=== PATIENT | female | born 1930 | race Caucasian/White ===

== ENCOUNTER 2017-01-22 15:02 | Inpatient (IN) ==
[2017-01-22] MEDS ORDERED: ONDANSETRON 4 MG/2 ML INJECTION IVP ONE (15:25)
--- NOTE | 2017-01-22 15:26 | Emergency Department Report ---
General Adult HPI - General Chief complaint: Nausea/Vomiting/Diarrhea Stated complaint: flu like symptoms Time Seen by Provider: 01/22/17 15:15 Source: patient, family Mode of arrival: wheelchair Limitations: no limitations - History of Present Illness HPI narrative: 86-year-old female presents to the emergency department with a chief complaint of diarrhea and generalized weakness. Patient noted onset of symptoms approximately 3 days ago. She states she has had multiple episodes of watery diarrhea without blood each day. She denies any trauma, travel, poorly prepared food, or recent antibiotic use. Patient states she has chronic abdominal discomfort which is present at baseline. It is not changed in nature or characteristic. She has no other complaints or associated symptoms. She was at home when her symptoms began. Symptoms have been persistent in nature since onset. - Related Data Home Medications Medication Instructions Recorded Confirmed Calcium Carbonate/Vitamin D3 1 each PO NOON 09/12/16 01/22/17 [Calcium 600-Vit D3 800 Tablet] Carbidopa/Levodopa [Sinemet Cr 1 each PO NOON 09/12/16 01/22/17 25-100 Tablet] ClonazePAM [Klonopin] 0.5 mg PO HS 09/12/16 01/22/17 Donepezil HCl [Aricept] 10 mg PO HS 09/12/16 01/22/17 Furosemide [Lasix] 20 mg PO DAILY 09/12/16 01/22/17 Levothyroxine Sodium 75 mcg PO DAILY 09/12/16 01/22/17 Lutein 20 mg PO DAILY 09/12/16 01/22/17 Melatonin 5 mg PO HS 09/12/16 01/22/17 Metoprolol Succinate (XL) [Toprol 25 mg PO DAILY 09/12/16 01/22/17 Xl] Multivitamin [Multivitamins] 1 each PO DAILY 09/12/16 01/22/17 Omeprazole 20 mg PO DAILY 09/12/16 01/22/17 Potassium Chloride [K-Dur] 5 meq PO DAILY 09/12/16 01/22/17 Simvastatin [Zocor] 10 mg PO HS 09/12/16 01/22/17 Topiramate 25 mg PO NOON 09/12/16 01/22/17 Warfarin Sodium [Coumadin] 4 mg PO SUTUTHSA 09/12/16 01/22/17 Warfarin [Coumadin] 2.5 mg PO MOWEFR 09/12/16 01/22/17 Gabapentin 300 mg PO TID 01/08/17 01/22/17 Citalopram [Celexa] 20 mg PO NOON 01/22/17 01/22/17 Duloxetine [Cymbalta] 60 mg PO BID 01/22/17 01/22/17 Ondansetron [Zofran Odt] 4 mg PO Q6HR PRN 01/22/17 01/22/17 Sucralfate [Carafate] 1 gm PO BID 01/22/17 01/22/17 Previous Rx's Medication Instructions Recorded Hydrocodone/APAP 5/325 [[place] 1 tab PO Q6H PRN #12 tab 01/08/17 5/325] Allergies Allergy/AdvReac Type Severity Reaction Status Date / Time cephalexin Allergy Unknown Verified 01/22/17 15:46 propoxyphene Allergy Verified 01/22/17 15:46 [From Darvocet-N] Sulfa (Sulfonamide Allergy Hives Verified 01/22/17 15:46 Antibiotics) Tetanus Vaccines and Toxoid Allergy Verified 01/22/17 15:46 Review of Systems Constitutional: Reports: weakness (Generalized). Denies: fever, chills Eyes: Denies: eye pain, vision change ENT: Denies: ear pain, throat pain Cardiovascular: Denies: chest pain, palpitations Respiratory: Denies: cough, dyspnea Gastrointestinal: Reports: abdominal pain (chronic), diarrhea. Denies: nausea, vomiting Genitourinary: Denies: urgency, dysuria Musculoskeletal: Denies: back pain, arthralgia Integumentary: Denies: erythema, rash Neurological: Denies: headache, numbness Psychiatric: Denies: anxiety, depression Endocrine: Denies: fatigue, heat or cold intolerance Hematological/Lymphatic: Denies: easy bleeding, easy bruising Allergic/Immunologic: Denies: facial swelling, urticaria PFSH Patient Stated Medical History Dementia Yes Migraine Yes Parkinson's Disease Yes Cataracts Yes Macular Degeneration Yes Congestive Heart Failure Yes Hypertension Yes Gastroesophageal Reflux Yes Disease Hiatal Hernia Yes Hx Incontinence Yes Anemia Yes: receives iron infusions Depression Yes Clinic Medical History Diarrhea (Acute Medical) Weakness (Acute Medical) Dehydration (Acute Medical) Abdominal pain (Inactive Medical) Nausea (Inactive Medical) Surgical History: appendectomy. right mastectomy. pacemaker placement. right TKA. right ISSA. right shoulder surgery Family History: Reviewed and Non-contributory. - Social History Smoking status: Former smoker Substance use type: does not use Alcohol intake frequency: does not drink Physical Exam - Limitations Limitations: no limitations - General General appearance: alert, in no apparent distress - Normal Exams: Head:: Normocephalic without trauma Eyes:: Pupils are PERRLA w/ EOMI, No scleral icterus, irritation, or foreign bodies noted ENMT:: No facial trauma, nasal exudates, pharyngeal erythema, or exudates are noted Dental: No fractured, loose, or missing teeth noted Neck:: Full range of motion, without adenopathy, JVD, bruits or thyromegaly Chest/Respirations:: Clear all travis, with good airflow, and symmetry bilaterally Cardiovascular:: Regular rate and rhythm, without murmur or gallop, Pulses 2+ all extremities, capillary refill, <2 seconds all extremities Abdomen:: Bowel sounds positive, soft, non-tender, non-distended, no hepatosplenomegaly, masses or bruits noted (Rectal Exam - + hemorrhoid on exam. Hemorrhoid is noted to have scant amount of bright red blood on the actual hemorrhoid which is tender to palpation and nonthrombosed.) Lymphatic:: No lymphadenopathy, or lymphedema noted Musculoskeletal:: No tenderness, or deformity noted, good range of motion, all extremities Integumentary:: No rashes, hives, or bruising noted, hair and nails, without abnormality Neurological:: Patient is alert, and oriented, cranial nerves, motor/sensory/ cerebellar, exams w/o gross deficits, to observation Psychiatric:: Patient exhibits, appropriate attention, emotion and affect Course Vital Signs Temperature 97.9 F 01/22/17 15:05 Pulse Rate 73 01/22/17 15:05 Respiratory Rate 18 01/22/17 15:05 Blood Pressure 131/68 01/22/17 15:05 Pulse Oximetry 99 01/22/17 15:05 Temperature 97.8 F 01/23/17 12:00 Pulse Rate 73 01/23/17 12:00 Respiratory Rate 20 01/23/17 12:00 Blood Pressure 116/69 01/23/17 12:00 Pulse Oximetry 95 01/23/17 12:00 Medical Decision Making - [facility] Narrative Medical decision making narrative: Labs / imaging were discussed in detail with the patient and family and questions are answered. Patient is a do not resuscitate. Patient was given gentle IV hydration in the emergency department with antiemetic medication with improvement of symptoms. Patient has had multiple colonoscopies in the past without any acute findings. Patient was noted to have hemorrhoids on rectal exam with a trace of faint red blood from the non-thrombosed hemorrhoid. Patient is generally weak and dehydrated. Patient is discussed with Dr. Cardoza from the hospitalist service will be admitted to her service for hydration and monitoring of hemoglobin and hematocrit. There is no life-threatening bleed currently present. Dr. Cardoza will hold the Coumadin at this time and reverse if patient should become or appear to be becoming unstable. Dr. Cardoza is in agreement with the current plan of management. Patient is admitted to the hospital in improved condition. No further orders from accepting physician who is in agreement with the current plan of management. Patient is admitted to the hospital in stable condition. Patient and family are in agreement with the current plan of management. - Differential Diagnosis Viral syndrome, Gastroenteritis, hemorrhoids, dehydration, met. process - Lab Data Result diagrams: 01/23/17 04:30 01/23/17 04:30 Lab Results 01/22/17 01/22/17 01/22/17 Range/Units 15:36 15:36 15:36 WBC 5.3 (4.5-11.0) T/MM3 RBC 3.28 L (4.00-5.20) M/MM3 Hgb 10.0 L (12-16) GM/DL Hct 30.8 L (36-46) % MCV 93.9 (80-100) UM3 MCH 30.5 (26-34) UUG MCHC 32.5 (31-37) GM/DL RDW Std Deviation 49.2 (36.9-50.2) FL Plt Count 217 (130-400) T/MM3 MPV 10.8 (9.4-12.4) UM3 Immature Gran % (Auto) 0.2 (0.0-0.5) % Neut % (Auto) 61.9 (33-66) % Lymph % (Auto) 28.0 (23-45) % [place] % (Auto) 8.6 (0-9.0) % Eos % (Auto) 1.1 (0-4) % Baso % (Auto) 0.2 (0-2) % Neut # (Auto) 3.3 (1.8-7.7) T/MM3 Lymph # (Auto) 1.5 (1-4.8) T/MM3 [place] # (Auto) 0.5 (0-0.8) T/MM3 Eos # (Auto) 0.1 (0-0.5) T/MM3 Baso # (Auto) 0.0 (0-0.2) T/MM3 Abs Immat Gran (auto) 0.01 (0.00-0.03) T/MM3 INR 3.72 H (0.99-1.21) Turbidity < 20 (0-20) Sodium 143 (134-144) MEQ/L Potassium 4.1 (3.6-5) MEQ/L Chloride 104 (98-107) MEQ/L Carbon Dioxide 28 (22-30) MEQ/L Anion Gap 11 (5-15) MEQ/L BUN 25.0 H (7-17) MG/DL Creatinine 0.9 (0.7-1.2) MG/DL GFR Calculation 59 BUN/Creatinine Ratio 28 H (6-26) RATIO Glucose 107 (65-110) MG/DL Calculated Osmolality 279 (261-280) MOSM/KG Calcium 8.9 (8.4-10.2) MG/DL Phosphorus (2.5-4.5) MG/DL Magnesium (1.6-2.3) MG/DL Total Bilirubin 0.30 (0.20-1.30) MG/DL Icterus Index < 2 (0-7) AST 24 (14-36) U/L ALT 32 (9-52) U/L Alkaline Phosphatase 94 (38-126) U/L Troponin I < 0.012 (0-0.12) ng/ml Total Protein 6.8 (6.3-8.2) G/DL Albumin 3.8 (3.5-5.0) G/DL Globulin 3.0 (2.4-3.6) G/DL Albumin/Globulin Ratio 1.3 (1.1-2.2) RATIO Lipase 86 (23-300) U/L Specimen Hemolysis < 15 (0-25) Ur Collection Type Urine Color (YELLOW) Urine Clarity Urine pH (5.0-8.0) Ur Specific [place] (1.015-1.025) Urine Protein (NEGATIVE) Urine Glucose (UA) (NEGATIVE) Urine Ketones (NEGATIVE) Urine Occult Blood (NEGATIVE) Urine Nitrate (NEGATIVE) Urine Bilirubin (NEGATIVE) Urine Urobilinogen (NORMAL) EU/DL Ur Leukocyte Esterase (NEGATIVE) Urinalysis Comment Stool Occult Blood Influenza Type A (PCR) (Negative) Influenza Type B (PCR) (Negative) Blood Type Antibody Screen Crossmatch (AHG) 01/22/17 01/22/17 01/22/17 Range/Units 15:36 16:02 16:45 WBC (4.5-11.0) T/MM3 RBC (4.00-5.20) M/MM3 Hgb (12-16) GM/DL Hct (36-46) % MCV (80-100) UM3 MCH (26-34) UUG MCHC (31-37) GM/DL RDW Std Deviation (36.9-50.2) FL Plt Count (130-400) T/MM3 MPV (9.4-12.4) UM3 Immature Gran % (Auto) (0.0-0.5) % Neut % (Auto) (33-66) % Lymph % (Auto) (23-45) % [place] % (Auto) (0-9.0) % Eos % (Auto) (0-4) % Baso % (Auto) (0-2) % Neut # (Auto) (1.8-7.7) T/MM3 Lymph # (Auto) (1-4.8) T/MM3 [place] # (Auto) (0-0.8) T/MM3 Eos # (Auto) (0-0.5) T/MM3 Baso # (Auto) (0-0.2) T/MM3 Abs Immat Gran (auto) (0.00-0.03) T/MM3 INR (0.99-1.21) Turbidity (0-20) Sodium (134-144) MEQ/L Potassium (3.6-5) MEQ/L Chloride (98-107) MEQ/L Carbon Dioxide (22-30) MEQ/L Anion Gap (5-15) MEQ/L BUN (7-17) MG/DL Creatinine (0.7-1.2) MG/DL GFR Calculation BUN/Creatinine Ratio (6-26) RATIO Glucose (65-110) MG/DL Calculated Osmolality (261-280) MOSM/KG Calcium (8.4-10.2) MG/DL Phosphorus 3.6 (2.5-4.5) MG/DL Magnesium 2.0 (1.6-2.3) MG/DL Total Bilirubin (0.20-1.30) MG/DL Icterus Index (0-7) AST (14-36) U/L ALT (9-52) U/L Alkaline Phosphatase (38-126) U/L Troponin I (0-0.12) ng/ml Total Protein (6.3-8.2) G/DL Albumin (3.5-5.0) G/DL Globulin (2.4-3.6) G/DL Albumin/Globulin Ratio (1.1-2.2) RATIO Lipase (23-300) U/L Specimen Hemolysis (0-25) Ur Collection Type Urine, catheter Urine Color Yellow (YELLOW) Urine Clarity Clear Urine pH 5.0 (5.0-8.0) Ur Specific [place] 1.020 (1.015-1.025) Urine Protein Negative (NEGATIVE) Urine Glucose (UA) Negative (NEGATIVE) Urine Ketones Negative (NEGATIVE) Urine Occult Blood Negative (NEGATIVE) Urine Nitrate Negative (NEGATIVE) Urine Bilirubin Negative (NEGATIVE) Urine Urobilinogen 0.2 (NORMAL) EU/DL Ur Leukocyte Esterase Negative (NEGATIVE) Urinalysis Comment Microscopic not ind. Stool Occult Blood Influenza Type A (PCR) Negative (Negative) Influenza Type B (PCR) Negative (Negative) Blood Type Antibody Screen Crossmatch (AHG) 01/23/17 01/23/17 01/23/17 Range/Units 04:30 04:30 04:30 WBC 3.5 L (4.5-11.0) T/MM3 RBC 2.69 L (4.00-5.20) M/MM3 Hgb 8.1 L D (12-16) GM/DL Hct 25.3 L D (36-46) % MCV 94.1 (80-100) UM3 MCH 30.1 (26-34) UUG MCHC 32.0 (31-37) GM/DL RDW Std Deviation 48.4 (36.9-50.2) FL Plt Count 181 (130-400) T/MM3 MPV 10.7 (9.4-12.4) UM3 Immature Gran % (Auto) 0.0 (0.0-0.5) % Neut % (Auto) 47.9 (33-66) % Lymph % (Auto) 35.7 (23-45) % [place] % (Auto) 11.9 H (0-9.0) % Eos % (Auto) 4.2 H (0-4) % Baso % (Auto) 0.3 (0-2) % Neut # (Auto) 1.7 L (1.8-7.7) T/MM3 Lymph # (Auto) 1.3 (1-4.8) T/MM3 [place] # (Auto) 0.4 (0-0.8) T/MM3 Eos # (Auto) 0.2 (0-0.5) T/MM3 Baso # (Auto) 0.0 (0-0.2) T/MM3 Abs Immat Gran (auto) 0.00 (0.00-0.03) T/MM3 INR 4.04 H (0.99-1.21) Turbidity < 20 (0-20) Sodium 141 (134-144) MEQ/L Potassium 3.8 (3.6-5) MEQ/L Chloride 108 H (98-107) MEQ/L Carbon Dioxide 29 (22-30) MEQ/L Anion Gap 4 L (5-15) MEQ/L BUN 21.0 H (7-17) MG/DL Creatinine 0.9 (0.7-1.2) MG/DL GFR Calculation 59 BUN/Creatinine Ratio 23 (6-26) RATIO Glucose 96 (65-110) MG/DL Calculated Osmolality 274 (261-280) MOSM/KG Calcium 8.1 L D (8.4-10.2) MG/DL Phosphorus (2.5-4.5) MG/DL Magnesium (1.6-2.3) MG/DL Total Bilirubin (0.20-1.30) MG/DL Icterus Index < 2 (0-7) AST (14-36) U/L ALT (9-52) U/L Alkaline Phosphatase (38-126) U/L Troponin I (0-0.12) ng/ml Total Protein (6.3-8.2) G/DL Albumin (3.5-5.0) G/DL Globulin (2.4-3.6) G/DL Albumin/Globulin Ratio (1.1-2.2) RATIO Lipase (23-300) U/L Specimen Hemolysis < 15 (0-25) Ur Collection Type Urine Color (YELLOW) Urine Clarity Urine pH (5.0-8.0) Ur Specific [place] (1.015-1.025) Urine Protein (NEGATIVE) Urine Glucose (UA) (NEGATIVE) Urine Ketones (NEGATIVE) Urine Occult Blood (NEGATIVE) Urine Nitrate (NEGATIVE) Urine Bilirubin (NEGATIVE) Urine Urobilinogen (NORMAL) EU/DL Ur Leukocyte Esterase (NEGATIVE) Urinalysis Comment Stool Occult Blood Influenza Type A (PCR) (Negative) Influenza Type B (PCR) (Negative) Blood Type Antibody Screen Crossmatch (AHG) 01/23/17 01/23/17 Range/Units 08:34 10:55 WBC (4.5-11.0) T/MM3 RBC (4.00-5.20) M/MM3 Hgb (12-16) GM/DL Hct (36-46) % MCV (80-100) UM3 MCH (26-34) UUG MCHC (31-37) GM/DL RDW Std Deviation (36.9-50.2) FL Plt Count (130-400) T/MM3 MPV (9.4-12.4) UM3 Immature Gran % (Auto) (0.0-0.5) % Neut % (Auto) (33-66) % Lymph % (Auto) (23-45) % [place] % (Auto) (0-9.0) % Eos % (Auto) (0-4) % Baso % (Auto) (0-2) % Neut # (Auto) (1.8-7.7) T/MM3 Lymph # (Auto) (1-4.8) T/MM3 [place] # (Auto) (0-0.8) T/MM3 Eos # (Auto) (0-0.5) T/MM3 Baso # (Auto) (0-0.2) T/MM3 Abs Immat Gran (auto) (0.00-0.03) T/MM3 INR (0.99-1.21) Turbidity (0-20) Sodium (134-144) MEQ/L Potassium (3.6-5) MEQ/L Chloride (98-107) MEQ/L Carbon Dioxide (22-30) MEQ/L Anion Gap (5-15) MEQ/L BUN (7-17) MG/DL Creatinine (0.7-1.2) MG/DL GFR Calculation BUN/Creatinine Ratio (6-26) RATIO Glucose (65-110) MG/DL Calculated Osmolality (261-280) MOSM/KG Calcium (8.4-10.2) MG/DL Phosphorus (2.5-4.5) MG/DL Magnesium (1.6-2.3) MG/DL Total Bilirubin (0.20-1.30) MG/DL Icterus Index (0-7) AST (14-36) U/L ALT (9-52) U/L Alkaline Phosphatase (38-126) U/L Troponin I (0-0.12) ng/ml Total Protein (6.3-8.2) G/DL Albumin (3.5-5.0) G/DL Globulin (2.4-3.6) G/DL Albumin/Globulin Ratio (1.1-2.2) RATIO Lipase (23-300) U/L Specimen Hemolysis (0-25) Ur Collection Type Urine Color (YELLOW) Urine Clarity Urine pH (5.0-8.0) Ur Specific [place] (1.015-1.025) Urine Protein (NEGATIVE) Urine Glucose (UA) (NEGATIVE) Urine Ketones (NEGATIVE) Urine Occult Blood (NEGATIVE) Urine Nitrate (NEGATIVE) Urine Bilirubin (NEGATIVE) Urine Urobilinogen (NORMAL) EU/DL Ur Leukocyte Esterase (NEGATIVE) Urinalysis Comment Stool Occult Blood Positive A Influenza Type A (PCR) (Negative) Influenza Type B (PCR) (Negative) Blood Type O Positive Antibody Screen Negative Crossmatch (AHG) See Detail - Radiology Data CXR - No acute processes. - EKG Data EKG #1 EKG results narrative: Electronic ventricular pacemaker. 69 bpm. No STEMI. Disposition Clinical Impression: Dehydration, External hemorrhoid Diarrhea Qualifiers: Diarrhea type: unspecified type Qualified Code(s): R19.7 - Diarrhea, unspecified Anemia Qualifiers: Anemia type: unspecified type Qualified Code(s): D64.9 - Anemia, unspecified Disposition: [address] [facility] Condition: Stable Time of Disposition: 17:30 (Admit. Dr. Cardoza. ) - Seen By: physician
[2017-01-22] MEDS: SALINE FLUSH 10ml SYRINGE IVF PRN (15:51)
--- NOTE | 2017-01-22 16:31 | XRay Report ---
Indication: gen. weakness PROCEDURE: XR chest 1V: Encounter: Initial Comparison: None Findings: Left cardiac pacemaker defibrillator. Right axillary surgical clips. Lungs are mildly hyperinflated but clear. No consolidative pneumonia, pleural effusion or pneumothorax. Overlying cardiac monitoring leads. Cardiac silhouette is mildly enlarged. Mediastinal contours and pulmonary vascularity are within normal limits. Chronic right rotator cuff tear. Degenerative change and scoliosis in the thoracolumbar spine. Impression: No focal pneumonia or congestive failure. .
--- NOTE | 2017-01-22 18:45 | History & Physical Report ---
History of Present Illness Date: 01/22/17 Chief complaint: diarrhea and weakness HPI: Patient is an 86-year-old female who was brought to the emergency room by her [id number] due to diarrhea 3 days and progressive weakness. Patient lives with her son and [id number] and is usually mostly independent, however, she moved in with them because she was having frequent falls. She complains of some stomach pain. No vomiting. Some nausea. She's had has a piece of toast and applesauce today. She's had multiple bouts of diarrhea today and later on in the day daughter noticed bright red blood with the stools. Thinks this is likely related to her hemorrhoids. Lomnamdn-ly-rod also mentions that patient has severe depression and has been struggling with this the last several weeks. She had a panic attack today. She also gets periodic IV iron infusions through Dr. Dunn's office. Last infusion was in September. She has an appointment in his office tomorrow. In the ED she had a CBC with hemoglobin of 10, INR 3.72, essentially normal CMP with the exception of an elevated BUN at 25. Troponin was negative, lipase was normal. UA was negative as well as influenza A and B. Chest x-ray was essentially negative and EKG showed nothing acute. Review of Systems All systems PM: 10-point ROS was reviewed, no additional remarkable complaints except - Constitutional Constitutional: Present: weakness - Gastrointestinal Gastrointestinal: Present: abdominal pain, change in bowel habits, diarrhea, hematochezia, nausea - Psychiatric Psychiatric: Present: depression PFSH Medical History Hypothyroidism Macular degeneration Alzheimer's dementia Chronic Anemia-iron deficiency Chronic anticoagulation Atrial fibrillation Benign essential hypertension History of breast cancer Coronary artery disease Chronic back pain Depression Essential tremor Generalized anxiety disorder Parkinson's disease CHF History of DVT Peripheral neuropathy Cardiac pacemaker Surgical History: appendectomy. right mastectomy. pacemaker placement. right TKA. right ISSA. right shoulder surgery. Tonsillectomy. Rotator cuff surgery right shoulder. Lipoma removed from left side of neck. 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 Medications Home Medications Medication Instructions Recorded Confirmed Type Calcium Carbonate/Vitamin D3 1 each PO NOON 09/12/16 01/22/17 History [Calcium 600-Vit D3 800 Tablet] Carbidopa/Levodopa [Sinemet Cr 1 each PO NOON 09/12/16 01/22/17 History 25-100 Tablet] ClonazePAM [Klonopin] 0.5 mg PO HS 09/12/16 01/22/17 History Donepezil HCl [Aricept] 10 mg PO HS 09/12/16 01/22/17 History Furosemide [Lasix] 20 mg PO DAILY 09/12/16 01/22/17 History Levothyroxine Sodium 75 mcg PO DAILY 09/12/16 01/22/17 History Lutein 20 mg PO DAILY 09/12/16 01/22/17 History Melatonin 5 mg PO HS 09/12/16 01/22/17 History Metoprolol Succinate (XL) [Toprol 25 mg PO DAILY 09/12/16 01/22/17 History Xl] Multivitamin [Multivitamins] 1 each PO DAILY 09/12/16 01/22/17 History Omeprazole 20 mg PO DAILY 09/12/16 01/22/17 History Potassium Chloride [K-Dur] 5 meq PO DAILY 09/12/16 01/22/17 History Simvastatin [Zocor] 10 mg PO HS 09/12/16 01/22/17 History Topiramate 25 mg PO NOON 09/12/16 01/22/17 History Warfarin Sodium [Coumadin] 4 mg PO SUTUTHSA 09/12/16 01/22/17 History Warfarin [Coumadin] 2.5 mg PO MOWEFR 09/12/16 01/22/17 History Gabapentin 300 mg PO TID 01/08/17 01/22/17 History Citalopram [Celexa] 20 mg PO NOON 01/22/17 01/22/17 History Duloxetine [Cymbalta] 60 mg PO BID 01/22/17 01/22/17 History Ondansetron [Zofran Odt] 4 mg PO Q6HR PRN 01/22/17 01/22/17 History Sucralfate [Carafate] 1 gm PO BID 01/22/17 01/22/17 History Allergies Allergy/AdvReac Type Severity Reaction Status Date / Time cephalexin Allergy Unknown Verified 01/22/17 15:46 propoxyphene Allergy Verified 01/22/17 15:46 [From Darvocet-N] Sulfa (Sulfonamide Allergy Hives Verified 01/22/17 15:46 Antibiotics) Tetanus Vaccines and Toxoid Allergy Verified 01/22/17 15:46 Exam Vital Signs: Temperature 97.9 F 01/22/17 15:05 Pulse Rate 90 01/22/17 17:30 Respiratory Rate 22 01/22/17 17:00 Blood Pressure 117/66 01/22/17 17:30 Pulse Oximetry 100 01/22/17 17:30 - Constitutional Present: no acute distress, well nourished, well developed - Routine HEENT Exam Head: Present: normocephalic, atraumatic Eye: Present: EOMI, PERRL ENT: Present: mucous membranes dry, oropharynx clear, dentition normal (missing some teeth) - Routine Neck Exam Present: supple. Absent: lymphadenopathy, thyromegaly - Routine Respiratory Exam Present: CTA bilaterally. Absent: wheezes - Routine Cardiovascular Exam Present: RRR, S1, S2. Absent: murmur - Routine Abdominal Exam Present: soft, normoactive bowel sounds, tenderness (mild tenderness epigastric region), non distended - Routine Extremities Exam Present: no edema, normal capillary refill - Routine Skin Exam Present: dry, pallor, warm - Routine Neurological Exam Present: alert, oriented X3, CN II-XII intact - Routine Psychiatric Exam Present: normal affect, cooperative Results - Labs CBC & Chem 7: 01/22/17 15:36 01/22/17 15:36 Labs: Laboratory Tests 01/22/17 15:36 INR 3.72 H Laboratory Tests 01/22/17 16:02 Influenza Type A (PCR) Negative Influenza Type B (PCR) Negative Laboratory Tests 01/22/17 15:36 AST 24 ALT 32 Alkaline Phosphatase 94 Troponin I < 0.012 Lipase 86 UA negative - Imaging and Cardiology Chest x-ray Additional comments: Findings: Left cardiac pacemaker defibrillator. Right axillary surgical clips. Lungs are mildly hyperinflated but clear. No consolidative pneumonia, pleural effusion or pneumothorax. Overlying cardiac monitoring leads. Cardiac silhouette is mildly enlarged. Mediastinal contours and pulmonary vascularity are within normal limits. Chronic right rotator cuff tear. Degenerative change and scoliosis in the thoracolumbar spine. Impression: No focal pneumonia or congestive failure. Assessment and Plan (1) Diarrhea Current visit: Yes Status: Acute (2) Weakness Current visit: Yes Status: Acute (3) Dehydration Current visit: Yes Status: Acute Assessment and Plan: Assessment Diarrhea Weakness Dehydration Hypothyroidism Macular degeneration Alzheimer's dementia Chronic Anemia-iron deficiency Chronic anticoagulation Atrial fibrillation Benign essential hypertension History of breast cancer Coronary artery disease Chronic back pain Depression Essential tremor Generalized anxiety disorder Parkinson's disease CHF History of DVT Peripheral neuropathy Cardiac pacemaker Plan Admit as observation under hospitalist service (Dr. Cardoza, attending) for rehydration and further monitoring. Continue IV fluids cautiously given her CHF. Patient may take her home medications while in observation. Coumadin will serve as her DVT prophylaxis. Pharmacy to manage her INR. Consider psych consult for anxiety/depression and medication evaluation given that she is on 120 mg of Cymbalta and citalopram 20 mg daily. Concern for serotonin syndrome. Check GI panel to rule out pathogens. Patient wishes her CODE STATUS to be DO NOT RESUSCITATE. Will discuss case and further plan of care with Dr. Cardoza. Care to return to Dr. Chatman following discharge. 01/22/2017-I reviewed this chart, the patient history, and the COAL DUMPING EQUIPMENT OPERATOR's/PA's documented findings as above. We discussed and formulated the assessment and plan as above with the additions below.-Dr. Cardoza The patient was seen this evening in her room. She complains of watery diarrhea for a few days. She's also had abdominal pain but states she thinks that's from depression. She also has a hiatal hernia. She has not had any vomiting. She states she is eating and drinking okay. She states she has been feeling very weak the past few days while she's had diarrhea. She has had no recent falls. She denies any fevers, chills or sweats. She states she feels very depressed and states that she has multiple family members with depression. She has never seen a psychiatrist. She states she has not been hospitalized for depression in the past. On exam the patient is alert and in no acute distress. HEENT reveals sclerae to be anicteric. Or faxes moist. Neck is supple. Chest is clear to auscultation. Abdomen is soft and nontender with positive bowel sounds. Extremities are free of edema. Skin is warm and dry. Impression and plan Most likely the patient has generalized weakness related to dehydration from her diarrhea. We'll give cautious IV fluids and check a GI panel. We'll consult psychiatry regarding depression and to see if any med changes may be beneficial. Will advance diet as tolerated. Hold Coumadin for now regarding bright red blood in her stools. She has been noted to have hemorrhoids. She states she has a family history of colon cancer and she has had many colonoscopies in the past and they were all normal. We'll consult PT and OT regarding weakness. Hopefully, can dismiss to home tomorrow. DVT Prophylaxis: Coumadin GI Prophylaxis: other (patient takes omeprazole) Resuscitation Status: Do Not Resuscitate Hospital Course Summary Disclaimer: The visit summary below is not to be considered part of the above Progress Note. Hospital Course: Assessment Diarrhea Weakness Dehydration Hypothyroidism Macular degeneration Alzheimer's dementia Chronic Anemia-iron deficiency Chronic anticoagulation Atrial fibrillation Benign essential hypertension History of breast cancer Coronary artery disease Chronic back pain Depression Essential tremor Generalized anxiety disorder Parkinson's disease CHF History of DVT Peripheral neuropathy Cardiac pacemaker 01/22/17 hospital admission for observation Admit as observation under hospitalist service (Dr. Cardoza, attending) for rehydration and further monitoring. Continue IV fluids cautiously given her CHF. Patient may take her home medications while in observation. Coumadin will serve as her DVT prophylaxis. Pharmacy to manage her INR. Consider psych consult for anxiety/depression and medication evaluation given that she is on 120 mg of Cymbalta and citalopram 20 mg daily. Concern for serotonin syndrome. Check GI panel to rule out pathogens. Patient wishes her CODE STATUS to be DO NOT RESUSCITATE. Will discuss case and further plan of care with Dr. Cardoza.
[2017-01-22 18:56] VITALS: BMI 24.5
[2017-01-22] MEDS ORDERED: WARFARIN - PHARMACY CONSULT MC ONE ×2 (19:12→19:54)
[2017-01-22] MEDS ORDERED: ONDANSETRON ODT 4 MG TABLET PO PRN (19:37)
[2017-01-22] MEDS ORDERED: WARFARIN 2.5 MG TABLET PO SCH (19:45)
[2017-01-22] MEDS ORDERED: HYDROCODONE/APAP 5mg/325mg TABLET PO PRN (19:59)
[2017-01-22] MEDS: NS 1,000 ML IV SCH (20:00)
[2017-01-22] MEDS ORDERED: FALL RISK - PHARMACY CONSULT XX ONE (20:04)
[2017-01-22] MEDS ORDERED: SUCRALFATE 1 GM TABLET PO SCH (21:00)
[2017-01-22] MEDS: DONEPEZIL 10 MG TABLET PO SCH (22:58)
[2017-01-22] MEDS: DULOXETINE 60 MG CAPSULE PO SCH (22:58)
[2017-01-22] MEDS: GABAPENTIN 300 MG CAPSULE PO SCH (22:58)
[2017-01-22] MEDS: SIMVASTATIN 10 MG TABLET PO SCH (22:59)
[2017-01-22] MEDS: MELATONIN 5 MG TABLET PO SCH (22:59)
[2017-01-23] MEDS: NS 1,000 ML IV SCH ×2 (06:13→21:18)
[2017-01-23] MEDS: DULOXETINE 60 MG CAPSULE PO SCH (08:49)
[2017-01-23] MEDS: LUTEIN 20 MG CAPSULE PO SCH (08:50)
[2017-01-23] MEDS: FUROSEMIDE 20 MG TABLET PO SCH (08:50)
[2017-01-23] MEDS: GABAPENTIN 300 MG CAPSULE PO SCH ×2 (08:50→20:22)
[2017-01-23] MEDS: MULTI-VITAMIN PLAIN TABLET PO SCH (08:51)
[2017-01-23] MEDS: SUCRALFATE 1 GM TABLET PO SCH ×2 (08:55→22:05)
[2017-01-23] MEDS ORDERED: OMEPRAZOLE 20 MG CAPSULE PO SCH (09:00)
[2017-01-23] MEDS: LEVOTHYROXINE 75 MCG TABLET PO SCH (09:03)
--- NOTE | 2017-01-23 09:23 | Pharmacy Consult ---
Pharmacy Consult-Warfarin - Laboratory Information 01/23/17 04:30 INR 4.04 H - Consult Information COUMADIN CONSULT (Initial): Dx: A. Fib Baseline INR = 4.04. Will give no Warfarin today. NOTE MADE IN "DOCUMENT" IN EMR. Thank you.
[2017-01-23] MEDS ORDERED: PHYTONADIONE (Adult) INJ 5 MG in NS 50 ML IV ONE ×2 (09:57→10:23)
[2017-01-23] MEDS ORDERED: DiphenhydrAMINE 25 MG CAPSULE PO ONE (09:59)
[2017-01-23] MEDS ORDERED: NS FLUSH BAG 500ml IV PRN ×4 (09:59→18:24)
[2017-01-23] MEDS: TOPIRAMATE 25 MG TABLET PO SCH (12:37)
[2017-01-23] MEDS: CALCIUM 600 + VIT D 400 TABLET PO SCH (12:37)
--- NOTE | 2017-01-23 12:40 | General Surgery Consult Note ---
Consult date: 01/23/17 Attending Physician: MD Dr. Shaun Espinoza MD, Dr. Tamara KENDALL Reason for consult: other (Anemia, GI Bleed) [facility] Medical History Right Breast Cancer HTN Dementia Parkinson's CHF GERD Depression Hiatal Hernia Macular Degeneration Surgical History: appendectomy. right mastectomy. pacemaker placement. right TKA. right ISSA. right shoulder surgery Family History: Father-alcoholism, depression, colon cancer Mother - lymphoma Sister-Alzheimer's Sister-colon cancer - Social History Smoking status: Former smoker Alcohol intake frequency: does not drink Household members: family (son and [id number]) Medications Home Medications Medication Instructions Recorded Confirmed Type Calcium Carbonate/Vitamin D3 1 each PO NOON 09/12/16 01/22/17 History [Calcium 600-Vit D3 800 Tablet] Carbidopa/Levodopa [Sinemet Cr 1 each PO NOON 09/12/16 01/22/17 History 25-100 Tablet] ClonazePAM [Klonopin] 0.5 mg PO HS 09/12/16 01/22/17 History Donepezil HCl [Aricept] 10 mg PO HS 09/12/16 01/22/17 History Furosemide [Lasix] 20 mg PO DAILY 09/12/16 01/22/17 History Levothyroxine Sodium 75 mcg PO DAILY 09/12/16 01/22/17 History Lutein 20 mg PO DAILY 09/12/16 01/22/17 History Melatonin 5 mg PO HS 09/12/16 01/22/17 History Metoprolol Succinate (XL) [Toprol 25 mg PO DAILY 09/12/16 01/22/17 History Xl] Multivitamin [Multivitamins] 1 each PO DAILY 09/12/16 01/22/17 History Omeprazole 20 mg PO DAILY 09/12/16 01/22/17 History Potassium Chloride [K-Dur] 5 meq PO DAILY 09/12/16 01/22/17 History Simvastatin [Zocor] 10 mg PO HS 09/12/16 01/22/17 History Topiramate 25 mg PO NOON 09/12/16 01/22/17 History Warfarin Sodium [Coumadin] 4 mg PO SUTUTHSA 09/12/16 01/22/17 History Warfarin [Coumadin] 2.5 mg PO MOWEFR 09/12/16 01/22/17 History Gabapentin 300 mg PO TID 01/08/17 01/22/17 History Citalopram [Celexa] 20 mg PO NOON 01/22/17 01/22/17 History Duloxetine [Cymbalta] 60 mg PO BID 01/22/17 01/22/17 History Ondansetron [Zofran Odt] 4 mg PO Q6HR PRN 01/22/17 01/22/17 History Sucralfate [Carafate] 1 gm PO BID 01/22/17 01/22/17 History Allergies Allergy/AdvReac Type Severity Reaction Status Date / Time cephalexin Allergy Unknown Verified 01/22/17 15:46 propoxyphene Allergy Verified 01/22/17 15:46 [From Darvocet-N] Sulfa (Sulfonamide Allergy Hives Verified 01/22/17 15:46 Antibiotics) Tetanus Vaccines and Toxoid Allergy Verified 01/22/17 15:46 Review of Systems 10-point ROS: negative except for HPI and the following: - General General: Present: other (weakness) - Gastrointestinal Gastrointestinal: Present: diarrhea, blood in stools - Musculoskeletal Musculoskeletal: Present: joint pain - Psychiatric Psychiatric: Present: depression, panic attacks - Hematologic/Lymphatic Hematologic/Lymphatic: Present: easy bruising, use of blood thinners - Vital Signs Last Vital Signs Temp 97.8 F 01/23/17 12:00 Pulse 73 01/23/17 12:00 Resp 20 01/23/17 12:00 BP 116/69 01/23/17 12:00 Pulse Ox 95 01/23/17 12:00 - Laboratory Result Diagrams: 01/23/17 12:22 01/23/17 04:30 General Surgery Results - Results Labs: 01/23/17 12:22 Hospital Course Summary Disclaimer: The visit summary below is not to be considered part of the above Progress Note. Hospital Course: Assessment Diarrhea Weakness Dehydration Hypothyroidism Macular degeneration Alzheimer's dementia Chronic Anemia-iron deficiency Chronic anticoagulation Atrial fibrillation Benign essential hypertension History of breast cancer Coronary artery disease Chronic back pain Depression Essential tremor Generalized anxiety disorder Parkinson's disease CHF History of DVT Peripheral neuropathy Cardiac pacemaker 01/22/17 hospital admission for observation Admit as observation under hospitalist service (Dr. Cardoza, attending) for rehydration and further monitoring. Continue IV fluids cautiously given her CHF. Patient may take her home medications while in observation. Coumadin will serve as her DVT prophylaxis. Pharmacy to manage her INR. Consider psych consult for anxiety/depression and medication evaluation given that she is on 120 mg of Cymbalta and citalopram 20 mg daily. Concern for serotonin syndrome. Check GI panel to rule out pathogens. Patient wishes her CODE STATUS to be DO NOT RESUSCITATE. Will discuss case and further plan of care with Dr. Cardoza.
--- NOTE | 2017-01-23 13:09 | Consultation ---
DATE OF CONSULTATION 01/23/2017 FINDINGS Mrs. Juan is an 86-year-old female whom I was asked to see today as a result of her finding of progressive anemia and history for rectal bleeding. Upon entering her hospital room, one could "smell" a melanotic stool. Daughter who was present in the room stated that the patient just had a "large bloody stool" . Daughter states that the patient had walked out of the bathroom with "blood on her hands". The patient does have macular degeneration and her visual acuity is limited. Daughter informs me that a couple of weeks ago the patient was seen at our ER facility and was placed on medicine for "ulcers at that time ". A fair amount of the information was obtained from the daughter as well as the patient's electronic medical record and a portion was also obtained from the patient. The patient stated that her "stomach felt unsettled" this morning. She has some component of nausea. She has had, as stated above, a component of some generalized abdominal discomfort. She denies specifically a location for her pain. The patient does have a strong family history for colon cancer within her father and sister. She informs me that it has been perhaps more than 10 years since her last endoscopic evaluation of her colon. She has seen Hematology the past as a result of her history for iron deficiency anemia. Apparently she has been receiving some iron infusions. The patient did not appear to be in acute distress this morning. PAST MEDICAL HISTORY Performed by my nurse practitioner, Filippo Tapia. PAST SURGICAL HISTORY Performed by my nurse practitionerFilippo. MEDICATIONS Performed by my nurse practitionerFilippo. ALLERGIES Performed by my nurse practitionerFilippo. SOCIAL HISTORY Performed by my nurse practitionerFilippo. FAMILY HISTORY Performed by my nurse practitionerFilippo. REVIEW OF SYSTEMS Performed by my nurse practitionerFilippo. PHYSICAL EXAMINATION GENERAL: Mrs. Juan is an 86-year-old female who as above, did not appear to be in acute distress this morning. VITALS: Temperature 97.1. Pulse 69. Respirations 16. Blood pressure 100/66. SaO2 97% on room air. HEENT: Normocephalic. Pupils are equally round and react to light and accommodation. NECK: Supple without lymphadenopathy. CHEST: Clear to auscultation bilaterally. HEART: Regular rate and rhythm. Normal S1, S2, without gallops, murmurs or clicks. ABDOMEN: Palpation of the abdomen reveals it to be soft and nontender. I do not appreciate any evidence for hepatosplenomegaly nor abnormal masses. EXTREMITIES: Without clubbing, cyanosis, or edema. NEURO: Cranial nerves II-XII grossly intact. Patient without focal, motor, or sensory deficits. LABORATORY/RADIOGRAPHIC EVALUATION The patient's hemoglobin yesterday was 10.0. Her hemoglobin today has decreased to 8.1. White count is normal at 3.5. Platelet count is normal at 181. Her mean cell volume is not low as one would expect for microcytic iron deficiency anemia. Mean cell volume was normal at 94.1. INR was obtained this morning and found to be elevated at 4.04. BMP was obtained and found to be essentially within normal limits. ASSESSMENT 86-year-old female with presentation of generalized abdominal discomfort and rectal bleeding. PLAN I would recommend treating the patient empirically for peptic ulcer disease. I do see the patient is on Prilosec. One may wish to place the patient on IV Protonix. Recommend keeping the patient on clear liquids. I do see the patient is on Carafate as well. In regards to her INR, I would try to reverse her coumadinization with vitamin K. I had thought about proceeding with bowel prep today but given the fact she is actively bleeding would recommend that we hold off on initiating any bowel prep at this time. I did inform the patient that once her bleeding has subsided and she is stabilized, I would recommend proceeding with bidirectional endoscopy for further evaluation of her anemia and abdominal pain. I did discuss with the patient and her daughter who was present what an EGD and colonoscopy entailed and its associated risks which include, but are not exclusive of, bleeding and/or perforation requiring surgery. I agree with current management of this patient. She has been typed and crossed for packed RBCs and a give order has been ordered. Additionally, I see that a series of CBCs has also been obtained appropriately. Will continue to follow along with the patient's care. DEENA
--- NOTE | 2017-01-23 14:46 | Progress Note ---
- Date 01/23/17 Subjective: The patient was seen this morning in her room accompanied by her daughter-in- law. The patient stated that she was still feeling weak. She didn't sleep well last night. She has more tremors in her hands today. Her [id number] states that she does not have Parkinson's disease but simply has essential tremors. The patient denied any pain. When I saw her this morning, she had no stools since admission. The patient was not aware of any previous episodes of rectal bleeding, but she has macular degeneration and does not require help from family to go to the bathroom. Yesterday her [id number] noted blood on the seat of her chair, which alerted them to her rectal bleeding. Her daughter-in- law stated that she has had frequent falls at home and has fallen twice since January 13. She has not injured herself in her falls. Her generalized weakness has gradually gotten worse over the past several days while she's had diarrhea. After I left her room, I was notified that she had a large bloody stool. Objective Vital signs: Temperature 97.8 F 01/23/17 12:00 Pulse Rate 69 01/23/17 12:30 Respiratory Rate 21 01/23/17 12:30 Blood Pressure 107/67 01/23/17 12:30 Pulse Oximetry 94 01/23/17 12:30 Height/Weight/BMI: Weight 64.3 kg Comments: GEN-alert, oriented, no acute distress HEENT-sclera anicteric, oropharynx is moist NECK-supple CV-regular rate and rhythm CHEST-clear to auscultation bilaterally ABD-soft, nontender with positive bowel sounds -no Kingsley EXT-no edema NEURO-significant for tremulousness of the upper extremities SKIN-warm and dry and without rashes Results - Labs CBC & Chem 7: 01/23/17 12:22 01/23/17 04:30 Microbiology Results: Hemoglobin on 01/10/2017 was 11.7, last night it was 10, this morning was 8.1. INR this morning is 4.04 up from 3.7 to yesterday. Assessment and Plan (1) Diarrhea Current visit: Yes Status: Acute (2) Weakness Current visit: Yes Status: Acute (3) Dehydration Current visit: Yes Status: Acute Assessment and Plan: Assessment Acute problems Acute blood loss anemia on chronic iron deficiency anemia Rectal bleeding Strong family history of colon cancer Personal history of colon polyps, last colonoscopy about 10 years ago Supratherapeutic INR Watery Diarrhea-resolved Weakness Dehydration Panic attacks, worsening depression Chronic medical problems Hypothyroidism Macular degeneration Alzheimer's dementia Chronic Anemia-iron deficiency Chronic anticoagulation-currently on hold Atrial fibrillation Benign essential hypertension History of breast cancer Coronary artery disease Chronic back pain Depression Essential tremor Generalized anxiety disorder CHF History of DVT/PE Peripheral neuropathy Cardiac pacemaker Plan We'll transfuse 1 unit of blood now and stay 2 units ahead. Transferred to CCU for close monitoring. Vitamin K 10 mg IV to reverse supratherapeutic INR Consult Dr. Chavez for lower GI bleed, he plans for colonoscopy when bleeding has improved. Clear liquids DC pharmacy consult for Coumadin monitoring Discussed with Dr. Dunn, iron panel will be back tomorrow. Likely give IV iron tomorrow. SCDs for DVT prophylaxis Recheck hemoglobin and INR after transfusion Psychiatry consulted regarding depression and panic attacks, and recommendations regarding antidepressants. Repeat CBC, INR, basic metabolic profile tomorrow. Hospital Course Summary Disclaimer: The visit summary below is not to be considered part of the above Progress Note. Hospital Course: Assessment Diarrhea Weakness Dehydration Hypothyroidism Macular degeneration Alzheimer's dementia Chronic Anemia-iron deficiency Chronic anticoagulation Atrial fibrillation Benign essential hypertension History of breast cancer Coronary artery disease Chronic back pain Depression Essential tremor Generalized anxiety disorder Parkinson's disease CHF History of DVT Peripheral neuropathy Cardiac pacemaker 01/22/17 hospital admission for observation Admit as observation under hospitalist service (Dr. Cardoza, attending) for rehydration and further monitoring. Continue IV fluids cautiously given her CHF. Patient may take her home medications while in observation. Coumadin will serve as her DVT prophylaxis. Pharmacy to manage her INR. Consider psych consult for anxiety/depression and medication evaluation given that she is on 120 mg of Cymbalta and citalopram 20 mg daily. Concern for serotonin syndrome. Check GI panel to rule out pathogens. Patient wishes her CODE STATUS to be DO NOT RESUSCITATE. Will discuss case and further plan of care with Dr. Cardoza. 01/22/2017-I reviewed this chart, the patient history, and the EKG MANAGER's/PA's documented findings as above. We discussed and formulated the assessment and plan as above with the additions below.-Dr. Cardoza The patient was seen this evening in her room. She complains of watery diarrhea for a few days. She's also had abdominal pain but states she thinks that's from depression. She also has a hiatal hernia. She has not had any vomiting. She states she is eating and drinking okay. She states she has been feeling very weak the past few days while she's had diarrhea. She has had no recent falls. She denies any fevers, chills or sweats. She states she feels very depressed and states that she has multiple family members with depression. She has never seen a psychiatrist. She states she has not been hospitalized for depression in the past. On exam the patient is alert and in no acute distress. HEENT reveals sclerae to be anicteric. Or faxes moist. Neck is supple. Chest is clear to auscultation. Abdomen is soft and nontender with positive bowel sounds. Extremities are free of edema. Skin is warm and dry. Impression and plan Most likely the patient has generalized weakness related to dehydration from her diarrhea. We'll give cautious IV fluids and check a GI panel. We'll consult psychiatry regarding depression and to see if any med changes may be beneficial. Will advance diet as tolerated. Hold Coumadin for now regarding bright red blood in her stools. She has been noted to have hemorrhoids. She states she has a family history of colon cancer and she has had many colonoscopies in the past and they were all normal. We'll consult PT and OT regarding weakness. Hopefully, can dismiss to home tomorrow.
--- NOTE | 2017-01-23 17:07 | Neuropsychiatric Consult ---
[facility] Date: 01/23/17 Requesting Physician: Julianne Cardoza Reason for Consultation: Depression, anxiety Start Time: 14:40 Stop Time: 15:20 History of Present Illness: Patient is an 86-year-old female who was brought originally to the ED by caregiver ([id number]) d/t diarrhea and progressive weakness x 3 days. She has reportedly had frequent falls. Patient was found to have GI bleed and getting a blood transfusion, and was transferred to CCU today. Psychiatry was consulted for depression and anxiety. When I went to see the patient, she was sleeping soundly. DIL was at bedside and I discussed psychiatric care with her. She reported patient has had continued depression and anxiety, including a panic attack the day of admission. She thought some of her abdominal pain may be her anxiety. DIL denies any concern for suicidality. In regards to past psych hx, JAN states that patient suffered from depression and "had to be kept away from knives" at that time but never any suicide attempts. had Her PCP has been managing psych meds and recently increased Cymbalta from 90mg to 120mg daily then added on Celexa 20mg daily. She also reports patient frequently requests more clonazepam and has been weaned down to current dose of 0.5mg PO q HS as she had previously been taking it TID. Discussed concerns regarding platelet aggregation with SSRIs/SNRIs with DIL in light of GI bleed, and that though patient suffers from depression/anxiety, the medical issues take primary precedence right now. She expressed understanding and agreement. Recommended that patient f/u with psychiatric provider ([facility]- psych if possible) after discharge d/t uncontrolled symptoms and nature of history with psych meds. [facility] Medical History Diarrhea (Acute Medical) Weakness (Acute Medical) Dehydration (Acute Medical) Dehydration (Acute Medical) Diarrhea (Acute Medical) External hemorrhoid (Acute Medical) Anemia (Acute Medical) Abdominal pain (Inactive Medical) Nausea (Inactive Medical) Medical History Updates: Right Breast Cancer. Dementia Yes. Migraine Yes. Parkinson's Disease Yes. Cataracts Yes. Macular Degeneration Yes. Congestive Heart Failure Yes. Hypertension Yes. Gastroesophageal Reflux Yes. Disease. Hiatal Hernia Yes. Hx Incontinence Yes. Anemia Yes: receives iron infusions. Depression Yes Surgical History: appendectomy. right mastectomy. pacemaker placement. right TKA. right ISSA. right shoulder surgery Family History: Unobtainable from patient at this time - Social History Smoking status: Former smoker Household members: caregiver (DIL and son) Review of Systems ROS unobtainable: other (patient currently sleeping - per HPI) Mental Status Exam Vitals: Last Vital Signs Temp 97.8 F 01/23/17 12:00 Pulse 69 01/23/17 12:30 Resp 21 01/23/17 12:30 BP 107/67 01/23/17 12:30 Pulse Ox 94 01/23/17 12:30 Height: 1.6 m Weight: 64.3 kg - Mental Status Exam Muscle Strength/Tone: Other (unable to assess currently) Dressing: Other (hospital gown) Grooming: Fair Attitude: Other (currently asleep) Motor Activity: Other (unable to assess currently) Eye Contact: Other (asleep) Speech: Other (unable to assess currently) Volume: Other Sensory: Other (asleep) Orientation: Other (unable to assess currently) Mood: Other (unable to assess currently) Thought Organization: Other (unable to assess currently) Associations: Other (unable to assess currently) Thought Content: Other (unable to assess currently) Perception/Psychotic: Other (unable to assess currently but DIL denies any signs of psychosis in patient) Fund of Knowledge: Other (DIL reports some decreased cognitive function - unable to test ) Memory: Other (unable to assess currently) Suicidal Ideation: Other (unable to assess currently) Homicidal Ideation: Other (unable to assess currently) Insight: Other (unable to assess currently) Judgement: Other (unable to assess currently) Impulse Control: Other (unable to assess currently) - Laboratory Result Diagrams: 01/23/17 16:37 01/23/17 04:30 Laboratory Results - last 24 hr 01/23/17 01/23/17 01/23/17 12:22 16:37 16:37 Hgb 8.2 L 6.1 L D INR 3.07 H Assessment and Plan (1) Major depressive disorder Qualifiers: Major depression recurrence: recurrent Active/Remission status: currently active Major depression episode severity: unspecified Qualified Code(s): F33.9 - Major depressive disorder, recurrent, unspecified Current visit: Yes Status: Acute (2) Anxiety Current visit: Yes Status: Acute R/O Major neurocognitive disorder Plan: See HPI - in light of recent medical developments, recommend the following : - Discontinue Celexa - Decrease Cymbalta to 60mg PO q AM and 30mg PO q HS - Follow up with psychiatrist (preferably geriatric psychiatrist if possible) after discharge - Avoid further benzodiazepine use Will continue to follow while patient is in the hospital. Thank you for this consult and please call if you have any questions.
[2017-01-23] MEDS ORDERED: PHYTONADIONE (Adult) INJ 10 MG in NS 50 ML IV ONE (18:10)
[2017-01-23] MEDS ORDERED: PANTOPRAZOLE 40 MG INJECTION IVP ONE (18:13)
[2017-01-23] MEDS ORDERED: WARFARIN 4 MG TABLET PO SCH (19:37)
[2017-01-23] MEDS: PANTOPRAZOLE IV 80 MG in NS 250ml 250 ML IV SCH (19:43)
[2017-01-23] MEDS ORDERED: FUROSEMIDE 20 MG/2 ML INJECTION IVP ONE (20:07)
[2017-01-23] MEDS ORDERED: ClonazePAM 0.5 MG TABLET PO SCH (21:00)
[2017-01-23] MEDS: DONEPEZIL 10 MG TABLET PO SCH (22:04)
[2017-01-23] MEDS: DULOXETINE 30 MG CAPSULE PO SCH (22:04)
[2017-01-23] MEDS: SIMVASTATIN 10 MG TABLET PO SCH (22:05)
[2017-01-24] MEDS: PANTOPRAZOLE IV 80 MG in NS 250ml 250 ML IV SCH ×4 (03:22→23:42)
[2017-01-24] MEDS: NS 1,000 ML IV SCH ×3 (03:24→23:42)
[2017-01-24] MEDS: LEVOTHYROXINE 75 MCG TABLET PO SCH (05:43)
[2017-01-24] MEDS: DULOXETINE 30 MG CAPSULE PO SCH ×2 (09:09→20:09)
[2017-01-24] MEDS: SUCRALFATE 1 GM TABLET PO SCH ×2 (09:12→20:09)
[2017-01-24] MEDS: MULTI-VITAMIN PLAIN TABLET PO SCH (09:13)
[2017-01-24] MEDS: TOPIRAMATE 25 MG TABLET PO SCH (12:45)
[2017-01-24] MEDS: CALCIUM 600 + VIT D 400 TABLET PO SCH (12:45)
--- NOTE | 2017-01-24 13:04 | Progress Note ---
- Date 01/24/17 Subjective: The patient was seen today in CCU accompanied by her son and [id number]. She had significant bloody stools yesterday including bright red blood, maroon blood and lack tarry stools. Hemoglobin was as low as 6.1. She received a total of 3 units of blood yesterday and hemoglobin improved to 9.9 today. INR was elevated at 4 yesterday morning and is down to 1.2 this morning after vitamin K 10 mg IV 2 and FFP 1. She states she's feeling better today. She feels hungry. She states she had been having epigastric pain for several weeks but thought it was her anxiety causing this. She denies any abdominal pain now. She denies any shortness of breath or chest pain. She has not had a bowel movement since early yesterday evening. She is incontinent of urine. Objective Vital signs: Temperature 98.3 F 01/24/17 08:45 Pulse Rate 75 01/24/17 10:40 Respiratory Rate 27 H 01/24/17 10:40 Blood Pressure 104/58 01/24/17 10:00 Pulse Oximetry 88 L 01/24/17 10:40 Height/Weight/BMI: Weight 65.3 kg Comments: GEN-alert, oriented, no acute distress CV-regular rate and rhythm CHEST-clear to auscultation bilaterally ABD-soft, nontender with positive bowel sounds -no Kingsley EXT-no edema NEURO-no focal deficits SKIN-warm and dry Results - Labs CBC & Chem 7: 01/24/17 09:49 01/24/17 04:28 Labs: White count 4.4, platelets 124, calcium 7.6, INR 1.2, GI panel is negative Assessment and Plan (1) Diarrhea Current visit: Yes Status: Acute (2) Weakness Current visit: Yes Status: Acute (3) Dehydration Current visit: Yes Status: Acute Assessment and Plan: 01/24/2017 Assessment Acute problems Acute blood loss anemia-hemoglobin improved to 9.9 post 3 units of blood 2016 Rectal bleeding-uncertain if bleed is upper GI or lower GI. Stools were at times bright red, maroon and black Epigastric pain for a few weeks prior to admission Personal history of colon polyps, last colonoscopy about 10 years ago Supratherapeutic INR -resolved post vitamin K 10 mg IV 2 and 1 unit of FFP on 01/23/2017 Watery Diarrhea-resolved Weakness Dehydration Panic attacks, worsening depression-Dr. Haddad consulted and medications adjusted Chronic medical problems Strong family history of colon cancer Hypothyroidism Macular degeneration Alzheimer's dementia Chronic Anemia-iron deficiency-sees Dr. Dunn Chronic anticoagulation-currently on hold Atrial fibrillation Benign essential hypertension History of breast cancer Coronary artery disease Chronic back pain Depression Essential tremor Generalized anxiety disorder CHF History of DVT/PE-on 2 occasions, the last one approximately 10 years ago Peripheral neuropathy Cardiac pacemaker Plan Overall, acute blood loss anemia has improved after transfusion of 3 units. INR has normalized after vitamin K and FFP. Bleeding appears to have stopped. Dr. Chavez recommended initiating a clear liquid diet. We'll continue IV Protonix for possible upper GI bleed. Continue every 6 hours hemoglobin for now. Continue off of anticoagulation. SCDs for DVT prophylaxis. DC IV fluids when taking by mouth well. Resume her oral medications today. Appreciate Dr. Haddad's consult. She did adjust the patient's psychiatric medications. Appreciate Dr. Chavez's consult, possible scopes on Friday. Continue to hold gabapentin, Toprol, Lasix and potassium for now due to borderline low blood pressure. PT and OT for generalized weakness. Up in chair 3 times a day as tolerated. CBC and basic metabolic profile tomorrow. Greater than 40 minutes of critical care time spent seeing and evaluating the patient in determining care plan Hospital Course Summary Disclaimer: The visit summary below is not to be considered part of the above Progress Note. Hospital Course: Assessment Diarrhea Weakness Dehydration Hypothyroidism Macular degeneration Alzheimer's dementia Chronic Anemia-iron deficiency Chronic anticoagulation Atrial fibrillation Benign essential hypertension History of breast cancer Coronary artery disease Chronic back pain Depression Essential tremor Generalized anxiety disorder Parkinson's disease CHF History of DVT Peripheral neuropathy Cardiac pacemaker 01/22/17 hospital admission for observation Admit as observation under hospitalist service (Dr. Cardoza, attending) for rehydration and further monitoring. Continue IV fluids cautiously given her CHF. Patient may take her home medications while in observation. Coumadin will serve as her DVT prophylaxis. Pharmacy to manage her INR. Consider psych consult for anxiety/depression and medication evaluation given that she is on 120 mg of Cymbalta and citalopram 20 mg daily. Concern for serotonin syndrome. Check GI panel to rule out pathogens. Patient wishes her CODE STATUS to be DO NOT RESUSCITATE. Will discuss case and further plan of care with Dr. Cardoza. 01/22/2017-I reviewed this chart, the patient history, and the ALUMINUM WELDER's/PA's documented findings as above. We discussed and formulated the assessment and plan as above with the additions below.-Dr. Cardoza The patient was seen this evening in her room. She complains of watery diarrhea for a few days. She's also had abdominal pain but states she thinks that's from depression. She also has a hiatal hernia. She has not had any vomiting. She states she is eating and drinking okay. She states she has been feeling very weak the past few days while she's had diarrhea. She has had no recent falls. She denies any fevers, chills or sweats. She states she feels very depressed and states that she has multiple family members with depression. She has never seen a psychiatrist. She states she has not been hospitalized for depression in the past. On exam the patient is alert and in no acute distress. HEENT reveals sclerae to be anicteric. Or faxes moist. Neck is supple. Chest is clear to auscultation. Abdomen is soft and nontender with positive bowel sounds. Extremities are free of edema. Skin is warm and dry. Impression and plan Most likely the patient has generalized weakness related to dehydration from her diarrhea. We'll give cautious IV fluids and check a GI panel. We'll consult psychiatry regarding depression and to see if any med changes may be beneficial. Will advance diet as tolerated. Hold Coumadin for now regarding bright red blood in her stools. She has been noted to have hemorrhoids. She states she has a family history of colon cancer and she has had many colonoscopies in the past and they were all normal. We'll consult PT and OT regarding weakness. Hopefully, can dismiss to home tomorrow. 01/23/2017 Plan We'll transfuse 1 unit of blood now and stay 2 units ahead. Transferred to CCU for close monitoring. Vitamin K 10 mg IV to reverse supratherapeutic INR Consult Dr. Chavez for lower GI bleed, he plans for colonoscopy when bleeding has improved. Clear liquids DC pharmacy consult for Coumadin monitoring Discussed with Dr. Dunn, iron panel will be back tomorrow. Likely give IV iron tomorrow. SCDs for DVT prophylaxis Recheck hemoglobin and INR after transfusion Psychiatry consulted regarding depression and panic attacks, and recommendations regarding antidepressants. Repeat CBC, INR, basic metabolic profile tomorrow. 01/23/2017 The patient was seen this evening in her room. Vital signs are stable. She is continuing to have rectal bleeding and stools are now maroon. Hemoglobin was 8.2 this afternoon and after transfusion of 2 units hemoglobin unfortunately dropped to 6.1. INR was 3.07 down from 4.04. Due to continued rectal bleeding and further drop in hemoglobin despite transfusion, will give 2 more units of blood now. FFP now. Vitamin K 10 mg IV repeat 1 now. Protonix 80 mg IV now. Start protonix drip. Repeat hemoglobin and INR after transfusion. Patient was made nothing by mouth. I did notify Dr. Chavez of further rectal bleeding and drop in hemoglobin. I did call and notify the patient's son of worsening bleeding and hemoglobin, and notified him of care plans this evening. The patient was seen this evening in her room. Vital signs are stable. She is continuing to have rectal bleeding and stools are now maroon. Hemoglobin was 8.2 this afternoon and after transfusion of 2 units hemoglobin unfortunately dropped to 6.1. INR was 3.07 down from 4.04. Due to continued rectal bleeding and further drop in hemoglobin despite transfusion, will give 2 more units of blood now. FFP now. Vitamin K 10 mg IV repeat 1 now. Protonix 80 mg IV now. Start protonix drip. Repeat hemoglobin and INR after transfusion. Patient was made nothing by mouth. I did notify Dr. Chavez of further rectal bleeding and drop in hemoglobin. I did call and notify the patient's son of worsening bleeding and hemoglobin, and notified him of care plans this evening.
--- NOTE | 2017-01-24 17:35 | Progress Note ---
DATE OF SERVICE 02/03/2017 FINDINGS Mrs. Juan was seen this evening. She was in good spirits. She denied abdominal pain. She did not remember, however, that she was bleeding yesterday upon questioning. PHYSICAL EXAM VITAL SIGNS: Afebrile, normotensive. Please refer to EMR. Last recorded vitals include temperature 98.3, pulse 69, blood pressure 99/59, SAO2 100% on 2 L/nasal cannula. HEENT: Normocephalic. Pupils are equally round and react to light and accommodation. CHEST: Clear to auscultation bilaterally. HEART: Regular rate and rhythm. Normal S1 and S2 without gallops, murmurs or clicks. ABDOMEN: Palpation of the abdomen this evening revealed it to be soft and completely nontender. Patient did not have any element of guarding. LABORATORY/RADIOGRAPHIC EVALUATION The patient's hemoglobin this morning was 7.8. Nursing staff states that she has had no further bleeding. ASSESSMENT 86-year-old female with recent onset of melanotic stools and anemia of uncertain etiology. PLAN I do believe we can go ahead and slowly advance the patient's diet. Will perform bowel prep on Friday if patient is still present in the hospital. Will plan on Friday proceeding with esophagogastroduodenoscopy and colonoscopy. The above plan was discussed with the patient this evening. The patient understood and agreed with the proposed plan. DEENA
[2017-01-24] MEDS: DONEPEZIL 10 MG TABLET PO SCH (20:09)
[2017-01-24] MEDS: SIMVASTATIN 10 MG TABLET PO SCH (20:09)
[2017-01-24] MEDS ORDERED: ClonazePAM 0.5 MG TABLET PO ONE (23:00)
[2017-01-24] MEDS: MELATONIN 5 MG TABLET PO SCH (23:46)
[2017-01-25] MEDS: LEVOTHYROXINE 75 MCG TABLET PO SCH (06:24)
[2017-01-25] MEDS: MULTI-VITAMIN PLAIN TABLET PO SCH (08:18)
[2017-01-25] MEDS: SUCRALFATE 1 GM TABLET PO SCH ×2 (08:18→20:52)
[2017-01-25] MEDS: DULOXETINE 30 MG CAPSULE PO SCH ×2 (08:19→20:52)
[2017-01-25] MEDS: NS 1,000 ML IV SCH ×2 (09:45→13:01)
[2017-01-25] MEDS: LUTEIN 20 MG CAPSULE PO SCH (09:54)
[2017-01-25] MEDS: PANTOPRAZOLE IV 80 MG in NS 250ml 250 ML IV SCH ×2 (10:57→23:10)
--- NOTE | 2017-01-25 11:09 | Progress Note ---
- Date 01/25/17 Subjective: F/U: Acute GI bleed, anemia secondary to acute GI blood loss Doing okay this morning. Notes diffuse ab pain-similar to pain she has had for months. Not feeling nauseated. Does feel hungry-wants more than just the clear liquids. No pain with swallowing. Nursing reports patient pass another bloody stool this am. Breathing feels normal-not congested or SOA. No chest pressure or pain. Objective Vital signs: Temperature 98.2 F 01/25/17 04:00 Pulse Rate 70 01/25/17 08:00 Respiratory Rate 19 01/25/17 05:30 Blood Pressure 116/65 01/25/17 05:30 Pulse Oximetry 99 01/25/17 05:30 Height/Weight/BMI: Weight 65.3 kg - Constitutional Present: well nourished, well developed, average body habitus, cooperative - Routine HEENT Exam Head: Present: normocephalic, atraumatic Eye: Present: EOMI, PERRL ENT: Present: mucous membranes moist - Routine Respiratory Exam Present: CTA bilaterally. Absent: rales, respiratory distress, rhonchi, crackles - Routine Cardiovascular Exam Present: RRR, murmur - Routine Abdominal Exam Present: soft, normoactive bowel sounds, non distended, non tender - Routine Extremities Exam Present: no edema, pulses intact. Absent: cyanosis, clubbing Comments: SCD in place - Routine Musculoskeletal Exam Musculoskeletal: Present: no clubbing or cyanosis, normal strength - Routine Skin Exam Present: dry, warm - Routine Neurological Exam Present: alert, oriented X3, CN II-XII intact, moving all extremities, vision grossly intact, hearing grossly intact, normal speech. Absent: motor deficit, altered mental status - Routine Psychiatric Exam Present: normal affect, normal thought process, cooperative Results - Labs CBC & Chem 7: 01/25/17 10:08 01/25/17 04:20 Assessment and Plan (1) Diarrhea Current visit: Yes Status: Acute (2) Weakness Current visit: Yes Status: Acute (3) Dehydration Current visit: Yes Status: Acute Assessment and Plan: Assessment Acute problems Acute blood loss anemia-hemoglobin improved to 9.9 post 3 units of blood 2016, 2 units given on 01/24/17 Rectal bleeding-uncertain if bleed is upper GI or lower GI. Stools were at times bright red, maroon and black Epigastric pain for a few weeks prior to admission Personal history of colon polyps, last colonoscopy about 10 years ago Supratherapeutic INR -resolved post vitamin K 10 mg IV 2 and 1 unit of FFP on 01/23/2017 Watery Diarrhea-resolved Weakness Dehydration Panic attacks, worsening depression-Dr. Haddad consulted and medications adjusted Hypokalemia (Not POA) Chronic medical problems Strong family history of colon cancer Hypothyroidism Macular degeneration Alzheimer's dementia Chronic Anemia-iron deficiency-sees Dr. 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 Repeat H/H pending. Did pass bloody stool this am. Continue with IV Protonix drip and Carafate. Anticipate endoscopy on Friday. Decrease IVF to 75 cc/hr. Continue clear liquids. Replace potassium. Recheck BMP and magnesium in am. Possible need repeat transfusion. Continue to monitor blood counts. With continued bloody stools, will keep patient in CCU for close monitoring. Case discussed with CCU nursing and family. Time spent with patient care 25 minutes. DVT Prophylaxis: SCD's Resuscitation Status: Do Not Resuscitate - Time spent with patient Time with patient PN: 25 minutes Hospital Course Summary Disclaimer: The visit summary below is not to be considered part of the above Progress Note. Hospital Course: Assessment Diarrhea Weakness Dehydration Hypothyroidism Macular degeneration Alzheimer's dementia Chronic Anemia-iron deficiency Chronic anticoagulation Atrial fibrillation Benign essential hypertension History of breast cancer Coronary artery disease Chronic back pain Depression Essential tremor Generalized anxiety disorder Parkinson's disease CHF History of DVT Peripheral neuropathy Cardiac pacemaker 01/22/17 hospital admission for observation Admit as observation under hospitalist service (Dr. Cardoza, attending) for rehydration and further monitoring. Continue IV fluids cautiously given her CHF. Patient may take her home medications while in observation. Coumadin will serve as her DVT prophylaxis. Pharmacy to manage her INR. Consider psych consult for anxiety/depression and medication evaluation given that she is on 120 mg of Cymbalta and citalopram 20 mg daily. Concern for serotonin syndrome. Check GI panel to rule out pathogens. Patient wishes her CODE STATUS to be DO NOT RESUSCITATE. Will discuss case and further plan of care with Dr. Cardoza. Dr Cardoza Most likely the patient has generalized weakness related to dehydration from her diarrhea. We'll give cautious IV fluids and check a GI panel. We'll consult psychiatry regarding depression and to see if any med changes may be beneficial. Will advance diet as tolerated. Hold Coumadin for now regarding bright red blood in her stools. She has been noted to have hemorrhoids. She states she has a family history of colon cancer and she has had many colonoscopies in the past and they were all normal. We'll consult PT and OT regarding weakness. Hopefully, can dismiss to home tomorrow. 01/23/2017 Hemoglobin decreased to 8.1 from 10.1 at presentation. We'll transfuse 1 unit of blood now and stay 2 units ahead. Transferred to CCU for close monitoring. Vitamin K 10 mg IV to reverse supratherapeutic INR. Consult Dr. Chavez for lower GI bleed, he plans for colonoscopy when bleeding has improved. Clear liquids. [place] pharmacy consult for Coumadin monitoring. Discussed with Dr. Dunn, iron panel will be back tomorrow. Likely give IV iron tomorrow. SCDs for DVT prophylaxis. Recheck hemoglobin and INR after transfusion. Psychiatry consulted regarding depression and panic attacks, and recommendations regarding antidepressants. Repeat CBC, INR, basic metabolic profile tomorrow. Admission status change to inpatient due to acute blood loss anemia secondary to acute GI bleed. 01/23/2017 Evening note The patient was seen this evening in her room. Vital signs are stable. She is continuing to have rectal bleeding and stools are now maroon. Hemoglobin was 8.2 this afternoon and after transfusion of 1 units pRBC unfortunately dropped to 6.1. INR was 3.07 down from 4.04. Due to continued rectal bleeding and further drop in hemoglobin despite transfusion, will give 2 more units of blood now. FFP now. Vitamin K 10 mg IV repeat 1 now. Protonix 80 mg IV now. Start Protonix drip. Repeat hemoglobin and INR after transfusion. Patient was made nothing by mouth. I did notify Dr. Chavez of further rectal bleeding and drop in hemoglobin. I did call and notify the patient's son of worsening bleeding and hemoglobin, and notified him of care plans this evening. 01/24/17 Overall, acute blood loss anemia has improved after transfusion of 3 units. INR has normalized after vitamin K and FFP. Bleeding appears to have stopped. Dr. Chavez recommended initiating a clear liquid diet. We'll continue IV Protonix for possible upper GI bleed. Continue every 6 hours hemoglobin for now. Continue off of anticoagulation. SCDs for DVT prophylaxis. DC IV fluids when taking by mouth well. Resume her oral medications today. Appreciate Dr. Haddad's consult. She did adjust the patient's psychiatric medications. Appreciate Dr. Chavez's consult, possible scopes on Friday. Continue to hold gabapentin, Toprol, Lasix and potassium for now due to borderline low blood pressure. PT and OT for generalized weakness. Up in chair 3 times a day as tolerated. CBC and basic metabolic profile tomorrow. Recheck hemoglobin in afternoon showed decrease to 7.8. One unit of pRBC transfused. 01/25/17 Hemoglobin increased to 8.8 with this morning's lab. Repeat H/H pending. Did pass bloody stool this am. Continue with IV Protonix drip and Carafate. Anticipate endoscopy on Friday. Decrease IVF to 75 cc/hr. Continue clear liquids. Replace potassium. Recheck BMP and magnesium in am. Possible need repeat transfusion. Continue to monitor blood counts. With continued bloody stools, will keep patient in CCU for close monitoring.
[2017-01-25] MEDS: TOPIRAMATE 25 MG TABLET PO SCH (12:56)
[2017-01-25] MEDS: CALCIUM 600 + VIT D 400 TABLET PO SCH (12:58)
[2017-01-25] MEDS: MELATONIN 5 MG TABLET PO SCH (20:52)
[2017-01-25] MEDS: DONEPEZIL 10 MG TABLET PO SCH (20:52)
[2017-01-25] MEDS: SIMVASTATIN 10 MG TABLET PO SCH (20:52)
[2017-01-26] MEDS ORDERED: ClonazePAM 0.5 MG TABLET PO ONE (02:45)
[2017-01-26] MEDS: LEVOTHYROXINE 75 MCG TABLET PO SCH (06:14)
[2017-01-26] MEDS: NS 1,000 ML IV SCH (06:39)
[2017-01-26] MEDS: SUCRALFATE 1 GM TABLET PO SCH ×2 (08:01→20:26)
[2017-01-26] MEDS: MULTI-VITAMIN PLAIN TABLET PO SCH (08:21)
[2017-01-26] MEDS: DULOXETINE 30 MG CAPSULE PO SCH ×2 (08:21→20:26)
[2017-01-26] MEDS: LUTEIN 20 MG CAPSULE PO SCH (08:21)
[2017-01-26] MEDS: PANTOPRAZOLE IV 80 MG in NS 250ml 250 ML IV SCH ×2 (08:22→19:29)
[2017-01-26] MEDS ORDERED: NS with KCL 20 mEq 1,000 ML IV SCH (12:15)
[2017-01-26] MEDS: TOPIRAMATE 25 MG TABLET PO SCH (12:35)
[2017-01-26] MEDS: CALCIUM 600 + VIT D 400 TABLET PO SCH (12:35)
--- NOTE | 2017-01-26 13:11 | Progress Note ---
- Date 01/26/17 Subjective: F/U: Acute GI bleed, anemia secondary to acute GI blood loss Doing well this morning. Not having ab pain. Notes nausea very infrequently. Tolerating clear liquids (would like real food, but understands why is no clears ). Bowel prep starting. Breathing doing well-not feeling SOA or congested. No pain with breathing. No chest pressure or discomfort. Objective Vital signs: Temperature 97.7 F 01/26/17 08:00 Pulse Rate 69 01/26/17 10:00 Respiratory Rate 16 01/26/17 10:00 Blood Pressure 94/54 01/26/17 10:00 Pulse Oximetry 93 01/26/17 10:00 Height/Weight/BMI: Weight 67.6 kg - Constitutional Present: well nourished, well developed, cooperative. Absent: agitated - Routine HEENT Exam Head: Present: normocephalic, atraumatic Eye: Present: EOMI, PERRL ENT: Present: mucous membranes moist - Routine Respiratory Exam Present: decreased breath sounds. Absent: respiratory distress, wheezes, crackles - Routine Cardiovascular Exam Present: RRR, no murmur - Routine Abdominal Exam Present: soft, normoactive bowel sounds, non distended, non tender - Routine Extremities Exam Present: no edema. Absent: cyanosis, clubbing Comments: SCD in place - Routine Musculoskeletal Exam Musculoskeletal: Present: no clubbing or cyanosis - Routine Skin Exam Present: dry, warm - Routine Neurological Exam Present: alert, CN II-XII intact, moving all extremities, vision grossly intact , hearing grossly intact, normal speech. Absent: altered mental status - Routine Psychiatric Exam Present: normal affect, normal thought process, cooperative. Absent: anxious, agitated Results - Labs CBC & Chem 7: 01/26/17 04:27 01/26/17 04:27 Assessment and Plan (1) Diarrhea Current visit: Yes Status: Acute (2) Weakness Current visit: Yes Status: Acute (3) Dehydration Current visit: Yes Status: Acute Assessment and Plan: Assessment Acute problems Acute blood loss anemia-hemoglobin improved to 9.9 post 3 units of blood 2016, 2 units given on 01/24/17 Acute GI Bleed: Rectal bleeding-uncertain if bleed is upper GI or lower GI. Stools were at times bright red, maroon and black Epigastric pain for a few weeks prior to admission Personal history of colon polyps, last colonoscopy about 10 years ago Supratherapeutic INR -resolved post vitamin K 10 mg IV 2 and 1 unit of FFP on 01/23/2017 Watery Diarrhea-resolved Weakness Dehydration Panic attacks, worsening depression-Dr. Haddad consulted and medications adjusted Hypokalemia (Not POA) Chronic medical problems Strong family history of colon cancer Hypothyroidism Macular degeneration Alzheimer's dementia Chronic Anemia-iron deficiency-sees Dr. 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 Potassium decreased to 3.4. Will recheck H/H this afternoon to monitor counts. Bowel prep started for colonoscopy tomorrow. Will start IVF of NS with 20KCl at 75cc/hr. Oral potassium 20mEg x2 today. Continue with IV Protonix drip and Carafate. Anticipate endoscopy tomorrow. With clinical status stabilized, will transfer to surgical floor for continuation of care. Case discussed with CCU nursing and family. Time spent with patient care 25 minutes. DVT Prophylaxis: SCD's Resuscitation Status: Do Not Resuscitate Hospital Course Summary Disclaimer: The visit summary below is not to be considered part of the above Progress Note. Hospital Course: Assessment Diarrhea Weakness Dehydration Hypothyroidism Macular degeneration Alzheimer's dementia Chronic Anemia-iron deficiency Chronic anticoagulation Atrial fibrillation Benign essential hypertension History of breast cancer Coronary artery disease Chronic back pain Depression Essential tremor Generalized anxiety disorder Parkinson's disease CHF History of DVT Peripheral neuropathy Cardiac pacemaker 01/22/17 hospital admission for observation Admit as observation under hospitalist service (Dr. Cardoza, attending) for rehydration and further monitoring. Continue IV fluids cautiously given her CHF. Patient may take her home medications while in observation. Coumadin will serve as her DVT prophylaxis. Pharmacy to manage her INR. Consider psych consult for anxiety/depression and medication evaluation given that she is on 120 mg of Cymbalta and citalopram 20 mg daily. Concern for serotonin syndrome. Check GI panel to rule out pathogens. Patient wishes her CODE STATUS to be DO NOT RESUSCITATE. Will discuss case and further plan of care with Dr. Cardoza. Dr Cardoza Most likely the patient has generalized weakness related to dehydration from her diarrhea. We'll give cautious IV fluids and check a GI panel. We'll consult psychiatry regarding depression and to see if any med changes may be beneficial. Will advance diet as tolerated. Hold Coumadin for now regarding bright red blood in her stools. She has been noted to have hemorrhoids. She states she has a family history of colon cancer and she has had many colonoscopies in the past and they were all normal. We'll consult PT and OT regarding weakness. Hopefully, can dismiss to home tomorrow. 01/23/2017 Hemoglobin decreased to 8.1 from 10.1 at presentation. We'll transfuse 1 unit of blood now and stay 2 units ahead. Transferred to CCU for close monitoring. Vitamin K 10 mg IV to reverse supratherapeutic INR. Consult Dr. Chavez for lower GI bleed, he plans for colonoscopy when bleeding has improved. Clear liquids. [place] pharmacy consult for Coumadin monitoring. Discussed with Dr. Dunn, iron panel will be back tomorrow. Likely give IV iron tomorrow. SCDs for DVT prophylaxis. Recheck hemoglobin and INR after transfusion. Psychiatry consulted regarding depression and panic attacks, and recommendations regarding antidepressants. Repeat CBC, INR, basic metabolic profile tomorrow. Admission status change to inpatient due to acute blood loss anemia secondary to acute GI bleed. 01/23/2017 Evening note The patient was seen this evening in her room. Vital signs are stable. She is continuing to have rectal bleeding and stools are now maroon. Hemoglobin was 8.2 this afternoon and after transfusion of 1 units pRBC unfortunately dropped to 6.1. INR was 3.07 down from 4.04. Due to continued rectal bleeding and further drop in hemoglobin despite transfusion, will give 2 more units of blood now. FFP now. Vitamin K 10 mg IV repeat 1 now. Protonix 80 mg IV now. Start Protonix drip. Repeat hemoglobin and INR after transfusion. Patient was made nothing by mouth. I did notify Dr. Chavez of further rectal bleeding and drop in hemoglobin. I did call and notify the patient's son of worsening bleeding and hemoglobin, and notified him of care plans this evening. 01/24/17 Overall, acute blood loss anemia has improved after transfusion of 3 units. INR has normalized after vitamin K and FFP. Bleeding appears to have stopped. Dr. Chavez recommended initiating a clear liquid diet. We'll continue IV Protonix for possible upper GI bleed. Continue every 6 hours hemoglobin for now. Continue off of anticoagulation. SCDs for DVT prophylaxis. DC IV fluids when taking by mouth well. Resume her oral medications today. Appreciate Dr. Haddad's consult. She did adjust the patient's psychiatric medications. Appreciate Dr. Chavez's consult, possible scopes on Friday. Continue to hold gabapentin, Toprol, Lasix and potassium for now due to borderline low blood pressure. PT and OT for generalized weakness. Up in chair 3 times a day as tolerated. CBC and basic metabolic profile tomorrow. Recheck hemoglobin in afternoon showed decrease to 7.8. One unit of pRBC transfused. 01/25/17 Hemoglobin increased to 8.8 with this morning's lab. Repeat H/H pending. Did pass bloody stool this am. Continue with IV Protonix drip and Carafate. Anticipate endoscopy on Friday. Decrease IVF to 75 cc/hr. Continue clear liquids. Replace potassium. Recheck BMP and magnesium in am. Possible need repeat transfusion. Continue to monitor blood counts. With continued bloody stools, will keep patient in CCU for close monitoring. 01/26/17 Hemoglobin stable at 8.9 with this morning's lab. Potassium decreased to 3.4. Will recheck H/H this afternoon to monitor counts. Bowel prep started for colonoscopy tomorrow. Will start IVF of NS with 20KCl at 75cc/hr. Oral potassium 20mEg x2 today. Continue with IV Protonix drip and Carafate. Anticipate endoscopy tomorrow. With clinical status stabilized, will transfer to surgical floor for continuation of care.
[2017-01-26] MEDS ORDERED: Bisacodyl EC TAB 5 MG TABLET PO ONE (13:30)
[2017-01-26] MEDS ORDERED: POLYETHYL. GLYCOL 3350 BOTTLE 238 GM PO ONE (15:30)
[2017-01-26] MEDS: PANTOPRAZOLE 40 MG INJECTION IVP SCH (20:25)
[2017-01-26] MEDS: MELATONIN 5 MG TABLET PO SCH (20:26)
[2017-01-26] MEDS: SIMVASTATIN 10 MG TABLET PO SCH (20:26)
[2017-01-26] MEDS: DONEPEZIL 10 MG TABLET PO SCH (20:27)
[2017-01-26] MEDS: GABAPENTIN 300 MG CAPSULE PO SCH (20:44)
[2017-01-26] MEDS: ClonazePAM 0.5 MG TABLET PO PRN (22:39)
[2017-01-26] MEDS: NS with KCL 20 mEq 1,000 ML IV SCH (22:40)
[2017-01-27] MEDS: LEVOTHYROXINE 75 MCG TABLET PO SCH (06:30)
[2017-01-27] MEDS ORDERED: FLEET PHOSPHO - SODA ENEMA 133ml PR ONE (07:51)
[2017-01-27] MEDS ORDERED: PROPOFOL 0 MG/0 ML VIAL IV ONE (10:14)
--- NOTE | 2017-01-27 10:18 | Anesthesia Preoperative Report ---
Anesthesia Preoperative Record - Date and Time Date: 01/27/17 Preoperative Diagnosis: gi bleed, abla Proposed Procedure: colonoscopy NPO Since Date: 01/25/17 NPO Since Time: 23:00 Allergies/Adverse Reactions: Allergies Allergy/AdvReac Type Severity Reaction Status Date / Time cephalexin Allergy Unknown Verified 01/22/17 15:46 propoxyphene Allergy Verified 01/22/17 15:46 [From Darvocet-N] Sulfa (Sulfonamide Allergy Hives Verified 01/22/17 15:46 Antibiotics) Tetanus Vaccines and Toxoid Allergy Verified 01/22/17 15:46 - Vital Signs Vital Signs: Temperature 97.9 F 01/27/17 08:21 Pulse Rate 70 01/27/17 08:21 Respiratory Rate 18 01/27/17 08:21 Blood Pressure 160/86 H 01/27/17 08:21 Pulse Oximetry 93 01/27/17 08:21 Height and Weight: Weight 68.1 kg - Medications Inpatient Medications: Current Medications Hydrocodone Bitart/Acetaminophen ([place] 5/325) 1 tab PO Q6H PRN PRN Reason: Pain Calcium/Vitamin D (Caltrate + D) 1 tab PO NOON [facility] Last Admin: 01/26/17 12:35 Dose: 1 tab Carbidopa/Levodopa (Sinemet Cr) 0.5 tab PO NOON [facility] Last Admin: 01/26/17 12:35 Dose: 0.5 tab Clonazepam (Klonopin) 0.5 mg PO HS PRN Last Admin: 01/26/17 22:39 Dose: 0.5 mg Donepezil HCl (Aricept) 10 mg PO HS [facility] Last Admin: 01/26/17 20:27 Dose: 10 mg Duloxetine HCl (Cymbalta) 30 mg PO BID [facility] Last Admin: 01/26/17 20:26 Dose: 30 mg Furosemide (Lasix) 20 mg PO DAILY [facility] Last Admin: 01/23/17 08:50 Dose: 20 mg Gabapentin (Neurontin) 300 mg PO TID [facility] Last Admin: 01/26/17 20:44 Dose: 300 mg Potassium Chloride/Sodium Chloride (Ns With Kcl 20 Meq) 1,000 mls @ 50 mls/hr IV .Q20H [facility] Last Admin: 01/26/17 22:40 Dose: 50 mls/hr Levothyroxine Sodium (Synthroid) 75 mcg PO ACB [facility] Last Admin: 01/27/17 06:30 Dose: 75 mcg Lutein () 20 mg PO DAILY [facility] Last Admin: 01/26/17 08:21 Dose: 20 mg Melatonin (Melatonin) 5 mg PO HS [facility] Last Admin: 01/26/17 20:26 Dose: 5 mg Multivitamins (Theragran) 1 tab PO DAILY [facility] Last Admin: 01/26/17 08:21 Dose: 1 tab Ondansetron HCl (Zofran Po) 4 mg PO Q6HR PRN PRN Reason: Nausea Last Admin: 01/25/17 08:41 Dose: 4 mg Pantoprazole Sodium (Protonix Iv) 40 mg IVP BID [facility] Last Admin: 01/26/17 20:25 Dose: 40 mg Simvastatin (Zocor) 10 mg PO HS [facility] Last Admin: 01/26/17 20:26 Dose: 10 mg Sodium Chloride (Normal Saline) 500 ml IV PRN PRN Sodium Chloride (Iv Flush) 10 - 80 ml IVF PRN PRN PRN Reason: Flushing Last Admin: 01/22/17 15:51 Dose: 10 ml Sucralfate (Carafate) 1 gm PO BID [facility] Last Admin: 01/26/17 20:26 Dose: 1 gm Topiramate (Topamax) 25 mg PO NOON [facility] Last Admin: 01/26/17 12:35 Dose: 25 mg Home Medications: Home Medications Medication Instructions Recorded Confirmed Type Calcium Carbonate/Vitamin D3 1 each PO NOON 09/12/16 01/22/17 History [Calcium 600-Vit D3 800 Tablet] Carbidopa/Levodopa [Sinemet Cr 1 each PO NOON 09/12/16 01/22/17 History 25-100 Tablet] ClonazePAM [Klonopin] 0.5 mg PO HS 09/12/16 01/22/17 History Donepezil HCl [Aricept] 10 mg PO HS 09/12/16 01/22/17 History Furosemide [Lasix] 20 mg PO DAILY 09/12/16 01/22/17 History Levothyroxine Sodium 75 mcg PO DAILY 09/12/16 01/22/17 History Lutein 20 mg PO DAILY 09/12/16 01/22/17 History Melatonin 5 mg PO HS 09/12/16 01/22/17 History Metoprolol Succinate (XL) [Toprol 25 mg PO DAILY 09/12/16 01/22/17 History Xl] Multivitamin [Multivitamins] 1 each PO DAILY 09/12/16 01/22/17 History Omeprazole 20 mg PO DAILY 09/12/16 01/22/17 History Potassium Chloride [K-Dur] 5 meq PO DAILY 09/12/16 01/22/17 History Simvastatin [Zocor] 10 mg PO HS 09/12/16 01/22/17 History Topiramate 25 mg PO NOON 09/12/16 01/22/17 History Warfarin Sodium [Coumadin] 4 mg PO SUTUTHSA 09/12/16 01/22/17 History Warfarin [Coumadin] 2.5 mg PO MOWEFR 09/12/16 01/22/17 History Gabapentin 300 mg PO TID 01/08/17 01/22/17 History Citalopram [Celexa] 20 mg PO NOON 01/22/17 01/22/17 History Duloxetine [Cymbalta] 60 mg PO BID 01/22/17 01/22/17 History Ondansetron [Zofran Odt] 4 mg PO Q6HR PRN 01/22/17 01/22/17 History Sucralfate [Carafate] 1 gm PO BID 01/22/17 01/22/17 History Is Patient on Beta Maeve?: Yes - Medical History Cardiovascular: Reports: Congestive Heart Failure (hx), Hypertension Gastrointestional: Reports: Gastroesophageal Reflux Disease (well controlled), Hiatal Hernia Neuro/Musculoskeletal: Reports: Back Problems, Depression Renal/Endocrine: Reports: Thyroid Disease Other History: Reports: Cancer (BREAST CA) - Surgical History HEENT Surgeries: Reports: Nose Surgery (SINUS), Tonsillectomy, Other (CATARACT SURGERY) Cardiac Surgeries/Treatments: Reports: Internal Defibrillator, Pacemaker GI Surgery/Treatments: Reports: Appendectomy, Cholecystectomy, Colonoscopy, EGD Musculoskeletal Surgery/Tx: Reports: Total Hip Replacement (RIGHT), Total Knee Replacement (RIGHT), Other (R ROTATOR CUFF, R FOOT) Reproductive Surgery/Treatment: Reports: Mastectomy (RIGHT) Anesthesia Reactions: None Hx Family Anesthesia Reaction: No History of Motion Sickness: No - Social History Smoking Status: Former smoker Hx Chewing Tobacco Use: No Second Hand Exposure: No Substance Use Type: does not use Alcohol Intake Frequency: does not drink - Pertinent Findings Laboratory: CBC and BMP 11/13/17 03:48 01/27/17 03:48 BMP 01/27/17 03:48 Sodium 143 Potassium 3.5 L Chloride 111 H Carbon Dioxide 26 BUN 7.0 Creatinine 0.8 Glucose 91 Calcium 8.5 Liver Function 01/27/17 Range/Units 03:48 Total Bilirubin 0.30 (0.20-1.30) MG/DL AST 21 (14-36) U/L ALT 33 (9-52) U/L Alkaline Phosphatase 64 (38-126) U/L Albumin 2.5 L (3.5-5.0) G/DL Paced: 100% - Physical Exam Respiratory Exam: Present: lungs clear, bilateral breath sounds equal Cardiovascular Exam: Present: regular rate and rhythm - Airway Assessment Mallampati Score: II TMD: 3 Fingerbreadths Neck Extension: fair Overall Assessment: no airway concerns - ASA ASA Score: 3 - Plan Anesthesia: General TIVA - Discussion Discussion: Discussed risks/options/alternatives of anesthesia and questions answered. Patient consents. Nursing pain assessment noted. Attestation Statement: Prior to the delivery of any anesthetic medication, I examined the patient, developed the plan, obtained the patient's consent and discussed the risk and benefits of the procedure with the patient/guardian. - Additional Information Seen by Anesthesia: Yes
[2017-01-27] MEDS ORDERED: SALINE FLUSH 10ml SYRINGE ONE (10:19)
[2017-01-27] MEDS ORDERED: PHENYLEPHRINE INJ 10 MG/ML VIAL IV ONE (10:19)
[2017-01-27] MEDS ORDERED: PROPOFOL 500 MG/50 ML VIAL IV ONE (10:26)
[2017-01-27] MEDS ORDERED: LR 1,000 ML IV SCH (10:30)
[2017-01-27] MEDS ORDERED: LIDOCAINE VISCOUS 2% ORAL LIQUID 15ml ONE (10:31)
--- NOTE | 2017-01-27 11:09 | General Surgery Procedure Note ---
Date of Procedure: 01/27/17 Surgeon: Kathy Postoperative Diagnosis: Cecal lesion, Proximal ascending colon mass, gastric polyp Procedure: Colonoscopy with biopsies Estimated Blood Loss: See Anesthesia Record.
--- NOTE | 2017-01-27 11:47 | Anesthesia Postoperative Note ---
- Date and Time Date: 01/27/17 Time: 11:47 - Status Patient Participated in Evaluation: Patient Participated in Person Vital Signs: Temperature 97.6 F 01/27/17 11:11 Pulse Rate 69 01/27/17 11:35 Respiratory Rate 26 H 01/27/17 11:35 Blood Pressure 100/60 01/27/17 11:35 Pulse Oximetry 92 01/27/17 11:35 Respiratory Function: Airway Patent, Regular Respirations Cardiovascular Function: Regular Pulse Mental Status: Alert and Oriented Pain Intensity: 0 Hydration: IV Infusing Complications During Recover: None Apparent - Follow-Up Instructions Instructions: Per Surgeon
[2017-01-27] MEDS: GABAPENTIN 300 MG CAPSULE PO SCH ×3 (12:22→21:16)
[2017-01-27] MEDS: CALCIUM 600 + VIT D 400 TABLET PO SCH (12:22)
[2017-01-27] MEDS: LUTEIN 20 MG CAPSULE PO SCH (12:22)
[2017-01-27] MEDS: DULOXETINE 30 MG CAPSULE PO SCH ×2 (12:22→21:16)
[2017-01-27] MEDS: SALINE FLUSH 10ml SYRINGE IVF PRN ×2 (12:22→21:34)
[2017-01-27] MEDS: TOPIRAMATE 25 MG TABLET PO SCH (12:22)
[2017-01-27] MEDS: MULTI-VITAMIN PLAIN TABLET PO SCH (12:22)
--- NOTE | 2017-01-27 13:53 | Operative Note ---
DATE OF SERVICE 01/27/2017 SURGEON Umair Chavez MD PREOPERATIVE DIAGNOSIS GI bleed, history for chronic iron deficiency anemia. 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 PROCEDURE Esophagogastroduodenoscopy with biopsies of gastric polyp, colonoscopy with biopsies of ileocecal valve mass/adenocarcinoma, biopsies of sessile lesion within cecum. ANESTHESIA TIVA/local BRIEF HISTORY/INDICATIONS Mrs. Juan is an 86-year-old female who has had a history for chronic iron deficiency anemia. The patient recently presented to our facility as a result of GI bleed. She was fully anticoagulated. Her Coumadin was reversed. The patient unfortunately continues to have a component of rectal bleeding. To further evaluate the etiology of her rectal bleeding, it was recommended that she undergo an EGD and colonoscopy. For completeness please refer to notes included in the patient's chart. FINDINGS Upon upper endoscopy, the esophagus, stomach and duodenum were found to be essentially within normal limits. The patient was found to have a polyp within the stomach that was on the order of about a centimeter in dimension. This polyp appeared benign in nature but nonetheless a few biopsies were obtained from the polyp via cold biopsy technique. There was no evidence for old blood upon the surface of the esophagus, stomach or duodenum. No ulcerations were noted. Upon colonoscopy, the patient was found to have a moderate amount of old blood mostly within the rectum and sigmoid colon region. There were numerous diverticula present within the sigmoid colon region. Most likely underlying etiology for her bleeding was that of a diverticular bleed. Additionally upon colonoscopy the patient was found to have an obvious mass consistent with that of an adenocarcinoma involving the ileocecal valve region. Photos were obtained for documentation purposes. Biopsies were obtained from this mass. The mass was not a near obstructing lesion but did occupy 50-60% of the colonic lumen. The mass as above was located near the ileocecal valve region. Within the cecum, the patient was also found to have about a 3 cm sessile polyp that appeared suspicious in nature as well. This however, did not appear to be frankly malignant. I elected not to try to remove this lesion in its entirety endoscopically given the fact the patient had a larger obvious adenocarcinoma in the same vicinity. This sessile polyp was about 3 cm in dimension and was biopsied via cold biopsy technique. DESCRIPTION OF PROCEDURE After informed consent was obtained, patient was brought to the endoscopy suite and placed on the table in left lateral decubitus position. The patient subsequently underwent total intravenous anesthesia by the nurse photonics engineering technologist per my request. Formal time-out was then completed. Next an Olympus gastroscope was inserted in the oral hypopharynx and subsequently the esophagus under direct visualization. Gastroscope was advanced through the esophagus, stomach, pylorus, duodenal bulb, to the second portion of the duodenum. Scope was then slowly withdrawn. First and second portions of the duodenum were within normal limits. No evidence for duodenitis or ulcerations were noted. Scope was withdrawn back to the prepyloric region and antrum. Again no marked mucosal abnormalities were noted. A J-maneuver was then performed. Cardia and fundus were within normal limits. Scope was allowed to straighten and slowly withdrawn. Within the corpus of the stomach, the patient was found to have a polyp on the order of about 1 cm to perhaps 1.5 cm in dimension. This polyp appeared to be benign nature but nonetheless several biopsies were obtained from this polyp via cold biopsy technique. I elected not to transect the polyp in its entirety given its benign appearance. Scope was then withdrawn back to the level of the diaphragm. Squamocolumnar junction was located at the level of the diaphragm and was well demarcated with on endoscopic evidence of Ross' s metaplasia. Scope was slowly withdrawn and the remaining esophageal mucosa was found to be within normal limits. Attention was then directed towards performing a colonoscopy. The patient had a moderate amount of old blood coming forth through the anal verge. First a digital rectal examination was performed. Normal sphincter tone. No rectal masses were appreciated. An Olympus colonoscope was inserted in the anus and into the rectal vault. As stated above, there was a fair amount of blood that did limit visualization. Overall adequate visualization was able to be accomplished. Scope was then advanced under direct visualization of the lumen at all times till the cecum was ascertained. Triangulation of the teniae coli, ileocecal valve and appendiceal lumen were all visualized. Within the cecum, the patient was found to have a sessile cobblestone appearing polyp. Several biopsies were obtained from this polyp that was about 3 cm in dimension. I elected not to proceed with resection of this polyp as discussed above secondary to the fact that there was a large obvious adenocarcinoma adjacent to this lesion. Scope was withdrawn back into the proximal ascending colon adjacent to the ileocecal valve region. As stated above, the patient was found have an obvious adenocarcinoma at this location. Several biopsies were obtained from this lesion via cold biopsy technique. Scope was then slowly withdrawn. I did not see much in the way of old blood within the ascending colon and cecal region. As the scope was continued to be withdrawn, at about 50 -60 cm from the anal verge there was a fair amount of old blood present. The blood was suctioned and overall adequate visualization was able to be accomplished within the descending colon. The patient was found to have numerous diverticula within the sigmoid colon region but an obvious source for her ongoing rectal bleeding was not identified. There did appear to be some "clots" within the sigmoid colon region, again consistent with that of a diverticular bleed. Scope was continued to be withdrawn until it was brought forth back to the rectal vault. No worrisome pathology was noted. A J- maneuver was then performed. No worrisome perianal pathology was noted. Scope was allowed to straighten and withdrawn through the anal verge. Patient tolerated the procedure difficulty and was sent back to the preop area in stable condition. Await the biopsy results from today's biopsies and will proceed accordingly with further recommendations thereafter. Given her advanced age and component of dementia, a discussion will need to be undertaken with family in regards to possible surgical intervention given her obvious adenocarcinoma. DEENA
--- NOTE | 2017-01-27 17:46 | Progress Note ---
- Date 01/27/17 Subjective: F/U: Acute GI bleed, anemia secondary to acute GI blood loss Doing okay this evening post endoscopy. Not feeling groggy. Breathing well. No nausea. Ab pain on left side off and on. Objective Vital signs: Temperature 96.6 F L 01/27/17 16:32 Pulse Rate 69 01/27/17 16:32 Respiratory Rate 18 01/27/17 16:32 Blood Pressure 126/76 01/27/17 16:32 Pulse Oximetry 97 01/27/17 16:32 Height/Weight/BMI: Weight 68.1 kg - Constitutional Present: well nourished, well developed, cooperative - Routine HEENT Exam Head: Present: normocephalic, atraumatic Eye: Present: EOMI, PERRL ENT: Present: mucous membranes moist - Routine Respiratory Exam Present: CTA bilaterally. Absent: respiratory distress, wheezes, crackles - Routine Cardiovascular Exam Present: RRR, no murmur - Routine Abdominal Exam Present: soft, normoactive bowel sounds, non distended, non tender - Routine Extremities Exam Present: pulses intact. Absent: cyanosis, clubbing - Routine Musculoskeletal Exam Musculoskeletal: Present: no clubbing or cyanosis - Routine Skin Exam Present: dry, warm - Routine Neurological Exam Present: alert, CN II-XII intact, moving all extremities, vision grossly intact , hearing grossly intact. Absent: motor deficit - Routine Psychiatric Exam Present: normal affect, normal thought process, cooperative. Absent: anxious, agitated Results - Labs CBC & Chem 7: 01/27/17 03:48 01/27/17 03:48 Assessment and Plan (1) Diarrhea Current visit: Yes Status: Acute (2) Weakness Current visit: Yes Status: Acute (3) Dehydration Current visit: Yes Status: Acute Assessment and Plan: Assessment Acute problems Acute blood loss anemia-hemoglobin improved to 9.9 post 3 units of blood 2016, 2 units given on 01/24/17 Acute GI Bleed: Rectal bleeding-uncertain if bleed is upper GI or lower GI. 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 Epigastric pain for a few weeks prior to admission Personal history of colon polyps, last colonoscopy about 10 years ago Supratherapeutic INR -resolved post vitamin K 10 mg IV 2 and 1 unit of FFP on 01/23/2017 Watery Diarrhea-resolved Weakness Dehydration Panic attacks, worsening depression-Dr. Haddad consulted and medications adjusted Hypokalemia (Not POA) Chronic medical problems Strong family history of colon cancer Hypothyroidism Macular degeneration Alzheimer's dementia Chronic Anemia-iron deficiency-sees Dr. 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 Bleeding most likely secondary to diverticular disease - no active bleeding found on colonoscopy. Gastric polyp removed - Bx taken - most likely benign CECAL MASS found - Bx taken - very worrisome for colon cancer. CEA checked and elevated at 9.7 (normal range 0-3). Patient did have CT ab/pelvis in ED on 01/08/17 - Fatty liver noted but no enhancing areas. Patient and family will think about treatment options - Currently does see Shaun for IV Iron. Possible resection at some time to decrease likelihood of obstruction can be entertained. With significant blood loss during this hospitalization do need to continue to hold anticoagulation to allow counts to recover. Diet advanced to clears. Oral potassium this evening. Will d/c IVF. Hemoglobin stable - need to continue to monitor. PT/OT and nursing to help improve strength. Can stop Protonix and Carafate as no gastritis/ulcer found in stomach. Case discussed with Dr Chavez and family. Time spent with patient care 35 minutes. DVT Prophylaxis: SCD's Resuscitation Status: Do Not Resuscitate - Time spent with patient Time with patient PN: 35 minutes Hospital Course Summary Disclaimer: The visit summary below is not to be considered part of the above Progress Note. Hospital Course: Assessment Diarrhea Weakness Dehydration Hypothyroidism Macular degeneration Alzheimer's dementia Chronic Anemia-iron deficiency Chronic anticoagulation Atrial fibrillation Benign essential hypertension History of breast cancer Coronary artery disease Chronic back pain Depression Essential tremor Generalized anxiety disorder Parkinson's disease CHF History of DVT Peripheral neuropathy Cardiac pacemaker 01/22/17 hospital admission for observation Admit as observation under hospitalist service (Dr. Cardoza, attending) for rehydration and further monitoring. Continue IV fluids cautiously given her CHF. Patient may take her home medications while in observation. Coumadin will serve as her DVT prophylaxis. Pharmacy to manage her INR. Consider psych consult for anxiety/depression and medication evaluation given that she is on 120 mg of Cymbalta and citalopram 20 mg daily. Concern for serotonin syndrome. Check GI panel to rule out pathogens. Patient wishes her CODE STATUS to be DO NOT RESUSCITATE. Will discuss case and further plan of care with Dr. Cardoza. Dr Cardoza Most likely the patient has generalized weakness related to dehydration from her diarrhea. We'll give cautious IV fluids and check a GI panel. We'll consult psychiatry regarding depression and to see if any med changes may be beneficial. Will advance diet as tolerated. Hold Coumadin for now regarding bright red blood in her stools. She has been noted to have hemorrhoids. She states she has a family history of colon cancer and she has had many colonoscopies in the past and they were all normal. We'll consult PT and OT regarding weakness. Hopefully, can dismiss to home tomorrow. 01/23/2017 Hemoglobin decreased to 8.1 from 10.1 at presentation. We'll transfuse 1 unit of blood now and stay 2 units ahead. Transferred to CCU for close monitoring. Vitamin K 10 mg IV to reverse supratherapeutic INR. Consult Dr. Chavez for lower GI bleed, he plans for colonoscopy when bleeding has improved. Clear liquids. [place] pharmacy consult for Coumadin monitoring. Discussed with Dr. Dunn, iron panel will be back tomorrow. Likely give IV iron tomorrow. SCDs for DVT prophylaxis. Recheck hemoglobin and INR after transfusion. Psychiatry consulted regarding depression and panic attacks, and recommendations regarding antidepressants. Repeat CBC, INR, basic metabolic profile tomorrow. Admission status change to inpatient due to acute blood loss anemia secondary to acute GI bleed. 01/23/2017 Evening note The patient was seen this evening in her room. Vital signs are stable. She is continuing to have rectal bleeding and stools are now maroon. Hemoglobin was 8.2 this afternoon and after transfusion of 1 units pRBC unfortunately dropped to 6.1. INR was 3.07 down from 4.04. Due to continued rectal bleeding and further drop in hemoglobin despite transfusion, will give 2 more units of blood now. FFP now. Vitamin K 10 mg IV repeat 1 now. Protonix 80 mg IV now. Start Protonix drip. Repeat hemoglobin and INR after transfusion. Patient was made nothing by mouth. I did notify Dr. Chavez of further rectal bleeding and drop in hemoglobin. I did call and notify the patient's son of worsening bleeding and hemoglobin, and notified him of care plans this evening. 01/24/17 Overall, acute blood loss anemia has improved after transfusion of 3 units. INR has normalized after vitamin K and FFP. Bleeding appears to have stopped. Dr. Chavez recommended initiating a clear liquid diet. We'll continue IV Protonix for possible upper GI bleed. Continue every 6 hours hemoglobin for now. Continue off of anticoagulation. SCDs for DVT prophylaxis. DC IV fluids when taking by mouth well. Resume her oral medications today. Appreciate Dr. Hadadd's consult. She did adjust the patient's psychiatric medications. - Discontinue Celexa - Decrease Cymbalta to 60mg PO q AM and 30mg PO q HS - Follow up with psychiatrist (preferably geriatric psychiatrist if possible ) after discharge - Avoid further benzodiazepine use Appreciate Dr. Chavez's consult, possible scopes on Friday. Continue to hold gabapentin, Toprol, Lasix and potassium for now due to borderline low blood pressure. PT and OT for generalized weakness. Up in chair 3 times a day as tolerated. CBC and basic metabolic profile tomorrow. Recheck hemoglobin in afternoon showed decrease to 7.8. One unit of pRBC transfused. 01/25/17 Hemoglobin increased to 8.8 with this morning's lab. Repeat H/H pending. Did pass bloody stool this am. Continue with IV Protonix drip and Carafate. Anticipate endoscopy on Friday. Decrease IVF to 75 cc/hr. Continue clear liquids. Replace potassium. Recheck BMP and magnesium in am. Possible need repeat transfusion. Continue to monitor blood counts. With continued bloody stools, will keep patient in CCU for close monitoring. 01/26/17 Hemoglobin stable at 8.9 with this morning's lab. Potassium decreased to 3.4. Will recheck H/H this afternoon to monitor counts. Bowel prep started for colonoscopy tomorrow. Will start IVF of NS with 20KCl at 75cc/hr. Oral potassium 20mEg x2 today. Continue with IV Protonix drip and Carafate. Anticipate endoscopy tomorrow. With clinical status stabilized, will transfer to surgical floor for continuation of care. 01/27/17 OP DAY - EGD and Colonoscopy Dr Chavez and I discussed endoscopic finding with patient and family. Bleeding most likely secondary to diverticular disease - no active bleeding found on colonoscopy. Gastric polyp removed - Bx taken - most likely benign CECAL MASS found - Bx taken - very worrisome for colon cancer. CEA checked and elevated at 9.7 (normal range 0-3). Patient did have CT ab/pelvis in ED on 01/08/17 - Fatty liver noted but no enhancing areas. Patient and family will think about treatment options - Currently does see Mattar for IV Iron. Possible resection at some time to decrease likelihood of obstruction can be entertained. With significant blood loss during this hospitalization do need to continue to hold anticoagulation to allow counts to recover. Diet advanced to clears. Oral potassium this evening. Will d/c IVF. Hemoglobin stable - need to continue to monitor. PT/OT and nursing to help improve strength. Can stop Protonix and Carafate as no gastritis/ulcer found in stomach.
[2017-01-27] MEDS: NS with KCL 20 mEq 1,000 ML IV SCH (21:15)
[2017-01-27] MEDS: SIMVASTATIN 10 MG TABLET PO SCH (21:16)
[2017-01-27] MEDS: MELATONIN 5 MG TABLET PO SCH (21:16)
[2017-01-27] MEDS: DONEPEZIL 10 MG TABLET PO SCH (21:16)
[2017-01-27] MEDS: PANTOPRAZOLE 40 MG INJECTION IVP SCH (21:28)
[2017-01-27] MEDS: SUCRALFATE 1 GM TABLET PO SCH (21:28)
[2017-01-27] MEDS: ClonazePAM 0.5 MG TABLET PO PRN (21:34)
[2017-01-28] MEDS: LEVOTHYROXINE 75 MCG TABLET PO SCH (05:43)
[2017-01-28] MEDS: LUTEIN 20 MG CAPSULE PO SCH (09:33)
[2017-01-28] MEDS: FUROSEMIDE 20 MG TABLET PO SCH (09:34)
[2017-01-28] MEDS: GABAPENTIN 300 MG CAPSULE PO SCH ×2 (09:34→14:53)
[2017-01-28] MEDS: DULOXETINE 30 MG CAPSULE PO SCH (09:34)
[2017-01-28] MEDS: MULTI-VITAMIN PLAIN TABLET PO SCH (09:34)
[2017-01-28 11:37] VITALS: BP 111/73; PULSE 72; RESP 16; TEMP 97.3; O2SAT 97
[2017-01-28] MEDS: TOPIRAMATE 25 MG TABLET PO SCH (12:26)
[2017-01-28] MEDS: CALCIUM 600 + VIT D 400 TABLET PO SCH (12:26)
--- NOTE | 2017-01-28 16:05 | Progress Note ---
- Date 01/28/17 Subjective: F/U: Acute GI bleed, anemia secondary to acute GI blood loss Feels weak and tired today. Sleeping often. Breathing well-not SOA or congested. No nausea. Ab symptoms stable. Discussed about needing further strengthening before she goes home and she agrees. Objective Vital signs: Temperature 97.3 F 01/28/17 11:37 Pulse Rate 72 01/28/17 11:37 Respiratory Rate 16 01/28/17 11:37 Blood Pressure 111/73 01/28/17 11:37 Pulse Oximetry 97 01/28/17 11:37 Height/Weight/BMI: Weight 68.2 kg - Constitutional Present: no acute distress, well nourished, well developed, cooperative - Routine HEENT Exam Head: Present: normocephalic, atraumatic Eye: Present: EOMI, PERRL ENT: Present: mucous membranes moist - Routine Respiratory Exam Present: CTA bilaterally. Absent: respiratory distress, wheezes, crackles - Routine Cardiovascular Exam Present: RRR, no murmur - Routine Abdominal Exam Present: soft, normoactive bowel sounds. Absent: non distended, non tender - Routine Extremities Exam Present: pulses intact. Absent: cyanosis, clubbing - Routine Musculoskeletal Exam Musculoskeletal: Present: no clubbing or cyanosis - Routine Skin Exam Present: dry, warm - Routine Neurological Exam Present: alert, CN II-XII intact, moving all extremities, vision grossly intact , hearing grossly intact, normal speech. Absent: altered mental status - Routine Psychiatric Exam Present: normal affect, normal thought process, cooperative. Absent: anxious, agitated Results - Labs CBC & Chem 7: 01/28/17 04:08 01/28/17 04:08 Assessment and Plan (1) Diarrhea Current visit: Yes Status: Acute (2) Weakness Current visit: Yes Status: Acute (3) Dehydration Current visit: Yes Status: Acute Assessment and Plan: Assessment Acute problems Acute blood loss anemia-hemoglobin improved to 9.9 post 3 units of blood 2016, 2 units given on 01/24/17 Acute GI Bleed: Rectal bleeding-uncertain if bleed is upper GI or lower GI. 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 Epigastric pain for a few weeks prior to admission Personal history of colon polyps, last colonoscopy about 10 years ago Supratherapeutic INR -resolved post vitamin K 10 mg IV 2 and 1 unit of FFP on 01/23/2017 Watery Diarrhea-resolved Weakness Dehydration Panic attacks, worsening depression-Dr. Haddad consulted and medications adjusted Hypokalemia (Not POA) Chronic medical problems Strong family history of colon cancer Hypothyroidism Macular degeneration Alzheimer's dementia Chronic Anemia-iron deficiency-sees Dr. 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 Vitals and respiratory status stable. Patient debilitated due to blood loss, anemia, and hospitalization. Did look into IRU evaluation - IRU accepted patient. Do feel this would be very beneficial to help her strength recover prior to return home. As medically stable, will discharge to IRU to continue care. See orders for details. Case discussed with CM. Time spent with patient's care and discharge greater than 30 minutes. DVT Prophylaxis: SCD's Resuscitation Status: Do Not Resuscitate Hospital Course Summary Disclaimer: The visit summary below is not to be considered part of the above Progress Note. Hospital Course: Assessment Diarrhea Weakness Dehydration Hypothyroidism Macular degeneration Alzheimer's dementia Chronic Anemia-iron deficiency Chronic anticoagulation Atrial fibrillation Benign essential hypertension History of breast cancer Coronary artery disease Chronic back pain Depression Essential tremor Generalized anxiety disorder Parkinson's disease CHF History of DVT Peripheral neuropathy Cardiac pacemaker 01/22/17 hospital admission for observation Admit as observation under hospitalist service (Dr. Cardoza, attending) for rehydration and further monitoring. Continue IV fluids cautiously given her CHF. Patient may take her home medications while in observation. Coumadin will serve as her DVT prophylaxis. Pharmacy to manage her INR. Consider psych consult for anxiety/depression and medication evaluation given that she is on 120 mg of Cymbalta and citalopram 20 mg daily. Concern for serotonin syndrome. Check GI panel to rule out pathogens. Patient wishes her CODE STATUS to be DO NOT RESUSCITATE. Will discuss case and further plan of care with Dr. Cardoza. Dr Cardoza Most likely the patient has generalized weakness related to dehydration from her diarrhea. We'll give cautious IV fluids and check a GI panel. We'll consult psychiatry regarding depression and to see if any med changes may be beneficial. Will advance diet as tolerated. Hold Coumadin for now regarding bright red blood in her stools. She has been noted to have hemorrhoids. She states she has a family history of colon cancer and she has had many colonoscopies in the past and they were all normal. We'll consult PT and OT regarding weakness. Hopefully, can dismiss to home tomorrow. 01/23/2017 Hemoglobin decreased to 8.1 from 10.1 at presentation. We'll transfuse 1 unit of blood now and stay 2 units ahead. Transferred to CCU for close monitoring. Vitamin K 10 mg IV to reverse supratherapeutic INR. Consult Dr. Chavez for lower GI bleed, he plans for colonoscopy when bleeding has improved. Clear liquids. [place] pharmacy consult for Coumadin monitoring. Discussed with Dr. Dunn, iron panel will be back tomorrow. Likely give IV iron tomorrow. SCDs for DVT prophylaxis. Recheck hemoglobin and INR after transfusion. Psychiatry consulted regarding depression and panic attacks, and recommendations regarding antidepressants. Repeat CBC, INR, basic metabolic profile tomorrow. Admission status change to inpatient due to acute blood loss anemia secondary to acute GI bleed. 01/23/2017 Evening note The patient was seen this evening in her room. Vital signs are stable. She is continuing to have rectal bleeding and stools are now maroon. Hemoglobin was 8.2 this afternoon and after transfusion of 1 units pRBC unfortunately dropped to 6.1. INR was 3.07 down from 4.04. Due to continued rectal bleeding and further drop in hemoglobin despite transfusion, will give 2 more units of blood now. FFP now. Vitamin K 10 mg IV repeat 1 now. Protonix 80 mg IV now. Start Protonix drip. Repeat hemoglobin and INR after transfusion. Patient was made nothing by mouth. I did notify Dr. Chavez of further rectal bleeding and drop in hemoglobin. I did call and notify the patient's son of worsening bleeding and hemoglobin, and notified him of care plans this evening. 01/24/17 Overall, acute blood loss anemia has improved after transfusion of 3 units. INR has normalized after vitamin K and FFP. Bleeding appears to have stopped. Dr. Chavez recommended initiating a clear liquid diet. We'll continue IV Protonix for possible upper GI bleed. Continue every 6 hours hemoglobin for now. Continue off of anticoagulation. SCDs for DVT prophylaxis. DC IV fluids when taking by mouth well. Resume her oral medications today. Appreciate Dr. Haddad's consult. She did adjust the patient's psychiatric medications. - Discontinue Celexa - Decrease Cymbalta to 60mg PO q AM and 30mg PO q HS - Follow up with psychiatrist (preferably geriatric psychiatrist if possible ) after discharge - Avoid further benzodiazepine use Appreciate Dr. Chavez's consult, possible scopes on Friday. Continue to hold gabapentin, Toprol, Lasix and potassium for now due to borderline low blood pressure. PT and OT for generalized weakness. Up in chair 3 times a day as tolerated. CBC and basic metabolic profile tomorrow. Recheck hemoglobin in afternoon showed decrease to 7.8. One unit of pRBC transfused. 01/25/17 Hemoglobin increased to 8.8 with this morning's lab. Repeat H/H pending. Did pass bloody stool this am. Continue with IV Protonix drip and Carafate. Anticipate endoscopy on Friday. Decrease IVF to 75 cc/hr. Continue clear liquids. Replace potassium. Recheck BMP and magnesium in am. Possible need repeat transfusion. Continue to monitor blood counts. With continued bloody stools, will keep patient in CCU for close monitoring. 01/26/17 Hemoglobin stable at 8.9 with this morning's lab. Potassium decreased to 3.4. Will recheck H/H this afternoon to monitor counts. Bowel prep started for colonoscopy tomorrow. Will start IVF of NS with 20KCl at 75cc/hr. Oral potassium 20mEg x2 today. Continue with IV Protonix drip and Carafate. Anticipate endoscopy tomorrow. With clinical status stabilized, will transfer to surgical floor for continuation of care. 01/27/17 OP DAY - EGD and Colonoscopy Dr Chavez and I discussed endoscopic finding with patient and family. Bleeding most likely secondary to diverticular disease - no active bleeding found on colonoscopy. Gastric polyp removed - Bx taken - most likely benign CECAL MASS found - Bx taken - very worrisome for colon cancer. CEA checked and elevated at 9.7 (normal range 0-3). Patient did have CT ab/pelvis in ED on 01/08/17 - Fatty liver noted but no enhancing areas. Patient and family will think about treatment options - Currently does see [facility] for IV Iron. Possible resection at some time to decrease likelihood of obstruction can be entertained. With significant blood loss during this hospitalization do need to continue to hold anticoagulation to allow counts to recover. Diet advanced to clears. Oral potassium this evening. Will d/c IVF. Hemoglobin stable - need to continue to monitor. PT/OT and nursing to help improve strength. Can stop Protonix and Carafate as no gastritis/ulcer found in stomach. 01/28/17 Hemoglobin stable at 8.6. Vitals and respiratory status stable. Patient debilitated due to blood loss, anemia, and hospitalization. Did look into IRU evaluation - IRU accepted patient. Do feel this would be very beneficial to help her strength recover prior to return home. As medically stable, will discharge to IRU to continue care. See orders for details.
--- NOTE | 2017-01-28 20:18 | Discharge Summary ---
Discharge Information Date of admission: 01/23/17 11:09 Anticipated date of discharge: 01/28/17 Attending Physician: Ti Chawla MD Primary care physician: Viktor Chatman MD Consults: Dr Chavez - surgery Dr Haddad - psych PT/OT - Discharge Diagnosis (1) Diarrhea Status: Acute (2) Weakness Status: Acute (3) Dehydration Status: Acute Admit diagnosis Acute blood loss anemia-hemoglobin improved to 9.9 post 3 units of blood 2016, 2 units given on 01/24/17 Acute GI Bleed: Rectal bleeding-uncertain if bleed is upper GI or lower GI. 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 Epigastric pain for a few weeks prior to admission Personal history of colon polyps, last colonoscopy about 10 years ago Supratherapeutic INR -resolved post vitamin K 10 mg IV 2 and 1 unit of FFP on 01/23/2017 Watery Diarrhea-resolved Weakness Dehydration Panic attacks, worsening depression-Dr. Haddad consulted and medications adjusted Hypokalemia (Not POA) Strong family history of colon cancer Hypothyroidism Macular degeneration Alzheimer's dementia Chronic Anemia-iron deficiency-sees Dr. Dunn Chronic anticoagulation-currently on hold Atrial fibrillation Benign essential hypertension History of breast cancer Coronary artery disease Chronic back pain Depression Essential tremor Generalized anxiety disorder CHF History of DVT/PE-on 2 occasions, the last one approximately 10 years ago Peripheral neuropathy Cardiac pacemaker Stage II CKD - Procedures Procedures: DATE OF SERVICE: 01/27/2017 SURGEON: Umair Chavez MD PREOPERATIVE DIAGNOSIS GI bleed, history for chronic iron deficiency anemia. 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 PROCEDURE Esophagogastroduodenoscopy with biopsies of gastric polyp, colonoscopy with biopsies of ileocecal valve mass/adenocarcinoma, biopsies of sessile lesion within cecum. - Laboratory Labs: OBS Admit Lab 01/22/17 15:36 WBC 5.3 Hgb 10.0 L Hct 30.8 L MCV 93.9 MCH 30.5 Plt Count 217 Neut % (Auto) 61.9 Lymph % (Auto) 28.0 [place] % (Auto) 8.6 Eos % (Auto) 1.1 Baso % (Auto) 0.2 Admit Lab 01/23/17 04:30 WBC 3.5 L Hgb 8.1 L D Hct 25.3 L D MCV 94.1 Plt Count 181 OBS Admit INR 01/22/17 15:36 INR 3.72 H OBS AdmitLab 01/22/17 01/22/17 15:36 15:36 Sodium 143 Potassium 4.1 Chloride 104 Carbon Dioxide 28 Anion Gap 11 BUN 25.0 H Creatinine 0.9 GFR Calculation 59 BUN/Creatinine Ratio 28 H Glucose 107 Calculated Osmolality 279 Calcium 8.9 Phosphorus 3.6 Magnesium 2.0 Total Bilirubin 0.30 AST 24 ALT 32 Alkaline Phosphatase 94 Troponin I < 0.012 Total Protein 6.8 Albumin 3.8 Globulin 3.0 Albumin/Globulin Ratio 1.3 Lipase 86 IRON Test 01/23/17 08:34 Iron 62 TIBC 313 % Saturation 20 CEA and CA 125 01/27/17 01/27/17 03:48 03:48 Carcinoembryonic Ag 9.70 H CA 125 Antigen 9.6 01/28/17 04:08 01/28/17 04:08 - Radiology Radiology: Date of Exam: 01/22/17 PROCEDURE: XR chest 1V Findings: Left cardiac pacemaker defibrillator. Right axillary surgical clips. Lungs are mildly hyperinflated but clear. No consolidative pneumonia, pleural effusion or pneumothorax. Overlying cardiac monitoring leads. Cardiac silhouette is mildly enlarged. Mediastinal contours and pulmonary vascularity are within normal limits. Chronic right rotator cuff tear. Degenerative change and scoliosis in the thoracolumbar spine. Impression: No focal pneumonia or congestive failure. - Pathology Colon Bx pending at time of discharge Gastric Bx pending at time of discharge History of Present Illness HPI: Patient is an 86-year-old female who was brought to the emergency room by her [id number] due to diarrhea 3 days and progressive weakness. Patient lives with her son and [id number] and is usually mostly independent, however, she moved in with them because she was having frequent falls. She complains of some stomach pain. No vomiting. Some nausea. She's had has a piece of toast and applesauce today. She's had multiple bouts of diarrhea today and later on in the day daughter noticed bright red blood with the stools. Thinks this is likely related to her hemorrhoids. [id number] also mentions that patient has severe depression and has been struggling with this the last several weeks. She had a panic attack today. She also gets periodic IV iron infusions through Dr. Dunn's office. Last infusion was in September. She has an appointment in his office tomorrow. In the ED she had a CBC with hemoglobin of 10, INR 3.72, essentially normal CMP with the exception of an elevated BUN at 25. Troponin was negative, lipase was normal. UA was negative as well as influenza A and B. Chest x-ray was essentially negative and EKG showed nothing acute. For complete details of the H&P refer to that document. Objective Vital signs: Temperature 97.3 F 01/28/17 11:37 Pulse Rate 72 01/28/17 11:37 Respiratory Rate 16 01/28/17 11:37 Blood Pressure 111/73 01/28/17 11:37 Pulse Oximetry 97 01/28/17 11:37 Height/Weight/BMI: Weight 68.2 kg Hospital Course This is a general summary of the patient's hospital course. For more details refer to the complete medical record. Hospital course: Assessment Diarrhea Weakness Dehydration Hypothyroidism Macular degeneration Alzheimer's dementia Chronic Anemia-iron deficiency Chronic anticoagulation Atrial fibrillation Benign essential hypertension History of breast cancer Coronary artery disease Chronic back pain Depression Essential tremor Generalized anxiety disorder Parkinson's disease CHF History of DVT Peripheral neuropathy Cardiac pacemaker 01/22/17 hospital admission for observation Admit as observation under hospitalist service (Dr. Cardoza, attending) for rehydration and further monitoring. Continue IV fluids cautiously given her CHF. Patient may take her home medications while in observation. Coumadin will serve as her DVT prophylaxis. Pharmacy to manage her INR. Consider psych consult for anxiety/depression and medication evaluation given that she is on 120 mg of Cymbalta and citalopram 20 mg daily. Concern for serotonin syndrome. Check GI panel to rule out pathogens. Patient wishes her CODE STATUS to be DO NOT RESUSCITATE. Will discuss case and further plan of care with Dr. Cardoza. Dr aCrdoza Most likely the patient has generalized weakness related to dehydration from her diarrhea. We'll give cautious IV fluids and check a GI panel. We'll consult psychiatry regarding depression and to see if any med changes may be beneficial. Will advance diet as tolerated. Hold Coumadin for now regarding bright red blood in her stools. She has been noted to have hemorrhoids. She states she has a family history of colon cancer and she has had many colonoscopies in the past and they were all normal. We'll consult PT and OT regarding weakness. Hopefully, can dismiss to home tomorrow. 01/23/2017 Hemoglobin decreased to 8.1 from 10.1 at presentation. We'll transfuse 1 unit of blood now and stay 2 units ahead. Transferred to CCU for close monitoring. Vitamin K 10 mg IV to reverse supratherapeutic INR. Consult Dr. Chavez for lower GI bleed, he plans for colonoscopy when bleeding has improved. Clear liquids. [place] pharmacy consult for Coumadin monitoring. Discussed with Dr. Dunn, iron panel will be back tomorrow. Likely give IV iron tomorrow. SCDs for DVT prophylaxis. Recheck hemoglobin and INR after transfusion. Psychiatry consulted regarding depression and panic attacks, and recommendations regarding antidepressants. Repeat CBC, INR, basic metabolic profile tomorrow. Admission status change to inpatient due to acute blood loss anemia secondary to acute GI bleed. 01/23/2017 Evening note The patient was seen this evening in her room. Vital signs are stable. She is continuing to have rectal bleeding and stools are now maroon. Hemoglobin was 8.2 this afternoon and after transfusion of 1 units pRBC unfortunately dropped to 6.1. INR was 3.07 down from 4.04. Due to continued rectal bleeding and further drop in hemoglobin despite transfusion, will give 2 more units of blood now. FFP now. Vitamin K 10 mg IV repeat 1 now. Protonix 80 mg IV now. Start Protonix drip. Repeat hemoglobin and INR after transfusion. Patient was made nothing by mouth. I did notify Dr. Chavez of further rectal bleeding and drop in hemoglobin. I did call and notify the patient's son of worsening bleeding and hemoglobin, and notified him of care plans this evening. 01/24/17 Overall, acute blood loss anemia has improved after transfusion of 3 units. INR has normalized after vitamin K and FFP. Bleeding appears to have stopped. Dr. Chavez recommended initiating a clear liquid diet. We'll continue IV Protonix for possible upper GI bleed. Continue every 6 hours hemoglobin for now. Continue off of anticoagulation. SCDs for DVT prophylaxis. DC IV fluids when taking by mouth well. Resume her oral medications today. Appreciate Dr. Haddad's consult. She did adjust the patient's psychiatric medications. - Discontinue Celexa - Decrease Cymbalta to 30mg PO q AM and 30mg PO q HS - Follow up with psychiatrist (preferably geriatric psychiatrist if possible ) after discharge - Avoid further benzodiazepine use Appreciate Dr. Chavez's consult, possible scopes on Friday. Continue to hold gabapentin, Toprol, Lasix and potassium for now due to borderline low blood pressure. PT and OT for generalized weakness. Up in chair 3 times a day as tolerated. CBC and basic metabolic profile tomorrow. Recheck hemoglobin in afternoon showed decrease to 7.8. One unit of pRBC transfused. 01/25/17 Hemoglobin increased to 8.8 with this morning's lab. Repeat H/H pending. Did pass bloody stool this am. Continue with IV Protonix drip and Carafate. Anticipate endoscopy on Friday. Decrease IVF to 75 cc/hr. Continue clear liquids. Replace potassium. Recheck BMP and magnesium in am. Possible need repeat transfusion. Continue to monitor blood counts. With continued bloody stools, will keep patient in CCU for close monitoring. 01/26/17 Hemoglobin stable at 8.9 with this morning's lab. Potassium decreased to 3.4. Will recheck H/H this afternoon to monitor counts. Bowel prep started for colonoscopy tomorrow. Will start IVF of NS with 20KCl at 75cc/hr. Oral potassium 20mEg x2 today. Continue with IV Protonix drip and Carafate. Anticipate endoscopy tomorrow. With clinical status stabilized, will transfer to surgical floor for continuation of care. 01/27/17 OP DAY - EGD and Colonoscopy Dr Chavez and I discussed endoscopic finding with patient and family. Bleeding most likely secondary to diverticular disease - no active bleeding found on colonoscopy. Gastric polyp removed - Bx taken - most likely benign CECAL MASS found - Bx taken - very worrisome for colon cancer. CEA checked and elevated at 9.7 (normal range 0-3). Patient did have CT ab/pelvis in ED on 01/08/17 - Fatty liver noted but no enhancing areas. Patient and family will think about treatment options - Currently does see Mattar for IV Iron. Possible resection at some time to decrease likelihood of obstruction can be entertained. With significant blood loss during this hospitalization do need to continue to hold anticoagulation to allow counts to recover. Diet advanced to clears. Oral potassium this evening. Will d/c IVF. Hemoglobin stable - need to continue to monitor. PT/OT and nursing to help improve strength. Can stop Protonix and Carafate as no gastritis/ulcer found in stomach. 01/28/17 Hemoglobin stable at 8.6. Vitals and respiratory status stable. Patient debilitated due to blood loss, anemia, and hospitalization. Did look into IRU evaluation - IRU accepted patient. Do feel this would be very beneficial to help her strength recover prior to return home. As medically stable, will discharge to IRU to continue care. Post discharge from IRU she will need follow up with Dr Chatman for primary care and Dr Chavez for resection of colonic mass suspicious for Ca. Oncological care could be provided by Dr Dunn. See orders for details. Time spent with patient: discharge greater than 30 minutes DVT Prophylaxis: SCD's Discharge Plan - Discharge Disposition Discharge Date: 01/28/17 Disposition: 60 To [facility] IN[facility] Re[facility] *Condition: Stable Reason For Visit (Visit label in EMR): gi bleed, abla - Discharge Medications *Discharge Medications: New Duloxetine [Cymbalta] 30 mg PO BID capsule Continue Levothyroxine Sodium 75 mcg PO DAILY Furosemide [Lasix] 20 mg PO DAILY Donepezil HCl [Aricept] 10 mg PO HS Topiramate 25 mg PO NOON Potassium Chloride [K-Dur] 5 meq PO DAILY Melatonin 5 mg PO HS Lutein 20 mg PO DAILY Multivitamin [Multivitamins] 1 each PO DAILY Gabapentin 300 mg PO TID Sucralfate [Carafate] 1 gm PO BID Ondansetron [Zofran Odt] 4 mg PO Q6HR PRN PRN Reason: Nausea ClonazePAM [Klonopin] 0.5 mg PO HS Calcium Carbonate/Vitamin D3 [Calcium 600-Vit D3 800 Tablet] 1 each PO NOON Omeprazole 20 mg PO DAILY Simvastatin [Zocor] 10 mg PO HS Carbidopa/Levodopa [Sinemet Cr 25-100 Tablet] 1 each PO NOON Hydrocodone/APAP 5/325 [[place] 5/325] 1 tab PO Q6H PRN #12 tab PRN Reason: Pain Discontinued Warfarin Sodium [Coumadin] 4 mg PO SUTUTHSA Warfarin [Coumadin] 2.5 mg PO MOWEFR Metoprolol Succinate (XL) [Toprol Xl] 25 mg PO DAILY Citalopram [Celexa] 20 mg PO NOON Duloxetine [Cymbalta] 60 mg PO BID - Discharge Packet/Instructions *Diet: full liquid diet *Activity: Up with assistance, up in chair TID *Pain Management/Treatment: Tylenol and norco as need for pain *Wound Care: n/a *Expected Signs/Symptoms: Improvement of your strength and functional status *Notify Physician if: Temp >100.4. *During Business Hours Contact: Nursing staff at IRU *After Business Hours Contact: Nursing staff at IRU *Pending Lab/Results: Follow up w/your PCP - Referrals/Follow Up *Referrals/Follow Up: Umair Chavez MD [Physician] - 02/04/17 10:00 am (discuss treatment options) - Patient Handouts Patient Handouts: Gastrointestinal Bleeding (GEN) - Dismissal Complete Discharge Instructions are:: Complete Attestation Narriative - Attestation Attestation Narrative: 01/28/17 20:27 I have independently interviewed and examined patient prior to discharge. See my progress note from today for details. Medically stable for discharge to IRU.
== END 2017-01-28 16:40 | DRG 378 ==
LOC: MED 15:02 → ED 15:02 → MED 18:50 → SUATTDRO 01-23 11:09 → CCU 01-23 11:55 → MED 01-26 15:37
PROVIDERS: ADMIT Internal Medicine; ATTEND Hospitalist
PROC: END.EGD (2017-01-27 10:30)

== ENCOUNTER 2017-01-28 16:55 | Inpatient (IN) ==
--- NOTE | 2017-01-28 17:15 | IRU History & Physical Report ---
HPI IRU Date: Chief complaint: I'm weak and had bleeding from my colon HPI: Ms. Juan is a very pleasant 86-year-old female who lives with her family in [place], [place]. Referring physician is Dr. Ti Chawla. Her primary care doctor's Dr. Viktor Chatman. She was admitted to the [facility] on 10/2016 because of about a 3 day history of diarrhea and feeling weak. Due to macular degeneration she could not really see the stool but her family noted that there was blood in the bowel movement. Quantity of stool was fairly large and she does not know how many bowel movements she had per day. At that time she had had some nausea but had not vomited. She also had complained of some abdominal discomfort. It was difficult for her to describe where the pain is located but at the present time she thinks it was more in the epigastrium. There was presence of some bright red blood in the bowel movement. Patient lives with her [id number] and son. Initial hemoglobin was 10.0 with an INR 3.72 (the patient is on warfarin due to atrial fibrillation). Subsequently her hemoglobin did drop to a low of 6.1 g percent on the day after admission. Most recent hemoglobin is 8.6. She has received 4 units of packed red blood cells and 1 unit of fresh frozen plasma. At the time of admission her INR was 3.87. She was given vitamin K at that time. As of 01/28/2017 her INR is 1.20. Further evaluation of the GI bleeding was undertaken with both an EGD and a colonoscopy by Dr. Chavez. EGD revealed a gastric polyp which was biopsied. No ulceration was seen and no evidence of upper GI bleeding was present on EGD. 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 From the acute record I believe the pathology report is still pending. The patient does want to be aggressive and wants to pursue surgery despite her advanced age. However at the present time she is significantly weak and will require rehabilitation to allow her to undergo the contemplated procedure. Most of the blood was noted in the rectum and sigmoid colon area and it is felt that her actual GI bleed was more likely from a diverticular bleed rather than from the cecal cancer. She reports that her last colonoscopy was about 10 years ago. At that time they were able to remove 3 polyps but were not able to get the fourth one. She does have a strong family history of colon cancer in her father, brother and sister. She has also struggled with depression which is been worse recently. She had been on Cymbalta which had recently been increased from 90 up to 120 mg daily. Citalopram had been added at 20 mg daily as an outpatient. Patient had a panic attack on the day of admission and had been complaining of depression and chronic anxiety. Apparently she has not had any suicide thoughts or attempts recently but in the past did suffer from depression. She was seen by Mimi Haddad MD on the acute care side. At the present time in view of her medical issues, it was recommended that her duloxetine dose be reduced to 30 mg twice daily. She is also on donepezil 10 mg at bedtime daily. She does have multiple other medical problems including coronary artery disease , congestive heart failure by report (I do not see an echocardiogram available at this time, history of DVT/pulmonary embolus on 2 occasions with the most recent one being about 10 years ago, history of stage II chronic kidney disease (although current eGFR is 79), benign essential hypertension and atrial fibrillation. She is followed by Dr. Lynn for anemia and has received iron infusions in the past. Prior to admission the patient was living with her family although could take care of herself fairly independently. Specifically she was independent with eating, upper and lower body dressing and modified independent with toileting, bed/chair/wheelchair transfers, toilet transfers and ambulation with a rolling walker. She was minimal assistance for bathing. At home she does have some grab bars and other assistive devices. They do have 4 or 5 steps to get into the home but apparently have built a ramp for her to use. Current level of function is as follows: She is minimal assistance for grooming , however bathing and upper body dressing and eating have not been tested. She is supervision level for lower body dressing, minimal assistance for toileting toileting, supervision level for bed/chair/wheelchair transfers, minimal assistance for toilet transfers and total assistance for walking. She walks with a rolling walker only about 40 feet. The patient would like to be aggressive and return to her home on a fairly independent level. In addition she wants to get stronger in anticipation of colectomy and treatment for her cecal cancer. The following medical conditions are noted and require active monitoring and/or management: 1. Acute blood loss anemia: This is felt to have been due to a diverticular bleed. She is at risk for further blood loss and will need to be monitored carefully as an inpatient in this regard. She is at risk for lightheadedness, and falls in view of her potential for anemia. 2. Debilitation: She demonstrates a risk for complications related to immobility including constipation, further muscle weakness, respiratory and other infections, skin breakdown and recurrent falls. 3. Atrial fibrillation with need for anticoagulation. She is at risk for neurologic complications in terms of TIA or CVA in view of subtherapeutic INR which is necessary at this time due to her GI bleeding. 3. Benign essential hypertension: She is at risk for hypertension related to anxiety or hypotension related to further GI bleeding. This would place her at increased risk for falls in the event of hypotension. 4. Depression and anxiety with recent panic attacks. She is at risk for further decompensation from a mental status standpoint in view of her acute illness. The following therapies will be needed: 1. Physical therapy: for transfers and ambulation and stairs. 2. Occupational therapy: for ADL's and transfers. 3. Medical management: for the above conditions. 4. 24 hour Rehabilitation Nursing to monitor and address the following: Close monitoring of any recurrence of GI bleeding, monitoring of vital signs in view of risk of bleeding and hypotension, monitoring of neurologic status in view of atrial fibrillation and risk of TIA/CVA, monitoring of mental status in view of recent panic attacks with anxiety and chronic depression. [facility] Patient Stated Medical History Dementia Yes Migraine Yes Parkinson's Disease Yes Cataracts Yes Macular Degeneration Yes Congestive Heart Failure Yes: hx Hypertension Yes Sleep Apnea No Gastroesophageal Reflux Yes: well controlled Disease Hiatal Hernia Yes Hx Incontinence Yes Anemia Yes: receives iron infusions Depression Yes Clinic Medical History Diarrhea (Acute Medical) Weakness (Acute Medical) Dehydration (Acute Medical) Dehydration (Acute Medical) Diarrhea (Acute Medical) External hemorrhoid (Acute Medical) Anemia (Acute Medical) Major depressive disorder (Acute Medical) Anxiety (Acute Medical) Abdominal pain (Inactive Medical) Nausea (Inactive Medical) Medical History Updates: Right Breast Cancer. Dementia Yes. Migraine Yes. Parkinson's Disease Yes. Cataracts Yes. Atrial fibrillation with chronic anticoagulation. Benign essential hypertension. Reported Alzheimer's dementia. Depression with anxiety and panic attacks. Parkinson's disease. 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 Peripheral neuropathy. Macular degeneration. Hypothyroidism. Macular Degeneration Yes. Congestive Heart Failure Yes. Hypertension Yes. Gastroesophageal Reflux Yes. Disease. Hiatal Hernia Yes. Hx Incontinence Yes. Anemia Yes: receives iron infusions. Depression Yes Surgical History: appendectomy. right mastectomy. pacemaker placement. right TKA. right ISSA. Cataract procedure. Tonsillectomy and adenoidectomy. Lipoma removed from left chest or upper back. right shoulder surgery Family History: Her father as well as a brother and sister all had colon cancer. Another brother has bladder cancer. Her son has bladder cancer. Her father suffered from alcoholism and depression as well. Mother apparently had lymphoma. Another sister has Alzheimer's dementia. - Social History Smoking status: Former smoker (smoked for just a short period at age 14 but none since.) Substance use type: does not use Alcohol intake: never Alcohol intake frequency: does not drink Housing: house Household members: family (lives with her son and [id number] in a home.) Does patient use chewing tobacco?: No Current residence: Apartment/Private Home Social history: First around 1979. He worked for the [employer]. She remarried and her second has since then. 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 Review of Systems - Constitutional Constitutional: Present: anorexia (she blames the liquid diet for her anorexia) , weakness. Absent: chills, fatigue, fever(s), headache(s), lethargy, malaise, night sweats, weight gain, weight loss - EEPRT Eyes: Present: loss of vision (has reported severe macular degeneration. Enjoys reading but has to use audiobooks now.). Absent: blurry vision, change in vision, diplopia Mouth/Throat: Absent: changes in swallowing, painful swallowing, change in taste , bleeding gums, change in voice - Cardiovascular Cardiovascular: Absent: chest pain, palpitations, syncope, dyspnea on exertion, orthopnea, edema, cyanosis, heart murmur Rhythm: Present: regular rhythm Vascular: Absent: intermittent claudication, pedal edema, unilateral swelling - Respiratory Respiratory: Absent: cough, dyspnea, hemoptysis, dyspnea on exertion, wheezing, pain on inspiration, chest congestion, excessive phlegm production - Gastrointestinal Gastrointestinal: Present: abdominal pain (this is mainly present at the time of admission. Location mainly in the epigastrium), change in stool character ( bright red blood in stool noted previously upon this admission to acute care), diarrhea, hematochezia. Absent: change in bowel habits, constipation, dyspepsia , dysphagia, early satiety, melena, nausea, vomiting - Musculoskeletal Musculoskeletal: Absent: abnormal gait, arthralgias, back pain, joint swelling, limited range of motion, muscle weakness - Integumentary/Breasts Integumentary: Absent: alopecia, erythema, lesions, pruritus, rash, jaundice - Neurological Neurological: Present: memory loss, weakness. Absent: abnormal gait, abnormal movements, abnormal speech, confusion, convulsions, dizziness, focal weakness, frequent falls, headache(s), loss of vision, numbness, paresthesias, tremor(s) - Psychiatric Psychiatric: Present: anxiety, depression, panic attacks (had panic attack at the time of admission as well as chronic anxiety disorder and depression). Absent: abnormal sleep pattern - Endocrine Endocrine: Absent: cold intolerance, flushing, heat intolerance, palpitations - Hematologic/Lymphatic Hematologic/Lymphatic: Absent: easy bleeding, easy bruising, lymphadenopathy - Allergic/Immunologic Allergic/Immunologic: Absent: urticaria Medications Home Medications Medication Instructions Recorded Confirmed Type Calcium Carbonate/Vitamin D3 1 each PO NOON 09/12/16 01/22/17 History [Calcium 600-Vit D3 800 Tablet] Carbidopa/Levodopa [Sinemet Cr 1 each PO NOON 09/12/16 01/22/17 History 25-100 Tablet] ClonazePAM [Klonopin] 0.5 mg PO HS 09/12/16 01/22/17 History Donepezil HCl [Aricept] 10 mg PO HS 09/12/16 01/22/17 History Furosemide [Lasix] 20 mg PO DAILY 09/12/16 01/22/17 History Levothyroxine Sodium 75 mcg PO DAILY 09/12/16 01/22/17 History Lutein 20 mg PO DAILY 09/12/16 01/22/17 History Melatonin 5 mg PO HS 09/12/16 01/22/17 History Multivitamin [Multivitamins] 1 each PO DAILY 09/12/16 01/22/17 History Omeprazole 20 mg PO DAILY 09/12/16 01/22/17 History Potassium Chloride [K-Dur] 5 meq PO DAILY 09/12/16 01/22/17 History Simvastatin [Zocor] 10 mg PO HS 09/12/16 01/22/17 History Topiramate 25 mg PO NOON 09/12/16 01/22/17 History Gabapentin 300 mg PO TID 01/08/17 01/22/17 History Ondansetron [Zofran Odt] 4 mg PO Q6HR PRN 01/22/17 01/22/17 History Sucralfate [Carafate] 1 gm PO BID 01/22/17 01/22/17 History Allergies Allergy/AdvReac Type Severity Reaction Status Date / Time cephalexin Allergy Unknown Verified 01/22/17 15:46 propoxyphene Allergy Verified 01/22/17 15:46 [From Darvocet-N] Sulfa (Sulfonamide Allergy Hives Verified 01/22/17 15:46 Antibiotics) Tetanus Vaccines and Toxoid Allergy Verified 01/22/17 15:46 Results IRU - Labs Labs: Reviewed acute care admission data Exam - Constitutional Present: no acute distress, well nourished, well developed, thin, cooperative - Routine HEENT Exam Head: Present: normocephalic, atraumatic. Absent: cushingoid faces, abrasion, laceration, hematoma Eye: Present: EOMI, PERRL (pupils are small bilaterally and equal and somewhat reactive to light). Absent: conjunctival icterus, scleral injection, periorbital swelling, nystagmus ENT: Present: mucous membranes moist, oropharynx clear Comments: Has several missing teeth particularly in the maxilla - Routine Neck Exam Present: supple, full ROM, trachea midline. Absent: lymphadenopathy, thyromegaly, tenderness, swelling - Routine Chest/Breast/Axilla Exam Chest wall: Absent: tenderness, mass Axillae: Absent: lymphadenopathy, mass - Routine Respiratory Exam Present: CTA bilaterally. Absent: accessory muscle use, decreased breath sounds , prolonged expiratory phase, rales, respiratory distress, rhonchi, stridor, wheezes, crackles, distant breath sounds - Routine Cardiovascular Exam Present: RRR, S1, S2, no murmur. Absent: gallop, S3, S4, click, irregular rhythm - Routine Abdominal Exam Present: soft, normoactive bowel sounds, non distended, non tender. Absent: rebound, guarding, firm, rigid, organomegaly, mass, hernia, wound - Routine Extremities Exam Present: no edema, non tender, pulses intact, normal capillary refill. Absent: cyanosis, clubbing - Routine Back/Spine/Pelvis Exam Back/Spine: Present: full ROM. Absent: scoliosis, kyphosis - Routine Skin Exam Present: intact, dry, warm. Absent: cyanosis, erythema, pallor, mottling, petechiae, urticaria, lesions, jaundice - Routine Neurological Exam Present: alert, oriented X3, CN II-XII intact, moving all extremities, normal speech - Routine Psychiatric Exam Present: normal affect, normal thought process, cooperative, good insight, good judgment. Absent: depressed, anxious Sepsis Assessment - Evaluation Confirmed Suspected Infection: No SIRS Criteria: none IRU A/P (1) Acute blood loss anemia Current visit: Yes Status: Acute Patient has recent history of acute blood loss anemia from the GI tract. This is felt to most likely be from diverticular origin. She has received several units of packed red blood cells. Hemoglobin is currently stable but will require close monitoring. (2) Diverticular hemorrhage Current visit: Yes Status: Acute She will be monitored carefully for further evidence of GI bleeding. (3) Atrial fibrillation Qualifiers: Atrial fibrillation type: unspecified Qualified Code(s): I48.91 - Unspecified atrial fibrillation Current visit: Yes Status: Chronic Warfarin will be held for the time being in view of the recent GI bleeding. (4) Weakness Current visit: No Status: Acute (5) Anxiety Current visit: No Status: Chronic DVT Prophylaxis: SCD's Resuscitation Status: Do Not Resuscitate - Course Hospital Course: Neville Wade MD: - Interventions to Obtain Goals PT Treatment Plan: Balance/Proprioception, Functional Activities, Gait Training , Patient/Family Education OT Treatment Plan: ADL (Basic Care), Pt./Family Education Goals Progress/Modifications: Patient was able to function at home at a modified independent to independent level for many activities. At the present time she is very debilitated from her recent acute GI bleeding and will require a multidisciplinary approach to allow her to return home safely in preparation for possible colon surgery. She will require physical therapy, occupational therapy and 24 rehabilitation nursing monitoring of the above-described conditions. She will require medical supervision of these as well. The patient is able to tolerate 3 hours of therapy 5 days weekly and will require this.
--- NOTE | 2017-01-28 17:28 | IRU 24Hr Post Admit Eval ---
24 Hr Post Admission Physical - Relevant Changes Relevant Changes: No Reviewed: I have reviewed the patient's information and concur with the finding and results of the pre-admission screen. Certification: I certify the patient for rehabilitation. - Patient Condition (1) Acute blood loss anemia Status: Acute Code(s): D62 - Acute posthemorrhagic anemia Classification: Present on IRF Admission, IRF Tx That Should Address Diagnosis, Diagnosis Requiring Medical Follow Up (2) Diverticular hemorrhage Status: Acute Code(s): K57.31 - Diverticulosis of large intestine without perforation or abscess with bleeding Classification: IRF Tx That Should Address Diagnosis, Diagnosis Requiring Medical Follow Up (3) Atrial fibrillation Status: Chronic Qualifiers: Atrial fibrillation type: unspecified Qualified Code(s): I48.91 - Unspecified atrial fibrillation Code(s): I48.91 - Unspecified atrial fibrillation Classification: Present on IRF Admission, IRF Tx That Should Address Diagnosis, Diagnosis Requiring Medical Follow Up (4) Weakness Status: Acute Code(s): R53.1 - Weakness Classification: Present on IRF Admission, IRF Tx That Should Address Diagnosis, Diagnosis Requiring Medical Follow Up (5) Anxiety Status: Chronic Code(s): F41.9 - Anxiety disorder, unspecified Classification: Present on IRF Admission, Diagnosis Requiring Medical Follow Up - Prior Functional Status Lives With: With Family Residence Type: Apartment/Private Home Assitive Devices: Wheelchair Prior Functional Status: Depend. at home or school, Used assistive device - Current Functional Status Current Level of Function: Current level of function is as follows: She is minimal assistance for grooming , however bathing and upper body dressing and eating have not been tested. She is supervision level for lower body dressing, minimal assistance for toileting toileting, supervision level for bed/chair/wheelchair transfers, minimal assistance for toilet transfers and total assistance for walking. She walks with a rolling walker only about 40 feet. Failed Alternative Therapy: Arrived from Acute Care Patient Requirements: The patient requires oversight by rehabilitation physician to manage their rehabilitation treatment plan and multidisciplinary approach to care that can only be provided in an IRF and requires a multidisciplinary approach to care, provided by professional PTs, OTs, STs, dieticians, RTs, rehabilitation nurses and is not available in lesser levels of care. Limitations Req: Mobility Impairment, ADL Impairment Physical Therapy Minutes: 90 Occupational Therapy Minutes: 90 Therapy: The patient is to receive therapy at least 5 days a week. - Complications/Comorbidities Impact on Functional Outcomes: Her acute blood loss anemia as well as atrial fibrillation and history of congestive heart failure may impact her functional recovery. Barriers to Discharge: Weakness, Endurance, Medical Limitation - Plan to Avoid Complications Plan to Avoid Complications: The patient cannot receive this care in a lesser intensive setting such as Senior Living or Outpatient Therapy due to the patient requiring the following : Close 24 hour monitoring of blood pressure, pulse, evidence of recurrent GI bleeding, lightheadedness as well as monitoring of depression and anxiety and neurologic changes in view of her atrial fibrillation.
[2017-01-28] MEDS ORDERED: ONDANSETRON ODT 4 MG TABLET PO PRN (17:36)
[2017-01-28] MEDS ORDERED: HYDROCODONE/APAP 5mg/325mg TABLET PO PRN (17:36)
[2017-01-28] MEDS ORDERED: NS with KCL 20 mEq 1,000 ML IV SCH (17:36)
[2017-01-28] MEDS ORDERED: SALINE FLUSH 10ml SYRINGE IVF PRN (17:36)
[2017-01-28] MEDS ORDERED: NS FLUSH BAG 500ml IV PRN (17:36)
--- NOTE | 2017-01-28 18:42 | Progress Note ---
DATE OF SERVICE 01/28/2017 FINDINGS Mrs. Juan was seen earlier this morning on rounds. The patient was without complaints today. She did have a family member present. PHYSICAL EXAM VITAL SIGNS: Afebrile, normotensive. Vitals earlier this morning include temperature 97.3, pulse 72, respirations 16, blood pressure 111/73, SAO2 97% room air. HEENT: Normocephalic. Pupils are equally round and react to light and accommodation. CHEST: Clear to auscultation bilaterally. HEART: Regular rate and rhythm. Normal S1 and S2 without gallops, murmurs or clicks. ABDOMEN: Palpation of the abdomen reveals it to be soft and nontender. I do not appreciate any evidence for hepatosplenomegaly nor abnormal masses. LABORATORY/RADIOGRAPHIC EVALUATION The patient had a CBC obtained today and her white count was stable at 5.3. Overall, hemoglobin is stable at 8.6. BMP was obtained and found to be without marked abnormalities. ASSESSMENT 86-year-old female with presentation of GI bleed most likely secondary to diverticulosis. Patient status post EGD and colonoscopy revealing adenocarcinoma involving proximal ascending colon. PLAN I did inform the patient again this morning of her pathology results. The patient did reiterate to me that she would like to proceed with surgical resection of her malignancy. I informed the patient that at this time I would like to allow her to recover from her recent GI bleed. Would recommend that we go ahead and discharge the patient home if she is deemed stable from a medical standpoint. Will plan on seeing the patient back in my surgical office next week. Will discuss with the patient and her family at that time in more detail what a robotic-assisted laparoscopic right hemicolectomy would entail and its associated risks. The patient understood and agreed with the proposed plan at this time. The patient was discharged later in the day. Orders were written for patient to follow up next week as stated above. DEENA
[2017-01-28 20:18] VITALS: BMI 26.6
[2017-01-28] MEDS: DONEPEZIL 10 MG TABLET PO SCH (22:55)
[2017-01-28] MEDS: SIMVASTATIN 10 MG TABLET PO SCH (22:56)
[2017-01-28] MEDS: MELATONIN 5 MG TABLET PO SCH (22:56)
[2017-01-28] MEDS: GABAPENTIN 300 MG CAPSULE PO SCH (22:56)
[2017-01-28] MEDS: DULOXETINE 30 MG CAPSULE PO SCH (22:56)
[2017-01-28] MEDS: SUCRALFATE 1 GM TABLET PO SCH (22:57)
[2017-01-28] MEDS: ClonazePAM 0.5 MG TABLET PO PRN (23:08)
[2017-01-29] MEDS: LEVOTHYROXINE 75 MCG TABLET PO SCH ×2 (05:28→06:24)
[2017-01-29] MEDS: OMEPRAZOLE 20 MG CAPSULE PO SCH ×2 (05:28→06:24)
[2017-01-29] MEDS: FUROSEMIDE 20 MG TABLET PO SCH (09:00)
[2017-01-29] MEDS: GABAPENTIN 300 MG CAPSULE PO SCH ×3 (09:07→21:54)
[2017-01-29] MEDS: LUTEIN 20 MG CAPSULE PO SCH (09:08)
[2017-01-29] MEDS: DULOXETINE 30 MG CAPSULE PO SCH ×2 (09:08→21:54)
[2017-01-29] MEDS: MULTI-VITAMIN PLAIN TABLET PO SCH (09:08)
[2017-01-29] MEDS: SUCRALFATE 1 GM TABLET PO SCH ×2 (09:09→16:56)
--- NOTE | 2017-01-29 09:15 | Consult Note ---
<Nancy Sears V - Last Filed: 01/29/17 09:07> Consult Information - Data of Consult Consult date: 01/29/17 Requesting Physician: Neville Wade MD Primary Care Provider: Viktor Chatman MD Family Provider: Viktor Chatman MD - Consult Narrative Reason for consult: Medical managemetn of recent GI bleed, HTN History of present illness: Daniella is a 86 -year-old female who is well known to the hospitalist services as she was recently admitted acutely for GI bleed and weakness. She was admitted to [facility] hospitalist services on 01/23/17. She underwent an EGD with gastric polyp biopsies as well as colonoscopy and was found have an ileocecal valve mass/adenocarcinoma. Hemoglobin was down to 8.1 and patient did receive a total of 3 units of packed red blood cell transfusion. INR was found to be supra air pubic up to 4.04. Patient did receive vitamin K. Hemoglobin did stabilize. However, patient continued to have significant weakness. Given the acute illness. Patient was screened and accepted to inpatient rehabilitation unit for ongoing therapy and strengthening. Morning laboratory studies are reviewed. White count is down at 4.0, hemoglobin 8.8, hematocrit 28, platelet count normal 175. Chemistry panel is normal. Vital signs appear to be stable. She is seen and examined this morning. She is alert, oriented and pleasant, finishing her breakfast. She denies having any pain or shortness of breath. She does complain of having ongoing generalized fatigue and weakness. COUNT INCLUDES THE [facility] Patient Stated Medical History Recent GI bleed with ileocecal valve mass Iron deficiency anemia Dementia Parkinson's Disease Cataracts Macular Degeneration Congestive Heart Failure Hypertension Sleep Apnea Constipation Peripheral Neuropathy GERD Hx Incontinence Depression Surgical History: EGD, colonoscopy- with presence of ileocecal valve mass- 01/27. Appendectomy. Right mastectomy. Pacemaker placement. Right TKA. Right ISSA. Cataract procedure. Tonsillectomy and adenoidectomy. Lipoma removed from left chest or upper back. 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 Review of Systems All systems PM: 10-point ROS was reviewed, no additional remarkable complaints except - Constitutional Constitutional: Present: fatigue, weakness Medications Home Medications Medication Instructions Recorded Confirmed Type Calcium Carbonate/Vitamin D3 1 each PO NOON 09/12/16 01/22/17 History [Calcium 600-Vit D3 800 Tablet] Carbidopa/Levodopa [Sinemet Cr 1 each PO NOON 09/12/16 01/22/17 History 25-100 Tablet] ClonazePAM [Klonopin] 0.5 mg PO HS 09/12/16 01/22/17 History Donepezil HCl [Aricept] 10 mg PO HS 09/12/16 01/22/17 History Furosemide [Lasix] 20 mg PO DAILY 09/12/16 01/22/17 History Levothyroxine Sodium 75 mcg PO DAILY 09/12/16 01/22/17 History Lutein 20 mg PO DAILY 09/12/16 01/22/17 History Melatonin 5 mg PO HS 09/12/16 01/22/17 History Multivitamin [Multivitamins] 1 each PO DAILY 09/12/16 01/22/17 History Omeprazole 20 mg PO DAILY 09/12/16 01/22/17 History Potassium Chloride [K-Dur] 5 meq PO DAILY 09/12/16 01/22/17 History Simvastatin [Zocor] 10 mg PO HS 09/12/16 01/22/17 History Topiramate 25 mg PO NOON 09/12/16 01/22/17 History Gabapentin 300 mg PO TID 01/08/17 01/22/17 History Ondansetron [Zofran Odt] 4 mg PO Q6HR PRN 01/22/17 01/22/17 History Sucralfate [Carafate] 1 gm PO BID 01/22/17 01/22/17 History Allergies Allergy/AdvReac Type Severity Reaction Status Date / Time cephalexin Allergy Unknown Verified 01/22/17 15:46 propoxyphene Allergy Verified 01/22/17 15:46 [From Darvocet-N] Sulfa (Sulfonamide Allergy Hives Verified 01/22/17 15:46 Antibiotics) Tetanus Vaccines and Toxoid Allergy Verified 01/22/17 15:46 Exam Vital Signs: Temperature 98.2 F 01/28/17 20:15 Pulse Rate 69 01/28/17 20:15 Respiratory Rate 20 01/28/17 20:15 Blood Pressure 98/63 01/28/17 20:15 Pulse Oximetry 97 01/28/17 20:15 Height/Weight/BMI: Height 1.6 m Weight 68.4 kg Body Mass Index 26.6 Results - Labs CBC & Chem 7: 01/29/17 04:00 01/29/17 04:00 Assessment and Plan (1) Weakness Current visit: No Status: Acute (2) Acute blood loss anemia Current visit: Yes Status: Acute Assessment and Plan: Impression Generalized weakness. Recent GI bleed with anemia Findings of cecal mass, suspicious for adenocarcinoma Diverticular disease. Dimension Atrial fibrillation with previous chronic anticoagulation. Hypertension Coronary artery disease Anxiety, depression Plan Agree with admission to IRU under the care of Dr. Wade for significant weakness due to recent acute illness. We will monitor routine hemoglobin levels. Given recent anemia requiring blood transfusion. Hemoglobin today is 8.8 Patient is being followed by Dr. 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 Once she has been stabilized and recovers from her acute GI bleed. He will plan to follow with patient at his office next week. Anticoagulation discontinued on acute stay given acute GI Bleed. Continue on scheduled Carafate BID for GI protection. Monitor blood pressures. Continue on Lasix 20 mg daily for gently diuresis. Hospital services. Appreciate medical consultation. We will continue to follow patient during her stay on the IRU unit. At time of discharge medical care will return to her primary care provider, Dr Chatman Resuscitation Status: Do Not Resuscitate Hospital Course Summary Disclaimer: The visit summary below is not to be considered part of the above Progress Note. Hospital Course: 01/29/17 Impression Generalized weakness. Recent GI bleed with anemia Findings of cecal mass, suspicious for adenocarcinoma Diverticular disease. Dimension Atrial fibrillation with previous chronic anticoagulation. Hypertension Coronary artery disease Anxiety, depression Plan Agree with admission to IRU under the care of Dr. Wade for significant weakness due to recent acute illness. We will monitor routine hemoglobin levels. Given recent anemia requiring blood transfusion. Hemoglobin today is 8.8 Patient is being followed by Dr. 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 Once she has been stabilized and recovers from her acute GI bleed. He will plan to follow with patient at his office next week. Anticoagulation discontinued on acute stay given acute GI Bleed. Continue on scheduled Carafate BID for GI protection. Monitor blood pressures. Continue on Lasix 20 mg daily for gently diuresis. Hospital services. Appreciate medical consultation. We will continue to follow patient during her stay on the IRU unit. At time of discharge medical care will return to her primary care provider, Dr Chatman <DouglasDeanna L - Last Filed: 01/29/17 19:26> Consult Information - Data of Consult Primary Care Provider: Exam Height/Weight/BMI: Results - Labs CBC & Chem 7: 01/29/17 04:00 01/29/17 04:00 Assessment and Plan (1) Weakness Current visit: No Status: Acute (2) Acute blood loss anemia Current visit: Yes Status: Acute Assessment and Plan: I have independently evaluated and examined this patient. I reviewed the chart, the patient's history, and the COMPENSATION AND BENEFITS ADVISOR/PA's documented findings as above. We discussed and formulated the assessment and plan as above with additions as below: Mrs. Juan describes simply feeling very weak. She thinks she had 6 units of packed cells while on the acute medical service although would bring records indicate she had 4 units packed red cells and 1 unit FFP; hemoglobin on admission was 10 dropping to 6.1 at the lowest point with hemoglobin as high as 9.7 after transfusion. Patient reports that her appetite is good and her only current concern is of lower extremity neuropathy which bothers her primarily in the morning when she starts to move around. She is additionally frustrated with the full liquid diet which she is still on. Endoscopic studies included EGD/ colonoscopy at which time a gastric polyp was biopsied in addition to cecal mass and sessile lesion in cecum; pathology is pending. Records from acute hospitalization briefly reviewed. NAD, alert, generalized pallor Respirations nonlabored, good airflow, breath sounds clear Regular cardiac rhythm; benign abdomen Monitor hemoglobin intermittently. Endoscopic studies reviewed with Dr. Chavez earlier today; will discuss diet with him later to determine if can be advanced. Will need to discuss potential surgical intervention with family. Dr. Chavez tentatively planning right hemicolectomy after Thanksgiving. At this point cecal mass is presumed malignant but has not been confirmed. Hospital Course Summary Disclaimer: The visit summary below is not to be considered part of the above Progress Note.
--- NOTE | 2017-01-29 10:09 | IRU Progress Note ---
- Subjective/Serverity of Illness Ms. Juan is progressing nicely with therapy in the first 24 hours. She reports some lightheadedness when she first gets up. She states that is not new for her. She denies any abdominal pain at present. No further evidence of bleeding in the bowels has been noted. She states that she did sleep well last night. Denies any nausea or vomiting. Update on medical problems as follows: 1. Acute blood loss anemia: Repeat hemoglobin is 8.8 which is up from 8.6 from acute. No evidence of continued bleeding at present. 2. Debilitation: Continues to demonstrate debility but is improving. 3. Atrial fibrillation with need for anticoagulation. She is asymptomatic with regard to her atrial fibrillation. Warfarin being held. 3. Benign essential hypertension: Has had some low blood pressures around 98 systolic. We will continue to monitor carefully. 4. Depression and anxiety with recent panic attacks. Seems to be controlled at the present time. Exam Vital Signs: Temperature 98.2 F 01/29/17 08:00 Pulse Rate 71 01/29/17 08:00 Respiratory Rate 21 01/29/17 08:00 Blood Pressure 102/65 01/29/17 08:00 Pulse Oximetry 97 01/29/17 08:00 Height/Weight/BMI: Height 1.6 m Weight 68.4 kg Body Mass Index 26.6 Comments: The patient is awake, alert and oriented and in no acute distress. Pupils are equal. The neck is supple. Chest: Clear to auscultation bilaterally. Cor: irregular rhythm with no gallop, click. Systolic murmur noted. Left sternal border. Abd: soft with normo-active bowel sounds. There are no masses, no tenderness and no guarding. Extremities: No edema is noted. There are good pulses in both ankles. No cyanosis is present. Results IRU - Labs Labs: Follow-up hemoglobin 8.8 g percent which is slightly improved. IRU A/P (1) Acute blood loss anemia Current visit: Yes Status: Acute Hemoglobin remained stable to slightly improved. (2) Diverticular hemorrhage Current visit: Yes Status: Acute No reports of continued GI bleeding. (3) Atrial fibrillation Qualifiers: Atrial fibrillation type: unspecified Qualified Code(s): I48.91 - Unspecified atrial fibrillation Current visit: Yes Status: Chronic Continues in atrial fibrillation clinically. This is asymptomatic. Warfarin being held due to GI bleed. (4) Weakness Current visit: No Status: Acute (5) Anxiety Current visit: No Status: Chronic DVT Prophylaxis: SCD's Resuscitation Status: Do Not Resuscitate - Course Hospital Course: Neville Wade MD: 01/29/17 10:09 She is settling into rehabilitation nicely. She is cooperative. Does have easy fatigability. Hemoglobin stable to improved. - Interventions to Obtain Goals PT Treatment Plan: Balance/Proprioception, Functional Activities, Gait Training , Patient/Family Education OT Treatment Plan: ADL (Basic Care), Balance Training, Pt./Family Education, Ther. Exercise for ADL Goals Progress/Modifications: Time spent with patient and on floor reviewing data and documentin min Barriers to dismissal: Lightheadedness, anemia, endurance Medical decision-making: We do note that her hemoglobin is slightly improved today at 8.8 g percent. However her blood pressure has been borderline low at 98 systolic. Does have some orthostatic lightheadedness which she states predated her admission. No further diarrhea and no evidence of GI blood loss. Because of her blood pressure being borderline, we will monitor her carefully and adjust medications as needed. Continue therapy for the time being.
[2017-01-29] MEDS: CALCIUM 600 + VIT D 400 TABLET PO SCH (12:19)
[2017-01-29] MEDS: TOPIRAMATE 25 MG TABLET PO SCH (12:19)
[2017-01-29] MEDS: ClonazePAM 0.5 MG TABLET PO PRN (21:54)
[2017-01-29] MEDS: DONEPEZIL 10 MG TABLET PO SCH (21:54)
[2017-01-29] MEDS: SIMVASTATIN 10 MG TABLET PO SCH (21:54)
[2017-01-29] MEDS: MELATONIN 5 MG TABLET PO SCH (21:54)
[2017-01-30] MEDS: OMEPRAZOLE 20 MG CAPSULE PO SCH ×2 (05:04→18:31)
[2017-01-30] MEDS: LEVOTHYROXINE 75 MCG TABLET PO SCH ×2 (05:04→18:31)
[2017-01-30] MEDS: FUROSEMIDE 20 MG TABLET PO SCH (08:23)
[2017-01-30] MEDS: LUTEIN 20 MG CAPSULE PO SCH (08:24)
[2017-01-30] MEDS: DULOXETINE 30 MG CAPSULE PO SCH ×2 (08:24→20:50)
[2017-01-30] MEDS: GABAPENTIN 300 MG CAPSULE PO SCH ×3 (08:24→20:51)
[2017-01-30] MEDS: MULTI-VITAMIN PLAIN TABLET PO SCH (08:24)
[2017-01-30] MEDS: SUCRALFATE 1 GM TABLET PO SCH ×2 (08:27→17:54)
--- NOTE | 2017-01-30 11:22 | IRU Progress Note ---
- Subjective/Serverity of Illness Daniella is cooperating with therapy and is improving. She denies any abdominal pain. She has had no further bleeding from the stool of which she is aware. She again asked me similar questions to what she asked me yesterday. Update on medical problems as follows: 1. Acute blood loss anemia: Repeat hemoglobin again up a bit over 9 g percent. She states she does not note any blood in the bowel movement and has asked caregivers in this regard. She denies any abdominal pain. 2. Debilitation: Her debility continues to be noted but is improving. 3. Atrial fibrillation with need for anticoagulation. She is unable to tell if she is in atrial flutter for not. Warfarin being held due to recent GI blood loss. 3. Benign essential hypertension: Blood pressures continued to be a bit borderline low but still all above 100 systolic. Asymptomatic. 4. Depression and anxiety with recent panic attacks. Seems to be controlled at the present time. Exam Vital Signs: Temperature 97.6 F 01/30/17 11:06 Pulse Rate 70 01/30/17 11:06 Respiratory Rate 16 01/30/17 11:06 Blood Pressure 105/68 01/30/17 11:06 Pulse Oximetry 99 01/30/17 11:06 Height/Weight/BMI: Height 1.6 m Weight 68.4 kg Body Mass Index 26.6 Comments: The patient is awake, alert and oriented and in no acute distress. Seems to be very sharp and alert. However she again repeated questions that she asked me yesterday in terms of a skin lesion on her back, right temporal area and when surgery will be scheduled. These were again addressed. Pupils are equal. The neck is supple. Chest: Clear to auscultation bilaterally. Cor: RR with no gallop, click nor murmur Abd: soft with normo-active bowel sounds. There are no masses, no tenderness and no guarding. Extremities: No edema is noted. Results IRU - Labs Labs: Repeat hemoglobin up at 9.2 g percent. IRU A/P (1) Acute blood loss anemia Current visit: Yes Status: Acute Hemoglobin improved to 9.2 g percent. Denies lightheadedness. (2) Diverticular hemorrhage Current visit: Yes Status: Acute She has had no overt rectal bleeding that we have identified. (3) Atrial fibrillation Qualifiers: Atrial fibrillation type: unspecified Qualified Code(s): I48.91 - Unspecified atrial fibrillation Current visit: Yes Status: Chronic (4) Weakness Current visit: No Status: Acute She is working with therapy well and making progress. She continues to display generalized weakness. (5) Anxiety Current visit: No Status: Chronic Based on my interview, the patient is not terribly anxious at present. She does display reduced memory as noted above. DVT Prophylaxis: SCD's Resuscitation Status: Do Not Resuscitate - Course Hospital Course: Neville Wade MD: 01/29/17 10:09 She is settling into rehabilitation nicely. She is cooperative. Does have easy fatigability. Hemoglobin stable to improved. 01/30/17 11:25 Cooperating with therapy. Continues to have debilitation. Hemoglobin improved at 9.2. No further rectal bleeding identified. - Interventions to Obtain Goals PT Treatment Plan: Functional Activities, Gait Training, Patient/Family Education, Therapeutic Exercise OT Treatment Plan: ADL (Basic Care), Balance Training, Pt./Family Education, Ther. Exercise for ADL
[2017-01-30] MEDS: TOPIRAMATE 25 MG TABLET PO SCH (12:08)
[2017-01-30] MEDS: CALCIUM 600 + VIT D 400 TABLET PO SCH (12:08)
--- NOTE | 2017-01-30 14:12 | IRU Plan of Care ---
IRU Overall Plan of Care - Date Date: 01/30/17 - Patient Impairments (1) Weakness Code(s): R53.1 - Weakness Status: Acute Classification: Present on IRF Admission, IRF Tx That Should Address Diagnosis, Diagnosis Requiring Medical Follow Up (2) Acute blood loss anemia Code(s): D62 - Acute posthemorrhagic anemia Status: Acute Classification: Present on IRF Admission, IRF Tx That Should Address Diagnosis, Diagnosis Requiring Medical Follow Up - Relevant Changes Relevant Changes: No Reviewed: I have reviewed the patient's information and concur with the finding and results of the pre-admission screen. Certification: I certify the patient for rehabilitation. - Medical Prognosis Medical Prognosis: Good Vital Signs: Last Vital Signs Temp 97.6 F 01/30/17 11:06 Pulse 70 01/30/17 11:06 Resp 16 01/30/17 11:06 BP 105/68 01/30/17 11:06 Pulse Ox 99 01/30/17 11:06 - Anticipated Interventions Anticipated Interventions: The patient requires inpatient IRF care for PT, OT, and/or ST for residuals remaining from GI bleeding with severe acute blood loss anemia resulting in muscular weakness and strength deficits. An individualized overall plan of care has been developed after careful review of the patient's preadmission screening, post admission physician evaluation and assessments of all therapy disciplines and/or other pertinent clinicians involved in treating the patient. This indicates medical necessity and rehabilitation necessity have been established through a thorough review of all available medical information. - Current Functional Status Failed Alternative Therapy: Arrived from Acute Care Patient Requires: The patient requires oversight by rehabilitation physician to manage their rehabilitation treatment plan and multidisciplinary approach to care that can only be provided in an IRF and requires a multidisciplinary approach to care, provided by professional PTs, OTs, STs, rehabilitation nurses, and may require STs, dieticians, and RTS. This is not available in lesser levels of care. Physical Therapy Minutes: 90 Occupational Therapy Minutes: 90 Therapy: The patient is to receive therapy at least 5 days a week. - Anticipated LOS/Outcomes Anticipated Functional Outcome: Expected functional improvements include: -- Modified independant to independant ambulation with or without assistive device -- Modified independant to independant ADL's with or without assistive device -- Return to pre-morbid level of mobility -- Maximize level of mobility and ADL's to decrease burden on any caregiver involved with this patient's care Anticipated Length of Stay (days): 7 Anticipated DC Destination: Home, Self Care, Home Health Service Home Safety Plan: The patient will be provided with the development of a Home Safety Plan for return to a home or home-like environment and and to ensure safety post discharge. - Plan to Avoid Complications Barriers to Attaining Goals: Weakness, Endurance, Comprehension Plan to Avoid Complications: The patient cannot receive this care in a lesser intensive setting such as Nursing Home or Outpatient Therapy due to the patient requiring the following : Close 24 hour rehabilitation nursing monitoring of recurrent lower GI bleeding with hematochezia, close medical monitoring of hemoglobin in view of recent severe acute blood loss anemia, as well as a multidisciplinary approach involving physical therapy and occupational therapy to improve her strength prior to anticipated surgery.
[2017-01-30] MEDS: DONEPEZIL 10 MG TABLET PO SCH (20:50)
[2017-01-30] MEDS: SIMVASTATIN 10 MG TABLET PO SCH (20:51)
[2017-01-30] MEDS: ClonazePAM 0.5 MG TABLET PO PRN (22:14)
[2017-01-30] MEDS: MELATONIN 5 MG TABLET PO SCH (22:14)
[2017-01-31] MEDS: OMEPRAZOLE 20 MG CAPSULE PO SCH (06:31)
[2017-01-31] MEDS: LEVOTHYROXINE 75 MCG TABLET PO SCH (06:31)
[2017-01-31] MEDS: MULTI-VITAMIN PLAIN TABLET PO SCH (08:39)
[2017-01-31] MEDS: LUTEIN 20 MG CAPSULE PO SCH (08:40)
[2017-01-31] MEDS: DULOXETINE 30 MG CAPSULE PO SCH ×2 (08:40→22:15)
[2017-01-31] MEDS: FUROSEMIDE 20 MG TABLET PO SCH (08:41)
[2017-01-31] MEDS: SUCRALFATE 1 GM TABLET PO SCH ×2 (08:41→17:54)
[2017-01-31] MEDS: GABAPENTIN 300 MG CAPSULE PO SCH ×3 (08:44→22:16)
[2017-01-31] MEDS: CALCIUM 600 + VIT D 400 TABLET PO SCH (12:14)
[2017-01-31] MEDS: TOPIRAMATE 25 MG TABLET PO SCH (12:15)
[2017-01-31] MEDS: DONEPEZIL 10 MG TABLET PO SCH (22:15)
[2017-01-31] MEDS: MELATONIN 5 MG TABLET PO SCH (22:16)
[2017-01-31] MEDS: SIMVASTATIN 10 MG TABLET PO SCH (22:17)
[2017-02-01] MEDS: OMEPRAZOLE 20 MG CAPSULE PO SCH (08:13)
[2017-02-01] MEDS: LEVOTHYROXINE 75 MCG TABLET PO SCH (08:13)
[2017-02-01] MEDS: SUCRALFATE 1 GM TABLET PO SCH ×2 (08:23→18:05)
[2017-02-01] MEDS: LUTEIN 20 MG CAPSULE PO SCH (08:23)
[2017-02-01] MEDS: FUROSEMIDE 20 MG TABLET PO SCH (08:23)
[2017-02-01] MEDS: DULOXETINE 30 MG CAPSULE PO SCH ×2 (08:23→21:20)
[2017-02-01] MEDS: GABAPENTIN 300 MG CAPSULE PO SCH ×3 (08:23→21:20)
[2017-02-01] MEDS: MULTI-VITAMIN PLAIN TABLET PO SCH (08:23)
--- NOTE | 2017-02-01 10:34 | Progress Note ---
- Date 02/01/17 Subjective: Daniella is seen this morning while working with OT. Nursing reports she was hypotensive overnight in the 80-90 systolic. This morning was 88 systolic however this increased to 111/65. She was asymptomatic during hypotensive. She denies having dizziness, chest pain, or shortness of breath. She reports feeling more fatigued today. Her only complaint is being on liquid diet. Denies melena or hematochezia. Objective Vital signs: Temperature 97.9 F 02/01/17 07:15 Pulse Rate 69 02/01/17 07:15 Respiratory Rate 12 02/01/17 07:15 Blood Pressure 111/65 02/01/17 07:57 Pulse Oximetry 94 02/01/17 07:17 Height/Weight/BMI: Height 1.6 m Weight 68.4 kg Body Mass Index 26.6 - Constitutional Present: no acute distress, well nourished, well developed - Routine HEENT Exam Eye: Present: EOMI ENT: Present: mucous membranes moist, dentition normal - Routine Respiratory Exam Present: CTA bilaterally. Absent: wheezes - Routine Cardiovascular Exam Present: RRR, S1, S2. Absent: murmur - Routine Abdominal Exam Present: soft, normoactive bowel sounds, non distended. Absent: tenderness - Routine Extremities Exam Present: edema (trace bilateral lower) - Routine Skin Exam Present: intact, dry, warm - Routine Neurological Exam Present: alert, oriented X3, CN II-XII intact - Routine Lymphatic Exam Lymphatic: Absent: adenopathy - Routine Psychiatric Exam Present: normal affect, cooperative Results - Labs CBC & Chem 7: 01/30/17 04:25 01/30/17 04:25 Assessment and Plan (1) Weakness Current visit: No Status: Acute (2) Acute blood loss anemia Current visit: Yes Status: Acute Assessment and Plan: Impression Generalized weakness episodic hypotension Recent GI bleed with anemia Findings of cecal mass-adenocarcinoma Diverticular disease. Dimension Atrial fibrillation with previous chronic anticoagulation. Hypertension Coronary artery disease Anxiety, depression Plan Will continue to monitor blood pressure carefully. No current antihypertensives. Takes Lasix daily. Asked nursing staff to check Weight today. Will check CBC and BMP now to follow Hgb given recent GI bleed. Change diet to regular, Encourage oral intake as this will help with strength. Planning for follow up with Dr Chavez in several weeks for right hemicolectomy. Overall medically stable. Encourage work with PT/OT Hospital Course Summary Disclaimer: The visit summary below is not to be considered part of the above Progress Note. Hospital Course: 01/29/17 Impression Generalized weakness. Recent GI bleed with anemia Findings of cecal mass, suspicious for adenocarcinoma Diverticular disease. Dimension Atrial fibrillation with previous chronic anticoagulation. Hypertension Coronary artery disease Anxiety, depression Plan Agree with admission to IRU under the care of Dr. Wade for significant weakness due to recent acute illness. We will monitor routine hemoglobin levels. Given recent anemia requiring blood transfusion. Hemoglobin today is 8.8 Patient is being followed by Dr. 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 Once she has been stabilized and recovers from her acute GI bleed. He will plan to follow with patient at his office next week. Anticoagulation discontinued on acute stay given acute GI Bleed. Continue on scheduled Carafate BID for GI protection. Monitor blood pressures. Continue on Lasix 20 mg daily for gently diuresis. Hospital services. Appreciate medical consultation. We will continue to follow patient during her stay on the IRU unit. At time of discharge medical care will return to her primary care provider, Dr Chatman 02/01/17 - Plan Will continue to monitor blood pressure carefully. No current antihypertensives. Takes Lasix daily. Asked nursing staff to check Weight today. Will check CBC and BMP now to follow Hgb given recent GI bleed. Change diet to regular, Encourage oral intake as this will help with strength. Planning for follow up with Dr Chavez in several weeks for right hemicolectomy. Overall medically stable. Encourage work with PT/OT
[2017-02-01] MEDS: CALCIUM 600 + VIT D 400 TABLET PO SCH (12:22)
[2017-02-01] MEDS: TOPIRAMATE 25 MG TABLET PO SCH (12:22)
[2017-02-01] MEDS: SIMVASTATIN 10 MG TABLET PO SCH (21:20)
[2017-02-01] MEDS: DONEPEZIL 10 MG TABLET PO SCH (21:20)
[2017-02-01] MEDS: MELATONIN 5 MG TABLET PO SCH (21:20)
[2017-02-01] MEDS: ClonazePAM 0.5 MG TABLET PO PRN (22:41)
[2017-02-02] MEDS: LEVOTHYROXINE 75 MCG TABLET PO SCH (06:26)
[2017-02-02] MEDS: OMEPRAZOLE 20 MG CAPSULE PO SCH (06:26)
[2017-02-02] MEDS: GABAPENTIN 300 MG CAPSULE PO SCH ×3 (10:16→21:15)
[2017-02-02] MEDS: MULTI-VITAMIN PLAIN TABLET PO SCH (10:17)
[2017-02-02] MEDS: FUROSEMIDE 20 MG TABLET PO SCH (10:17)
[2017-02-02] MEDS: DULOXETINE 30 MG CAPSULE PO SCH ×2 (10:17→21:15)
[2017-02-02] MEDS: LUTEIN 20 MG CAPSULE PO SCH (10:17)
[2017-02-02] MEDS: SUCRALFATE 1 GM TABLET PO SCH ×2 (10:17→18:10)
[2017-02-02] MEDS: CALCIUM 600 + VIT D 400 TABLET PO SCH (12:38)
[2017-02-02] MEDS: TOPIRAMATE 25 MG TABLET PO SCH (12:39)
[2017-02-02] MEDS: DONEPEZIL 10 MG TABLET PO SCH (21:15)
[2017-02-02] MEDS: MELATONIN 5 MG TABLET PO SCH (21:15)
[2017-02-02] MEDS: SIMVASTATIN 10 MG TABLET PO SCH (21:15)
[2017-02-02] MEDS: ClonazePAM 0.5 MG TABLET PO PRN (21:19)
[2017-02-03] MEDS: OMEPRAZOLE 20 MG CAPSULE PO SCH ×2 (05:03→05:36)
[2017-02-03] MEDS: LEVOTHYROXINE 75 MCG TABLET PO SCH ×2 (05:03→05:35)
[2017-02-03] MEDS: LUTEIN 20 MG CAPSULE PO SCH (09:20)
[2017-02-03] MEDS: GABAPENTIN 300 MG CAPSULE PO SCH ×3 (09:20→21:43)
[2017-02-03] MEDS: DULOXETINE 30 MG CAPSULE PO SCH ×2 (09:20→21:43)
[2017-02-03] MEDS: MULTI-VITAMIN PLAIN TABLET PO SCH (09:20)
[2017-02-03] MEDS: FUROSEMIDE 20 MG TABLET PO SCH (09:20)
[2017-02-03] MEDS: SUCRALFATE 1 GM TABLET PO SCH ×2 (09:22→18:00)
--- NOTE | 2017-02-03 11:04 | IRU Progress Note ---
- Subjective/Serverity of Illness Ms. Juan was seen on the inpatient rehabilitation unit. She seems to be progressing nicely with therapy. She does have improved appetite since her diet has been liberalized. She denies any shortness of breath. She specifically denies any abdominal pain. Per report no melena nor hematochezia has been identified. She denies any lightheadedness. She had some recent hypotension over the weekend for which she was evaluated. However she was asymptomatic and her blood pressure came back up at that time. Update on medical problems as follows: 1. Acute blood loss anemia: No evidence of recurrent bleeding based on bowel movement description from patient. Hemoglobin is improved at 10 g percent. 2. Debilitation: She is improving with therapy. 3. Atrial fibrillation with need for anticoagulation. She is unable to tolerate oral and coagulation at present due to recent GI blood loss. She denies any palpitations. 3. Benign essential hypertension: As noted above, she was hypotensive in the 80s over the weekend at times. However pressure came back up. She was asymptomatic. 4. Depression and anxiety with recent panic attacks. Seems to be controlled at the present time. Exam Vital Signs: Temperature 98.0 F 02/03/17 00:00 Pulse Rate 75 02/03/17 00:00 Respiratory Rate 16 02/03/17 00:00 Blood Pressure 116/71 02/03/17 00:00 Pulse Oximetry 97 02/03/17 00:00 Height/Weight/BMI: Height 1.6 m Weight 68.8 kg Body Mass Index 26.6 Comments: The patient is awake, alert and oriented and in no acute distress. Pupils are equal. The neck is supple. Chest: Clear to auscultation bilaterally. Cor: She sounds as though she is in a regular rhythm at present. There is a systolic murmur grade 2/6 second right interspace. Also some along left sternal border. No gallop noted. Abd: soft with normo-active bowel sounds. There are no masses, no tenderness and no guarding. Extremities: No significant edema identified. Results IRU - Labs Labs: Reviewed lab results on the chart. Also reviewed hospitalist note. IRU A/P (1) Weakness Current visit: No Status: Acute Continue therapies. Team meeting this noon to assess overall progress and assess for a multidisciplinary standpoint. (2) Acute blood loss anemia Current visit: Yes Status: Acute Hemoglobin has been stable to increased at 10 g percent. Continue to monitor. No evidence of recurrent hematochezia/melena. (3) Hypotension Qualifiers: Hypotension type: other hypotension type Qualified Code(s): I95.89 - Other hypotension Current visit: Yes Status: Acute She has had some hypotension over the weekend. This is been asymptomatic. Subsequent she did come back up into the low 100s. DVT Prophylaxis: SCD's Resuscitation Status: Do Not Resuscitate - Course Hospital Course: Neville Wade MD: 01/29/17 10:09 She is settling into rehabilitation nicely. She is cooperative. Does have easy fatigability. Hemoglobin stable to improved. 01/30/17 11:25 Cooperating with therapy. Continues to have debilitation. Hemoglobin improved at 9.2. No further rectal bleeding identified. 02/03/17 11:16 Continues to work with therapy. She remains debilitated. Repeat hemoglobin is 10 g percent. She did have hypotension over the weekend but it is better at present. No further hematochezia. - Interventions to Obtain Goals PT Treatment Plan: Functional Activities, Gait Training, Patient/Family Education, Therapeutic Exercise OT Treatment Plan: ADL (Basic Care), Balance Training, Pt./Family Education, Ther. Exercise for ADL Goals Progress/Modifications: Time spent with patient and on floor reviewing data and documentin min Barriers to dismissal: weakness, endurance Medical decision-making: I reviewed her blood pressures over the weekend. Some did get get down into the 80s. She came back up subsequently. She has had no further evidence of blood loss however. Repeat hemoglobin 2 days ago was 10 g percent which was improved. She denies any chest pain. She denies shortness of breath. She is eating well. However we're monitoring her blood pressures and may need to hold therapy if this is a recurrent issue.
[2017-02-03 11:12] VITALS: RESP 20
[2017-02-03] MEDS: TOPIRAMATE 25 MG TABLET PO SCH (12:31)
[2017-02-03] MEDS: CALCIUM 600 + VIT D 400 TABLET PO SCH (12:32)
--- NOTE | 2017-02-03 13:40 | IRU Team Meeting ---
IRU Team Meeting - Nursing Bladder Assistive Devices Utilized:: Absorbent Pad Bladder Management Level of Assist: Total Assistance Bladder Frequency of Accidents: No accidents Vital Signs: Vital Signs - 24 hr 02/02/17 16:51 02/03/17 00:00 02/03/17 08:00 Temperature 98.7 F 98.0 F 97.6 F Pulse Rate 78 75 70 Respiratory Rate 22 16 20 Blood Pressure 119/71 116/71 98/57 Pulse Oximetry 94 97 97 Current Medications: Hydrocodone Bitart/Acetaminophen ([place] 5/325) 1 tab PO Q6H PRN PRN Reason: Pain Last Admin: 02/03/17 10:07 Dose: 1 tab Calcium/Vitamin D (Caltrate + D) 1 tab PO NOON [facility] Last Admin: 02/03/17 12:32 Dose: 1 tab Carbidopa/Levodopa (Sinemet Cr) 0.5 tab PO NOON [facility] Last Admin: 02/03/17 12:32 Dose: 0.5 tab Clonazepam (Klonopin) 0.5 mg PO HS PRN Last Admin: 02/02/17 21:19 Dose: 0.5 mg Donepezil HCl (Aricept) 10 mg PO HS [facility] Last Admin: 02/02/17 21:15 Dose: 10 mg Duloxetine HCl (Cymbalta) 30 mg PO BID [facility] Last Admin: 02/03/17 09:20 Dose: 30 mg Furosemide (Lasix) 20 mg PO DAILY [facility] Last Admin: 02/03/17 09:20 Dose: 20 mg Gabapentin (Neurontin) 300 mg PO TID [facility] Last Admin: 02/03/17 09:20 Dose: 300 mg Levothyroxine Sodium (Synthroid) 75 mcg PO ACB [facility] Last Admin: 02/03/17 05:35 Dose: Not Given Lutein () 20 mg PO DAILY [facility] Last Admin: 02/03/17 09:20 Dose: 20 mg Melatonin (Melatonin) 5 mg PO HS [facility] Last Admin: 02/02/17 21:15 Dose: 5 mg Multivitamins (Theragran) 1 tab PO DAILY [facility] Last Admin: 02/03/17 09:20 Dose: 1 tab Omeprazole (Prilosec) 20 mg PO ACB [facility] Last Admin: 02/03/17 05:36 Dose: Not Given Ondansetron HCl (Zofran Po) 4 mg PO Q6HR PRN PRN Reason: Nausea Potassium Chloride (K-Dur) 10 meq PO WB [facility] Last Admin: 02/03/17 09:19 Dose: 10 meq Simvastatin (Zocor) 10 mg PO HS [facility] Last Admin: 02/02/17 21:15 Dose: 10 mg Sodium Chloride (Normal Saline) 500 ml IV PRN PRN Sodium Chloride (Iv Flush) 10 - 80 ml IVF PRN PRN PRN Reason: Flushing Sucralfate (Carafate) 1 gm PO BIDWM [facility] Last Admin: 02/03/17 09:22 Dose: 1 gm Topiramate (Topamax) 25 mg PO NOON [facility] Last Admin: 02/03/17 12:31 Dose: 25 mg Current Medical Issues: acute blood loss anemia, diverticular bleed, cecal cancer Comments: I certify that I personally led the interdisciplinary team meeting and agree with comments, barriers and goals indicated. Team meeting was held in the patient's room with the patient and the following family members present: sons x 2, [id number] x 2, granddaughters x 2 Daniella is extremely cooperative with nursing and other staff. She appreciates her regular diet and is enjoying that. Has had no nausea no vomiting. Note is made of some blood in the stool a couple days ago but none since. She has had no chest pain and no shortness of breath. She has had some hypotension which was evaluated over the weekend by the hospitalist service. Repeat hemoglobin improved at 10 g percent. Blood pressure hasn't generally been better since then. - Physical Therapy Bed, Chair, Wheelchair Transfer Assist: Stand By Assist/Supervision Ambulation Ability: Stand By Assist/Supervision Ambulation Distance: 139 Wheelchair Propulsion Ability: Maximal Assistance, 1 Person Assist Wheelchair Propulsion Distance: 85 Stair Climbing Ability: Contact Guard Assistance Number of Steps Climbed: 12 Car Transfer Ability: Contact Guard Assistance Comments: She is demonstrating increased endurance compared to last week. She has not noted any loss of balance with ambulation. She is working on increasing safety with proper hand position with sit to stand transfers. Able to ambulate 139 feet with standby assistance. - Occupational Therapy Eating Ability: Independent Grooming Ability: Stand By Assist/Supervision Bathing Ability: Stand By Assist/Supervision Upper Body Dressing Ability: Stand By Assist/Supervision Lower Body Dressing Ability: Minimal Assistance Tub Transfer Assist: Patient Refuses Toileting Assist: Stand By Assist/Supervision Toilet Transfer Assist: Stand By Assist/Supervision Comments: She has worked well with occupational therapy but does require reeducation due to memory issues. Does have some slow movement but does demonstrate good static standing balance when performing ADLs. Does have limited endurance requiring frequent rest breaks for fatigue. - Goals Physical Therapy Goals: 02/03/17 Goals: 1.) Mod I with transfers. 2.) Mod I with amb, 150 ft + Occupational Therapy Goals: 02/03 Goals: 1.) LB dressing 07/21. 2.) Toilet 08/21 - Barriers to Discharge Barriers to Attaining Goals: Weakness, Balance, Endurance, Pain Control - Care Plan Anticipated Length of Stay (days): 1 Anticipated DC Destination: Home, Self Care, Home Health Service I have led this team conference and agree with the plan. Interventions/Goals: She has an extremely well with therapy. She is stable for dismissal in the next 24 hours. Family present and multiple questions were addressed.
[2017-02-03] MEDS: MELATONIN 5 MG TABLET PO SCH (21:42)
[2017-02-03] MEDS: SIMVASTATIN 10 MG TABLET PO SCH (21:42)
[2017-02-03] MEDS: DONEPEZIL 10 MG TABLET PO SCH (21:42)
[2017-02-03] MEDS: ClonazePAM 0.5 MG TABLET PO PRN (21:55)
[2017-02-04] MEDS: OMEPRAZOLE 20 MG CAPSULE PO SCH (06:37)
[2017-02-04] MEDS: LEVOTHYROXINE 75 MCG TABLET PO SCH (06:37)
[2017-02-04 07:42] VITALS: BP 121/69; PULSE 69; TEMP 98; O2SAT 94
[2017-02-04] MEDS: LUTEIN 20 MG CAPSULE PO SCH (09:12)
[2017-02-04] MEDS: FUROSEMIDE 20 MG TABLET PO SCH (09:13)
[2017-02-04] MEDS: GABAPENTIN 300 MG CAPSULE PO SCH ×2 (09:13→15:28)
[2017-02-04] MEDS: SUCRALFATE 1 GM TABLET PO SCH (09:14)
[2017-02-04] MEDS: MULTI-VITAMIN PLAIN TABLET PO SCH (09:14)
[2017-02-04] MEDS: DULOXETINE 30 MG CAPSULE PO SCH (09:14)
--- NOTE | 2017-02-04 10:23 | IRU Progress Note ---
- Subjective/Serverity of Illness Ms. Juan was interviewed and examined in her room. She continues to progress nicely with therapy. Family will be here today for some family training regarding occupational therapy. No reports of further bleeding except over the weekend. Her hemoglobin is normal. She again asked me several questions which she is asked me previously regarding future plans, surgery etc. Exam Vital Signs: Temperature 98 F 02/04/17 07:41 Pulse Rate 69 02/04/17 07:41 Respiratory Rate 20 02/04/17 07:41 Blood Pressure 121/69 02/04/17 07:41 Pulse Oximetry 94 02/04/17 07:41 Height/Weight/BMI: Height 1.6 m Weight 68.8 kg Body Mass Index 26.6 Comments: The patient is awake, alert. She is in no distress. She tends to ask repeated questions. Overall however she seems to be fairly well oriented. Pupils are equal. The neck is supple. Chest: Clear to auscultation bilaterally. Cor: RR with no gallop, click nor murmur Abd: soft with normo-active bowel sounds. There are no masses, no tenderness and no guarding. Extremities: No edema is noted. IRU A/P (1) Weakness Current visit: No Status: Acute Debilitation is improved. (2) Acute blood loss anemia Current visit: Yes Status: Acute Recent hemoglobin stable to improved at 10 g percent. (3) Hypotension Qualifiers: Hypotension type: other hypotension type Qualified Code(s): I95.89 - Other hypotension Current visit: Yes Status: Resolved Blood pressures all appear to be significantly improved around 120 or so. DVT Prophylaxis: SCD's Resuscitation Status: Do Not Resuscitate - Course Hospital Course: Neville Wade MD: 01/29/17 10:09 She is settling into rehabilitation nicely. She is cooperative. Does have easy fatigability. Hemoglobin stable to improved. 01/30/17 11:25 Cooperating with therapy. Continues to have debilitation. Hemoglobin improved at 9.2. No further rectal bleeding identified. 02/03/17 11:16 Continues to work with therapy. She remains debilitated. Repeat hemoglobin is 10 g percent. She did have hypotension over the weekend but it is better at present. No further hematochezia. 02/04/17 10:22 Patient is doing most of her therapy. Family training today for OT. Blood pressures are better. Anticipate going home today. - Interventions to Obtain Goals PT Treatment Plan: Functional Activities, Gait Training, Patient/Family Education, Therapeutic Exercise OT Treatment Plan: ADL (Basic Care), Balance Training, Pt./Family Education, Ther. Exercise for ADL
[2017-02-04] MEDS: TOPIRAMATE 25 MG TABLET PO SCH (12:55)
[2017-02-04] MEDS: CALCIUM 600 + VIT D 400 TABLET PO SCH (12:55)
--- NOTE | 2017-02-04 14:26 | Discharge Summary ---
Discharge Information Date of admission: 01/28/17 16:55 Anticipated date of discharge: 02/04/17 Attending Physician: Neville Wade MD Primary care physician: Viktor Chatman MD Consults: 01/28/17 17:10 Physician Consult [CONS] Routine Consulting Provider: Ti Chawla Reason For Exam: Medical Management Ordering Provider has Notified Key Holder: Yes 01/31/17 15:15 Physician Consult [CONS] Routine Consulting Provider: Umair Chavez Reason For Exam: adenocarcinoma Ordering Provider has Notified Key Holder: Yes - Discharge Diagnosis (1) Weakness Status: Acute (2) Acute blood loss anemia Status: Acute (3) Hypotension Status: Resolved 1. Acute blood loss anemia secondary to diverticular bleed from the left colon 2. Debilitation 3. Macular degeneration 4. Adenocarcinoma of the cecum - Laboratory Labs: 02/01/17 11:01 02/01/17 11:01 History of Present Illness HPI: 02/04/17 14:27 Ms. Juan is an 86-year-old female living with her family in [place], [place]. She was [facility] 01/[facility]/2017 because of a three- day history of diarrhea and weakness. She does have macular degeneration and could not really see the stool. Her family had noted some blood in the bowel movement. She also has some nausea but no vomiting. There was abdominal pain. Her initial hemoglobin was 10.0 with an INR of 3.72. The patient is on warfarin due to atrial fibrillation. Hemoglobin did drop to a low 6.1 g percent necessitating the transfusion of 4 units of packed red blood cells and 1 unit of fresh frozen plasma. She was seen by Dr. Chavez who performed an EGD demonstrating a gastric polyp which was benign. No ulceration was seen in the stomach. Colonoscopy was also done demonstrating a sessile lesion within the cecum which was biopsied and ultimately determined to be adenocarcinoma. The patient wants to be aggressive and pursue surgery. However she was extremely weak after all of this and it was recommended that she undergo a multidisciplinary approach to physical therapy and occupational therapy to regain her strength prior to anticipated surgery on the colon. She had also been struggling with depression and a been on Cymbalta 60 mg twice daily. Citalopram had been added as an outpatient. She did have history of a panic attack on the day of admission and she was depressed and anxious. Patient was seen by Dr. Mimi Haddad on the acute side and it was recommended that her Cymbalta be reduced to 30 mg twice daily ultimately and that the Celexa be discontinued. Hospital Course This is a general summary of the patient's hospital course. For more details refer to the complete medical record. After being stabilized from her acute GI blood loss which was actually felt to be diverticular in origin, patient was transferred to the acute inpatient rehabilitation unit. She underwent a multidisciplinary approach with occupational therapy, physical therapy, medical supervision and 24 hour rehabilitation nursing. She was quite weak. She did complain of abdominal pain off and on. This was hard to localize but appeared to be more in the epigastrium. Her omeprazole was increased from 20 to 40 mg while on acute care. She did have occasional episodes of bright red blood per rectum but this was very minimal. She did have an episode of hypotension on the weekend prior to dismissal. Further evaluation was undertaken and repeat hemoglobin had actually increased up to 10 g percent. She otherwise felt well and her diet was advanced. She was very cooperative with therapy. For occupational therapy, she was modified independent for eating initially and ultimately was independent functioning. Grooming was standby assistance initially and ultimately independent. Bathing ability was contact-guard assistance initially and standby assistance ultimately. She required minimal assistance for dressing upper body initially and standby assistance ultimately. She required minimal assistance for lower body dressing initially and required only standby assistance ultimately. Toileting assistance was initially contact-guard and ultimately independent. Toilet transfer assistance was initially contact-guard assistance and ultimately standby assistance. Bed/chair/wheelchair transfers were initially performed with contact-guard assistance at ultimately standby assistance. She was seen by physical therapy. Bed/chair/wheelchair transfers were initially moderate assistance and overall malaise standby assistance. Toileting assistance was modified assistance initially and standby assistance ultimately. Toilet transfer assistance was initially contact-guard and ultimately standby assistance. Car transfers were ultimately able to be performed with standby assistance. Her ambulate and inability initially required maximal assistance of 1 person 426 feet. She is a front-wheeled walker. Ultimately ablating ability was with standby assistance at 137 feet. She was able to climb 12 stairs with contact-guard assistance. She will plan to be going home with her family for further care. Home health will be arranged. No pain medications were recommended nor provided and she will use Tylenol as needed. For the time being her warfarin is being held due to the recent GI bleeding. Her hemoglobin is stable at 10 g percent as of the time of dismissal. She will follow-up with Dr. Chavez in the next couple of weeks to consider surgical intervention on the cecal carcinoma. Hospital course: 01/29/17 Impression Generalized weakness. Recent GI bleed with anemia Findings of cecal mass, suspicious for adenocarcinoma Diverticular disease. Dimension Atrial fibrillation with previous chronic anticoagulation. Hypertension Coronary artery disease Anxiety, depression Plan Agree with admission to IRU under the care of Dr. Wade for significant weakness due to recent acute illness. We will monitor routine hemoglobin levels. Given recent anemia requiring blood transfusion. Hemoglobin today is 8.8 Patient is being followed by Dr. 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 Once she has been stabilized and recovers from her acute GI bleed. He will plan to follow with patient at his office next week. Anticoagulation discontinued on acute stay given acute GI Bleed. Continue on scheduled Carafate BID for GI protection. Monitor blood pressures. Continue on Lasix 20 mg daily for gently diuresis. Hospital services. Appreciate medical consultation. We will continue to follow patient during her stay on the IRU unit. At time of discharge medical care will return to her primary care provider, Dr Chatman 02/01/17 - Plan Will continue to monitor blood pressure carefully. No current antihypertensives. Takes Lasix daily. Asked nursing staff to check Weight today. Will check CBC and BMP now to follow Hgb given recent GI bleed. Change diet to regular, Encourage oral intake as this will help with strength. Planning for follow up with Dr Chavez in several weeks for right hemicolectomy. Overall medically stable. Encourage work with PT/OT Time spent with patient: 25 - 35 minutes Discharge Plan - Med Rec/Dispo Referrals/Follow Up: Viktor Chatman MD [Family Provider] - (Dr. Lesia Chatman on 02/19/17 at 9:30 am for Hosp. follow-up. [address] [place] [address]) Umair Chavez MD [Physician] - (Dr. Lesia Chavez 02/11/17 at 1:00 pm for follow-up. Check in at 12:45 pm. [phone] [facility] [address] [place] [address] [place] [address]) Vivienne Instructions: Constipation (GEN), Anemia (GEN), Fall Prevention (GEN) Prescriptions: New Sucralfate [Carafate] 1 gm PO BIDWM #60 tab Duloxetine [Cymbalta] 30 mg PO BID cap Potassium Chloride [K-Dur] 10 meq PO WB tab Omeprazole [Prilosec] 20 mg PO ACB cap Continue Levothyroxine Sodium 75 mcg PO DAILY Furosemide [Lasix] 20 mg PO DAILY Donepezil HCl [Aricept] 10 mg PO HS Topiramate 25 mg PO NOON Potassium Chloride [K-Dur] 5 meq PO DAILY Melatonin 5 mg PO HS Lutein 20 mg PO DAILY Multivitamin [Multivitamins] 1 each PO DAILY Gabapentin 300 mg PO TID Sucralfate [Carafate] 1 gm PO BID ClonazePAM [Klonopin] 0.5 mg PO HS Calcium Carbonate/Vitamin D3 [Calcium 600-Vit D3 800 Tablet] 1 each PO NOON Simvastatin [Zocor] 10 mg PO HS cholecalciferol (vitamin D3) 50,000 unit capsule 50,000 unit PO DAILY cap carbidopa 25 mg-levodopa 250 mg disintegrating tablet 1 tab PO TID tab Colace (Docusate sodium) 100 mg capsule 100 mg PO BID Discontinued Omeprazole 20 mg PO DAILY Hydrocodone/APAP 5/325 [York 5/325] 1 tab PO Q6H PRN #12 tab PRN Reason: Pain Celexa (citalopram) 20 mg tablet 20 mg PO DAILY tab Prilosec (Omeprazole) 40 mg capsule,delayed release 40 mg PO DAILY cap Cymbalta (duloxetine) 20 mg capsule,delayed release 20 mg PO BID warfarin 4 mg tablet 4 mg PO DAILY tab ondansetron 4 mg disintegrating tablet 4 mg PO DAILY tab metoprolol tartrate 25 mg tablet 25 mg PO BID - Disposition 01 Discharged Home, Self-Care - Dismissal Complete Discharge Instructions are:: Complete
== END 2017-02-04 15:35 | disposition home health service (06) | DRG 945 ==
PROVIDERS: ADMIT Internal Medicine; ATTEND Internal Medicine

== ENCOUNTER 2017-02-10 14:00 | Inpatient (IN) ==
[2017-02-10] MEDS ORDERED: LEVOFLOXACIN 750 MG TABLET PO ONE (14:34)
[2017-02-10] MEDS ORDERED: SALINE FLUSH 10ml SYRINGE IVF PRN (14:36)
--- NOTE | 2017-02-10 14:37 | Emergency Department Report ---
Fever HPI - General Chief Complaint: Fever Stated Complaint: Weakness/Nausea Time Seen by Provider: 02/10/17 14:34 - Related Data Home Medications Medication Instructions Recorded Confirmed Calcium Carbonate/Vitamin D3 1 each PO NOON 09/12/16 01/22/17 [Calcium 600-Vit D3 800 Tablet] ClonazePAM [Klonopin] 0.5 mg PO HS 09/12/16 01/22/17 Donepezil HCl [Aricept] 10 mg PO HS 09/12/16 01/22/17 Furosemide [Lasix] 20 mg PO DAILY 09/12/16 01/22/17 Levothyroxine Sodium 75 mcg PO DAILY 09/12/16 01/22/17 Lutein 20 mg PO DAILY 09/12/16 01/22/17 Melatonin 5 mg PO HS 09/12/16 01/22/17 Multivitamin [Multivitamins] 1 each PO DAILY 09/12/16 01/22/17 Potassium Chloride [K-Dur] 5 meq PO DAILY 09/12/16 01/22/17 Simvastatin [Zocor] 10 mg PO HS 09/12/16 01/22/17 Topiramate 25 mg PO NOON 09/12/16 01/22/17 Gabapentin 300 mg PO TID 01/08/17 01/22/17 Sucralfate [Carafate] 1 gm PO BID 01/22/17 01/22/17 Colace (Docusate sodium) 100 mg 100 mg PO BID 01/30/17 capsule carbidopa 25 mg-levodopa 250 mg 1 tab PO TID tab 01/30/17 disintegrating tablet cholecalciferol (vitamin D3) 50,000 unit PO DAILY cap 01/30/17 50,000 unit capsule Previous Rx's Medication Instructions Recorded Duloxetine [Cymbalta] 30 mg PO BID cap 02/04/17 Omeprazole [Prilosec] 20 mg PO ACB cap 02/04/17 Potassium Chloride [K-Dur] 10 meq PO WB tab 02/04/17 Sucralfate [Carafate] 1 gm PO BIDWM #60 tab 02/04/17 Allergies Allergy/AdvReac Type Severity Reaction Status Date / Time cephalexin Allergy Unknown Verified 02/10/17 14:27 propoxyphene Allergy Verified 02/10/17 14:27 [From Darvocet-N] Sulfa (Sulfonamide Allergy Hives Verified 02/10/17 14:27 Antibiotics) Tetanus Vaccines and Toxoid Allergy Verified 02/10/17 14:27 [facility] Patient Stated Medical History Dementia Yes Migraine Yes Parkinson's Disease Yes Cataracts Yes Macular Degeneration Yes Congestive Heart Failure Yes: hx Hypertension Yes Sleep Apnea No Constipation No Gastroesophageal Reflux Yes: well controlled Disease Hiatal Hernia Yes Hx Incontinence Yes Anemia Yes: receives iron infusions Depression Yes Clinic Medical History Diarrhea (Acute Medical) Weakness (Acute Medical) Dehydration (Acute Medical) Dehydration (Acute Medical) Diarrhea (Acute Medical) External hemorrhoid (Acute Medical) Anemia (Acute Medical) Major depressive disorder (Acute Medical) Anxiety (Chronic Medical) Acute blood loss anemia (Acute Medical) Diverticular hemorrhage (Acute Medical) Atrial fibrillation (Chronic Medical) Benign essential hypertension (Acute Medical) Hypotension (Resolved Medical) Abdominal pain (Inactive Medical) Nausea (Inactive Medical) Medical History Updates: Right Breast Cancer. Dementia Yes. Migraine Yes. Parkinson's Disease Yes. Cataracts Yes. Atrial fibrillation with chronic anticoagulation. Benign essential hypertension. Reported Alzheimer's dementia. Depression with anxiety and panic attacks. Parkinson's disease. 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 Peripheral neuropathy. Macular degeneration. Hypothyroidism. Macular Degeneration Yes. Congestive Heart Failure Yes. Hypertension Yes. Gastroesophageal Reflux Yes. Disease. Hiatal Hernia Yes. Hx Incontinence Yes. Anemia Yes: receives iron infusions. Depression Yes Surgical History: EGD, colonoscopy- with presence of ileocecal valve mass- 01/27. Appendectomy. Right mastectomy. Pacemaker placement. Right TKA. Right ISSA. Cataract procedure. Tonsillectomy and adenoidectomy. Lipoma removed from left chest or upper back. Right shoulder surgery - Social History Current residence: Apartment/Private Home Disposition Prescriptions: No Action Levothyroxine Sodium 75 mcg PO DAILY Furosemide [Lasix] 20 mg PO DAILY Donepezil HCl [Aricept] 10 mg PO HS Topiramate 25 mg PO NOON Potassium Chloride [K-Dur] 5 meq PO DAILY Melatonin 5 mg PO HS Lutein 20 mg PO DAILY Multivitamin [Multivitamins] 1 each PO DAILY Gabapentin 300 mg PO TID Sucralfate [Carafate] 1 gm PO BID Sucralfate [Carafate] 1 gm PO BIDWM #60 tab ClonazePAM [Klonopin] 0.5 mg PO HS Calcium Carbonate/Vitamin D3 [Calcium 600-Vit D3 800 Tablet] 1 each PO NOON Simvastatin [Zocor] 10 mg PO HS Duloxetine [Cymbalta] 30 mg PO BID cap Potassium Chloride [K-Dur] 10 meq PO WB tab Omeprazole [Prilosec] 20 mg PO ACB cap cholecalciferol (vitamin D3) 50,000 unit capsule 50,000 unit PO DAILY cap carbidopa 25 mg-levodopa 250 mg disintegrating tablet 1 tab PO TID tab Colace (Docusate sodium) 100 mg capsule 100 mg PO BID Referrals: Viktor Chatman MD [Family Provider] -
[2017-02-10] MEDS ORDERED: LEVOFLOXACIN PB 750 MG/150 ML BAG IV ONE (15:08)
--- NOTE | 2017-02-10 15:59 | XRay Report ---
Indication: cough and fever Procedure: XR chest 2V: Encounter: Initial Comparison: 01/22/2017 Technique: AP and lateral radiographs of the chest were obtained. Findings: Evaluation limited by motion artifact on the lateral radiograph. Life support devices: Unchanged left pectoral dual-chamber pacer/ICD device. Lungs and airways: Normal lung volumes. Suggestion of hazy left lower lobe airspace opacities. Normal pulmonary vasculature. Pleura: No pleural effusion or pneumothorax. Heart and mediastinum: Cardiomegaly. Aortic atherosclerosis. Osseous structures and soft tissues: No acute osseous abnormality is seen. Degenerative disc disease of the thoracic spine. Degenerative arthrosis of the AC joints. Impression: Suggestion of hazy left lower lobe airspace opacities suspicious for developing pneumonia. .
[2017-02-10] MEDS: NS 1,000 ML IV SCH ×2 (17:30→23:29)
[2017-02-10 18:23] VITALS: BMI 25.6
[2017-02-10] MEDS ORDERED: HYDROCODONE/APAP 5mg/325mg TABLET PO PRN (19:06)
[2017-02-10] MEDS ORDERED: ACETAMINOPHEN 325 MG TABLET PO PRN (19:06)
[2017-02-10] MEDS ORDERED: METOCLOPRAMIDE 10mg/2ml INJECTION IVP PRN (19:16)
--- NOTE | 2017-02-10 19:25 | History & Physical Report ---
History of Present Illness Date: 02/10/17 Chief complaint: weakness, headache, increased tremors HPI: The patient is a very pleasant 86-year-old female who was hospitalized 01/22/2017 through 01/28/2017 in the acute care hospital and then transferred to inpatient rehabilitation and discharged on 02/01/2017. 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 She had severe acute blood loss anemia and coagulopathy from warfarin. At that time she was given for transfusions of blood and Coumadin was discontinued. She underwent EGD and colonoscopy. EGD was essentially normal. The patient went to inpatient rehabilitation for therapy regarding her weakness. Plans were for her to follow-up with Dr. Chavez to discuss surgical treatment of her recently diagnosed colon cancer. She was doing well at home until 2 days ago when she developed generalized weakness, headaches, rhinorrhea and cough. She denied feeling short of breath. She did notice increased tremors. She has no sick contacts that she is aware of. She presented to the emergency room today and was found to have rhinovirus on viral respiratory panel. Chest x-ray showed a hazy left lower lobe airspace opacity. Lactate was borderline elevated at 2.0. Pro calcitonin was 0.06. White count was 9.9 with 83 neutrophils. Hemoglobin was 9.6 and platelets were 326. Comprehensive metabolic profile was essentially normal other than BUN of 18. Urinalysis revealed positive nitrate, 10-20 white cells, 2+ bacteria. The patient had a temperature of 103.0. Blood pressure was as low as 96/56. The patient was given 1 L of IV fluids and IV Levaquin. I was called by the emergency room and asked to admit the patient for UTI, rhinovirus, and severe sepsis. The patient has a cough but denies shortness of breath. She is requiring 1 L of oxygen. She has had rhinorrhea. She denies any chest pains. She denies lightheadedness. She denies any dysuria or frequency. She denies any nausea, vomiting or diarrhea. She has had no further rectal bleeding that she is aware of. She has been eating and drinking well. She has had increased tremors, possibly shaking chills. Review of Systems Review of systems: Comprehensive review of systems is negative other than the above in history of present illness [facility] Medical History Hypothyroidism Macular degeneration Alzheimer's dementia Chronic Anemia-iron deficiency Chronic anticoagulation-discontinued in January after GI bleed Atrial fibrillation Benign essential hypertension History of breast cancer Coronary artery disease Chronic back pain Depression Essential tremor Generalized anxiety disorder Parkinson's disease CHF History of DVT and PE Peripheral neuropathy Cardiac pacemaker GI bleed in January 2017 from cecal mass found to be adenocarcinoma of the colon Acute blood loss anemia secondary to GI bleed Medical History Updates: Right Breast Cancer. Dementia Yes. Migraine Yes. Parkinson's Disease Yes. Cataracts Yes. Atrial fibrillation with chronic anticoagulation. Benign essential hypertension. Reported Alzheimer's dementia. Depression with anxiety and panic attacks. Parkinson's disease. 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 Peripheral neuropathy. Macular degeneration. Hypothyroidism. Macular Degeneration Yes. Congestive Heart Failure Yes. Hypertension Yes. Gastroesophageal Reflux Yes. Disease. Hiatal Hernia Yes. Hx Incontinence Yes. Anemia Yes: receives iron infusions. Depression Yes Surgical History: EGD, colonoscopy- with presence of ileocecal valve mass- 01/27. Appendectomy. Right mastectomy. Pacemaker placement. Right TKA. Right ISSA. Cataract procedure. Tonsillectomy and adenoidectomy. Lipoma removed from left chest or upper back. Right shoulder surgery Family History: Father-alcoholism, depression, colon cancer Mother - lymphoma Sister-Alzheimer's Sister-colon cancer - Social History Smoking status: Former smoker Alcohol intake: never (son Medardo Ely is DPOA. Patient requests DO NOT RESUSCITATE status) Household members: children Medications Home Medications Medication Instructions Recorded Confirmed Type Calcium Carbonate/Vitamin D3 1 tab PO NOON 09/12/16 02/10/17 History [Calcium 600-Vit D3 800 Tablet] ClonazePAM [Klonopin] 0.5 mg PO HS 09/12/16 02/10/17 History Donepezil HCl [Aricept] 10 mg PO HS 09/12/16 02/10/17 History Furosemide [Lasix] 20 mg PO DAILY 09/12/16 02/10/17 History Levothyroxine Sodium 75 mcg PO DAILY 09/12/16 02/10/17 History Lutein 20 mg PO DAILY 09/12/16 02/10/17 History Melatonin 5 mg PO HS 09/12/16 02/10/17 History Multivitamin [Multivitamins] 1 cap PO DAILY 09/12/16 02/10/17 History Simvastatin [Zocor] 10 mg PO HS 09/12/16 02/10/17 History Topiramate 25 mg PO NOON 09/12/16 02/10/17 History Gabapentin 300 mg PO TID 01/08/17 02/10/17 History Carbidopa/Levodopa [Carbidopa-Levo 1 tab PO NOON 02/10/17 02/10/17 History 25-250 mg Odt] Cholecalciferol (Vitamin D3) 50,000 unit PO DAILY 02/10/17 02/10/17 History [Vitamin D3] Docusate Sodium [Colace] 100 mg PO BID 02/10/17 02/10/17 History Allergies Allergy/AdvReac Type Severity Reaction Status Date / Time cephalexin Allergy Unknown Verified 02/10/17 14:27 propoxyphene Allergy Verified 02/10/17 14:27 [From Darvocet-N] Sulfa (Sulfonamide Allergy Hives Verified 02/10/17 14:27 Antibiotics) Tetanus Vaccines and Toxoid Allergy Verified 02/10/17 14:27 Exam Vital Signs: Temperature 99.0 F 02/10/17 18:25 Pulse Rate 75 02/10/17 18:40 Respiratory Rate 20 02/10/17 18:40 Blood Pressure 103/65 02/10/17 18:40 Pulse Oximetry 94 02/10/17 18:40 Height/Weight/BMI: Height 1.6 m Weight 65.7 kg Body Mass Index 25.6 Comments: GEN-alert, oriented, no acute distress. Mildly pale. HEENT-pupils are equal round and reactive, sclerae are anicteric, oropharynx is moist NECK-supple CV-regular rate and rhythm CHEST-mild wheezing ABD-soft, nontender, nondistended with positive bowel sounds -no Kingsley EXT-no edema NEURO-no focal deficits SKIN-warm and dry and without rashes Results - Labs CBC & Chem 7: 02/10/17 14:54 02/10/17 14:52 - Impressions Chest x-ray on my read and per radiology reveals hazy left lower lobe airspace disease. Patient has a pacemaker. Assessment and Plan (1) Severe sepsis Current visit: Yes Status: Acute Assessment and Plan: Impression Severe sepsis Acute hypoxic respiratory failure UTI Rhinovirus Anemia Recent lower GI bleed secondary to a cecal mass/adenocarcinoma-Coumadin remains on hold Generalized weakness Headache Parkinson's disease history of DVT and PE history of atrial fibrillation Alzheimer's dementia peripheral neuropathy CHF anxiety disorder depression Plan Admit as inpatient. Levaquin for UTI Regarding acute hypoxic respiratory failure, will give oxygen as needed, monitor oximetry, given DuoNeb breathing treatments, repeat chest x-ray tomorrow. Place in isolation regarding rhinovirus. The patient was given 1.5 L IV fluid bolus. Repeat lactate is pending. May need further bolus of fluid after second lactate has been obtained. Normal saline at 125 per hour unless further fluid bolus needed Monitor vital signs closely regarding severe sepsis. SCDs for DVT prophylaxis Resume home meds but will hold Lasix and potassium for now. Repeat CBC and CMP tomorrow. Patient requests DO NOT RESUSCITATE status. Hospital Course Summary Disclaimer: The visit summary below is not to be considered part of the above Progress Note.
[2017-02-10] MEDS: DOCUSATE SODIUM 100 MG CAPSULE PO SCH (21:07)
[2017-02-10] MEDS: ClonazePAM 0.5 MG TABLET PO SCH (21:08)
[2017-02-10] MEDS: DULOXETINE 30 MG CAPSULE PO SCH (21:08)
[2017-02-10] MEDS: DONEPEZIL 10 MG TABLET PO SCH (21:08)
[2017-02-10] MEDS: MELATONIN 5 MG TABLET PO SCH (21:09)
[2017-02-10] MEDS: SIMVASTATIN 10 MG TABLET PO SCH (21:09)
[2017-02-10] MEDS: GABAPENTIN 300 MG CAPSULE PO SCH (21:09)
[2017-02-11] MEDS: OMEPRAZOLE 20 MG CAPSULE PO SCH (06:21)
[2017-02-11] MEDS: ALBUTEROL/IPRATROPIUM 2.5mg-0.5mg/3ml NEB AEROSOL SCH ×4 (06:53→19:28)
[2017-02-11] MEDS: NS 1,000 ML IV SCH ×3 (08:24→23:10)
[2017-02-11] MEDS: MULTI-VITAMIN PLAIN TABLET PO SCH (08:29)
[2017-02-11] MEDS: DULOXETINE 30 MG CAPSULE PO SCH ×2 (08:30→20:59)
[2017-02-11] MEDS: LUTEIN 20 MG CAPSULE PO SCH (08:30)
[2017-02-11] MEDS: DOCUSATE SODIUM 100 MG CAPSULE PO SCH ×2 (08:30→20:58)
[2017-02-11] MEDS: GABAPENTIN 300 MG CAPSULE PO SCH ×3 (08:30→20:59)
[2017-02-11] MEDS: SUCRALFATE 1 GM TABLET PO SCH ×2 (08:30→18:10)
[2017-02-11] MEDS: LEVOTHYROXINE 75 MCG TABLET PO SCH (08:31)
--- NOTE | 2017-02-11 08:46 | XRay Report ---
INDICATION: hypoxia, rhinovirus PROCEDURE: CHEST 2-VIEWS UPRIGHT (PA & LAT) Encounter: Initial COMPARISON: February 10, 2017 FINDINGS: Airspace consolidation in the posterior left lower lobe is stable. No new areas of consolidation. No pneumothorax. Trace pleural effusions. Cardiac silhouette remains enlarged. Left pacemaker defibrillator. Mediastinal contours are stable. Pulmonary vascularity is unchanged. Impression: Persistent left lower lobe airspace consolidation. .
[2017-02-11] MEDS: TOPIRAMATE 25 MG TABLET PO SCH (11:26)
--- NOTE | 2017-02-11 18:09 | Progress Note ---
- Date 02/11/17 Subjective: The patient was seen this evening in her room. She states she ate a big lunch and is not very hungry for supper. She states she had more cough earlier today but it is better now. She denies any shortness of breath. She denies any dysuria. She states she did have some "heart pain" around her pacemaker this afternoon lasting maybe 5 minutes. She stated she was resting at the time. She states she's had this off and on at home and it goes away on its own. She denies any history of underlying heart disease. I spoke with her son earlier today and he was concerned that gabapentin might be causing problems with confusion. When I talked with the patient about this she stated that she feels like her memory is okay and she states the gabapentin really helps with her pain. She would like to stay on it at this time. Objective Vital signs: Temperature 96.3 F L 02/11/17 14:51 Pulse Rate 69 02/11/17 15:46 Respiratory Rate 18 02/11/17 15:21 Blood Pressure 108/67 02/11/17 14:51 Pulse Oximetry 97 02/11/17 14:51 Height/Weight/BMI: Height 1.6 m Weight 67.5 kg Body Mass Index 25.6 Comments: GEN-alert, oriented, no acute distress HEENT-sclera anicteric, oropharynx is moist NECK-supple CV-regular rate and rhythm, mild tenderness over her pacemaker. No erythema, no swelling, skin looks normal CHEST-clear to auscultation bilaterally ABD-soft, nontender with positive bowel sounds -no Kingsley EXT-no edema NEURO-no focal deficits SKIN-warm and dry and without rashes Results - Labs CBC & Chem 7: 02/11/17 04:59 02/11/17 04:59 Microbiology Results: Urine culture shows Escherichia coli greater than 100,000 colony-forming units. Sensitivities pending - Impressions Chest x-ray shows left lower lobe airspace consolidation Assessment and Plan (1) Severe sepsis Current visit: Yes Status: Acute Assessment and Plan: Impression Severe sepsis-resolved (maximum lactate was 2.0 and normalized to 1.3) Acute hypoxic respiratory failure-resolved Possible left lower lobe pneumonia versus atelectasis UTI-Escherichia coli, activities pending Rhinovirus Anemia hemoglobin dropped from 9.6 on admission to 8.1 today, possibly dilutional Recent lower GI bleed secondary to a cecal mass/adenocarcinoma-Coumadin remains on hold Atypical chest discomfort over her pacemaker Generalized weakness Headache Parkinson's disease history of DVT and PE history of atrial fibrillation Alzheimer's dementia peripheral neuropathy CHF anxiety disorder depression Plan Overall, patient is doing much better. Regarding vague chest discomfort, will check troponin 3, repeat hemoglobin now , and check troponin. Continue Levaquin for UTI and possible left lower lobe pneumonia. Continue breathing treatments for acute hypoxic respiratory failure. The patient is no longer requiring oxygen. Continue in isolation regarding rhinovirus. DC IV fluids SCDs for DVT prophylaxis Resume Lasix and potassium tomorrow Repeat CBC and CMP tomorrow. PT and OT did evaluate the patient and recommended IRU. Will place an IRU screen. Possible transfer in the next 1-2 days Hospital Course Summary Disclaimer: The visit summary below is not to be considered part of the above Progress Note. Hospital Course: 02/10/2017 Impression Severe sepsis Acute hypoxic respiratory failure UTI Rhinovirus Anemia Recent lower GI bleed secondary to a cecal mass/adenocarcinoma-Coumadin remains on hold Generalized weakness Headache Parkinson's disease history of DVT and PE history of atrial fibrillation Alzheimer's dementia peripheral neuropathy CHF anxiety disorder depression Plan Admit as inpatient. Levaquin for UTI Regarding acute hypoxic respiratory failure, will give oxygen as needed, monitor oximetry, given DuoNeb breathing treatments, repeat chest x-ray tomorrow. Place in isolation regarding rhinovirus. The patient was given 1.5 L IV fluid bolus. Repeat lactate is pending. May need further bolus of fluid after second lactate has been obtained. Normal saline at 125 per hour unless further fluid bolus needed Monitor vital signs closely regarding severe sepsis. SCDs for DVT prophylaxis Resume home meds but will hold Lasix and potassium for now. Repeat CBC and CMP tomorrow. Patient requests DO NOT RESUSCITATE status. 02/11/17 18:15 Plan Overall, patient is doing much better. Regarding vague chest discomfort, will check troponin 3, repeat hemoglobin now , and check troponin. Continue Levaquin for UTI and possible left lower lobe pneumonia. Continue breathing treatments for acute hypoxic respiratory failure. The patient is no longer requiring oxygen. Continue in isolation regarding rhinovirus. DC IV fluids SCDs for DVT prophylaxis Resume Lasix and potassium tomorrow Repeat CBC and CMP tomorrow. PT and OT did evaluate the patient and recommended IRU. Will place an IRU screen. Possible transfer in the next 1-2 days
[2017-02-11] MEDS: MELATONIN 5 MG TABLET PO SCH (20:58)
[2017-02-11] MEDS: SIMVASTATIN 10 MG TABLET PO SCH (20:59)
[2017-02-11] MEDS: DONEPEZIL 10 MG TABLET PO SCH (20:59)
[2017-02-11] MEDS: ClonazePAM 0.5 MG TABLET PO SCH (22:01)
[2017-02-12] MEDS: LEVOTHYROXINE 75 MCG TABLET PO SCH (06:24)
[2017-02-12] MEDS: OMEPRAZOLE 20 MG CAPSULE PO SCH (06:24)
[2017-02-12] MEDS: ALBUTEROL/IPRATROPIUM 2.5mg-0.5mg/3ml NEB AEROSOL SCH ×4 (06:52→20:19)
[2017-02-12] MEDS ORDERED: LEVOFLOXACIN PB 750 MG/150 ML BAG IV SCH (09:00)
[2017-02-12] MEDS ORDERED: FUROSEMIDE 40 MG/4 ML INJECTION IVP ONE (09:26)
--- NOTE | 2017-02-12 09:31 | Progress Note ---
<Melanie Landaverde - Last Filed: 02/12/17 09:28> - Date 02/12/17 Subjective: F-U: UTI and rhinovirus Patient seen sitting in bed eating breakfast. She says she feels worse today than yesterday. She didn't sleep well. Complains of some sternal chest pain. Reports the discomfort she was having around the pacemaker has resolved. No radiation of pain to neck or arm. Thinks it is related to cough. Doesn't feel more SOA, but feels more "wheezy." Appetite is good. Objective Vital signs: Temperature 97.6 F 02/12/17 08:41 Pulse Rate 72 02/12/17 08:41 Respiratory Rate 16 02/12/17 08:41 Blood Pressure 115/66 02/12/17 08:41 Pulse Oximetry 92 02/12/17 08:41 Height/Weight/BMI: Height 1.6 m Weight 69.99 kg Body Mass Index 25.6 - Constitutional Present: no acute distress, well nourished, well developed - Routine HEENT Exam Head: Present: normocephalic, atraumatic - Routine Respiratory Exam Present: wheezes (expiratory, best heard anteriorly), crackles (coarse- diffuse) . Absent: dyspnea, respiratory distress - Routine Cardiovascular Exam Present: RRR. Absent: murmur - Routine Abdominal Exam Present: soft, normoactive bowel sounds, non distended. Absent: tenderness - Routine Extremities Exam Present: no edema, normal capillary refill - Routine Musculoskeletal Exam Musculoskeletal: Present: moving extremities well, other (tenderness with palpation/pressure over sternum) - Routine Skin Exam Present: dry, warm - Routine Neurological Exam Present: alert, oriented X3 - Routine Lymphatic Exam Lymphatic: Absent: adenopathy - Routine Psychiatric Exam Present: normal affect, cooperative Results - Labs CBC & Chem 7: 02/12/17 05:51 02/12/17 05:51 Labs: Troponin x 3 yesterday neg - Imaging and Cardiology Chest x-ray Additional comments: CXR yesterday - persistent L lower lobe airspace consolidation Assessment and Plan (1) Severe sepsis Current visit: Yes Status: Acute Assessment and Plan: Impression Severe sepsis-resolved (maximum lactate was 2.0 and normalized to 1.3) Acute hypoxic respiratory failure-resolved Possible left lower lobe pneumonia versus atelectasis UTI-Escherichia coli, sensitivity pending Rhinovirus Anemia hemoglobin dropped from 9.6 on admission to 8.1 today, possibly dilutional Recent lower GI bleed secondary to a cecal mass/adenocarcinoma-Coumadin remains on hold Atypical chest pain - likely musculoskeletal Generalized weakness Headache Parkinson's disease history of DVT and PE history of atrial fibrillation Alzheimer's dementia peripheral neuropathy CHF anxiety disorder depression Plan Continue Levaquin for UTI and possible left lower lobe pneumonia. Urine sensitivity still pending. Repeat CBC in am. Continue Duoneb and add Acapella and IS for pulmonary toilet. Patient requiring 2L O2 this am. Lasix 40mg IV x 1 in addition to resuming her home Lasix and KCl. Patient's weight is up > 2 kg. IVF's previously DC'd. Repeat BMP in am. PT and OT have evaluated the patient and recommend IRU on discharge. Suspect chest pain is musculoskeletal in origin from her coughing. Neg troponin and EKG yesterday. Use Tylenol prn. Hospital Course Summary Disclaimer: The visit summary below is not to be considered part of the above Progress Note. Hospital Course: Impression Severe sepsis Acute hypoxic respiratory failure UTI Rhinovirus Anemia Recent lower GI bleed secondary to a cecal mass/adenocarcinoma-Coumadin remains on hold Generalized weakness Headache Parkinson's disease history of DVT and PE history of atrial fibrillation Alzheimer's dementia peripheral neuropathy CHF anxiety disorder depression 02/10/17 Admit as inpatient. Levaquin for UTI Regarding acute hypoxic respiratory failure, will give oxygen as needed, monitor oximetry, given DuoNeb breathing treatments, repeat chest x-ray tomorrow. Place in isolation regarding rhinovirus. The patient was given 1.5 L IV fluid bolus. Repeat lactate is pending. May need further bolus of fluid after second lactate has been obtained. Normal saline at 125 per hour unless further fluid bolus needed Monitor vital signs closely regarding severe sepsis. SCDs for DVT prophylaxis Resume home meds but will hold Lasix and potassium for now. Repeat CBC and CMP tomorrow. Patient requests DO NOT RESUSCITATE status. 02/11/17 Overall, patient is doing much better. Regarding vague chest discomfort, will check troponin 3, repeat hemoglobin now , and check troponin. Continue Levaquin for UTI and possible left lower lobe pneumonia. Continue breathing treatments for acute hypoxic respiratory failure. The patient is no longer requiring oxygen. Continue in isolation regarding rhinovirus. DC IV fluids SCDs for DVT prophylaxis Resume Lasix and potassium tomorrow Repeat CBC and CMP tomorrow. PT and OT did evaluate the patient and recommended IRU. Will place an IRU screen. Possible transfer in the next 1-2 days 02/12/17 Continue Levaquin for UTI and possible left lower lobe pneumonia. Urine sensitivity still pending. Repeat CBC in am. Continue Duoneb and add Acapella and IS for pulmonary toilet. Patient requiring 2L O2 this am. Lasix 40mg IV x 1 in addition to resuming her home Lasix and KCl. Patient's weight is up > 2 kg. IVF's previously DC'd. Repeat BMP in am. PT and OT have evaluated the patient and recommend IRU on discharge. Suspect chest pain is musculoskeletal in origin from her coughing. Neg troponin and EKG yesterday. Use Tylenol prn. <Julianne Cardoza - Last Filed: 02/12/17 11:40> - Date 02/12/17 Objective Vital signs: Temperature 97.6 F 02/12/17 08:41 Pulse Rate 72 02/12/17 08:41 Respiratory Rate 16 02/12/17 08:41 Blood Pressure 115/66 02/12/17 08:41 Pulse Oximetry 92 02/12/17 08:41 Height/Weight/BMI: Height 1.6 m Weight 69.99 kg Body Mass Index 25.6 Results - Labs CBC & Chem 7: 02/12/17 05:51 02/12/17 05:51 Assessment and Plan (1) Severe sepsis Current visit: Yes Status: Acute Assessment and Plan: 02/12/2017-I reviewed this chart, the patient history, and the PRESS FEEDER's/PA's documented findings as above. We discussed and formulated the assessment and plan as above with the additions below.-Dr. Cardoza Patient was seen this morning in her room. She states she doesn't feel as well today and didn't sleep as well last night. She states this is not uncommon for her. She has some mild shortness of breath. She continues to have an occasional cough. She has some sternal chest pain with cough. Appetite is okay. On exam she has wheezes throughout the lung travis. Cardiovascular reveals a regular rate and rhythm. Abdomen is soft and nontender. Extremities are free of edema. Impression Probable fluid overload. Weight is up over 4 kg since admission. IV fluids were discontinued. We'll give Lasix IV this morning. May need to repeat this afternoon. The patient has been accepted to IRU. We'll try to diurese and decrease oxygen needs prior to transfer. Plan for transfer tomorrow morning. Continue Levaquin for now for Escherichia coli UTI. Await sensitivities. Repeat lab and chest x-ray tomorrow. Discussed with nursing and case management. Hospital Course Summary Disclaimer: The visit summary below is not to be considered part of the above Progress Note.
[2017-02-12] MEDS: GABAPENTIN 300 MG CAPSULE PO SCH ×3 (09:54→21:29)
[2017-02-12] MEDS: DOCUSATE SODIUM 100 MG CAPSULE PO SCH ×2 (09:54→21:29)
[2017-02-12] MEDS: SUCRALFATE 1 GM TABLET PO SCH ×2 (09:54→17:02)
[2017-02-12] MEDS: MULTI-VITAMIN PLAIN TABLET PO SCH (09:55)
[2017-02-12] MEDS: FUROSEMIDE 20 MG TABLET PO SCH (09:55)
[2017-02-12] MEDS: LUTEIN 20 MG CAPSULE PO SCH (09:55)
[2017-02-12] MEDS: DULOXETINE 30 MG CAPSULE PO SCH ×2 (09:56→21:29)
[2017-02-12] MEDS: TOPIRAMATE 25 MG TABLET PO SCH (12:43)
[2017-02-12] MEDS ORDERED: FALL RISK - PHARMACY CONSULT XX ONE (19:01)
[2017-02-12] MEDS: SIMVASTATIN 10 MG TABLET PO SCH (21:29)
[2017-02-12] MEDS: MELATONIN 5 MG TABLET PO SCH (21:29)
[2017-02-12] MEDS: ClonazePAM 0.5 MG TABLET PO SCH (21:29)
[2017-02-12] MEDS: DONEPEZIL 10 MG TABLET PO SCH (21:30)
[2017-02-13] MEDS: LEVOTHYROXINE 75 MCG TABLET PO SCH (05:47)
[2017-02-13] MEDS: OMEPRAZOLE 20 MG CAPSULE PO SCH (05:47)
[2017-02-13 08:21] VITALS: TEMP 97.8
[2017-02-13] MEDS: ALBUTEROL/IPRATROPIUM 2.5mg-0.5mg/3ml NEB AEROSOL SCH ×2 (08:44→12:18)
--- NOTE | 2017-02-13 08:54 | XRay Report ---
INDICATION: hypoxia, pulm edema PROCEDURE: CHEST 2-VIEWS UPRIGHT (PA & LAT) Encounter: Initial COMPARISON: February 11, 2017 FINDINGS: Airspace consolidation in the left lower lobe has worsened with increasing small left pleural effusion. Small right effusion is also slightly larger. Pulmonary vascular congestion. No pneumothorax. Cardiac silhouette remains enlarged but unchanged. Left pacemaker defibrillator. Mediastinal contours are stable. Impression: Increasing small effusions and mild to moderate pulmonary edema. .
--- NOTE | 2017-02-13 09:36 | Discharge Summary ---
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 coli Resp panel positive for rhinovirus. - Radiology Radiology: Date of Exam: 02/10/17 XR chest 2V Impression: Suggestion of hazy left lower lobe airspace opacities suspicious for developing pneumonia. Date of Exam: 02/11/17 XR chest 2V Impression: Persistent left lower lobe airspace consolidation. Date of Exam: 02/13/17 XR chest 2V Impression: Increasing small effusions and mild to moderate pulmonary edema. History of Present Illness HPI: The patient is a very pleasant 86-year-old female who was hospitalized 01/22/2017 through 01/28/2017 in the acute care hospital and then transferred to inpatient rehabilitation and discharged on 02/01/2017. 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 She had severe acute blood loss anemia and coagulopathy from warfarin. At that time she was given for transfusions of blood and Coumadin was discontinued. She underwent EGD and colonoscopy. EGD was essentially normal. The patient went to inpatient rehabilitation for therapy regarding her weakness. Plans were for her to follow-up with Dr. Chavez to discuss surgical treatment of her recently diagnosed colon cancer. She was doing well at home until 2 days ago when she developed generalized weakness, headaches, rhinorrhea and cough. She denied feeling short of breath. She did notice increased tremors. She has no sick contacts that she is aware of. She presented to the emergency room today and was found to have rhinovirus on viral respiratory panel. Chest x-ray showed a hazy left lower lobe airspace opacity. Lactate was borderline elevated at 2.0. Pro calcitonin was 0.06. White count was 9.9 with 83 neutrophils. Hemoglobin was 9.6 and platelets were 326. Comprehensive metabolic profile was essentially normal other than BUN of 18. Urinalysis revealed positive nitrate, 10-20 white cells, 2+ bacteria. The patient had a temperature of 103.0. Blood pressure was as low as 96/56. The patient was given 1 L of IV fluids and IV Levaquin. The patient has a cough but denies shortness of breath. She is requiring 1 L of oxygen. She has had rhinorrhea. She denies any chest pains. She denies lightheadedness. She denies any dysuria or frequency. She denies any nausea, vomiting or diarrhea. She has had no further rectal bleeding that she is aware of. She has been eating and drinking well. She has had increased tremors, possibly shaking chills. Objective Vital signs: Temperature 97.8 F 02/13/17 08:00 Pulse Rate 69 02/13/17 08:00 Respiratory Rate 18 02/13/17 08:44 Blood Pressure 125/70 02/13/17 08:00 Pulse Oximetry 96 02/13/17 08:44 Height/Weight/BMI: Height 1.6 m Weight 69.9 kg Body Mass Index 25.6 - Constitutional Present: no acute distress, well nourished, well developed - Routine HEENT Exam Head: Present: normocephalic Eye: Absent: conjunctival icterus ENT: Present: mucous membranes moist. Absent: oropharynx clear (scattered thrush) Comments: c/o sore throat - Routine Respiratory Exam Present: crackles, diminished air movement - Routine Cardiovascular Exam Present: RRR, S1, S2 - Routine Abdominal Exam Present: soft, normoactive bowel sounds, non distended, non tender - Routine Extremities Exam Present: no edema - Routine Skin Exam Present: dry, warm - Routine Neurological Exam Present: alert, oriented X3, normal speech. Absent: facial asymmetry - Routine Psychiatric Exam Present: normal affect, normal thought process, cooperative Hospital Course This is a general summary of the patient's hospital course. For more details refer to the complete medical record. Hospital course: 02/10/17: ADMIT TO INPATIENT Levaquin started for UTI & poss pneumonia. She required 2L of oxygen to maintain sats; RT treatments ordered. Rhinovirus detected - placed in precautions. IVF started at 125 mL/hr for low blood pressures. Lactate trended down and BP improved. 02/11/17 Chest discomfort, troponin 3 were neg. IVF dc'd. Temporarily weaned off oxygen. PT and OT recommended IRU. 02/12/17 Weight increased and back on oxygen - Lasix 40 mg IV was given. Hgb trended down to 8.1 - poss dilutional. 02/13/17: DISCHARGE TO IRU Pt feeling better; breathing easier. CXR repeated, shows pulm edema and worsening pneumonia - extra Lasix 20 mg IV given. K slightly low at 3.5 - replaced orally. Sensitivities reported on E. coli - resistant to Levaquin. Allergies clarified - pt takes Amox without problems; she is unaware of Keflex allergy and this is not listed on her [facility] records (allergies on [facility] = Celebrex, Darvocet, naproxen, sulfa, and tetanus). Will start Rocephin IV through 02/19/17. Mild thrush noted - Nystatin started. IRU notes: Continue precautions for rhinovirus. Wean oxygen as able; repeat CXR in a couple of days. Follow electrolytes, malu K. Follow hgb - trending down but stabilized at 8.1. Rocephin (NEW MED) for E. coli UTI + pneumonia - give through 02/19/17 Nystatin (NEW MED) while she is on antibiotics. DC diagnoses: Severe sepsis (organ dysfunction - MAP <65) - resolved Acute hypoxic respiratory failure - improved Possible left lower lobe pneumonia Mild to moderate pulmonary edema UTI - Escherichia coli Rhinovirus Hypokalemia Thrush Recent lower GI bleed secondary to a cecal mass/adenocarcinoma - Coumadin on hold Generalized weakness Anemia hemoglobin dropped from 9.6 on admission to 8.1, possibly dilutional Atypical chest pain - likely musculoskeletal Parkinson's disease history of DVT and PE history of atrial fibrillation Alzheimer's dementia peripheral neuropathy CHF - echo 12/26/16 showed EF 55-60%; mild-moderate aortic regurgitation; mild tricuspid regurgitation anxiety & depression Time spent with patient: greater than 35 minutes Discharge Plan - Discharge Disposition Discharge Date: 02/13/17 Disposition: 60 [place] [facility] *Condition: Stable Reason For Visit (Visit label in EMR): severe sepsis - Discharge Medications *Discharge Medications: New Nystatin Oral Liq. [Mycostatin] 5 ml PO QID udc Ceftriaxone [Rocephin] 1 g IV Q24H vial Continue Levothyroxine Sodium 75 mcg PO DAILY Furosemide [Lasix] 20 mg PO DAILY Donepezil HCl [Aricept] 10 mg PO HS Topiramate 25 mg PO NOON Melatonin 5 mg PO HS Lutein 20 mg PO DAILY Multivitamin [Multivitamins] 1 cap PO DAILY Gabapentin 300 mg PO TID Sucralfate [Carafate] 1 gm PO BIDWM #60 tab Carbidopa/Levodopa [Carbidopa-Levo 25-250 mg Odt] 1 tab PO NOON ClonazePAM [Klonopin] 0.5 mg PO HS Calcium Carbonate/Vitamin D3 [Calcium 600-Vit D3 800 Tablet] 1 tab PO NOON Simvastatin [Zocor] 10 mg PO HS Duloxetine [Cymbalta] 30 mg PO BID cap Potassium Chloride [K-Dur] 10 meq PO WB tab Omeprazole [Prilosec] 20 mg PO ACB cap Docusate Sodium [Colace] 100 mg PO BID Cholecalciferol (Vitamin D3) [Vitamin D3] 50,000 unit PO DAILY - Discharge Packet/Instructions *Diet: Regular *Activity: PT/OT *Pain Management/Treatment: Tylenol as needed *Wound Care: N/A *Expected Signs/Symptoms: Hypoxia - wean off oxygen as able. Cough - should improve. Weakness - should improve with PT/OT *Notify Physician if: SOA, chest pain, fever, mental status change, or any new sx *During Business Hours Contact: IRU RN *After Business Hours Contact: IRU RN *Pending Lab/Results: Follow up w/Provider - Referrals/Follow Up *Referrals/Follow Up: Viktor Chatman MD [Family Provider] - - Patient Handouts Patient Handouts: Sepsis (GEN) - Dismissal Complete Discharge Instructions are:: Complete, Incomplete <Julianne Cardoza - Last Filed: 02/13/17 20:34> Discharge Information Date of admission: 02/10/17 17:22 Attending Physician: Julianne Cardoza MD Primary care physician: Viktor Chatman MD Consults: 02/11/17 IRU Screening [Inpatient Rehab Screening] [CONS] Routine 02/11/17 10:49 Physician Consult [CONS] Routine Consulting Provider: Clemencia Chopra Reason For Exam: SNU Ordering Provider has Notified Certified Nurse Practitioner: Yes Physician Consult [CONS] Routine Consulting Provider: Lidia Tello Reason For Exam: SNU Ordering Provider has Notified Certified Nurse Practitioner: Yes 02/11/17 10:51 Physician Consult [CONS] Routine Consulting Provider: Irlanda Thomas Reason For Exam: SNU Ordering Provider has Notified Certified Nurse Practitioner: Yes - Discharge Diagnosis (1) Weakness Status: Acute (2) Severe sepsis Status: Acute - Laboratory Labs: 02/13/17 03:55 02/13/17 03:55 Objective Vital signs: Temperature 97.8 F 02/13/17 08:00 Pulse Rate 70 02/13/17 12:00 Respiratory Rate 20 02/13/17 12:18 Blood Pressure 106/68 02/13/17 12:00 Pulse Oximetry 95 02/13/17 12:18 Height/Weight/BMI: Height 1.6 m Weight 69.9 kg Body Mass Index 25.6 Hospital Course This is a general summary of the patient's hospital course. For more details refer to the complete medical record. Hospital course: 02/13/2017-I reviewed this chart, the patient history, and the MANAGER CARE MANAGEMENT's/PA's documented findings as above. We discussed and formulated the assessment and plan as above with the additions below.-Dr. Cardoza Patient was seen earlier today. She states she is feeling better today. She denies any shortness of breath. She is on 2 L of oxygen. She states her appetite is better. She denies any pain other than chronic neuropathy in her legs. On exam she is alert and oriented and in no acute distress. Chest reveals some mild expiratory wheezes. Cardiovascular reveals a regular rate and rhythm. Abdomen is soft and nontender. Extremities are free of edema. The patient is stable for transfer to inpatient rehabilitation for strengthening. Plan is for her to get strong enough to be able to undergo surgery for adenocarcinoma of the colon in the near future. We'll continue oral Lasix for fluid overload/mild pulmonary edema. Continue oxygen as needed. Hopefully can wean off soon. May need additional Lasix if still having some wheezing tomorrow. Recheck ABC and basic metabolic profile tomorrow in IRU.
[2017-02-13] MEDS: SUCRALFATE 1 GM TABLET PO SCH (09:48)
[2017-02-13] MEDS ORDERED: FUROSEMIDE 20 MG/2 ML INJECTION IVP ONE (09:49)
[2017-02-13] MEDS: FUROSEMIDE 20 MG TABLET PO SCH (09:49)
[2017-02-13] MEDS: GABAPENTIN 300 MG CAPSULE PO SCH (09:49)
[2017-02-13] MEDS: DOCUSATE SODIUM 100 MG CAPSULE PO SCH (09:49)
[2017-02-13] MEDS: MULTI-VITAMIN PLAIN TABLET PO SCH (09:50)
[2017-02-13] MEDS: DULOXETINE 30 MG CAPSULE PO SCH (09:50)
[2017-02-13] MEDS: LUTEIN 20 MG CAPSULE PO SCH (09:50)
[2017-02-13] MEDS ORDERED: CEFTRIAXONE 1 G in NS 100 ML IV SCH (10:45)
[2017-02-13 12:23] VITALS: RESP 20; O2SAT 95
[2017-02-13 12:31] VITALS: BP 106/68; PULSE 70
[2017-02-13] MEDS ORDERED: NYSTATIN 500,000 units/5 ml ORAL LIQUID PO SCH (13:00)
[2017-02-13] MEDS: TOPIRAMATE 25 MG TABLET PO SCH (13:39)
== END 2017-02-13 13:50 | DRG 871 ==
LOC: ED 14:00 → MED 17:22
PROVIDERS: ADMIT Internal Medicine; ATTEND Internal Medicine

== ENCOUNTER 2017-02-13 13:55 | Inpatient (IN) ==
--- OUTSIDE RECORDS SUMMARY | 2017-02-13 14:11 | External Medical Summary | Clinical Summary ---
:1930 Author Organization [facility] Address [address] [address] Phone Support Name Relationship Address Phone Unavailable Unavailable Unavailable Unavailable [employer] Unavailable [place], [place] Unavailable Natur[employer]on Unavailable Allergies Active Allergy Reactions Severity Noted Date Comments Celecoxib Hives Medium 09/24/2010 Naproxen Other (See Comments) Medium 09/24/2010 Lips swelling Sulfa Antibiotics Hives Medium 09/24/2010 Tetanus Toxoids Hives Medium 09/24/2010 Propoxyphene Other (See Comments) Low 12/02/2010 "Made her act crazy" N-Acetaminophen Current Medications Prescription Sig. Disp. Refills Start Date End Date Status topiramate (TOPAMAX) 25 Take 25 mg by Active MG tablet mouth 2 (two) times daily. potassium chloride Take 5 mEq by Active (K-DUR,KLOR-CON) 10 MEQ mouth every tablet morning. aspirin EC (ECOTRIN) Take 325 mg by Active 325 MG EC tablet mouth every morning. furosemide (LASIX) 20 Take 20 mg by 01/04/2014 Active MG tablet mouth every morning. metoprolol succinate Take 25 mg by Active (TOPROL-XL) 25 MG 24 hr mouth nightly. tablet venlafaxine Take 225 mg by Active (EFFEXOR-XR) 75 MG 24 mouth every hr capsuleIndications: morning. Major Depressive Indications: Disorder Major Depressive Disorder lidocaine (LIDODERM) 5 Place 1 patch Active % onto the skin daily. Lutein 20 MG TABS Take 20 mg by Active mouth daily. amoxicillin (AMOXIL) Take 2,000 mg by Active 500 MG capsule mouth 1 hour prior to appointment. Calcium Carbonate Take 600 mg of Active (CALCIUM 600) 1500 (600 elemental calcium CA) MG TABS by mouth every morning. donepezil (ARICEPT) 10 Take 10 mg by Active MG tablet mouth at bedtime. Reported on 02/28/2016 DULoxetine (CYMBALTA) Take 90 mg by Active [address] capsule mouth daily. levothyroxine Take 75 mcg by Active (SYNTHROID, LEVOTHROID) mouth every 75 MCG tablet morning before breakfast. omeprazole (PRILOSEC) Take 20 mg by Active 20 MG capsule mouth 2 (two) times daily. senna-docusate Take 1 tablet by Active (SENEXON-S) 8.6-50 MG mouth 2 (two) times daily. simvastatin (ZOCOR) 10 Take 10 mg by Active MG tablet mouth at bedtime. ergocalciferol (VITAMIN Take 50,000 Units Active D) 60711 UNITS capsule by mouth once a week. acetaminophen (TYLENOL) Take 2 tablets 0 03/01/2016 Active 325 MG tablet (650 mg total) by mouth every 6 (six) hours as needed for Mild Pain or Fever. clonazePAM (KLONOPIN) Take 1 tablet 30 tablet 0 05/02/2016 Active 0.5 MG (0.5 mg total) by tabletIndications: mouth 3 (three) Panic Disorder times daily as needed for Anxiety. Indications: Panic Disorder Do not exceed a daily dose of 1.5 mg warfarin (COUMADIN) 2.5 Take 1 tablet 30 tablet 0 06/12/2016 Active MG tabletIndications: (2.5 mg total) by Chronic anticoagulation mouth daily. 2.5mg po daily of MWF, 4mg all other days Active Problems Problem Noted Date Dementia 04/29/2016 Depression 04/29/2016 Hyperlipidemia type II 04/29/2016 Hypothyroid 04/29/2016 Tremor, essential 04/29/2016 Generalized weakness 04/29/2016 E. coli UTI 04/29/2016 Hypotension 04/29/2016 Microcytic hypochromic anemia 03/06/2016 Sacral fracture (HCC) 02/28/2016 Idiopathic neuropathy 02/28/2016 Recurrent falls 02/28/2016 Iron deficiency anemia due to chronic blood loss 06/15/2015 Abnormal finding on urinalysis 11/21/2014 Ribs, multiple fractures 11/20/2014 Multiple rib fractures 11/20/2014 Pulmonary embolism, bilateral (HCC) 06/15/2014 History of breast cancer 06/15/2014 Overview: Post right mastectomy 2003 Cognitive impairment 05/05/2014 NPH (normal pressure hydrocephalus) 05/05/2014 Lumbar disc disorder 05/05/2014 Maribeth infection 12/03/2013 shelter (current) use of anticoagulants 02/16/2013 Protein-calorie malnutrition, mild (HCC) 09/05/2012 Abdominal pain, acute, epigastric 09/04/2012 Coagulopathy (HCC) 09/04/2012 Anxiety and depression 09/04/2012 Macular degeneration 09/04/2012 OA (osteoarthritis of spine) 09/04/2012 Pacemaker 09/04/2012 H/O sick sinus syndrome 09/04/2012 CHF (congestive heart failure) ([facility]) 03/17/2012 Overview: PPM inserted for SSS(shelley/vaibhav)-dr brown 2001 Osteopenia 03/17/2012 Sinusitis acute 12/04/2010 Headache(784.0) 12/04/2010 Atrial fibrillation, paroxysmal 12/04/2010 Unspecified hypothyroidism 12/04/2010 Unspecified essential hypertension 12/04/2010 Dyspepsia 12/02/2010 Atrial fibrillation (HCC) 03/17/2009 Pacemaker 03/17/2001 Knee joint replacement by other means Essential and other specified forms of tremor Other acute embolism veins Osteoarthrosis, unspecified whether generalized or localized, unspecified site Malignant neoplasm of breast (female), unspecified site (HCC) Benign neoplasm of colon Depressive disorder, not elsewhere classified Cardiac pacemaker in situ Paroxysmal atrial fibrillation (HCC) Resolved Problems Problem Noted Date Resolved Date Mature cataract 11/23/2012 11/23/2012 Acute venous embolism and thrombosis of deep vessels of 09/03/2012 03/01/2016 proximal lower extremity (HCC) UTI (lower urinary tract infection) 12/04/2010 01/13/2014 Immunizations Name Dates Previously Given Next Due Herpes Zoster (Zostavax) 10/02/2011 INFLUENZA IIV3 HD (Adults=>65 12/26/2015, 04/11/2015, 04/13/2014 y/o-FLUZONE HD) Influenza IIV3 PFree 12/12/2011, 01/08/2011, 01/15/2010, 02/14/2006 Pneumococcal Conjugate (13-valent) 06/14/2014 Pneumococcal Polysaccharide (23-valent) 09/25/2010, 07/15/2007 Family History Medical History Relation Name Comments Cancer Brother Bill No Known Problems Brother Neville Cancer Brother Waler bladder cancer Colon cancer Father Cancer Mother :Lymphoma Depression Paternal Grandfather Depression Paternal Grandmother Colon cancer Sister Bertha Alzheimer's disease Sister Margi Dementia Sister Margi Depression Sister Margi No Known Problems Sister Nohemi Depression Sister Josefina Cancer Son Thanh Bladder Diabetes type II Son Medardo No Known Problems Son Mason Relation Name Status Comments Brother Ignacio cancer Brother Neville Alive Brother Danay Alive Brother Alexis (Age 3) Pneumonia Father (Age 68) Colon Cancer Maternal Grandfather Unknown Maternal Grandmother Unknown Mother (Age 78) Paternal Grandfather Unknown Paternal Grandmother Unknown Sister Bertha (Age 52) Colon Cancer Sister Margi Alive Sister Nohemi Alive Sister Josefina Alive Son Thanh Alive Son Medardo Alive Son Mason Alive Social History Tobacco Use Types Packs/Day Years Used Date Former Smoker Cigarettes 0.1 0.5 Quit: 08/14/1943 Smokeless Tobacco: Never Used Tobacco Cessation: Counseling Given: No Alcohol Use Drinks/Week oz/Week Comments No 0 Standard drinks or equivalent 0.0 Alcoholic Drinks/day: Never Sex Assigned at Date Recorded Not on file Last Filed Vital Signs Vital Sign Reading Time Taken Blood Pressure 123/77 05/02/2016 11:44 AM [employer] Pulse 70 05/02/2016 11:44 AM [employer] Temperature 36.6 C (97.8 F) 05/02/2016 11:44 AM [employer] Respiratory Rate 16 05/02/2016 11:44 AM [employer] Oxygen Saturation 96% 05/02/2016 11:44 AM [employer] Inhaled Oxygen Concentration - - Weight 59.9 kg (132 lb) 05/02/2016 3:20 AM [employer] Height 160 cm (5' 3") 04/30/2016 1:10 AM [employer] Body Mass Index 23.38 05/02/2016 3:20 AM [employer] Plan of Treatment Upcoming Encounters Date Type Specialty Care Team Description 03/02/2017 Wait List Health Maintenance Due Date Last Done Comments DTaP,Tdap,and Td Vaccines ( - 1949 Tdap) Breast Cancer Screening-Mammogram 11/08/2016 11/09/2015, 10/04/2014, 09/21/2013, Additional history exists Influenza Vaccine (#1) 2016 12/26/2015, 04/11/2015, 04/13/2014, Additional history exists Annual Wellness Visit 12/04/2016 12/05/2015, 01/04/2014 Zoster Vaccine Completed 10/02/2011 Pneumo-Adult Completed 06/14/2014, 09/25/2010, 07/15/2007 Results Not on filefrom Last 3 Months
[2017-02-13 14:30] VITALS: BMI 26.2
--- NOTE | 2017-02-13 15:19 | IRU History & Physical Report ---
HPI IRU Date: Chief complaint: I need oxygen and I'm weak HPI: Ms. Juan is a very pleasant 86-year-old female referred by Dr. Julianne Cardoza. Her primary care doctor's Dr. Viktor Chatman. She was previously admitted to the inpatient rehabilitation unit on 01/28/2017. At that time she had been admitted to acute care with acute GI bleeding. EGD was essentially unremarkable while on acute. 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 Bleeding appeared to be more likely however from diverticular origin. She was stabilized on acute at that time and transferred to inpatient rehabilitation on 01/28/2017. She improved while on the IRU and was sent to live with her son and [id number] in [place], [place]. At this time, she states that she was doing well until a couple of days prior to admission. She presented to the emergency department with severe weakness, headache, severe rhinorrhea ("dripping like water" she states) and cough (she states that she did not have a cough but there is report on the history and physical examination upon admission to acute care that she did have a cough). Had a fever of 103. She denied any chest pain and denies shortness of breath. She presented to the emergency department on 02/10/2017 with these symptoms. Her blood pressure was low at 96/56. She required oxygen supplementation for acute hypoxemic respiratory failure. The patient was admitted to acute care at that time. A respiratory screen revealed rhinovirus. Chest x-ray was abnormal and appeared to show a left lower lobe infiltrate. She was treated initially with Levaquin and subsequently with Rocephin. As a result of this illness, she is quite weak and debilitated. She was diagnosed with severe sepsis based on fever, acute respiratory failure, documentation of infection (rhinovirus plus possible pneumonia) and hypotension with borderline elevation of lactate. In addition she was noted to have a urinalysis consistent with UTI. Escherichia coli is growing in this regard. At the present time, her rhinorrhea is significantly improved. She denies any cough. She denies shortness of breath. She mainly complains of being weak. She states that she has had a good appetite throughout this time. She is known to have reduced memory and therefore it is not clear if all elements of her reported history are totally accurate. She does have history of severe macular degeneration and she has chronic anemia as well as atrial fibrillation. Because of her cecal mass and a recent diverticular bleed, her warfarin is on hold. Her level of functioning prior to the current event was as follows: She was modified independent for eating, grooming, toileting, bed/chair/wheelchair transfers, toilet transfers and walking. She was minimal assistance for bathing. She was independent with upper and lower body dressing. She is walking with a rolling walker. She was able to negotiate stairs at modified independent level of functioning. Current level of functioning is as follows: She is supervision level for eating. She requires moderate assistance for grooming. She requires minimal assistance for upper body dressing but total assistance for lower body dressing , toileting and walking. She requires moderate assistance for bed/chair/ wheelchair transfers and minimal assistance for toilet transfers. She is walking with a rolling walker only about 20 feet. She is unable to do stairs at the present time. The following medical conditions are noted and require active monitoring and/or management: 1. Recent acute respiratory illness including rhinovirus and a possible left lower lobe pneumonia. She is at risk for worsening in her respiratory status including worsening hypoxemia, dyspnea and worsening infection. 2. Acute hypoxemic respiratory failure. Patient did not require oxygen home but is currently requiring that. She is at risk for worsening hypoxemia. 3. Recent GI bleeding secondary to diverticular bleed. She remains anemic from this. She is at risk for repeat bleeding in view of the diverticular source. 4. Atrial fibrillation, chronic, currently not on anticoagulants because of recent GI bleeding. She is at risk for CVA or peripheral embolus since we are not able to give her anticoagulants at present. 5. Urinary tract infection with Escherichia coli. Patient is currently on Rocephin. She is at risk for sepsis from this, urinary retention. The following therapies will be needed: 1. Physical therapy: for transfers and ambulation and stairs. 2. Occupational therapy: for ADL's and transfers. 3. Medical management: for the above conditions. 4. 24 hour Rehabilitation Nursing to monitor and address the following: Oxygen saturations, monitoring for respiratory decline, monitoring for worsening infection. [facility] Patient Stated Medical History Dementia Yes Migraine Yes Parkinson's Disease Yes Cataracts Yes Macular Degeneration Yes: bilateral Congestive Heart Failure Yes: hx Hypertension Yes Sleep Apnea No Constipation No Gastroesophageal Reflux Yes: well controlled Disease Hiatal Hernia Yes Hx Incontinence Yes Hx Urinary Tract Infection Yes Anemia Yes: receives iron infusions Depression Yes Clinic Medical History Diarrhea (Acute Medical) Weakness (Acute Medical) Dehydration (Acute Medical) Dehydration (Acute Medical) Diarrhea (Acute Medical) External hemorrhoid (Acute Medical) Anemia (Acute Medical) Major depressive disorder (Acute Medical) Anxiety (Chronic Medical) Acute blood loss anemia (Acute Medical) Diverticular hemorrhage (Acute Medical) Atrial fibrillation (Chronic Medical) Benign essential hypertension (Acute Medical) Hypotension (Resolved Medical) Sepsis (Acute Medical) Severe sepsis (Acute Medical) Abdominal pain (Inactive Medical) Nausea (Inactive Medical) Medical History Updates: Right Breast Cancer. Dementia Yes. Migraine Yes. Parkinson's Disease Yes. Cataracts Yes. Atrial fibrillation with chronic anticoagulation. Benign essential hypertension. Reported Alzheimer's dementia. Depression with anxiety and panic attacks. Parkinson's disease. 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 Peripheral neuropathy. Macular degeneration. Hypothyroidism. Macular Degeneration Yes. Congestive Heart Failure Yes. Hypertension Yes. Gastroesophageal Reflux Yes. Disease. Hiatal Hernia Yes. Hx Incontinence Yes. Anemia Yes: receives iron infusions. Depression Yes Surgical History: EGD, colonoscopy- with presence of ileocecal valve mass- 01/27. Appendectomy. Right mastectomy. Pacemaker placement. Right TKA. Right ISSA. Cataract procedure. Tonsillectomy and adenoidectomy. Lipoma removed from left chest or upper back. Right shoulder surgery Family History: Colon cancer is present in the family. Her brother, sister and father all apparently had colon cancer. Another brother has history of bladder cancer. Son also has bladder cancer. Father did have alcoholism and depression. Mother had lymphoma. Another sister has Alzheimer's dementia. - Social History Smoking status: Former smoker Substance use type: does not use Alcohol intake: never Alcohol intake frequency: does not drink (small for very short time at age 14 but none since.) Housing: house Household members: family Current occupational status: retired Current residence: Apartment/Private Home Social history: She reports that she was until 1979 at which time her first . He was employed of the [email or web address]. She remarried and her second then subsequently. 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 She currently lives with her son and [id number] in [facility]. Review of Systems - Constitutional Constitutional: Present: headache(s), malaise, weakness. Absent: anorexia, chills, fatigue, fever(s), lethargy, night sweats, weight gain, weight loss - EEORT Eyes: Absent: blurry vision, change in vision, diplopia Nose: Present: other (has had recent severe clear rhinorrhea although improved.) Mouth/Throat: Absent: changes in swallowing, painful swallowing, change in taste , bleeding gums, change in voice - Cardiovascular Cardiovascular: Absent: chest pain, palpitations, syncope, dyspnea on exertion, orthopnea, edema, cyanosis, heart murmur Rhythm: Present: abnormal rhythm (rhythm is irregular consistent with atrial fibrillation) Vascular: Absent: intermittent claudication, pedal edema, unilateral swelling - Respiratory Respiratory: Present: cough (patient denies cough but history and physical indicates she had on at least on admission.). Absent: dyspnea, hemoptysis, dyspnea on exertion, wheezing, pain on inspiration, chest congestion, excessive phlegm production - Gastrointestinal Gastrointestinal: Absent: abdominal pain, change in bowel habits, constipation, diarrhea, dyspepsia, dysphagia, early satiety, hematochezia, melena, nausea, vomiting - Musculoskeletal Musculoskeletal: Absent: abnormal gait, arthralgias, back pain, joint swelling, limited range of motion, muscle weakness - Integumentary/Breasts Integumentary: Absent: alopecia, erythema, lesions, pruritus, rash, jaundice - Neurological Neurological: Present: weakness. Absent: abnormal gait, abnormal movements, abnormal speech, confusion, convulsions, dizziness, focal weakness, frequent falls, headache(s), loss of vision, memory loss, numbness, paresthesias, tremor( s) - Psychiatric Psychiatric: Absent: abnormal sleep pattern, anxiety, depression - Endocrine Endocrine: Absent: cold intolerance, flushing, heat intolerance, palpitations - Hematologic/Lymphatic Hematologic/Lymphatic: Absent: easy bleeding, easy bruising, lymphadenopathy - Allergic/Immunologic Allergic/Immunologic: Absent: urticaria Medications Home Medications Medication Instructions Recorded Confirmed Type Calcium Carbonate/Vitamin D3 1 tab PO NOON 09/12/16 02/13/17 History [Calcium 600-Vit D3 800 Tablet] ClonazePAM [Klonopin] 0.5 mg PO HS 09/12/16 02/13/17 History Donepezil HCl [Aricept] 10 mg PO HS 09/12/16 02/13/17 History Furosemide [Lasix] 20 mg PO DAILY 09/12/16 02/13/17 History Levothyroxine Sodium 75 mcg PO DAILY 09/12/16 02/13/17 History Lutein 20 mg PO DAILY 09/12/16 02/13/17 History Melatonin 5 mg PO HS 09/12/16 02/13/17 History Multivitamin [Multivitamins] 1 cap PO DAILY 09/12/16 02/13/17 History Simvastatin [Zocor] 10 mg PO HS 09/12/16 02/13/17 History Topiramate 25 mg PO NOON 09/12/16 02/13/17 History Gabapentin 300 mg PO TID 01/08/17 02/13/17 History Carbidopa/Levodopa [Carbidopa-Levo 1 tab PO NOON 02/10/17 02/13/17 History 25-250 mg Odt] Cholecalciferol (Vitamin D3) 50,000 unit PO DAILY 02/10/17 02/13/17 History [Vitamin D3] Docusate Sodium [Colace] 100 mg PO BID 02/10/17 02/13/17 History Allergies Allergy/AdvReac Type Severity Reaction Status Date / Time cephalexin Allergy Unknown Verified 02/10/17 14:27 propoxyphene Allergy Verified 02/10/17 14:27 [From Darvocet-N] Sulfa (Sulfonamide Allergy Hives Verified 02/10/17 14:27 Antibiotics) Tetanus Vaccines and Toxoid Allergy Verified 02/10/17 14:27 Results IRU - Labs Labs: Reviewed data from recent acute admissions as well as previous rehabilitation admission. I personally reviewed the chest radiographs including the one from . There does not appear to be substantial change although a lateral view was not obtained on January 22. Exam Vital Signs: Temperature 98.6 F 02/13/17 14:21 Pulse Rate 77 02/13/17 14:21 Respiratory Rate 20 02/13/17 14:21 Blood Pressure 113/65 02/13/17 14:21 Pulse Oximetry 94 02/13/17 14:21 Height/Weight/BMI: Height 1.6 m Weight 67.3 kg Body Mass Index 26.2 - Constitutional Present: no acute distress, well nourished, well developed, average body habitus , cooperative - Routine HEENT Exam Head: Present: normocephalic, atraumatic. Absent: cushingoid faces, abrasion, laceration, hematoma Eye: Present: EOMI, PERRL. Absent: conjunctival icterus, scleral injection, periorbital swelling, nystagmus ENT: Present: mucous membranes moist, oropharynx clear - Routine Neck Exam Present: supple, full ROM, trachea midline. Absent: lymphadenopathy, thyromegaly, tenderness, swelling - Routine Chest/Breast/Axilla Exam Chest wall: Absent: tenderness, mass Axillae: Absent: lymphadenopathy, mass Comments: She has reduced breath sounds in the left base with occasional crackles in that location. Lungs are clear otherwise throughout. - Routine Respiratory Exam Present: CTA bilaterally. Absent: accessory muscle use, decreased breath sounds , prolonged expiratory phase, rales, respiratory distress, rhonchi, stridor, wheezes, crackles, distant breath sounds - Routine Cardiovascular Exam Present: S1, S2, murmur (systolic murmur second right interspace predominantly, grade 2/6), irregularly irregular. Absent: gallop, S3, S4, click, irregular rhythm - Routine Abdominal Exam Present: soft, normoactive bowel sounds, non distended, non tender. Absent: rebound, guarding, firm, rigid, organomegaly, mass, hernia, wound - Routine Extremities Exam Present: no edema, pulses intact, normal capillary refill. Absent: cyanosis, clubbing, non tender (patient is tender around the ankles.) - Routine Back/Spine/Pelvis Exam Back/Spine: Present: full ROM. Absent: scoliosis, kyphosis - Routine Skin Exam Present: intact, dry, warm. Absent: cyanosis, erythema, pallor, mottling, petechiae, urticaria, lesions, jaundice - Routine Neurological Exam Present: alert, oriented X3, CN II-XII intact, moving all extremities, normal speech, tremors (does appear to have some bilateral tremor not noted previously. ) Does complain of reduced memory and this is confirmed by the fact that she does repeat stories and questions. - Routine Psychiatric Exam Present: normal affect, normal thought process, cooperative. Absent: good insight, good judgment, depressed, anxious Sepsis Assessment - Evaluation Confirmed Suspected Infection: Yes (UTI and recent respiratory infection) SIRS Criteria: none IRU A/P (1) Debility Current visit: Yes Status: Acute Patient has demonstrated significant functional decline since dismissal from rehabilitation previously. A specific multidisciplinary approach will be undertaken to allow her to regain flexibility and to return home prior to anticipated colonic surgery for cecal adenocarcinoma (2) Anemia Qualifiers: Anemia type: unspecified type Qualified Code(s): D64.9 - Anemia, unspecified Current visit: No Status: Acute Patient has history of anemia of chronic disease as well as recent acute blood loss anemia. Her hemoglobins will be monitored. (3) Atrial fibrillation Qualifiers: Atrial fibrillation type: chronic Qualified Code(s): I48.2 - Chronic atrial fibrillation Current visit: No Status: Chronic She does have history of atrial fibrillation. Her rhythm is irregular at the present time. She is not on any coagulation due to recent GI bleed. (4) Acute hypoxemic respiratory failure Current visit: Yes Status: Acute She has not required oxygen previously. In view of her pulmonary infection she is currently on oxygen supplementation due to acute hypoxemic respiratory failure. DVT Prophylaxis: Lovenox Resuscitation Status: Do Not Resuscitate - Course Hospital Course: Neville Wade MD: - Interventions to Obtain Goals PT Treatment Plan: Balance/Proprioception, Functional Activities, Gait Training , Patient/Family Education OT Treatment Plan: ADL (Basic Care), Balance Training, Pt./Family Education Goals Progress/Modifications: Because of the patient's multiple medical problems a multidisciplinary approach will be undertaken. She will be seen by physical therapy, occupational therapy, 24 rehabilitation nursing as well as medical supervision.
--- NOTE | 2017-02-13 15:36 | IRU 24Hr Post Admit Eval ---
24 Hr Post Admission Physical - Relevant Changes Relevant Changes: No Reviewed: I have reviewed the patient's information and concur with the finding and results of the pre-admission screen. Certification: I certify the patient for rehabilitation. - Patient Condition (1) Debility Status: Acute Code(s): R53.81 - Other malaise Classification: Present on IRF Admission, IRF Tx That Should Address Diagnosis (2) Anemia Status: Acute Qualifiers: Anemia type: unspecified type Qualified Code(s): D64.9 - Anemia, unspecified Code(s): D64.9 - Anemia, unspecified Classification: Present on IRF Admission, Diagnosis Requiring Medical Follow Up (3) Atrial fibrillation Status: Chronic Qualifiers: Atrial fibrillation type: chronic Qualified Code(s): I48.2 - Chronic atrial fibrillation Code(s): I48.91 - Unspecified atrial fibrillation Classification: Present on IRF Admission, Diagnosis Requiring Medical Follow Up (4) Acute hypoxemic respiratory failure Status: Acute Code(s): J96.01 - Acute respiratory failure with hypoxia Classification: Present on IRF Admission, IRF Tx That Should Address Diagnosis, Diagnosis Requiring Medical Follow Up - Prior Functional Status Lives With: Children Residence Type: Apartment/Private Home Assitive Devices: Front Wheeled Walker Prior Functional Status: Indep. at home or school - Current Functional Status Current Level of Function: Current level of functioning is as follows: She is supervision level for eating. She requires moderate assistance for grooming. She requires minimal assistance for upper body dressing but total assistance for lower body dressing , toileting and walking. She requires moderate assistance for bed/chair/ wheelchair transfers and minimal assistance for toilet transfers. She is walking with a rolling walker only about 20 feet. She is unable to do stairs at the present time.. Failed Alternative Therapy: Arrived from Acute Care Patient Requirements: The patient requires oversight by rehabilitation physician to manage their rehabilitation treatment plan and multidisciplinary approach to care that can only be provided in an IRF and requires a multidisciplinary approach to care, provided by professional PTs, OTs, STs, dieticians, RTs, rehabilitation nurses and is not available in lesser levels of care. Limitations Req: Mobility Impairment, ADL Impairment, Respiratory Impairment Physical Therapy Minutes: 90 Occupational Therapy Minutes: 90 Therapy: The patient is to receive therapy at least 5 days a week. - Complications/Comorbidities Impact on Functional Outcomes: Her recent respiratory infection along with hypoxemia will impact her functional outcome. Barriers to Discharge: Weakness, Endurance, Medical Limitation - Plan to Avoid Complications Plan to Avoid Complications: The patient cannot receive this care in a lesser intensive setting such as [facility] or Outpatient Therapy due to the patient requiring the following : This patient has multiple medical issues which require close medical management and nursing supervision including urinary tract infection, recent pulmonary infection, new onset of acute hypoxemic respiratory failure. In addition, she is a significant fall risk and requires a multidisciplinary approach to her rehabilitation to allow her to return to her home .
[2017-02-13] MEDS ORDERED: CEFTRIAXONE 1 G INJECTION IV SCH (15:45)
[2017-02-13] MEDS: NYSTATIN 500,000 units/5 ml ORAL LIQUID PO SCH ×2 (18:40→23:01)
[2017-02-13] MEDS: SUCRALFATE 1 GM TABLET PO SCH (18:40)
[2017-02-13] MEDS: DONEPEZIL 10 MG TABLET PO SCH (23:01)
[2017-02-13] MEDS: ClonazePAM 0.5 MG TABLET PO SCH (23:01)
[2017-02-13] MEDS: DOCUSATE SODIUM 100 MG CAPSULE PO SCH (23:01)
[2017-02-13] MEDS: DULOXETINE 30 MG CAPSULE PO SCH (23:01)
[2017-02-13] MEDS: GABAPENTIN 300 MG CAPSULE PO SCH (23:01)
[2017-02-13] MEDS: MELATONIN 5 MG TABLET PO SCH (23:01)
[2017-02-13] MEDS: SIMVASTATIN 10 MG TABLET PO SCH (23:02)
[2017-02-14] MEDS: LEVOTHYROXINE 75 MCG TABLET PO SCH (07:21)
[2017-02-14] MEDS: OMEPRAZOLE 20 MG CAPSULE PO SCH (07:22)
[2017-02-14] MEDS: GABAPENTIN 300 MG CAPSULE PO SCH ×3 (08:06→21:48)
[2017-02-14] MEDS: NYSTATIN 500,000 units/5 ml ORAL LIQUID PO SCH ×4 (08:07→21:49)
[2017-02-14] MEDS: DULOXETINE 30 MG CAPSULE PO SCH ×2 (08:08→21:48)
[2017-02-14] MEDS: SUCRALFATE 1 GM TABLET PO SCH ×2 (08:08→17:31)
[2017-02-14] MEDS: FUROSEMIDE 20 MG TABLET PO SCH (08:09)
[2017-02-14] MEDS: LUTEIN 20 MG CAPSULE PO SCH (08:09)
[2017-02-14] MEDS: MULTI-VITAMIN PLAIN TABLET PO SCH (08:09)
--- NOTE | 2017-02-14 08:09 | Consult Note ---
<Mary Mckee Sandra - Last Filed: 02/14/17 08:40> Consult Information - Data of Consult Consult date: 02/14/17 Requesting Physician: Neville Wade MD Primary Care Provider: Viktor Chatman MD Family Provider: Viktor Chatman MD - Consult Narrative Reason for consult: Anemia, hypoxia History of present illness: Daniella Juan is a pleasant 86 y/o woman who is seen in consultation from Dr. Wade for management of hypoxia, UTI, anemia, and recent severe sepsis. 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 She went to IRU and then was discharged home, where she got along fairly well for a couple of days. She began to have fever, headaches, and cough, and returned to the ED, where she was dx with severe sepsis secondary to pneumonia and UTI. She was also positive for rhinovirus. She was started on Levaquin. She was admitted and her BP responded well to IVF. She required 2L of oxygen to maintain sats. She developed chest pain one day but trop was neg x3. She received IV furosemide on 02/12 & 02/13, as CXR showed pulmonary edema. K decreased slightly and required oral replacement. UC grew out E. coli, resistant to Levaquin. Allergies were clarified and cephalexin allergy was not confirmed - subsequently she was started on Rocephin to cover both UTI and pneumonia. Nystatin was started on 02/13 for thrush. She was medically stable for transfer to IRU on 02/13/17. Daniella was seen in IRU in the morning of 02/14/17. She states that she feels much better. She denies feeling weak or short of breath. She has a cough that is occasionally productive. Her sinus symptoms have resolved. Sore throat that she complained of yesterday has also resolved. She notes occ dizziness if she sits up too quickly - but adds that this is chronic. Yesterday she had urinary frequency after Lasix, but denies pain. She has chronic constipation but denies any abd pain or n/v. She inquires about removing precautions. 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 Appendectomy. Right mastectomy. Pacemaker placement. Right TKA. Right ISSA. Cataract procedure. Tonsillectomy and adenoidectomy. Lipoma removed from left chest or upper back. Right shoulder surgery Family History: Father-alcoholism, depression, colon cancer Mother - lymphoma Sister-Alzheimer's Sister-colon cancer - Social History Smoking status: Former smoker Substance use type: does not use Alcohol intake frequency: does not drink Current residence: Apartment/Private Home Review of Systems All systems PM: 10-point ROS was reviewed, no additional remarkable complaints except - Constitutional Constitutional: Absent: chills, fever(s), weakness - EENMT Eyes: Absent: change in vision Nose: Absent: obstruction Mouth/Throat: Present: sore throat (improved) - Cardiovascular Cardiovascular: Absent: chest pain, palpitations Vascular: Absent: pedal edema - Respiratory Respiratory: Present: cough, chest congestion. Absent: dyspnea, wheezing - Gastrointestinal Gastrointestinal: Present: constipation (chronic). Absent: abdominal pain, diarrhea, nausea, vomiting - Genitourinary Genitourinary: Present: urinary frequency (after Lasix). Absent: dysuria - Musculoskeletal Musculoskeletal: Absent: muscle weakness - Integumentary/Breasts Integumentary: Absent: wounds - Neurological Neurological: Present: dizziness (occ if sits up too quickly - chronic). Absent : abnormal gait, abnormal speech, focal weakness, frequent falls, vertigo, weakness - Psychiatric Psychiatric: Absent: anxiety - Endocrine Endocrine: Absent: palpitations - Hematologic/Lymphatic Hematologic/Lymphatic: Absent: easy bruising Medications Home Medications Medication Instructions Recorded Confirmed Type Calcium Carbonate/Vitamin D3 1 tab PO NOON 09/12/16 02/13/17 History [Calcium 600-Vit D3 800 Tablet] ClonazePAM [Klonopin] 0.5 mg PO HS 09/12/16 02/13/17 History Donepezil HCl [Aricept] 10 mg PO HS 09/12/16 02/13/17 History Furosemide [Lasix] 20 mg PO DAILY 09/12/16 02/13/17 History Levothyroxine Sodium 75 mcg PO DAILY 09/12/16 02/13/17 History Lutein 20 mg PO DAILY 09/12/16 02/13/17 History Melatonin 5 mg PO HS 09/12/16 02/13/17 History Multivitamin [Multivitamins] 1 cap PO DAILY 09/12/16 02/13/17 History Simvastatin [Zocor] 10 mg PO HS 09/12/16 02/13/17 History Topiramate 25 mg PO NOON 09/12/16 02/13/17 History Gabapentin 300 mg PO TID 01/08/17 02/13/17 History Carbidopa/Levodopa [Carbidopa-Levo 1 tab PO NOON 02/10/17 02/13/17 History 25-250 mg Odt] Docusate Sodium [Colace] 100 mg PO BID 02/10/17 02/13/17 History Cholecalciferol [Vit. D-3] 5,000 unit PO DAILY 02/14/17 02/14/17 History Allergies Allergy/AdvReac Type Severity Reaction Status Date / Time cephalexin Allergy Unknown Verified 02/10/17 14:27 propoxyphene Allergy Verified 02/10/17 14:27 [From Darvocet-N] Sulfa (Sulfonamide Allergy Hives Verified 02/10/17 14:27 Antibiotics) Tetanus Vaccines and Toxoid Allergy Verified 02/10/17 14:27 Exam Vital Signs: Temperature 98.3 F 02/14/17 07:56 Pulse Rate 70 02/14/17 07:56 Respiratory Rate 16 02/14/17 07:56 Blood Pressure 137/80 02/14/17 07:56 Pulse Oximetry 96 02/14/17 07:56 Height/Weight/BMI: Height 1.6 m Weight 67.3 kg Body Mass Index 26.2 - Constitutional Present: no acute distress, well nourished, well developed - Routine HEENT Exam Head: Present: normocephalic Eye: Present: PERRL. Absent: conjunctival icterus, scleral injection ENT: Present: mucous membranes moist, oropharynx clear (no thrush identified) - Routine Neck Exam Present: supple - Routine Respiratory Exam Present: crackles (b/l bases) - Routine Cardiovascular Exam Present: RRR, S1, S2, murmur (2-3/6 systolic murmur) - Routine Abdominal Exam Present: soft, normoactive bowel sounds, non distended, non tender - Routine Extremities Exam Present: non tender. Absent: calf tenderness - Routine Back/Spine/Pelvis Exam Back/Spine: Present: full ROM. Absent: vertebral tenderness - Routine Skin Exam Present: intact, dry, warm - Routine Neurological Exam Present: alert, oriented X3, CN II-XII intact, moving all extremities, normal speech - Routine Psychiatric Exam Present: normal affect, normal thought process, cooperative Results - Labs CBC & Chem 7: 02/14/17 04:48 02/14/17 04:48 Assessment and Plan (1) Weakness Current visit: No Status: Acute (2) Debility Current visit: Yes Status: Acute Assessment and Plan: IMPRESSION Recent severe sepsis (organ dysfunction - MAP <65) - resolved Acute hypoxic respiratory failure - improved Possible left lower lobe pneumonia Mild to moderate pulmonary edema UTI - Escherichia coli Rhinovirus Hypokalemia Thrush Recent lower GI bleed secondary to a cecal mass/adenocarcinoma - Coumadin on hold Generalized weakness Anemia hemoglobin dropped from 9.6 on admission to 8.1, possibly dilutional Atypical chest pain - likely musculoskeletal Parkinson's disease history of DVT and PE history of atrial fibrillation Alzheimer's dementia peripheral neuropathy CHF - echo 12/26/16 showed EF 55-60%; mild-moderate aortic regurgitation; mild tricuspid regurgitation anxiety & depression PLAN PT/OT orders per attending. Continue precautions for rhinovirus - RN to contact health nurse to determine when these may be discontinued. Wean oxygen as able; repeat CXR on 02/17/17. Follow electrolytes, malu K. Follow hgb - stabilized at 8.2. Repeat CBC, BMP, and CXR on 02/17/17. Rocephin for E. coli UTI + pneumonia - give through 02/19/17 Nystatin for thrush while she is on antibiotics. DVT Prophylaxis: SCD's GI Prophylaxis: other (omeprazole) Hospital Course Summary Disclaimer: The visit summary below is not to be considered part of the above Progress Note. 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 Continue precautions for rhinovirus - RN to contact health nurse to determine when these may be discontinued. Wean oxygen as able; repeat CXR on 02/17/17. Follow electrolytes, malu K. Follow hgb - stabilized at 8.2. Repeat CBC, BMP, and CXR on 02/17/17. Rocephin for E. coli UTI + pneumonia - give through 02/19/17 Nystatin for thrush while she is on antibiotics. <Ti Chawla - Last Filed: 02/14/17 19:59> Consult Information - Data of Consult Requesting Physician: Neville Wade MD Primary Care Provider: Viktor Chatman MD Family Provider: Viktor Chatman MD [facility] Patient Stated Medical History Dementia Yes Migraine Yes Parkinson's Disease Yes Cataracts Yes Macular Degeneration Yes: bilateral Congestive Heart Failure Yes: hx Hypertension Yes Sleep Apnea No Constipation No Gastroesophageal Reflux Yes: well controlled Disease Gastrointestinal Bleeding Yes: recent admit with GI bleed 01/2017 Hiatal Hernia Yes Hx Incontinence Yes Hx Renal Disease No Hx Urinary Tract Infection Yes Anemia Yes: receives iron infusions Sepsis Yes: 02/10/17 admit to medical Depression Yes Post Menopausal Yes Clinic Medical History Diarrhea (Acute Medical) Weakness (Acute Medical) Dehydration (Acute Medical) Dehydration (Acute Medical) Diarrhea (Acute Medical) External hemorrhoid (Acute Medical) Anemia (Acute Medical) Major depressive disorder (Acute Medical) Anxiety (Chronic Medical) Acute blood loss anemia (Acute Medical) Diverticular hemorrhage (Acute Medical) Atrial fibrillation (Chronic Medical) Benign essential hypertension (Acute Medical) Hypotension (Resolved Medical) Sepsis (Acute Medical) Severe sepsis (Acute Medical) Debility (Acute Medical) Acute hypoxemic respiratory failure (Acute Medical) Abdominal pain (Inactive Medical) Nausea (Inactive Medical) Exam Vital Signs: Temperature 98 F 02/14/17 16:00 Pulse Rate 79 02/14/17 16:00 Respiratory Rate 16 02/14/17 16:00 Blood Pressure 149/74 H 02/14/17 16:00 Pulse Oximetry 97 02/14/17 16:00 Height/Weight/BMI: Height 1.6 m Weight 67.3 kg Body Mass Index 26.2 Results - Labs CBC & Chem 7: 02/14/17 04:48 02/14/17 04:48 Assessment and Plan (1) Weakness Current visit: No Status: Acute (2) Debility Current visit: Yes Status: Acute Assessment and Plan: IMPRESSION Recent severe sepsis (organ dysfunction - MAP <65) - resolved Acute hypoxic respiratory failure - improved Possible left lower lobe pneumonia Mild to moderate pulmonary edema UTI - Escherichia coli Rhinovirus Hypokalemia Thrush Recent lower GI bleed secondary to a cecal mass/adenocarcinoma - Coumadin on hold Generalized weakness Anemia hemoglobin dropped from 9.6 on admission to 8.1, possibly dilutional Atypical chest pain - likely musculoskeletal Parkinson's disease history of DVT and PE history of atrial fibrillation Alzheimer's dementia peripheral neuropathy CHF - echo 12/26/16 showed EF 55-60%; mild-moderate aortic regurgitation; mild tricuspid regurgitation Anxiety & depression Have independently interviewed & examined pt. Chart reviewed. Case D/W my [employer]. Above care plan developed with my supervision; agree with above. Doing okay-feels like strength making improvements. Still notes frequent cough. No pain with breathing. Not feeling nausea or ab pain. Stools moving, but slow. No mouth pain. No f/c. Lungs: decreased, congested. Frequent cough. CV: distant, regular MSE: awake alert, converses well Plan: Agree with admission to IRU to maximize functional status. Continue Rocephin for UTI/Pneumonia treatment. Continue with acapella to loosen secretions. Will add PRN Ricola and Tessalon Perles to help cough. PRN Miralax, MOM, and Dulcolax suppositories. Will need to intermittently monitor lab due to recent hypokalemia and anemia. Encourage therapy to improve strength. Medically stable for IRU floor activities. Resuscitation Status: Do Not Resuscitate Hospital Course Summary Disclaimer: The visit summary below is not to be considered part of the above Progress Note.
[2017-02-14] MEDS: DOCUSATE SODIUM 100 MG CAPSULE PO SCH ×2 (11:11→21:47)
[2017-02-14] MEDS ORDERED: ZINC OXIDE 20% OINTMENT 30gm TOP PRN (11:17)
--- NOTE | 2017-02-14 11:33 | IRU Progress Note ---
- Subjective/Serverity of Illness Date: 02/14/17 Ms. Juan recognize me right away when I walked in the room. She states that she is doing okay but does not like to be" quarantine." Has history of rhinovirus infection. Remains on intravenous Rocephin for her UTI. She does report a cough at the present time but it seems to be breaking up. Denies any rhinorrhea or sneezing. She states that her appetite is doing well. She is cooperative with therapy. In review of therapy notes, she is contact- guard assistance level for most of OT. She is walking with a front-wheeled walker. Update on medical problems we are managing and/or monitoring as follows: 1. Recent acute respiratory illness including rhinovirus and a possible left lower lobe pneumonia. Remains afebrile. Still has a cough. Lung exam today is much improved compared to yesterday. 2. Acute hypoxemic respiratory failure. She no longer is requiring oxygen at least at the present time. She is running in the 95% range on room air. Denies dyspnea. 3. Recent GI bleeding secondary to diverticular bleed. She remains anemic from this. No definite evidence of acute ongoing bleed. We will continue to monitor. 4. Atrial fibrillation, chronic, currently not on anticoagulants because of recent GI bleeding. She does not have any evidence of new neurologic problems. 5. Urinary tract infection with Escherichia coli. Patient is currently on Rocephin. Denies urinary retention. Remains on Rocephin without known side effects. Exam Vital Signs: Temperature 98.3 F 02/14/17 07:56 Pulse Rate 70 02/14/17 07:56 Respiratory Rate 16 02/14/17 07:56 Blood Pressure 137/80 02/14/17 07:56 Pulse Oximetry 94 02/14/17 10:30 Height/Weight/BMI: Height 1.6 m Weight 67.3 kg Body Mass Index 26.2 Comments: The patient is awake, alert and oriented and in no acute distress. Pupils are equal. The neck is supple. Chest: Yesterday her left base was diminished with some crackles. Today I believe I hear good breath sounds bilaterally in the bases. Cor: irregular rhythm with no gallop, does have a systolic murmur. Abd: soft with normo-active bowel sounds. There are no masses, no tenderness and no guarding. Extremities: No edema is noted. There are good pulses in both ankles. No cyanosis is present. IRU A/P (1) Debility Current visit: Yes Status: Acute Continues to demonstrate significant debility but is improving with therapy. She is cooperative. She is contact-guard assistance for most of OT. (2) Anemia Qualifiers: Anemia type: unspecified type Qualified Code(s): D64.9 - Anemia, unspecified Current visit: No Status: Acute Patient's hemoglobin is stable compared to previously. We'll continue to monitor. No evidence of ongoing bleeding. (3) Atrial fibrillation Qualifiers: Atrial fibrillation type: chronic Qualified Code(s): I48.2 - Chronic atrial fibrillation Current visit: No Status: Chronic (4) Acute hypoxemic respiratory failure Current visit: Yes Status: Acute At present she is running 95-96% on room air. Continues monitor saturations. DVT Prophylaxis: SCD's Resuscitation Status: Do Not Resuscitate - Course Hospital Course: Neville Wade MD: 02/14/17 11:33 She is cooperative with therapy. Not requiring oxygen supplementation at present. Has a cough although lung exam is improved. - Interventions to Obtain Goals PT Treatment Plan: Balance/Proprioception, Functional Activities, Gait Training , Patient/Family Education, Therapeutic Exercise OT Treatment Plan: ADL (Basic Care), Balance Training, Pt./Family Education
[2017-02-14] MEDS: CALCIUM 600 + VIT D 400 TABLET PO SCH (12:43)
[2017-02-14] MEDS: TOPIRAMATE 25 MG TABLET PO SCH (12:45)
[2017-02-14] MEDS: CEFTRIAXONE 1 G in NS 100 ML IV SCH (13:48)
--- NOTE | 2017-02-14 14:12 | IRU Plan of Care ---
[facility] Overall Plan of Care - Date Date: 02/14/17 - Patient Impairments (1) Debility Code(s): R53.81 - Other malaise Status: Acute Classification: Present on IRF Admission, IRF Tx That Should Address Diagnosis (2) Weakness Code(s): R53.1 - Weakness Status: Acute (3) Anemia Qualifiers: Anemia type: unspecified type Qualified Code(s): D64.9 - Anemia, unspecified Code(s): D64.9 - Anemia, unspecified Status: Acute Classification: Present on IRF Admission, Diagnosis Requiring Medical Follow Up (4) Acute hypoxemic respiratory failure Code(s): J96.01 - Acute respiratory failure with hypoxia Status: Acute Classification: Present on IRF Admission, IRF Tx That Should Address Diagnosis, Diagnosis Requiring Medical Follow Up - Relevant Changes Relevant Changes: No Reviewed: I have reviewed the patient's information and concur with the finding and results of the pre-admission screen. Certification: I certify the patient for rehabilitation. - Medical Prognosis Medical Prognosis: Good Vital Signs: Last Vital Signs Temp 98.3 F 02/14/17 07:56 Pulse 70 02/14/17 07:56 Resp 16 02/14/17 07:56 BP 137/80 02/14/17 07:56 Pulse Ox 94 02/14/17 10:30 - Anticipated Interventions Anticipated Interventions: The patient requires inpatient IRF care for PT and OT for residuals remaining from respiratory infection (rhinovirus and possible pneumonia) resulting in muscular weakness and strength deficits. An individualized overall plan of care has been developed after careful review of the patient's preadmission screening, post admission physician evaluation and assessments of all therapy disciplines and/or other pertinent clinicians involved in treating the patient. This indicates medical necessity and rehabilitation necessity have been established through a thorough review of all available medical information. - Current Functional Status Failed Alternative Therapy: Arrived from Acute Care Patient Requires: The patient requires oversight by rehabilitation physician to manage their rehabilitation treatment plan and multidisciplinary approach to care that can only be provided in an IRF and requires a multidisciplinary approach to care, provided by professional PTs, OTs, STs, rehabilitation nurses, and may require STs, dieticians, and RTS. This is not available in lesser levels of care. Physical Therapy Minutes: 90 Occupational Therapy Minutes: 90 Therapy: The patient is to receive therapy at least 5 days a week. - Anticipated LOS/Outcomes Anticipated Functional Outcome: Expected functional improvements include: -- Modified independant to independant ambulation with or without assistive device -- Modified independant to independant ADL's with or without assistive device -- Return to pre-morbid level of mobility -- Maximize level of mobility and ADL's to decrease burden on any caregiver involved with this patient's care Anticipated Length of Stay (days): 7 Anticipated DC Destination: Home, Self Alf Safety Plan: The patient will be provided with the development of a Home Safety Plan for return to a home or home-like environment and and to ensure safety post discharge. - Plan to Avoid Complications Barriers to Attaining Goals: Weakness, Balance, Endurance, Medical Limitation Plan to Avoid Complications: The patient cannot receive this care in a lesser intensive setting such as Assisted or Outpatient Therapy due to the patient requiring the following : Patient requires multiple disciplines including 24 hour rehabilitation nursing to monitor oxygen saturations and evidence of acute blood loss, blood pressures etc. She requires a multidisciplinary approach with PT, OT along with medical supervision in view of these medical issues.
[2017-02-14] MEDS: ZINC OXIDE 20% OINTMENT 30gm TOP SCH ×2 (15:50→20:11)
[2017-02-14] MEDS: ACETAMINOPHEN 325 MG TABLET PO PRN (17:31)
[2017-02-14] MEDS ORDERED: POLYETHYL GLYCOL 3350 17gm PACKET PO PRN (19:50)
[2017-02-14] MEDS ORDERED: BISACODYL 10 MG SUPPOSITORY RECTALLY PRN (19:51)
[2017-02-14] MEDS ORDERED: BENZONATATE 100 MG CAPSULE PO PRN (19:51)
[2017-02-14] MEDS ORDERED: MENTHOL COUGH DROPS (RICOLA) MM PRN (19:52)
[2017-02-14] MEDS: ClonazePAM 0.5 MG TABLET PO SCH (21:47)
[2017-02-14] MEDS: DONEPEZIL 10 MG TABLET PO SCH (21:48)
[2017-02-14] MEDS: SIMVASTATIN 10 MG TABLET PO SCH (21:49)
[2017-02-14] MEDS: MELATONIN 5 MG TABLET PO SCH (21:49)
[2017-02-14] MEDS: SALINE FLUSH 10ml SYRINGE IV PRN (21:53)
[2017-02-15] MEDS: ZINC OXIDE 20% OINTMENT 30gm TOP SCH ×5 (00:04→21:01)
[2017-02-15] MEDS: OMEPRAZOLE 20 MG CAPSULE PO SCH (07:44)
[2017-02-15] MEDS: LEVOTHYROXINE 75 MCG TABLET PO SCH (07:44)
[2017-02-15] MEDS: FUROSEMIDE 20 MG TABLET PO SCH (08:47)
[2017-02-15] MEDS: LUTEIN 20 MG CAPSULE PO SCH (08:47)
[2017-02-15] MEDS: GABAPENTIN 300 MG CAPSULE PO SCH ×3 (08:47→21:03)
[2017-02-15] MEDS: MULTI-VITAMIN PLAIN TABLET PO SCH (08:47)
[2017-02-15] MEDS: SUCRALFATE 1 GM TABLET PO SCH ×2 (08:47→17:28)
[2017-02-15] MEDS: DOCUSATE SODIUM 100 MG CAPSULE PO SCH ×2 (08:47→21:02)
[2017-02-15] MEDS: DULOXETINE 30 MG CAPSULE PO SCH ×2 (08:48→21:02)
[2017-02-15] MEDS: NYSTATIN 500,000 units/5 ml ORAL LIQUID PO SCH ×4 (08:48→21:03)
[2017-02-15] MEDS: CEFTRIAXONE 1 G in NS 100 ML IV SCH (12:18)
[2017-02-15] MEDS: CALCIUM 600 + VIT D 400 TABLET PO SCH (12:21)
[2017-02-15] MEDS: TOPIRAMATE 25 MG TABLET PO SCH (12:21)
[2017-02-15] MEDS ORDERED: FALL RISK - PHARMACY CONSULT XX ONE (17:35)
[2017-02-15] MEDS: ClonazePAM 0.5 MG TABLET PO SCH (21:02)
[2017-02-15] MEDS: SIMVASTATIN 10 MG TABLET PO SCH (21:02)
[2017-02-15] MEDS: DONEPEZIL 10 MG TABLET PO SCH (21:02)
[2017-02-15] MEDS: SALINE FLUSH 10ml SYRINGE IV PRN (21:03)
[2017-02-15] MEDS: MELATONIN 5 MG TABLET PO SCH (21:03)
[2017-02-16] MEDS: OMEPRAZOLE 20 MG CAPSULE PO SCH (07:05)
[2017-02-16] MEDS: LEVOTHYROXINE 75 MCG TABLET PO SCH (07:05)
[2017-02-16] MEDS: NYSTATIN 500,000 units/5 ml ORAL LIQUID PO SCH ×4 (09:22→20:39)
[2017-02-16] MEDS: LUTEIN 20 MG CAPSULE PO SCH (09:22)
[2017-02-16] MEDS: SUCRALFATE 1 GM TABLET PO SCH ×2 (09:22→17:39)
[2017-02-16] MEDS: GABAPENTIN 300 MG CAPSULE PO SCH ×3 (09:23→20:39)
[2017-02-16] MEDS: DULOXETINE 30 MG CAPSULE PO SCH ×2 (09:23→20:38)
[2017-02-16] MEDS: DOCUSATE SODIUM 100 MG CAPSULE PO SCH ×2 (09:23→20:38)
[2017-02-16] MEDS: MULTI-VITAMIN PLAIN TABLET PO SCH (09:23)
[2017-02-16] MEDS: FUROSEMIDE 20 MG TABLET PO SCH (09:23)
[2017-02-16] MEDS: ZINC OXIDE 20% OINTMENT 30gm TOP SCH ×4 (09:24→20:40)
[2017-02-16] MEDS: CEFTRIAXONE 1 G in NS 100 ML IV SCH (10:13)
[2017-02-16] MEDS: TOPIRAMATE 25 MG TABLET PO SCH (12:26)
[2017-02-16] MEDS: CALCIUM 600 + VIT D 400 TABLET PO SCH (12:26)
[2017-02-16] MEDS: ACETAMINOPHEN 325 MG TABLET PO PRN (15:55)
[2017-02-16] MEDS: ClonazePAM 0.5 MG TABLET PO SCH (20:38)
[2017-02-16] MEDS: MELATONIN 5 MG TABLET PO SCH (20:39)
[2017-02-16] MEDS: DONEPEZIL 10 MG TABLET PO SCH (20:39)
[2017-02-16] MEDS: SIMVASTATIN 10 MG TABLET PO SCH (20:40)
[2017-02-16] MEDS: SALINE FLUSH 10ml SYRINGE IV PRN (20:42)
[2017-02-17] MEDS: LEVOTHYROXINE 75 MCG TABLET PO SCH (05:57)
[2017-02-17] MEDS: OMEPRAZOLE 20 MG CAPSULE PO SCH (05:57)
--- NOTE | 2017-02-17 08:19 | Progress Note ---
<Mary Mckee D - Last Filed: 02/17/17 08:16> - Date 02/17/17 Subjective: Daniella is feeling much better. She is stronger and denies any trouble breathing. She is no longer needing oxygen. She has an occasional cough, but it' s mild and no longer productive. She denies sore throat or difficulty swallowing. She denies dizziness. No abd pain or GI distress. Objective Vital signs: Temperature 98.0 F 02/16/17 22:24 Pulse Rate 73 02/16/17 22:24 Respiratory Rate 18 02/16/17 22:24 Blood Pressure 138/83 02/16/17 22:24 Pulse Oximetry 95 02/16/17 22:24 Height/Weight/BMI: Height 1.6 m Weight 67.3 kg Body Mass Index 26.2 - Constitutional Present: no acute distress, well nourished, well developed - Routine HEENT Exam Eye: Present: PERRL. Absent: conjunctival icterus ENT: Present: mucous membranes moist - Routine Respiratory Exam Present: CTA bilaterally - Routine Cardiovascular Exam Present: RRR, S1, S2, murmur - Routine Abdominal Exam Present: soft, normoactive bowel sounds, non distended, non tender - Routine Extremities Exam Present: no edema - Routine Musculoskeletal Exam Musculoskeletal: Present: moving extremities well - Routine Skin Exam Present: intact, dry, warm - Routine Neurological Exam Present: alert, oriented X3, moving all extremities, normal speech. 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 Chemistries also stable; K low normal at 3.6 Maintaining sats on room air. Continue Nystatin while on Rocephin at a minimum, through 02/19. CXR personally reviewed - LLL pneumonia improving. GI Prophylaxis: other (omeprazole) Resuscitation Status: Do Not Resuscitate Hospital Course Summary Disclaimer: The visit summary below is not to be considered part of the above Progress Note. 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 Continue precautions for rhinovirus - RN to contact health nurse to determine when these may be discontinued. Wean oxygen as able; repeat CXR on 02/17/17. Follow electrolytes, malu K. Follow hgb - stabilized at 8.2. Repeat CBC, BMP, and CXR on 02/17/17. Rocephin for E. coli UTI + pneumonia - give through 02/19/17 Nystatin for thrush while she is on antibiotics. 02/17/17 Labs reviewed; hgb low but stable and actually slightly improved at 8.4. Chemistries also stable; K low normal at 3.6 Maintaining sats on room air. Continue Nystatin while on Rocephin at a minimum, through 02/19. CXR personally reviewed - LLL pneumonia improving. <Ti Chawla - Last Filed: 02/17/17 19:46> - Date 02/17/17 Objective Vital signs: Temperature 97.6 F 02/17/17 08:00 Pulse Rate 75 02/17/17 14:54 Respiratory Rate 24 02/17/17 14:54 Blood Pressure 136/79 02/17/17 14:54 Pulse Oximetry 94 02/17/17 14:54 Height/Weight/BMI: Height 1.6 m Weight 66.6 kg Body Mass Index 26.2 Results - Labs CBC & Chem 7: 02/17/17 03:44 02/17/17 03:44 Assessment and Plan (1) Weakness Current visit: No Status: Acute (2) Debility Current visit: Yes Status: Acute Assessment and Plan: IMPRESSION Recent severe sepsis (organ dysfunction - MAP <65) - resolved Acute hypoxic respiratory failure - resolved Possible left lower lobe pneumonia Mild to moderate pulmonary edema UTI - Escherichia coli Rhinovirus Hypokalemia Thrush 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 Chart reviewed. Case discussed with my HUMAN RELATIONS PROFESSOR. Care plan developed with my supervision; agree with above. Doing okay. Had good workout with therapy today-very exhausting work. Breathing improving. Eating well. Lungs: decreased, no distress on RA CV: regular MSE: awake alert appropriate Plan: Continue with IRU to maximize functional status. Encourage continuation of therapy. Medically stable for IRU floor activities. Hospital Course Summary Disclaimer: The visit summary below is not to be considered part of the above Progress Note.
[2017-02-17] MEDS: DULOXETINE 30 MG CAPSULE PO SCH ×2 (09:10→21:00)
[2017-02-17] MEDS: MULTI-VITAMIN PLAIN TABLET PO SCH (09:10)
[2017-02-17] MEDS: FUROSEMIDE 20 MG TABLET PO SCH (09:10)
[2017-02-17] MEDS: SUCRALFATE 1 GM TABLET PO SCH ×2 (09:10→17:54)
[2017-02-17] MEDS: GABAPENTIN 300 MG CAPSULE PO SCH ×3 (09:11→20:59)
[2017-02-17] MEDS: LUTEIN 20 MG CAPSULE PO SCH (09:11)
[2017-02-17] MEDS: CEFTRIAXONE 1 G in NS 100 ML IV SCH (09:11)
[2017-02-17] MEDS: DOCUSATE SODIUM 100 MG CAPSULE PO SCH ×2 (09:11→20:59)
[2017-02-17] MEDS: NYSTATIN 500,000 units/5 ml ORAL LIQUID PO SCH ×4 (09:11→20:57)
[2017-02-17] MEDS: ZINC OXIDE 20% OINTMENT 30gm TOP SCH ×4 (09:35→20:57)
[2017-02-17] MEDS: SALINE FLUSH 10ml SYRINGE IV PRN ×3 (09:36→17:54)
--- NOTE | 2017-02-17 10:03 | IRU Progress Note ---
- Subjective/Serverity of Illness Date: 02/17/17 Ms. Juan was evaluated in her room. She denies any shortness of breath. Has only a rare cough. No sputum is produced per report of nurse. She denies any chest pain. Her appetite she states is reasonable although reduced due to food choices she states. She once again ask me about the lesion on the right forehead which she has mentioned several times in the past. She denies any excessive fatigue with therapy. Update on medical conditions were actively monitoring and/or managin. Recent acute respiratory illness including rhinovirus and a possible left lower lobe pneumonia. Review of chest x-ray today shows improvement in infiltrate. Not certain I can see really much of an infiltrate at present. Has minimal symptoms of a cough without sputum. She no longer requires oxygen. 2. Acute hypoxemic respiratory failure. She no longer requires oxygen. 3. Recent GI bleeding secondary to diverticular bleed. Hemoglobin has remained stable. 4. Atrial fibrillation, chronic, currently not on anticoagulants because of recent GI bleeding. No new neurologic events have been identified. Denies dyspnea. 5. Urinary tract infection with Escherichia coli. Patient is currently on Rocephin. She is asymptomatic and remains on Rocephin both for the pulmonary infection and UTI I believe. Exam Vital Signs: Temperature 97.6 F 02/17/17 08:00 Pulse Rate 71 02/17/17 08:00 Respiratory Rate 28 H 02/17/17 08:00 Blood Pressure 122/71 02/17/17 08:00 Pulse Oximetry 95 02/17/17 08:00 Height/Weight/BMI: Height 1.6 m Weight 67.3 kg Body Mass Index 26.2 Comments: The patient is awake, alert and oriented and in no acute distress. She did immediately call my name when I walked in the room. However she clearly has memory concerns and repeatedly asks the same questions. Pupils are equal. The neck is supple. Chest: Bibasilar crackles are noted. Cor: irregular rhythm with no gallop nor click. Systolic murmur left sternal border again identified. Abd: soft with normo-active bowel sounds. There are no masses, no tenderness and no guarding. Extremities: No edema is noted. No cyanosis is present. Results IRU - Labs Labs: Reviewed labs. Also reviewed other providers notes which we appreciate. IRU A/P (1) Debility Current visit: Yes Status: Acute Continues to have significant debility but is improving. Therapy does not appear to be too strenuous for her. (2) Weakness Current visit: No Status: Acute (3) Anemia Qualifiers: Anemia type: unspecified type Qualified Code(s): D64.9 - Anemia, unspecified Current visit: No Status: Acute Her anemia is stable at the present time. She does not have evidence of further diverticular bleed. (4) Acute hypoxemic respiratory failure Current visit: Yes Status: Resolved She no longer requires supplemental oxygen. DVT Prophylaxis: SCD's Resuscitation Status: Do Not Resuscitate - Course Hospital Course: Neville Wade MD: 02/14/17 11:33 She is cooperative with therapy. Not requiring oxygen supplementation at present. Has a cough although lung exam is improved. 02/17/17 10:06 Still has a cough although no sputum. Lungs show some basilar crackles. No longer requires oxygen supplementation. Cooperative with therapy. - Interventions to Obtain Goals PT Treatment Plan: Balance/Proprioception, Functional Activities, Gait Training , Patient/Family Education, Therapeutic Exercise OT Treatment Plan: ADL (Basic Care), Balance Training, Pt./Family Education
--- NOTE | 2017-02-17 10:22 | XRay Report ---
Indication: f/u pulm edema and pneumonia PROCEDURE: XR chest 1V: Encounter: Initial Comparison: 02/13/2017 Findings: There has been some interval clearing of the left lung base with improved or resolved left pleural effusion. There is moderate cardiomegaly and pulmonary vascular congestion without definite overt interstitial pulmonary edema. No definite pleural effusion. There is a left subclavian AICD in place without pneumothorax. There is moderate scoliosis of the thoracolumbar junction. Impression: Cardiomegaly and pulmonary vascular congestion without overt CHF. .
[2017-02-17] MEDS: CALCIUM 600 + VIT D 400 TABLET PO SCH (12:15)
[2017-02-17] MEDS: TOPIRAMATE 25 MG TABLET PO SCH (12:16)
[2017-02-17] MEDS: MELATONIN 5 MG TABLET PO SCH (20:58)
[2017-02-17] MEDS: DONEPEZIL 10 MG TABLET PO SCH (20:59)
[2017-02-17] MEDS: SIMVASTATIN 10 MG TABLET PO SCH (21:01)
[2017-02-17] MEDS: ClonazePAM 0.5 MG TABLET PO SCH (21:31)
[2017-02-18] MEDS: OMEPRAZOLE 20 MG CAPSULE PO SCH (06:25)
[2017-02-18] MEDS: LEVOTHYROXINE 75 MCG TABLET PO SCH (06:25)
[2017-02-18] MEDS: SUCRALFATE 1 GM TABLET PO SCH ×2 (08:35→17:38)
[2017-02-18] MEDS: LUTEIN 20 MG CAPSULE PO SCH (08:35)
[2017-02-18] MEDS: GABAPENTIN 300 MG CAPSULE PO SCH ×3 (08:35→21:59)
[2017-02-18] MEDS: MULTI-VITAMIN PLAIN TABLET PO SCH (08:35)
[2017-02-18] MEDS: FUROSEMIDE 20 MG TABLET PO SCH (08:35)
[2017-02-18] MEDS: DULOXETINE 30 MG CAPSULE PO SCH ×2 (08:35→21:59)
[2017-02-18] MEDS: DOCUSATE SODIUM 100 MG CAPSULE PO SCH ×2 (08:36→21:59)
[2017-02-18] MEDS: ZINC OXIDE 20% OINTMENT 30gm TOP SCH ×4 (08:36→22:00)
--- NOTE | 2017-02-18 10:27 | IRU Progress Note ---
- Subjective/Serverity of Illness Date: 02/18/17 Daniella states that she does have a cough with exertion but otherwise does not have a cough and certainly no sputum. She reports that her breathing is "much better." She denies any chest pain. There is no fever. Oxygen saturations are reviewed and are borderline at 90%. Not currently receiving any supplemental oxygen and her respiratory failure has improved significantly. Chest radiograph reviewed and shows no definite infiltrate that I can see. Cardiomegaly is present. Remains on intravenous Rocephin as well as remains in isolation. I am deferring to hospitalists with regard to removing her from isolation. Exam Vital Signs: Temperature 97.5 F 02/18/17 08:00 Pulse Rate 79 02/18/17 08:00 Respiratory Rate 20 02/18/17 08:00 Blood Pressure 138/89 02/18/17 08:00 Pulse Oximetry 90 02/18/17 08:00 Height/Weight/BMI: Height 1.6 m Weight 66.6 kg Body Mass Index 26.2 Comments: The patient is awake, alert and oriented and in no acute distress. Pupils are equal. The neck is supple. Chest: Bilaterally diminished breath sounds with a few basilar crackles. Overall lungs are reasonably clear throughout. Cor: irregular rhythm with no gallop. Systolic murmur present. Abd: soft with normo-active bowel sounds. There are no masses, no tenderness and no guarding. Extremities: No edema is noted. There are good pulses in both ankles. No cyanosis is present. Results IRU - Labs Labs: Reviewed other providers notes as well as chest radiograph and lab work. IRU A/P (1) Debility Current visit: Yes Status: Acute Continues to cooperate with therapy. She is making good progress with regard to ambulation. Transfers are standby assistance and ambulation is still with contact-guard assistance with a front-wheeled walker. Continues to demonstrate reduced strength/endurance. However she is making progress. (2) Weakness Current visit: No Status: Acute (3) Anemia Qualifiers: Anemia type: unspecified type Qualified Code(s): D64.9 - Anemia, unspecified Current visit: No Status: Acute (4) Acute hypoxemic respiratory failure Current visit: Yes Status: Resolved Oxygen saturations are somewhat borderline at 90%. Overall stable and not using any oxygen supplementation at present. DVT Prophylaxis: SCD's Resuscitation Status: Do Not Resuscitate - Course Hospital Course: Neville Wade MD: 02/14/17 11:33 She is cooperative with therapy. Not requiring oxygen supplementation at present. Has a cough although lung exam is improved. 02/17/17 10:06 Still has a cough although no sputum. Lungs show some basilar crackles. No longer requires oxygen supplementation. Cooperative with therapy. 02/18/17 10:28 Continues to progress with therapy and is contact-guard assistance for ambulation. Standby assistance for transfers. Has a cough with activity she reports. - Interventions to Obtain Goals PT Treatment Plan: Balance/Proprioception, Functional Activities, Gait Training , Patient/Family Education, Therapeutic Exercise OT Treatment Plan: ADL (Basic Care), Balance Training, Pt./Family Education
[2017-02-18] MEDS: CEFTRIAXONE 1 G in NS 100 ML IV SCH (11:12)
[2017-02-18] MEDS: NYSTATIN 500,000 units/5 ml ORAL LIQUID PO SCH ×4 (11:12→21:59)
[2017-02-18] MEDS: SALINE FLUSH 10ml SYRINGE IV PRN ×3 (11:14→22:00)
[2017-02-18] MEDS: TOPIRAMATE 25 MG TABLET PO SCH (12:17)
[2017-02-18] MEDS: CALCIUM 600 + VIT D 400 TABLET PO SCH (12:17)
--- NOTE | 2017-02-18 13:03 | IRU Team Meeting ---
IRU Team Meeting - Nursing Bladder Assistive Devices Utilized:: Absorbent Pad Bladder Management Level of Assist: Moderate Assistance Bladder Frequency of Accidents: 3 accidents in past 7 days Number of Bladder Accidents: 1 Bowel Assistive Devices Utilized:: Medication, Absorbent Pad Bowel Management Level of Assist: Minimal Assistance Bowel Frequency of Accidents: No accidents; uses device Vital Signs: Vital Signs - 24 hr 02/17/17 14:54 02/17/17 23:24 02/18/17 08:00 Temperature 98.2 F 97.5 F Pulse Rate 75 78 79 Respiratory Rate 24 20 20 Blood Pressure 136/79 132/78 138/89 Pulse Oximetry 94 94 90 Current Medications: Acetaminophen (Tylenol) 325 - 650 mg PO Q4H PRN PRN Reason: Pain Last Admin: 02/16/17 15:55 Dose: 650 mg Benzonatate (Tessalon Perles) 100 mg PO TID PRN PRN Reason: Cough Bisacodyl (Dulcolax) 10 mg RECTALLY DAILY PRN PRN Reason: Constipation Calcium/Vitamin D (Caltrate + D) 1 tab PO NOON [facility] Last Admin: 02/18/17 12:17 Dose: 1 tab Carbidopa/Levodopa (Sinemet) 1 tab PO NOON [facility] Last Admin: 02/18/17 12:17 Dose: 1 tab Cholecalciferol (Vit. D-3) 5,000 unit PO DAILY [facility] Last Admin: 02/18/17 08:35 Dose: 5,000 unit Clonazepam (Klonopin) 0.5 mg PO [facility] Last Admin: 02/17/17 21:31 Dose: 0.5 mg Docusate Sodium (Colace) 100 mg PO BID [facility] Last Admin: 02/18/17 08:36 Dose: Not Given Donepezil HCl (Aricept) 10 mg PO HS [facility] Last Admin: 02/17/17 20:59 Dose: 10 mg Duloxetine HCl (Cymbalta) 30 mg PO BID [facility] Last Admin: 02/18/17 08:35 Dose: 30 mg Furosemide (Lasix) 20 mg PO DAILY [facility] Last Admin: 02/18/17 08:35 Dose: 20 mg Gabapentin (Neurontin) 300 mg PO TID [facility] Last Admin: 02/18/17 08:35 Dose: 300 mg Ceftriaxone Sodium 1 g/ Sodium (Chloride) 100 mls @ 200 mls/hr IV Q24H [facility] Last Infusion: 02/18/17 12:15 Dose: Infused Levothyroxine Sodium (Synthroid) 75 mcg PO ACB [facility] Last Admin: 02/18/17 06:25 Dose: 75 mcg Lutein () 20 mg PO DAILY [facility] Last Admin: 02/18/17 08:35 Dose: 20 mg Magnesium Hydroxide (Mom) 30 ml PO DAILY PRN PRN Reason: Constipation Melatonin (Melatonin) 5 mg PO HS [facility] Last Admin: 02/17/17 20:58 Dose: 5 mg Menthol (Ricola Sf) 1 lozenge MM PRN PRN PRN Reason: Cough Last Admin: 02/15/17 15:52 Dose: 1 lozenge Multivitamins (Theragran) 1 tab PO DAILY [facility] Last Admin: 02/18/17 08:35 Dose: 1 tab Nystatin (Mycostatin) 5 ml PO QID [facility] Last Admin: 02/18/17 11:12 Dose: 5 ml Omeprazole (Prilosec) 20 mg PO ACB [facility] Last Admin: 02/18/17 06:25 Dose: 20 mg Polyethylene Glycol (Miralax) 17 gm PO DAILY PRN PRN Reason: Constipation Last Admin: 02/17/17 09:10 Dose: 17 gm Potassium Chloride (K-Dur) 10 meq PO WB [facility] Last Admin: 02/18/17 08:36 Dose: 10 meq Simvastatin (Zocor) 10 mg PO HS [facility] Last Admin: 02/17/17 21:01 Dose: 10 mg Sodium Chloride (Iv Flush) 10 ml IV PRN PRN PRN Reason: Flushing Last Admin: 02/18/17 11:14 Dose: 10 ml Sucralfate (Carafate) 1 gm PO BIDWM [facility] Last Admin: 02/18/17 08:35 Dose: 1 gm Topiramate (Topamax) 25 mg PO NOON [facility] Last Admin: 02/18/17 12:17 Dose: 25 mg Zinc Oxide () 1 applic TOP PRN PRN Zinc Oxide () 1 applic TOP QID [facility] Last Admin: 02/18/17 12:18 Dose: 1 applic Current Medical Issues: Recovery from pneumonia, URI and UTI, anemia, atrial fib Comments: I certify that I personally led the interdisciplinary team meeting and agree with comments, barriers and goals indicated. Team meeting was held in the patient's room with the patient and the following family members present: patient alone Ms. Juan was evaluated in her room. The patient states that she is doing better. Only has a rare cough. No significant nasal symptoms. She has been afebrile. Her appetite is reasonably good. She does get some easy fatigability with activity. Bowels are moving. She remains on intravenous Rocephin. - Physical Therapy Bed, Chair, Wheelchair Transfer Assist: Stand By Assist/Supervision Ambulation Ability: Stand By Assist/Supervision Ambulation Distance: 165 Stair Climbing Ability: Patient Unsafe/Unable Car Transfer Ability: Stand By Assist/Supervision Comments: She has improved with physical therapy. She has demonstrated good strength and balance. She continues to have difficulty with endurance and ability to tolerate significant gait distance. Recommend continued therapy. - Occupational Therapy Eating Ability: Independent Grooming Ability: Modified Independent Bathing Ability: Stand By Assist/Supervision Upper Body Dressing Ability: Independent Lower Body Dressing Ability: Stand By Assist/Supervision Tub Transfer Assist: Contact Guard Assistance Toileting Assist: Independent Toilet Transfer Assist: Stand By Assist/Supervision Comments: She continues to cooperate nicely with occupational therapy. She performs ADL routines with supervision to modified independent functioning. There is some problem with easy fatigability. Recommend continued therapy. - Goals Occupational Therapy Goals: OT goals 02/18/17: 1.) Toilet transfer w/ mod I. 2. ) Increased activity tolerance to 60 minutes w/ RB during ADL routine. - Barriers to Discharge Barriers to Attaining Goals: Weakness, Endurance - Care Plan Anticipated Length of Stay (days): 6 Anticipated DC Destination: Home, Self Care, Home Health Service I have led this team conference and agree with the plan.
[2017-02-18] MEDS: MELATONIN 5 MG TABLET PO SCH (21:59)
[2017-02-18] MEDS: ClonazePAM 0.5 MG TABLET PO SCH (21:59)
[2017-02-18] MEDS: DONEPEZIL 10 MG TABLET PO SCH (21:59)
[2017-02-18] MEDS: SIMVASTATIN 10 MG TABLET PO SCH (22:00)
[2017-02-19] MEDS: LEVOTHYROXINE 75 MCG TABLET PO SCH (05:42)
[2017-02-19] MEDS: OMEPRAZOLE 20 MG CAPSULE PO SCH (05:42)
[2017-02-19] MEDS: MULTI-VITAMIN PLAIN TABLET PO SCH (09:08)
[2017-02-19] MEDS: FUROSEMIDE 20 MG TABLET PO SCH (09:08)
[2017-02-19] MEDS: DOCUSATE SODIUM 100 MG CAPSULE PO SCH ×2 (09:08→21:37)
[2017-02-19] MEDS: LUTEIN 20 MG CAPSULE PO SCH (09:08)
[2017-02-19] MEDS: GABAPENTIN 300 MG CAPSULE PO SCH ×3 (09:08→21:37)
[2017-02-19] MEDS: DULOXETINE 30 MG CAPSULE PO SCH ×2 (09:08→21:37)
[2017-02-19] MEDS: SUCRALFATE 1 GM TABLET PO SCH ×2 (09:08→18:05)
[2017-02-19] MEDS: NYSTATIN 500,000 units/5 ml ORAL LIQUID PO SCH ×4 (09:08→21:37)
--- NOTE | 2017-02-19 10:47 | IRU Progress Note ---
- Subjective/Serverity of Illness Date: 02/19/17 Daniella is improving nicely with therapy. She was able to ambulate 202 feet with no rest breaks with a front-wheeled walker. This is an improvement. She does report fatigue and reports some shortness of breath at the conclusion of this therapy. She denies any chest pain. May be a mild cough but no sputum is produced. Denies rhinorrhea. No sneezing noted. Denies any dysuria or frequency. Remains on Rocephin. She is afebrile. Exam Vital Signs: Temperature 98.3 F 02/18/17 22:01 Pulse Rate 70 02/18/17 22:01 Respiratory Rate 20 02/18/17 22:01 Blood Pressure 121/80 02/18/17 22:01 Pulse Oximetry 93 02/18/17 22:01 Height/Weight/BMI: Height 1.6 m Weight 66.8 kg Body Mass Index 26.2 Comments: The patient is awake, alert and oriented and in no acute distress. She does however report dyspnea with activity. Pupils are equal. The neck is supple. Chest: Diminished breath sounds bilaterally. No wheezes noted. Cor: irregular rhythm with no gallop nor click. Does have systolic murmur. Abd: soft with normo-active bowel sounds. There are no masses, no tenderness and no guarding. Extremities: No edema is noted. Results IRU - Labs Labs: Reviewed vital signs, labs and oxygen saturations. IRU A/P (1) Debility Current visit: Yes Status: Acute Ambulatory ability has improved. Able to walk over 200 feet without stopping to rest. She continues to improve with therapy and gain strength. (2) Weakness Current visit: No Status: Acute (3) Anemia Qualifiers: Anemia type: unspecified type Qualified Code(s): D64.9 - Anemia, unspecified Current visit: No Status: Acute (4) Acute hypoxemic respiratory failure Current visit: Yes Status: Resolved Saturations remained between 90-94% on room air. DVT Prophylaxis: SCD's Resuscitation Status: Do Not Resuscitate - Course Hospital Course: Neville Wade MD: 02/14/17 11:33 She is cooperative with therapy. Not requiring oxygen supplementation at present. Has a cough although lung exam is improved. 02/17/17 10:06 Still has a cough although no sputum. Lungs show some basilar crackles. No longer requires oxygen supplementation. Cooperative with therapy. 02/18/17 10:28 Continues to progress with therapy and is contact-guard assistance for ambulation. Standby assistance for transfers. Has a cough with activity she reports. 02/19/17 10:46 Improving with therapy and able to ambulate over 200 feet with front-wheeled walker. Does have dyspnea with activity. Denies any pain. Chest exam clear with diminished breath sounds - Interventions to Obtain Goals PT Treatment Plan: Balance/Proprioception, Functional Activities, Gait Training , Patient/Family Education, Therapeutic Exercise OT Treatment Plan: ADL (Basic Care), Balance Training, Pt./Family Education
[2017-02-19] MEDS: CEFTRIAXONE 1 G in NS 100 ML IV SCH (11:06)
[2017-02-19] MEDS: ZINC OXIDE 20% OINTMENT 30gm TOP SCH ×4 (11:57→21:38)
[2017-02-19] MEDS: TOPIRAMATE 25 MG TABLET PO SCH (11:57)
[2017-02-19] MEDS: CALCIUM 600 + VIT D 400 TABLET PO SCH (11:57)
[2017-02-19] MEDS: MELATONIN 5 MG TABLET PO SCH (21:37)
[2017-02-19] MEDS: DONEPEZIL 10 MG TABLET PO SCH (21:37)
[2017-02-19] MEDS: ClonazePAM 0.5 MG TABLET PO SCH (21:37)
[2017-02-19] MEDS: SIMVASTATIN 10 MG TABLET PO SCH (21:37)
[2017-02-19] MEDS: SALINE FLUSH 10ml SYRINGE IV PRN (21:38)
[2017-02-20] MEDS: OMEPRAZOLE 20 MG CAPSULE PO SCH ×2 (05:18→19:15)
[2017-02-20] MEDS: LEVOTHYROXINE 75 MCG TABLET PO SCH ×2 (05:18→19:15)
[2017-02-20] MEDS: SUCRALFATE 1 GM TABLET PO SCH ×2 (09:17→18:19)
[2017-02-20] MEDS: DOCUSATE SODIUM 100 MG CAPSULE PO SCH ×2 (09:17→20:22)
[2017-02-20] MEDS: DULOXETINE 30 MG CAPSULE PO SCH ×2 (09:17→20:29)
[2017-02-20] MEDS: GABAPENTIN 300 MG CAPSULE PO SCH ×3 (09:18→20:22)
[2017-02-20] MEDS: FUROSEMIDE 20 MG TABLET PO SCH (09:18)
[2017-02-20] MEDS: ZINC OXIDE 20% OINTMENT 30gm TOP SCH ×4 (09:19→20:24)
[2017-02-20] MEDS: NYSTATIN 500,000 units/5 ml ORAL LIQUID PO SCH ×4 (09:19→20:23)
[2017-02-20] MEDS: LUTEIN 20 MG CAPSULE PO SCH (09:19)
[2017-02-20] MEDS: CEFTRIAXONE 1 G in NS 100 ML IV SCH (10:20)
[2017-02-20] MEDS: CALCIUM 600 + VIT D 400 TABLET PO SCH (12:27)
[2017-02-20] MEDS: MULTI-VITAMIN PLAIN TABLET PO SCH (12:28)
[2017-02-20] MEDS: TOPIRAMATE 25 MG TABLET PO SCH (12:28)
[2017-02-20] MEDS: DONEPEZIL 10 MG TABLET PO SCH (20:22)
[2017-02-20] MEDS: MELATONIN 5 MG TABLET PO SCH (20:22)
[2017-02-20] MEDS: SIMVASTATIN 10 MG TABLET PO SCH (20:22)
[2017-02-20] MEDS: ClonazePAM 0.5 MG TABLET PO SCH (20:29)
[2017-02-21] MEDS: OMEPRAZOLE 20 MG CAPSULE PO SCH (06:05)
[2017-02-21] MEDS: LEVOTHYROXINE 75 MCG TABLET PO SCH (06:06)
[2017-02-21] MEDS: NYSTATIN 500,000 units/5 ml ORAL LIQUID PO SCH ×4 (08:53→20:44)
[2017-02-21] MEDS: LUTEIN 20 MG CAPSULE PO SCH (08:54)
[2017-02-21] MEDS: SUCRALFATE 1 GM TABLET PO SCH ×2 (08:55→18:03)
[2017-02-21] MEDS: FUROSEMIDE 20 MG TABLET PO SCH (08:55)
[2017-02-21] MEDS: DOCUSATE SODIUM 100 MG CAPSULE PO SCH ×2 (08:58→20:44)
[2017-02-21] MEDS: DULOXETINE 30 MG CAPSULE PO SCH ×2 (08:58→20:44)
[2017-02-21] MEDS: ZINC OXIDE 20% OINTMENT 30gm TOP SCH ×4 (08:59→20:44)
[2017-02-21] MEDS: GABAPENTIN 300 MG CAPSULE PO SCH ×3 (08:59→20:44)
--- NOTE | 2017-02-21 11:16 | IRU Progress Note ---
- Subjective/Serverity of Illness Date: 02/21/17 Daniella was interviewed in the physical therapy/occupational gym area. She reports some dizziness. She does display some degree of nystagmus. Denies any Pichler shortness of breath and she is walking well. Continues to improve and cooperate with therapy. Denies any nausea or vomiting. Still has a "dry" cough. She is out of isolation. Her lungs sound clear. Exam Vital Signs: Temperature 97.6 F 02/21/17 07:48 Pulse Rate 74 02/21/17 07:48 Respiratory Rate 16 02/21/17 07:48 Blood Pressure 136/80 02/21/17 07:48 Pulse Oximetry 92 02/21/17 07:48 Height/Weight/BMI: Height 1.6 m Weight 66.8 kg Body Mass Index 26.2 Comments: The patient is awake, alert and oriented and in no acute distress. Pupils are equal. The neck is supple. Chest: Clear to auscultation bilaterally. Cor: irregular rhythm with no gallop nor click. There is a systolic murmur noted. Abd: soft with normo-active bowel sounds. There are no masses, no tenderness and no guarding. Extremities: No edema is noted. IRU A/P (1) Debility Current visit: Yes Status: Acute (2) Weakness Current visit: No Status: Acute She is improving with regard to her ability for self-care and her ambulatory ability. (3) Anemia Qualifiers: Anemia type: unspecified type Qualified Code(s): D64.9 - Anemia, unspecified Current visit: No Status: Acute (4) Acute hypoxemic respiratory failure Current visit: Yes Status: Resolved She is doing well on room air. Her lungs are clear. DVT Prophylaxis: SCD's Resuscitation Status: Do Not Resuscitate - Course Hospital Course: Neville Wade MD: 02/14/17 11:33 She is cooperative with therapy. Not requiring oxygen supplementation at present. Has a cough although lung exam is improved. 02/17/17 10:06 Still has a cough although no sputum. Lungs show some basilar crackles. No longer requires oxygen supplementation. Cooperative with therapy. 02/18/17 10:28 Continues to progress with therapy and is contact-guard assistance for ambulation. Standby assistance for transfers. Has a cough with activity she reports. 02/19/17 10:46 Improving with therapy and able to ambulate over 200 feet with front-wheeled walker. Does have dyspnea with activity. Denies any pain. Chest exam clear with diminished breath sounds 02/21/17 11:16 She is stable to continue with therapy. Some dyspnea with activity but overall no cough of significance. Lungs sound clear. - Interventions to Obtain Goals PT Treatment Plan: Balance/Proprioception, Functional Activities, Gait Training , Patient/Family Education, Therapeutic Exercise OT Treatment Plan: ADL (Basic Care), Balance Training, Pt./Family Education
[2017-02-21] MEDS: CEFTRIAXONE 1 G in NS 100 ML IV SCH (11:18)
--- NOTE | 2017-02-21 11:36 | Progress Note ---
<RyleeMary D - Last Filed: 02/21/17 11:33> - Date 02/21/17 Subjective: Daniella was working with PT in the therapy room. She was in good spirits - when I asked her if she had any pain she replied, "I'm exercising, what do you think? " then laughed. She has no physical complaints. Her cough/sore throat have improved and she denies SOA. She's pleased to be out of precautions. She denies any abdominal pain or GI complaints, but is getting tired of the same foods. She 's hopeful to be going home soon, but then adds she'll have to come back for her colon cancer surgery. Objective Vital signs: Temperature 97.6 F 02/21/17 07:48 Pulse Rate 74 02/21/17 07:48 Respiratory Rate 16 02/21/17 07:48 Blood Pressure 136/80 02/21/17 07:48 Pulse Oximetry 92 02/21/17 07:48 Height/Weight/BMI: Height 1.6 m Weight 66.8 kg Body Mass Index 26.2 - Constitutional Present: no acute distress, well nourished, well developed - Routine HEENT Exam Eye: Present: PERRL. Absent: conjunctival icterus, scleral injection ENT: Present: mucous membranes moist, oropharynx clear - Routine Respiratory Exam Present: CTA bilaterally - Routine Cardiovascular Exam Present: RRR, S1, S2 - Routine Abdominal Exam Present: soft, normoactive bowel sounds, non distended, non tender - Routine Extremities Exam Present: edema (trace pedal/lower ext.), pulses intact - Routine Musculoskeletal Exam Musculoskeletal: Present: moving extremities well - Routine Skin Exam Present: intact, dry, warm - Routine Neurological Exam Present: alert, oriented X3, normal speech - Routine Psychiatric Exam Present: normal affect, normal thought process, cooperative Results - Labs CBC & Chem 7: 02/17/17 03:44 02/17/17 03:44 Assessment and Plan (1) Weakness Current visit: No Status: Acute (2) Debility Current visit: Yes Status: Acute Assessment and Plan: IMPRESSION Recent severe sepsis (organ dysfunction - MAP <65) - resolved Acute hypoxic respiratory failure - resolved Possible left lower lobe pneumonia Mild to moderate pulmonary edema UTI - Escherichia coli Rhinovirus Hypokalemia Thrush - resolved 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 DC Rocephin. Will recheck labs on Friday. Medically stable. D/W RN and with therapy. GI Prophylaxis: Protonix Resuscitation Status: Do Not Resuscitate Hospital Course Summary Disclaimer: The visit summary below is not to be considered part of the above Progress Note. 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 Continue precautions for rhinovirus - RN to contact health nurse to determine when these may be discontinued. Wean oxygen as able; repeat CXR on 02/17/17. Follow electrolytes, malu K. Follow hgb - stabilized at 8.2. Repeat CBC, BMP, and CXR on 02/17/17. Rocephin for E. coli UTI + pneumonia - give through 02/19/17 Nystatin for thrush while she is on antibiotics. 02/17/17 Labs reviewed; hgb low but stable and actually slightly improved at 8.4. Chemistries also stable; K low normal at 3.6 Maintaining sats on room air. Continue Nystatin while on Rocephin at a minimum, through 02/19. CXR personally reviewed - LLL pneumonia improving. 02/21/17 Maintaining sats on room air & respiratory symptoms have nearly completely resolved. DC Rocephin. <Tyler Cardozaarianne Reddy - Last Filed: 02/21/17 15:10> - Date 02/21/17 Objective Vital signs: Temperature 97.6 F 02/21/17 07:48 Pulse Rate 74 02/21/17 07:48 Respiratory Rate 16 02/21/17 07:48 Blood Pressure 136/80 02/21/17 07:48 Pulse Oximetry 92 02/21/17 07:48 Height/Weight/BMI: Height 1.6 m Weight 66.8 kg Body Mass Index 26.2 Results - Labs CBC & Chem 7: 02/17/17 03:44 02/17/17 03:44 Assessment and Plan (1) Weakness Current visit: No Status: Acute (2) Debility Current visit: Yes Status: Acute Hospital Course Summary Disclaimer: The visit summary below is not to be considered part of the above Progress Note.
[2017-02-21] MEDS: TOPIRAMATE 25 MG TABLET PO SCH (12:25)
[2017-02-21] MEDS: CALCIUM 600 + VIT D 400 TABLET PO SCH (12:25)
[2017-02-21] MEDS: MULTI-VITAMIN PLAIN TABLET PO SCH (12:25)
[2017-02-21] MEDS: MELATONIN 5 MG TABLET PO SCH (20:43)
[2017-02-21] MEDS: ClonazePAM 0.5 MG TABLET PO SCH (20:43)
[2017-02-21] MEDS: DONEPEZIL 10 MG TABLET PO SCH (20:44)
[2017-02-21] MEDS: SIMVASTATIN 10 MG TABLET PO SCH (20:44)
[2017-02-22] MEDS: OMEPRAZOLE 20 MG CAPSULE PO SCH (05:57)
[2017-02-22] MEDS: LEVOTHYROXINE 75 MCG TABLET PO SCH (05:57)
[2017-02-22] MEDS: SUCRALFATE 1 GM TABLET PO SCH ×2 (09:10→17:52)
[2017-02-22] MEDS: NYSTATIN 500,000 units/5 ml ORAL LIQUID PO SCH ×4 (09:10→21:12)
[2017-02-22] MEDS: DULOXETINE 30 MG CAPSULE PO SCH ×2 (09:11→21:11)
[2017-02-22] MEDS: DOCUSATE SODIUM 100 MG CAPSULE PO SCH ×2 (09:11→21:11)
[2017-02-22] MEDS: MULTI-VITAMIN PLAIN TABLET PO SCH (09:11)
[2017-02-22] MEDS: FUROSEMIDE 20 MG TABLET PO SCH (09:11)
[2017-02-22] MEDS: GABAPENTIN 300 MG CAPSULE PO SCH ×3 (09:11→21:11)
[2017-02-22] MEDS: ZINC OXIDE 20% OINTMENT 30gm TOP SCH ×4 (09:12→21:12)
[2017-02-22] MEDS: LUTEIN 20 MG CAPSULE PO SCH (09:12)
[2017-02-22] MEDS: CALCIUM 600 + VIT D 400 TABLET PO SCH (12:33)
[2017-02-22] MEDS: TOPIRAMATE 25 MG TABLET PO SCH (12:33)
[2017-02-22] MEDS: SIMVASTATIN 10 MG TABLET PO SCH (21:11)
[2017-02-22] MEDS: MELATONIN 5 MG TABLET PO SCH (21:11)
[2017-02-22] MEDS: DONEPEZIL 10 MG TABLET PO SCH (21:11)
[2017-02-22] MEDS: ClonazePAM 0.5 MG TABLET PO SCH (21:56)
[2017-02-23] MEDS: OMEPRAZOLE 20 MG CAPSULE PO SCH ×2 (03:33→05:42)
[2017-02-23] MEDS: LEVOTHYROXINE 75 MCG TABLET PO SCH ×2 (03:33→05:42)
[2017-02-23] MEDS: ACETAMINOPHEN 325 MG TABLET PO PRN (03:33)
[2017-02-23] MEDS: MULTI-VITAMIN PLAIN TABLET PO SCH (09:05)
[2017-02-23] MEDS: DULOXETINE 30 MG CAPSULE PO SCH ×2 (09:05→21:27)
[2017-02-23] MEDS: GABAPENTIN 300 MG CAPSULE PO SCH ×3 (09:06→21:28)
[2017-02-23] MEDS: FUROSEMIDE 20 MG TABLET PO SCH (09:06)
[2017-02-23] MEDS: LUTEIN 20 MG CAPSULE PO SCH (09:06)
[2017-02-23] MEDS: NYSTATIN 500,000 units/5 ml ORAL LIQUID PO SCH ×4 (09:06→21:28)
[2017-02-23] MEDS: DOCUSATE SODIUM 100 MG CAPSULE PO SCH ×2 (09:06→21:28)
[2017-02-23] MEDS: ZINC OXIDE 20% OINTMENT 30gm TOP SCH ×3 (09:07→21:32)
[2017-02-23] MEDS: SUCRALFATE 1 GM TABLET PO SCH ×2 (09:09→18:19)
[2017-02-23] MEDS: CALCIUM 600 + VIT D 400 TABLET PO SCH (12:38)
[2017-02-23] MEDS: TOPIRAMATE 25 MG TABLET PO SCH (12:40)
[2017-02-23] MEDS: MELATONIN 5 MG TABLET PO SCH (21:27)
[2017-02-23] MEDS: DONEPEZIL 10 MG TABLET PO SCH (21:27)
[2017-02-23] MEDS: SIMVASTATIN 10 MG TABLET PO SCH (21:28)
[2017-02-23] MEDS: ClonazePAM 0.5 MG TABLET PO SCH (21:28)
[2017-02-23] MEDS: SALINE FLUSH 10ml SYRINGE IV PRN (21:49)
[2017-02-24] MEDS: LEVOTHYROXINE 75 MCG TABLET PO SCH ×2 (05:03→05:41)
[2017-02-24] MEDS: OMEPRAZOLE 20 MG CAPSULE PO SCH ×2 (05:03→05:41)
[2017-02-24] MEDS: NYSTATIN 500,000 units/5 ml ORAL LIQUID PO SCH ×3 (08:33→12:29)
[2017-02-24] MEDS: MULTI-VITAMIN PLAIN TABLET PO SCH (08:33)
[2017-02-24] MEDS: FUROSEMIDE 20 MG TABLET PO SCH (08:33)
[2017-02-24] MEDS: DULOXETINE 30 MG CAPSULE PO SCH ×2 (08:34→21:30)
[2017-02-24] MEDS: LUTEIN 20 MG CAPSULE PO SCH (08:34)
[2017-02-24] MEDS: DOCUSATE SODIUM 100 MG CAPSULE PO SCH ×2 (08:34→21:29)
[2017-02-24] MEDS: SUCRALFATE 1 GM TABLET PO SCH ×2 (08:34→17:05)
[2017-02-24] MEDS: ZINC OXIDE 20% OINTMENT 30gm TOP SCH ×4 (08:35→21:30)
[2017-02-24] MEDS: GABAPENTIN 300 MG CAPSULE PO SCH ×3 (08:35→21:29)
--- NOTE | 2017-02-24 09:57 | IRU Progress Note ---
- Subjective/Serverity of Illness Date: 02/24/17 Daniella was evaluated in her room. She continues to progress with therapy. She is standby assist for most activities but occasionally modified independent level. She does require reeducation at times. However she is gracious and willing to learn. She does ask repeated questions at times. She does complain of fatigue with activities. She was instructed in energy conservation techniques and was able to correctly identify appropriate techniques subsequently. She does plan to return to her home with her daughter and son-in- law. She is increasing in ambulatory distance. Her hemoglobin is stable at 8.2 g percent. No further evidence of acute blood loss. She had several questions about the upcoming surgery. She wondered about the laparoscopic technique and how they can remove the colon through that. I deferred most of these questions to the surgeon but in general described the laparoscopic technique. Questions were addressed. Exam Vital Signs: Temperature 98.2 F 02/24/17 08:00 Pulse Rate 72 02/24/17 08:00 Respiratory Rate 16 02/24/17 08:00 Blood Pressure 129/74 02/24/17 08:00 Pulse Oximetry 97 02/24/17 08:00 Height/Weight/BMI: Height 1.6 m Weight 65 kg Body Mass Index 26.2 Comments: The patient is awake, alert and oriented and in no acute distress. She again asks repeated questions, indicating poor short-term retention. Pupils are equal. The neck is supple. Chest: Clear to auscultation bilaterally. Cor: irregular rhythm with no gallop nor click. A grade 2-3/6 systolic murmur is again identified loudest at the second right interspace but also heard along the left sternal border. Abd: soft with normo-active bowel sounds. There are no masses, no tenderness and no guarding. Extremities: No edema is noted. No cyanosis is present. Results IRU - Labs Labs: I reviewed the current blood work including hemoglobin of 8.2 g percent which is stable. IRU A/P (1) Debility Current visit: Yes Status: Acute Continues to complain of excessive fatigability. Energy conservation techniques were described to the patient and she was able to correctly identify 5 out of 5 on testing. She is improving her ambulatory distance. Requires standby assistance for most activities. (2) Weakness Current visit: No Status: Acute (3) Anemia Qualifiers: Anemia type: unspecified type Qualified Code(s): D64.9 - Anemia, unspecified Current visit: No Status: Acute Her acute blood loss anemia likely was secondary to diverticular bleed. Her hemoglobin is stable at 8.2 g percent. (4) Acute hypoxemic respiratory failure Current visit: Yes Status: Resolved DVT Prophylaxis: SCD's Resuscitation Status: Do Not Resuscitate - Course Hospital Course: Neville Wade MD: 02/14/17 11:33 She is cooperative with therapy. Not requiring oxygen supplementation at present. Has a cough although lung exam is improved. 02/17/17 10:06 Still has a cough although no sputum. Lungs show some basilar crackles. No longer requires oxygen supplementation. Cooperative with therapy. 02/18/17 10:28 Continues to progress with therapy and is contact-guard assistance for ambulation. Standby assistance for transfers. Has a cough with activity she reports. 02/19/17 10:46 Improving with therapy and able to ambulate over 200 feet with front-wheeled walker. Does have dyspnea with activity. Denies any pain. Chest exam clear with diminished breath sounds 02/21/17 11:16 She is stable to continue with therapy. Some dyspnea with activity but overall no cough of significance. Lungs sound clear. 02/24/17 09:57 Rocephin has been discontinued. She is medically stable. Does not require oxygen supplementation. Continues to progress with therapy. Anticipate dismissal tomorrow. - Interventions to Obtain Goals PT Treatment Plan: Balance/Proprioception, Functional Activities, Gait Training , Patient/Family Education, Therapeutic Exercise OT Treatment Plan: ADL (Basic Care), Balance Training, Pt./Family Education
[2017-02-24] MEDS ORDERED: FALL RISK - PHARMACY CONSULT XX ONE (12:13)
[2017-02-24] MEDS: SALINE FLUSH 10ml SYRINGE IV PRN ×3 (12:29→21:31)
[2017-02-24] MEDS: CALCIUM 600 + VIT D 400 TABLET PO SCH (12:29)
[2017-02-24] MEDS: TOPIRAMATE 25 MG TABLET PO SCH (12:29)
[2017-02-24] MEDS: ClonazePAM 0.5 MG TABLET PO SCH (21:29)
[2017-02-24] MEDS: DONEPEZIL 10 MG TABLET PO SCH (21:29)
[2017-02-24] MEDS: SIMVASTATIN 10 MG TABLET PO SCH (21:30)
[2017-02-24] MEDS: MELATONIN 5 MG TABLET PO SCH (21:30)
[2017-02-25] MEDS: LEVOTHYROXINE 75 MCG TABLET PO SCH (05:44)
[2017-02-25] MEDS: OMEPRAZOLE 20 MG CAPSULE PO SCH (05:44)
[2017-02-25 07:42] VITALS: BP 129/82; PULSE 70; RESP 18; TEMP 98.6; O2SAT 96
[2017-02-25] MEDS: SALINE FLUSH 10ml SYRINGE IV PRN (09:04)
[2017-02-25] MEDS: DULOXETINE 30 MG CAPSULE PO SCH (09:05)
[2017-02-25] MEDS: SUCRALFATE 1 GM TABLET PO SCH (09:05)
[2017-02-25] MEDS: DOCUSATE SODIUM 100 MG CAPSULE PO SCH (09:05)
[2017-02-25] MEDS: FUROSEMIDE 20 MG TABLET PO SCH (09:05)
[2017-02-25] MEDS: LUTEIN 20 MG CAPSULE PO SCH (09:06)
[2017-02-25] MEDS: ZINC OXIDE 20% OINTMENT 30gm TOP SCH ×2 (09:06→13:30)
[2017-02-25] MEDS: MULTI-VITAMIN PLAIN TABLET PO SCH (09:06)
[2017-02-25] MEDS: GABAPENTIN 300 MG CAPSULE PO SCH ×2 (09:06→14:28)
--- NOTE | 2017-02-25 10:43 | IRU Progress Note ---
- Subjective/Serverity of Illness Date: 02/25/17 Daniella is anxious to get home. She denies any problems. She is very upbeat. She denies any chest pain, cough, sputum or dyspnea. She tends to walk a bit fast and needs to be reminded to slow down a bit. Her bowels are but sluggish. Exam Vital Signs: Temperature 98.6 F 02/25/17 07:41 Pulse Rate 70 02/25/17 07:41 Respiratory Rate 18 02/25/17 07:41 Blood Pressure 129/82 02/25/17 07:41 Pulse Oximetry 96 02/25/17 07:41 Height/Weight/BMI: Height 1.6 m Weight 65 kg Body Mass Index 26.2 - Constitutional Present: no acute distress - Routine HEENT Exam Head: Present: normocephalic, atraumatic Eye: Present: EOMI. Absent: scleral injection ENT: Present: mucous membranes moist - Routine Neck Exam Present: supple - Routine Chest/Breast/Axilla Exam Chest wall: Absent: tenderness - Routine Respiratory Exam Present: CTA bilaterally - Routine Cardiovascular Exam Present: RRR, S1, S2 - Routine Abdominal Exam Present: soft, normoactive bowel sounds. Absent: tenderness, organomegaly, mass - Routine Extremities Exam Present: no edema. Absent: cyanosis - Routine Skin Exam Present: intact, dry. Absent: erythema - Routine Neurological Exam Present: alert, oriented X3, CN II-XII intact She continues to ask repeated questions although for the most part is well oriented. - Routine Psychiatric Exam Present: normal affect, normal thought process, cooperative Results IRU - Labs Labs: Reviewed recent labs. IRU A/P (1) Debility Current visit: Yes Status: Acute (2) Weakness Current visit: No Status: Acute Her ambulatory ability and ADL management has improved. (3) Anemia Qualifiers: Anemia type: unspecified type Qualified Code(s): D64.9 - Anemia, unspecified Current visit: No Status: Acute Most recent hemoglobin is stable. No further evidence for acute blood loss anemia. (4) Acute hypoxemic respiratory failure Current visit: Yes Status: Resolved DVT Prophylaxis: SCD's Resuscitation Status: Do Not Resuscitate - Course Hospital Course: Neville Wade MD: 02/14/17 11:33 She is cooperative with therapy. Not requiring oxygen supplementation at present. Has a cough although lung exam is improved. 02/17/17 10:06 Still has a cough although no sputum. Lungs show some basilar crackles. No longer requires oxygen supplementation. Cooperative with therapy. 02/18/17 10:28 Continues to progress with therapy and is contact-guard assistance for ambulation. Standby assistance for transfers. Has a cough with activity she reports. 02/19/17 10:46 Improving with therapy and able to ambulate over 200 feet with front-wheeled walker. Does have dyspnea with activity. Denies any pain. Chest exam clear with diminished breath sounds 02/21/17 11:16 She is stable to continue with therapy. Some dyspnea with activity but overall no cough of significance. Lungs sound clear. 02/24/17 09:57 Rocephin has been discontinued. She is medically stable. Does not require oxygen supplementation. Continues to progress with therapy. Anticipate dismissal tomorrow. 02/25/17 10:43 She has done well with therapy. She is medically stable. She will be dismissed today. - Interventions to Obtain Goals PT Treatment Plan: Balance/Proprioception, Functional Activities, Gait Training , Patient/Family Education, Therapeutic Exercise OT Treatment Plan: ADL (Basic Care), Balance Training, Pt./Family Education
--- NOTE | 2017-02-25 11:36 | Discharge Summary ---
Discharge Information Date of admission: 02/13/17 13:55 Anticipated date of discharge: 02/25/17 Attending Physician: Neville Wade MD Primary care physician: Viktor Chatman MD Consults: 02/13/17 15:31 Physician Consult [CONS] Routine Consulting Provider: Julianne Cardoza Reason For Exam: medical management Ordering Provider has Notified Concrete Bucket Loader: No - Discharge Diagnosis (1) Debility Status: Acute (2) Weakness Status: Acute (3) Anemia Status: Acute (4) Acute hypoxemic respiratory failure Status: Resolved 1. Acute debilitation 2. Pneumonia 3. Upper respiratory infection 4. Acute hypoxemic respiratory failure 5. Urinary tract infection with Escherichia coli requiring intravenous antibiotics 6. Anemia of chronic disease with recent acute blood loss anemia - Laboratory Labs: 02/24/17 05:01 02/24/17 05:01 History of Present Illness HPI: 02/25/17 11:34 Ms. Juan is a very pleasant 86-year-old female recently admitted to acute care with acute diverticular bleed. During the workup for that process, a cecal mass was identified and she was considered a candidate for resection after rehabilitation. She was on acute inpatient rehabilitation for a time and went home. In the interim, she developed acute weakness with respiratory infection, severe rhinorrhea and cough. She was brought back to the emergency department where she was evaluated and noted to have possible pneumonia. She had a fever of 103. She tested positive for rhinovirus. She was admitted to acute care on 02/10/2017. She was treated with intravenous antibiotics including Rocephin for a urinary tract infection as well. She was noted to have acute hypoxemic respiratory failure with new requirement for supplemental oxygen. She was stabilized on acute care and transferred to inpatient rehabilitation on 02/10/2017 for severe debilitation and weakness as well as to continue treatment for urinary tract infection and respiratory infection. In addition we monitored her anemia. 02/25/17 13:09 Hospital Course This is a general summary of the patient's hospital course. For more details refer to the complete medical record. Ms. Juan was admitted to acute inpatient rehabilitation on 02/13/2017 for an intensive, multidisciplinary approach to her recovery. She was seen by physical therapy and occupational therapy as well as 24 hour rehabilitation nursing to monitor her oxygen saturations and to reduce her fall risk. From a medical standpoint she was monitored and treated by the hospitalist service as well. She was on intravenous Rocephin for an Escherichia coli urinary tract infection. She was felt to have pneumonia and that ultimately cleared on subsequent chest x-rays. She was also on isolation for the rhinovirus. Her pulmonate status improved. She progressed to not requiring additional oxygen. A midline was placed in her left arm due to poor intravenous access and the requirement for continued intravenous antibiotics (Rocephin) for her urinary tract infection. That was completed and she has had no further fever nor evidence of UTI. The midline was removed on the day of dismissal. We did monitor her hemoglobin as well and it remains stable at 8.2 g percent. She was seen by occupational therapy. Upon admission and at the time of dismissal she was independent for eating. She was initially contact-guard assist for grooming and ultimately independent functioning. Bathing ability was contact-guard assistance initially and standby assistance subsequently. Upper body dressing was initially standby assistance and ultimately independent functioning. Lower body dressing was initially minimum assistance and ultimately standby assistance. Toileting assist was initially contact-guard and ultimately modified independent. Toilet transfer assistance was initially contact-guard assistance and ultimately modified independent. Bed/chair/ wheelchair transfers were initially contact-guard assistance and ultimately standby assistance. She was seen by physical therapy and progressed well. Initially bed/chair/ wheelchair transfers were standby assistance and upon dismissal modified independent functioning. Toileting assistance was with standby assistance upon admission and dismissal. Toilet transfer assistance was with standby assistance upon admission and dismissal as well as car transfers. Ambulatory ability improved dramatically. She was maximum assistance with a front-wheeled walker at 15 feet upon admission. Upon dismissal she was modified independent with ambulation with a front-wheeled walker and was able to ambulate 311 feet. She had to be reminded to slow down and stand up straight. She was able to climb four stairs initially with maximum assistance. Ultimately she was able to climb 12 steps at modified independent level. She is stable for dismissal on 02/25/2017. She is going to live with her family and ultimately will need to see Dr. Chavez about consideration of removal of the cecal mass/hemicolectomy. Dismissal hemoglobin is 8.2 g percent. She will follow-up with her primary care physician Dr. Chatman as well as Dr. Chavez and Dr. Dunn. Home health has been arranged as well for PT/OT and longterm. 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 Continue precautions for rhinovirus - RN to contact health nurse to determine when these may be discontinued. Wean oxygen as able; repeat CXR on 02/17/17. Follow electrolytes, malu K. Follow hgb - stabilized at 8.2. Repeat CBC, BMP, and CXR on 02/17/17. Rocephin for E. coli UTI + pneumonia - give through 02/19/17 Nystatin for thrush while she is on antibiotics. 02/17/17 Labs reviewed; hgb low but stable and actually slightly improved at 8.4. Chemistries also stable; K low normal at 3.6 Maintaining sats on room air. Continue Nystatin while on Rocephin at a minimum, through 02/19. CXR personally reviewed - LLL pneumonia improving. 02/21/17 Maintaining sats on room air & respiratory symptoms have nearly completely resolved. DC Rocephin. Time spent with patient: 25 - 35 minutes Discharge Plan - Med Rec/Dispo Referrals/Follow Up: Viktor Chatman MD [Family Provider] - (Dr. Lesia Chatman on 03/12/17 at 8:30 am for Hosp. follow-up. Check in at 8:15. [phone] [facility] [place] [address]) Prescriptions: New Acetaminophen [Tylenol] 325 - 650 mg PO Q4H PRN tab PRN Reason: Pain Continue Levothyroxine Sodium 75 mcg PO DAILY Furosemide [Lasix] 20 mg PO DAILY Donepezil HCl [Aricept] 10 mg PO HS Topiramate 25 mg PO NOON Melatonin 5 mg PO HS Lutein 20 mg PO DAILY Multivitamin [Multivitamins] 1 cap PO DAILY Gabapentin 300 mg PO TID Sucralfate [Carafate] 1 gm PO BIDWM #60 tab Carbidopa/Levodopa [Carbidopa-Levo 25-250 mg Odt] 1 tab PO NOON ClonazePAM [Klonopin] 0.5 mg PO HS Calcium Carbonate/Vitamin D3 [Calcium 600-Vit D3 800 Tablet] 1 tab PO NOON Simvastatin [Zocor] 10 mg PO HS Duloxetine [Cymbalta] 30 mg PO BID cap Potassium Chloride [K-Dur] 10 meq PO WB tab Omeprazole [Prilosec] 20 mg PO ACB cap Docusate Sodium [Colace] 100 mg PO BID Cholecalciferol [Vit. D-3] 5,000 unit PO DAILY Discontinued Nystatin Oral Liq. [Mycostatin] 5 ml PO QID udc Ceftriaxone [Rocephin] 1 g IV Q24H vial - Disposition 01 Discharged Home, Self-Care
--- NOTE | 2017-02-25 11:44 | Letter to Referring Physician ---
Dear Dr. Chatman, This is a brief note to bring you up-to-date on the status of Daniella Juan and her stay on the acute inpatient rehabilitation unit at [facility]. As you are likely aware, this patient was admitted to the acute care hospital on 02/10/17 for rhinovirus infection, pneumonia and UTI with severe weakness and debilitation. The patient was stabilized while on the acute level and admitted to inpatient rehabilitation unit at [facility] on February 13, 2017. While on inpatient rehabilitation, this patient was seen by occupational therapy and physical therapy and improved overall in their functional ability. We also monitored and managed the patient's acute respiratory failure and anemia while on Acute Rehab. Please see a copy of the history and physical examination as well as discharge summary enclosed with this letter for further details. We do recommend that the patient obtain a CBC in about 7 days after dismissal. We have arranged this at the time of the Acute Rehab stay via home health who will be seeing her for PT/OT and senior care to monitor her O2 sats and to draw the CBC. Thank you for allowing us to be involved in this nice patient's care. Please contact me directly should you have any questions regarding their stay on the inpatient rehabilitation unit. Sincerely, Neville Wade M.D.
[2017-02-25] MEDS: CALCIUM 600 + VIT D 400 TABLET PO SCH (12:35)
[2017-02-25] MEDS: TOPIRAMATE 25 MG TABLET PO SCH (12:35)
--- NOTE | 2017-02-25 13:09 | IRU Team Meeting ---
IRU Team Meeting - Nursing Bladder Assistive Devices Utilized:: Absorbent Pad Bladder Management Level of Assist: Modified Independent Bladder Frequency of Accidents: 1 accident in past 7 days Number of Bladder Accidents: 1 Bowel Assistive Devices Utilized:: Medication Bowel Management Level of Assist: Modified Independent Bowel Frequency of Accidents: No accidents; uses device Vital Signs: Vital Signs - 24 hr 02/24/17 16:00 02/24/17 19:43 02/25/17 07:41 Temperature 97.3 F 97.8 F 98.6 F Pulse Rate 70 68 70 Respiratory Rate 18 20 18 Blood Pressure 125/72 116/67 129/82 Pulse Oximetry 97 93 96 Current Medications: Acetaminophen (Tylenol) 325 - 650 mg PO Q4H PRN PRN Reason: Pain Last Admin: 02/23/17 03:33 Dose: 650 mg Benzonatate (Tessalon Perles) 100 mg PO TID PRN PRN Reason: Cough Bisacodyl (Dulcolax) 10 mg RECTALLY DAILY PRN PRN Reason: Constipation Calcium/Vitamin D (Caltrate + D) 1 tab PO NOON [facility] Last Admin: 02/25/17 12:35 Dose: 1 tab Carbidopa/Levodopa (Sinemet) 1 tab PO NOON [facility] Last Admin: 02/25/17 12:35 Dose: 1 tab Cholecalciferol (Vit. D-3) 5,000 unit PO DAILY [facility] Last Admin: 02/25/17 09:05 Dose: 5,000 unit Clonazepam (Klonopin) 0.5 mg PO HS [facility] Last Admin: 02/24/17 21:29 Dose: 0.5 mg Docusate Sodium (Colace) 100 mg PO BID [facility] Last Admin: 02/25/17 09:05 Dose: 100 mg Donepezil HCl (Aricept) 10 mg PO HS [facility] Last Admin: 02/24/17 21:29 Dose: 10 mg Duloxetine HCl (Cymbalta) 30 mg PO BID [facility] Last Admin: 02/25/17 09:05 Dose: 30 mg Furosemide (Lasix) 20 mg PO DAILY [facility] Last Admin: 02/25/17 09:05 Dose: 20 mg Gabapentin (Neurontin) 300 mg PO TID [facility] Last Admin: 02/25/17 09:06 Dose: 300 mg Levothyroxine Sodium (Synthroid) 75 mcg PO ACB [facility] Last Admin: 02/25/17 05:44 Dose: 75 mcg Lutein () 20 mg PO DAILY [facility] Last Admin: 02/25/17 09:06 Dose: 20 mg Magnesium Hydroxide (Mom) 30 ml PO DAILY PRN PRN Reason: Constipation Melatonin (Melatonin) 5 mg PO HS [facility] Last Admin: 02/24/17 21:30 Dose: 5 mg Menthol (Ricola Sf) 1 lozenge MM PRN PRN PRN Reason: Cough Last Admin: 02/15/17 15:52 Dose: 1 lozenge Multivitamins (Theragran) 1 tab PO DAILY [facility] Last Admin: 02/25/17 09:06 Dose: 1 tab Omeprazole (Prilosec) 20 mg PO ACB [facility] Last Admin: 02/25/17 05:44 Dose: 20 mg Polyethylene Glycol (Miralax) 17 gm PO DAILY PRN PRN Reason: Constipation Last Admin: 02/17/17 09:10 Dose: 17 gm Potassium Chloride (K-Dur) 10 meq PO WB [facility] Last Admin: 02/25/17 09:05 Dose: 10 meq Simvastatin (Zocor) 10 mg PO HS [facility] Last Admin: 02/24/17 21:30 Dose: 10 mg Sodium Chloride (Iv Flush) 10 ml IV PRN PRN PRN Reason: Flushing Last Admin: 02/25/17 09:04 Dose: 10 ml Sucralfate (Carafate) 1 gm PO BIDWM [facility] Last Admin: 02/25/17 09:05 Dose: 1 gm Topiramate (Topamax) 25 mg PO NOON [facility] Last Admin: 02/25/17 12:35 Dose: 25 mg Zinc Oxide () 1 applic TOP PRN PRN Zinc Oxide () 1 applic TOP QID [facility] Last Admin: 02/25/17 09:06 Dose: 1 applic Current Medical Issues: recent UTI and rhinovirus infection, anemia Comments: I certify that I personally led the interdisciplinary team meeting and agree with comments, barriers and goals indicated. Team meeting was held in the patient's room with the patient and the following family members present: [id number] Ms. Juan is doing well. She does not have any respiratory symptoms. She has not required supplemental oxygen for some time. She remains afebrile. There are no urinary symptoms. Her appetite is good. - Physical Therapy Bed, Chair, Wheelchair Transfer Assist: Modified Independent Ambulation Ability: Modified Independent Ambulation Distance: 311 Wheelchair Propulsion Ability: Maximal Assistance Wheelchair Propulsion Distance: 55 Stair Climbing Ability: Modified Independent Number of Steps Climbed: 12 Car Transfer Ability: Stand By Assist/Supervision, 1 Person Assist Comments: She is modified independent for most functions for physical therapy. Balance assessment was performed demonstrating some deficits but patient does not demonstrate actual loss of balance. She has met all inpatient physical therapy goals. - Occupational Therapy Eating Ability: Modified Independent Grooming Ability: Modified Independent Bathing Ability: Stand By Assist/Supervision Upper Body Dressing Ability: Independent Lower Body Dressing Ability: Stand By Assist/Supervision Tub Transfer Assist: Patient Refuses Toileting Assist: Modified Independent Toilet Transfer Assist: Modified Independent Comments: Patient is modified independent for most activities with regard to occupational therapy. She has met her goals and plans dismissal today. - Goals Physical Therapy Goals: 02/18/17 Goals: 1.) Safer marta - met. 2.) Endurance - not met. 02/25/17 Goals: 1.) Discharge Occupational Therapy Goals: OT goals 02/18/17: 1.) Toilet transfer w/ mod I.- met. 2.) Increased activity tolerance to 60 minutes w/ RB during ADL routine. - met. 02/25/15. 1.) D/c planning - Barriers to Discharge Barriers to Attaining Goals: Other (None) - Care Plan Anticipated Length of Stay (days): 0 Anticipated DC Destination: Home, Self Care, Home Health Service I have led this team conference and agree with the plan.
== END 2017-02-25 14:46 | disposition home health service (06) | DRG 945 ==
PROVIDERS: ADMIT Internal Medicine; ATTEND Internal Medicine

== ENCOUNTER 2017-03-27 12:10 | Inpatient (IN) ==
[2017-03-31] MEDS ORDERED: LEVOFLOXACIN PB 500 MG/100 ML BAG IV SCH (07:00)
--- OUTSIDE RECORDS SUMMARY | 2017-03-31 10:43 | External Medical Summary | Clinical Summary ---
:1930 Author Organization [facility] Address [address] [address] Phone Support Name Relationship Address Phone Unavailable Unavailable Unavailable Unavailable Naturalson [place]available [place], [place] Unavailable Naturalson Unavailable Allergies Active Allergy [...] ergocalciferol (VITAMIN Take 50,000 Units Active D) 51672 UNITS capsule by mouth once a week. 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 penitentiary (current) use of anticoagulants 02/16/2013 Protein-calorie malnutrition, mild (HCC) 09/05/2012 Abdominal pain, acute, epigastric 09/04/2012 Coagulopathy (HCC) 09/04/2012 Anxiety and depression 09/04/2012 Macular degeneration 09/04/2012 OA (osteoarthritis of spine) 09/04/2012 Pacemaker 09/04/2012 H/O sick sinus syndrome 09/04/2012 CHF (congestive heart failure) ([facility]) 03/17/2012 Overview: PPM inserted for SSS(shelley/vaibhav)-dr brown [...] Name Dates Previously Given Next Due Herpes Zoster-Live(Zostavax) 10/02/2011 INFLUENZA IIV3 HD (Adults=>65 12/26/2015, 04/11/2015, 04/13/2014 y/o-FLUZONE HD) Influenza IIV3 PFree 12/12/2011, 01/08/2011, 01/15/2010, 02/14/2006 Pneumococcal Conjugate (13-valent) 06/14/2014 Pneumococcal Polysaccharide (23-valent) 09/25/2010, 07/15/2007 Family History Medical History Relation Name Comments Cancer Brother Ignacio No Known Problems Brother Neville Cancer Brother [...] Taken Blood Pressure 123/77 05/02/2016 11:44 AM [employer] Pulse 70 05/02/2016 11:44 AM [employer] Temperature 36.6 C (97.8 F) 05/02/2016 11:44 AM [employer]ENT Respiratory Rate 16 05/02/2016 11:44 AM [employer]INE [employer] AGENT Oxygen Saturation 96% 05/02/2016 11:44 AM [employer]ENT Inhaled Oxygen Concentration - - Weight 59.9 kg (132 lb) 05/02/2016 3:20 AM [employer]ENT Height 160 cm (5' 3") 04/30/2016 1:10 AM [employer] AGENT Body Mass Index 23.38 05/02/2016 3:20 AM [employer]INE [employer] AGENT Plan of Treatment Health Maintenance Due Date Last Done Comments DTaP,Tdap,and Td Vaccines ( - 1949 Tdap) Breast Cancer Screening-Mammogram 11/08/2016 11/09/2015, 10/04/2014, 09/21/2013, Additional history exists Influenza Vaccine (#1) 2016 12/26/2015, 04/11/2015, 04/13/2014, Additional history exists Annual Wellness Visit 12/04/2016 12/05/2015, 01/04/2014 Zoster Vaccine Completed 10/02/2011 Pneumo-Adult Completed 06/14/2014, 09/25/2010, 07/15/2007 Results Not on filefrom Last 3 Months
[2017-03-31] MEDS: LR 1,000 ML IV SCH ×2 (11:40→13:56)
[2017-03-31] MEDS ORDERED: INDOCYANINE GREEN 25mg INJECTION ONE (11:48)
[2017-03-31] MEDS ORDERED: BUPIVACAINE 0.5%/EPI 1:200,000 INJ 30ml SDV ONE (11:48)
[2017-03-31] MEDS ORDERED: SALINE FLUSH 10ml SYRINGE ONE ×3 (11:48→15:22)
--- NOTE | 2017-03-31 11:58 | Anesthesia Preoperative Report ---
Anesthesia Preoperative Record - Date and Time Date: 03/31/17 Preoperative Diagnosis: right colectomy C18.0 Proposed Procedure: Robotic Laparoscopic Colectomy NPO Since Date: 03/31/17 NPO Since Time: 00:00 Allergies/Adverse Reactions: Allergies Allergy/AdvReac Type Severity Reaction Status Date / Time cephalexin Allergy Unknown Hives Verified 03/31/17 11:22 propoxyphene Allergy Hives Verified 03/31/17 11:22 [From Darvocet-N] Sulfa (Sulfonamide Allergy Hives Verified 03/31/17 11:22 Antibiotics) Tetanus Vaccines and Toxoid Allergy Hives Verified 03/31/17 11:22 - Vital Signs Vital Signs: Temperature 98.2 F 03/31/17 11:07 Pulse Rate 71 03/31/17 11:39 Respiratory Rate 15 03/31/17 11:07 Blood Pressure 133/73 03/31/17 11:07 Pulse Oximetry 100 03/31/17 11:07 Height and Weight: Height 1.6 m Weight 67.1 kg Body Mass Index 26.2 - Medications Inpatient Medications: Current Medications Heparin Sodium (Porcine) (Heparin 5,000unit/Ml) 5,000 unit SUB-Q YARD SUPERVISOR ONE Stop: 03/31/17 16:10 Levofloxacin/Dextrose (Levaquin Premix) 500 mg in 100 mls @ 100 mls/hr IV PREOP [place] Lactated Ringer's (Lactated Ringers) 1,000 mls @ 50 mls/hr IV .Q20H [place] Last Admin: 03/31/17 11:40 Dose: 50 mls/hr Lidocaine HCl (Xylocaine-Mpf 1% Vial) 1 mg ID O ONE Stop: 03/31/17 15:47 Last Admin: 03/31/17 11:48 Dose: Not Given Home Medications: Home Medications Medication Instructions Recorded Confirmed Type ClonazePAM [Klonopin] 0.5 mg PO HS 09/12/16 03/31/17 History Donepezil HCl [Aricept] 10 mg PO HS 09/12/16 03/31/17 History Furosemide [Lasix] 20 mg PO DAILY 09/12/16 03/31/17 History Levothyroxine Sodium 75 mcg PO DAILY 09/12/16 03/31/17 History Lutein 20 mg PO DAILY 09/12/16 03/31/17 History Melatonin 5 mg PO HS 09/12/16 03/31/17 History Multivitamin [Multivitamins] 1 cap PO DAILY 09/12/16 03/31/17 History Simvastatin [Zocor] 10 mg PO HS 09/12/16 03/31/17 History Topiramate 25 mg PO NOON 09/12/16 03/31/17 History Gabapentin 300 mg PO DAILY 01/08/17 03/31/17 History Carbidopa/Levodopa [Carbidopa-Levo 1 tab PO NOON 02/10/17 03/31/17 History 25-250 mg Odt] Docusate Sodium [Colace] 100 mg PO BID 02/10/17 03/31/17 History Hydrocodone/APAP 5/325 [[place] 1 tab PO Q6HR PRN 03/28/17 03/31/17 History 5/325] - Medical History Respiratory: DENIES: Sleep Apnea Cardiovascular: Reports: Congestive Heart Failure (hx), Hypertension, High Cholesterol Gastrointestional: Reports: Gastroesophageal Reflux Disease (well controlled), Gastrointestinal Bleeding (recent admit with GI bleed 01/2017), Hiatal Hernia Neuro/Musculoskeletal: Reports: Back Problems, Depression Renal/Endocrine: Reports: Thyroid Disease Other History: Reports: Cancer (Colon, Breast, recent colon CA) - Surgical History HEENT Surgeries: Reports: Nose Surgery (SINUS), Tonsillectomy, Other (CATARACT SURGERY) Cardiac Surgeries/Treatments: Reports: Internal Defibrillator, Pacemaker ( [employer]) Respiratory Surgery/Treatments: Reports: Oxygen Administration (2 liters AT NIGHT) GI Surgery/Treatments: Reports: Appendectomy, Cholecystectomy, Colonoscopy, EGD Musculoskeletal Surgery/Tx: Reports: Total Hip Replacement (RIGHT), Total Knee Replacement (RIGHT), Other (R ROTATOR CUFF, R FOOT) Reproductive Surgery/Treatment: Reports: Mastectomy (right) Hx Family Anesthesia Reaction: No History of Motion Sickness: No - Social History Smoking Status: Former smoker Hx Chewing Tobacco Use: No Second Hand Exposure: No Substance Use Type: does not use Alcohol Intake: never Alcohol Intake Frequency: does not drink - Pertinent Findings Laboratory: CBC and BMP 03/31/17 11:20 03/31/17 11:20 BMP 03/31/17 11:20 Sodium 144 Potassium 3.9 Chloride 108 H Carbon Dioxide 27 BUN 16.0 Creatinine 0.8 Glucose 94 Calcium 9.1 Liver Function 03/31/17 Range/Units 11:20 Total Bilirubin 0.40 (0.20-1.30) MG/DL AST 25 (14-36) U/L ALT 19 (9-52) U/L Alkaline Phosphatase 118 (38-126) U/L Albumin 4.0 (3.5-5.0) G/DL EKG: Sinus Rhythm - Physical Exam Respiratory Exam: Present: lungs clear Cardiovascular Exam: Present: regular rate and rhythm - Airway Assessment Mallampati Score: II TMD: 3 Fingerbreadths Neck Extension: fair Teeth: poor dentation, loose tooth Overall Assessment: no airway concerns - ASA ASA Score: 3 - Plan Anesthesia: General Inhalation Gases - Discussion Discussion: Discussed risks/options/alternatives of anesthesia and questions answered. Patient consents. Nursing pain assessment noted. Attestation Statement: Prior to the delivery of any anesthetic medication, I examined the patient, developed the plan, obtained the patient's consent and discussed the risk and benefits of the procedure with the patient/guardian. - Additional Information Seen by Anesthesia: Yes
[2017-03-31] MEDS ORDERED: ROCURONIUM 50 MG/5 ML INJECTION IVP ONE ×2 (12:05→13:17)
[2017-03-31] MEDS ORDERED: PROPOFOL 20 ML ONE (12:05)
[2017-03-31] MEDS ORDERED: FentaNYL 250 MCG/5 ML INJECTION ONE (12:07)
[2017-03-31] MEDS ORDERED: SUCCINYLCHOLINE 20mg/mL 10mL INJECTION ONE (12:16)
[2017-03-31] MEDS ORDERED: EPHEDRINE 50mg/ml INJECTION ONE (12:35)
[2017-03-31] MEDS ORDERED: PHENYLEPHRINE INJ 10 MG/ML VIAL IV ONE (12:41)
[2017-03-31] MEDS ORDERED: MetroNIDAZOLE PB 500 MG/100 ML BAG IV ONE (13:30)
[2017-03-31] MEDS ORDERED: INDOCYANINE GREEN 25mg INJECTION IVP PRN (15:19)
[2017-03-31] MEDS ORDERED: LIDOCAINE 1% (10mg/ml) 2mL INJ PF SDV ID ONE (15:46)
[2017-03-31] MEDS ORDERED: HEPARIN SUB-Q 5,000units/0.5ml INJECTION SQ ONE (16:09)
[2017-03-31] MEDS ORDERED: FentaNYL 100 MCG/2 ML INJECTION ONE (16:53)
--- NOTE | 2017-03-31 17:20 | General Surgery Procedure Note ---
Date of Procedure: 03/31/17 Surgeon: Kathy Title Assistant: Filippo Tapia APRN Postoperative Diagnosis: Ascending colon cancer Procedure: Robotic assisted laparoscopic right hemicolectomy with primary anastomosis Estimated Blood Loss: See Anesthesia Record.
[2017-03-31] MEDS ORDERED: ONDANSETRON 4 MG/2 ML INJECTION IVP PRN ×2 (17:46→19:28)
[2017-03-31] MEDS: MORPHINE SULFATE 10 MG/ML VIAL IVP PRN ×3 (17:51→18:34)
--- NOTE | 2017-03-31 18:09 | Operative Note ---
DATE OF PROCEDURE 03/31/2017 PREOPERATIVE DIAGNOSIS Bilateral stents for a colectomy. POSTOPERATIVE DIAGNOSIS Bilateral stents for a colectomy. PROCEDURE PERFORMED Cystoscopy with placement of bilateral lighted stents. PRIMARY SURGEON Rick Schwartz MD COMPLICATIONS None. DRAINS None. INDICATION FOR THE PROCEDURE This is an 87-year-old female who was undergoing a right robotic colectomy with Dr. Chavez today. I was asked to place bilateral lighted stents in the ureter to help identify them during the surgery. DESCRIPTION OF THE PROCEDURE The patient was positioned in the dorsal lithotomy positon. Her genitalia were prepped and draped in the usual fashion. At this time a formal time-out was done. All the persons in the room were in agreement. I began the procedure by introducing a rigid cystoscope inside in the bladder. The two UO's were identified and were orthotopic in position. There were no suspicious lesions in the bladder. I began by placing the lighted ureteral stent in the left ureter over a Sensor wire. This was advanced to the two-nacho level. The cystoscope was then removed making sure that the stent was still in the left ureter. The same procedure was repeated on the right ureter. The stent was also advanced to the two-nacho level. Once the two stents were in place, I placed a 16-Greenlandic Kingsley in the bladder and secured the two stents to it using silk. I then placed the electrode in each stent in order to provide lighting during the procedure. This concluded the urology portion of the case. The care of the patient was handed back to Dr. Chavez to perform his procedure. [facility]PITALS[facility]
[2017-03-31] MEDS: KETOROLAC 15 MG/ML INJECTION IVP PRN (18:21)
--- NOTE | 2017-03-31 18:41 | Anesthesia Postoperative Note ---
- Date and Time Date: 03/31/17 Time: 18:38 - Status Patient Participated in Evaluation: Patient Participated in Person Vital Signs: Temperature 97.2 F 03/31/17 17:13 Pulse Rate 69 03/31/17 18:30 Respiratory Rate 17 03/31/17 18:30 Blood Pressure 117/62 03/31/17 18:30 Pulse Oximetry 97 03/31/17 18:30 Respiratory Function: Airway Patent, Regular Respirations Cardiovascular Function: Regular Pulse Mental Status: Alert and Oriented Pain Intensity: 6 Hydration: IV Infusing Complications During Recover: None Apparent - Follow-Up Instructions Instructions: Per Surgeon
[2017-03-31] MEDS ORDERED: HYDROMORPHONE PCA 30mg/30ml VIAL IV PRN (19:28)
[2017-03-31] MEDS ORDERED: MORPHINE SULFATE 4mg INJECTION IVP PRN (19:28)
[2017-03-31] MEDS: D5-1/2NS with KCL 20mEq 1,000 ML IV SCH (19:37)
[2017-03-31 19:42] VITALS: BMI 26.0
[2017-03-31] MEDS ORDERED: ARTIFICIAL TEARS 15ml EACH EYE PRN (20:37)
[2017-03-31] MEDS: MORPHINE SULFATE 4mg INJECTION IVP PRN ×2 (20:51→23:38)
[2017-03-31] MEDS: REFRESH CLASSIC Eye Drops 0.4ml EACH EYE PRN (21:41)
[2017-03-31] MEDS: ClonazePAM 0.5 MG TABLET PO SCH (21:41)
[2017-03-31] MEDS: DULOXETINE 30 MG CAPSULE PO SCH (21:42)
[2017-03-31] MEDS: GABAPENTIN 300 MG CAPSULE PO SCH (21:42)
[2017-03-31] MEDS: MELATONIN 5 MG TABLET PO SCH (21:42)
[2017-03-31] MEDS: DONEPEZIL 10 MG TABLET PO SCH (21:42)
--- NOTE | 2017-03-31 22:33 | Operative Note ---
DATE OF SERVICE 03/31/2017 SURGEON Umair Chavez MD [employer]PAR[employer] SUPERVISOR Filippo Tapia APRN PREOPERATIVE DIAGNOSIS Adenomatous polyp unable to be removed in its entirety involving cecum. Invasive adenocarcinoma involving ileocecal valve region. POSTOPERATIVE DIAGNOSIS Adenomatous polyp unable to be removed in its entirety involving cecum. Invasive adenocarcinoma involving ileocecal valve region. PROCEDURE Robotic-assisted laparoscopic right hemicolectomy. ANESTHESIA General endotracheal. EBL AND FLUIDS Please see chart. BRIEF HISTORY/INDICATIONS Mrs. Juan is an 87-year-old female who quite some time ago had presented to our facility as a result of rectal bleeding and anemia. She did undergo a colonoscopy and was found to have a mass involving the ileocecal valve region that was consistent with that of adenocarcinoma. Additionally, she was found to have a 3 cm sessile polyp within the cecal region that was identified and biopsied as well. Pathologically the lesion near the ileocecal valve returned as invasive adenocarcinoma. The lesion within the cecum was that of an adenomatous villous lesion. The patient presents today to undergo a right hemicolectomy for management of her invasive adenocarcinoma and adenomatous polyp within the cecum which was unable to be removed in its entirety endoscopically. For completeness please refer to notes included in the patient' s chart. FINDINGS Upon laparoscopy liver edge was smooth without nodularities. Gallbladder was without visible abnormalities. Peritoneal surfaces, omentum, small bowel, colon which was visualized were within normal limits. A standard robotic- assisted laparoscopic right hemicolectomy was completed without incident. Intracorporeal anastomosis performed in an isoperistaltic fashion. DESCRIPTION OF PROCEDURE After informed consent was obtained, the patient was brought to the operative suite and placed on the table in a supine fashion. The abdomen was then prepped and draped in sterile fashion. Preoperatively, urology had placed ureteral stents to facilitate identification of the ureters. This portion of the procedure will be dictated by Dr. Schwartz. A formal time-out was completed. First, 0.25% Marcaine with epinephrine was injected just beneath the left subcostal margin. A 4-5 mm incision was then made through the area of analgesia. A Veress needle was then introduced through this small incision and advanced in a cephalad fashion just beneath the subcostal margin. Pneumoperitoneum was established to a patient pressure of 15 mmHg utilizing carbon dioxide. Additional 0.25% Marcaine with epinephrine was injected at each proposed port site. First, a camera port was placed inferior and to the left of the umbilicus. A port was placed overlying 8 mm camera and port was advanced through the subcutaneous tissues, fascia and peritoneum under direct visualization into the peritoneal cavity. Next, one could then see the Veress needle as it coursed through the anterior abdominal wall within the left upper quadrant. Veress needle was removed. A da Nikki stapler port was placed within the left upper quadrant under direct visualization. An 8 mm da Nikki port was then placed within the epigastric region under direct visualization. Additional 8 mm port was placed in the suprapubic region under direct visualization as well. Lastly, a 5-mm assist port was placed within the left lower quadrant of the abdomen. Again, each port site was placed under direct visualization. Next, the patient was rotated towards her left and the bed was slightly flexed. She was also placed in Trendelenburg position. Small bowel was then placed within the left upper quadrant of the abdomen. Robot was then docked from the patient's right side at a 45-degree angle at about the level of the shoulder. Robotic arm #3 was attached to the trocar within the epigastric region and a Graptor was placed through this port site. Robotic arm #1 was placed at the camera port site within the left upper quadrant and hook cautery was placed at this location. Next, a fenestrated bipolar grasper was placed within robotic arm #2 through the suprapubic region. Instruments were advanced towards the right colon. Next, I proceeded to the console. Graptor was then utilized to grab the mid ascending colon and retract it in an anterior and lateral fashion in order to "tent up" the right mesocolon. One could then see the right ileocolic vessels within the right mesocolon. Next, the right mesocolon was incised with electrocautery just caudad to the ileocolic vessels. A vessel sealer was then utilized and dissection was carried up through the right mesocolon to the terminal ileum about 6 cm proximal to the ileocecal valve. One could see the right ureter within the retroperitoneum for it "lit up " quite brightly with the ureteral stents that were placed. This did facilitate dissection. The retroperitoneal plane was then continued to be created posterior to the ileocolic vessels. Ileocolic vessels were then carefully and meticulously dissected out. Ileocolic vessels were ligated proximally and distally by placing Hem-o-bernadette clips once they had been dissected out circumferentially. Right colic vessels were divided at their origin between Hem-o-bernadette clips that had been placed as discussed above. Next, attention was then focused towards the omentum off the transverse colon. The omentum was divided up to the colon just to the right of midline. Next, the gastrocolic and renocolic ligaments were then divided as the hepatic flexure was being completely immobilized medially and caudally. The gastrocolic ligament and renocolic ligament were divided with the vessel sealer. Hepatic flexure at this time had been completely mobilized. A small window was then created within the transverse mesocolon to the right of the middle colic vessels. There was one vessel remaining coursing up towards the hepatic flexure region. A Hem-o-bernadette clip was then placed upon the remaining vessel within the transverse mesocolon and divided distally with the vessel sealer. Additionally, it should be noted that as the hepatic flexure was mobilized one could see the duodenum. The duodenum was preserved in its entirety and gently dissected posteriorly as the hepatic flexure was being mobilized medially and caudally. Duodenal C-loop was dissected out completely and the duodenum was dissected away from the transverse mesocolon as the transverse mesocolon was being lifted anteriorly. Next, attention was then directed towards transection of the terminal ileum and transverse colon. A blue load was then placed within the robotic arm #1 and placed across the terminal ileum approximately 6 cm proximal to the ileocecal valve region. Terminal ileum was transected at this location. Transverse colon was also transected just to the right of the middle colic vessels. Next, the terminal ileum was grasped and retracted anteriorly and the white line of Toldt was begun to be incised lateral to the right colon and the attachments to the right colon posteriorly were also divided with the use of hook cautery. Again, one could see the right ureter throughout its entirety with the lighted stent. This did facilitate dissection significantly. The right ureter was preserved its entirety. Right colon was then completely mobilized from its attachments out laterally. The right colon and transverse colon at this point in time had been completely transected and divided from its from its attachments and was subsequently placed anterior to the right lobe of the liver. Next, attention was directed towards creation of the anastomosis. An isoperistaltic anastomosis was subsequently performed. First, a seromuscular purchase of the antimesenteric tenia coli was obtained upon the transverse colon about 6-7 cm beyond the staple line. Next, a seromuscular purchase of the antimesenteric portion of the terminal ileum was obtained just proximal to the staple line. This was performed with a 3-0 Vicryl. Sutures were left long and utilized as a stay suture. Next, a single interrupted suture of 3-0 Vicryl was placed in a similar fashion by first obtaining a seromuscular purchase of the antimesenteric tenia coli adjacent to the staple line followed by a seromuscular purchase of the terminal ileum about 8 cm proximal to the staple line along its antimesenteric border. The terminal ileum was then aligned in an antimesenteric/isoperistaltic fashion to the antimesenteric portion of the transverse colon. The patient was then given ICG intravenously. The terminal ileum fluoresced quite well to the staple line. Furthermore, one could see good blood supply to the remaining transverse colon up to the staple line. One could see some vessels adjacent to the staple line that were fluorescing indicative of adequate blood supply up to the staple lines involving both the transverse colon and terminal ileum. Next. enterotomy and colotomy was then performed adjacent to the stay suture that had been placed near the staple line of the terminal ileum. The robotic stapler was then reloaded and placed within the enterotomy and colotomy and aligned along the antimesenteric borders of the terminal ileum and transverse colon and fired. Stapler was then removed. The stay suture was then transected so that one could see the apex of the staple line and enterotomy and colotomy to a greater extent. The opening at the enterotomy and colotomy/staple line was then closed under direct visualization in a two-layer fashion. First, the edges were imbricated in a running fashion utilizing 3-0 V-Loc suture. First suture was placed just beyond the apex of the opening and the last suture was placed just beyond the apex of the opposite end of the enterotomy-colotomy. V- Loc suture was then tightened sequentially resulting in a nice imbrication of the edges of the terminal ileum and transverse colon. V-Loc suture was then sewn once again back over itself in a running fashion. This initial suture line was then reinforced by placing numerous Lembert sutures of 3-0 Vicryl. The first Lembert suture was placed just beyond the initial suture of the previously placed V-Loc suture. Numerous Lembert sutures were then placed overlying the entire suture line. The last Lembert suture that was placed was placed beyond the apex of the V-Loc suture line. The V-Loc suture line was now no longer visible once these Lembert sutures had been placed. Anastomosis was without any undue tension. As stated above, the vascular supply to the anastomosis was quite well as determined by fluorescence of the ICG. Next, attention was then directed towards removal of the specimen and closure. Robot was undocked. A Wavy grasper was placed upon the transected end of the terminal ileum. Next, a Pfannenstiel incision was made within the suprapubic region at the site of the prior 8 mm port. A 3-4 cm transverse/Pfannenstiel incision was made adjacent to the incision that had been made originally at the port site within the suprapubic region. Dissection was then carried down to the underlying anterior rectus sheath. Anterior rectus sheath was opened transversely. A plane was then created just beneath the anterior rectus sheath proximally and distally. Next, the peritoneum was then opened between the two strap muscles and entry was gained into the peritoneal cavity. An Mau wound retractor was then placed through the small incision. Next, with the Mau wound retractor placed, the transected end of the terminal ileum was brought forth up into the Mau wound retractor utilizing the previously placed Wavy grasper. Terminal ileum was then grasped with a [place] clamp and the specimen was removed through this small Pfannenstiel incision and passed off the table. Next, the Mau wound retractor was removed. Peritoneum was closed in a running fashion with #1 PDS suture. Anterior rectus sheath was then closed a running fashion with #1 PDS suture. Skin incision within the suprapubic region was then closed with hannah. Next, the pneumoperitoneum was then reestablished. Laparoscope was inserted into the staple port within the left upper quadrant. A [id number] suture of 0 Vicryl was then placed at the camera port site once the camera had been removed utilizing a laparoscopic suture passer. Camera port was then replaced and the laparoscope was then reinserted into the camera port and the stapler port was then removed. The fascia at this port site was then closed in a [id number] fashion also with 0 Vicryl laparoscopically utilizing a laparoscopic suture passer. Sutures were tied securely resulting in imbrication of the fascial edges. The 8-mm da Nikki port within the epigastric region was removed under direct visualization. The remaining assist port within the left lower quadrant was then removed under direct visualization. All skin incisions were then closed with hannah. The patient was awakened from her anesthetic and sent back to recovery room once in stable condition. Additionally, it should be noted that Filippo Tapia APRN, was present throughout the entire case and played a pivotal role in providing assistance and exposure during the course of the procedure. DEENA
[2017-04-01] MEDS: MORPHINE SULFATE 4mg INJECTION IVP PRN ×2 (02:58→07:36)
[2017-04-01] MEDS: D5-1/2NS with KCL 20mEq 1,000 ML IV SCH ×3 (05:29→21:57)
[2017-04-01] MEDS ORDERED: NS FLUSH BAG 500ml IV PRN (07:14)
[2017-04-01] MEDS: KETOROLAC 15 MG/ML INJECTION IVP PRN ×3 (07:35→22:34)
[2017-04-01] MEDS: REFRESH CLASSIC Eye Drops 0.4ml EACH EYE PRN (07:36)
[2017-04-01] MEDS: PANTOPRAZOLE 40 MG INJECTION IVP SCH ×2 (07:38→08:09)
--- NOTE | 2017-04-01 07:43 | Anesthesia Postoperative Note ---
- Date and Time Date: 04/01/17 Time: 07:30 - Status Patient Participated in Evaluation: Patient Participated in Person Vital Signs: Temperature 98.6 F 04/01/17 00:15 Pulse Rate 71 04/01/17 04:00 Respiratory Rate 14 04/01/17 03:00 Blood Pressure 92/55 04/01/17 03:00 Pulse Oximetry 97 04/01/17 03:00 Respiratory Function: Airway Patent Cardiovascular Function: Regular Pulse EKG: Sinus Rhythm Mental Status: Alert and Oriented Pain Intensity: 2 Hydration: IV Infusing Complications During Recover: Patient has had some pain in right eye since yesterday. Feels as though there is something in it. No loss of vision. Does not appear to be red or swollen. Patient states it is much better today and hardly noticeable. Explained to her it maybe a corneal abrasion which in most circumstances will resolve by itself and appears to be resolving already. She understood and does not want to see a postal transportation clerk. Mason Martinez aware and will keep and eye on it to make sure it continues to get better. - Follow-Up Instructions Instructions: Per Surgeon
[2017-04-01] MEDS: GABAPENTIN 300 MG CAPSULE PO SCH ×3 (08:04→20:40)
[2017-04-01] MEDS: LEVOTHYROXINE 75 MCG TABLET PO SCH (08:07)
[2017-04-01] MEDS: FUROSEMIDE 20 MG TABLET PO SCH (08:08)
[2017-04-01] MEDS: DULOXETINE 30 MG CAPSULE PO SCH ×2 (08:09→20:40)
[2017-04-01] MEDS ORDERED: ENOXAPARIN 40 MG/0.4 ML INJECTION SQ SCH (09:00)
--- NOTE | 2017-04-01 10:03 | General Surgery Progress Note ---
Subjective Patient reports: no flatus, no bowel movement Narrative: She has been alert and conversive with staff. Pain is mild to moderate with only low dose Morphine and Toradol. Will DC Dilaudid DIRECTOR BUILDING order. HGB this am 6.8 , 2 units ordered to cross and 1 to give. Will get repeat HGB after 1st unit. SBP briefly dropped to 70's this morning, currently 90's and 1 unti PRBC has been started, D5 1/2 NC w 20 KCl at 125 also infusing. Urine output is marginal about 10-15/hr the last couple of hours, with current output 18 ml. A bolus of 500 m l NS was given, the Bumex has not, but she had her home dose of Lasix PO about 1 hours ago. Serum Ca+ 6.6, Albumin 2.4 so corrected calcium is 8.2 based on "normal" Albumin 4.4. (if based on normal Abumin 4.0, corrected calcium would be 7.88) - Vital Signs Last Vital Signs Temp 97.5 F 04/01/17 08:00 Pulse 71 04/01/17 08:00 Resp 14 04/01/17 08:00 BP 101/57 04/01/17 08:00 Pulse Ox 95 04/01/17 08:00 - Laboratory Result Diagrams: 04/03/17 04:20 04/03/17 04:20 - Abnormal Exam Cardiovascular: murmur Abdominal: hypoactive bowel sounds - Normal Exam General: awake, alert, oriented Cardiovascular: regular rate Respiratory: equal bilaterally (with faint crackles at bases) Abdominal: soft, appropriately tender, incision(s) (Dressings CDI) Female: other (urine bloody, she had ureteral stents during surgery, expect this to clear up in 24-38 hours.) Psychiatric: normal affect Neurological: CN 2-12 grossly intact Assessment and Plan (1) Primary adenocarcinoma of ascending colon Current Visit: Yes Status: Acute (2) Hypotension due to blood loss Current Visit: Yes Status: Acute (3) Acute blood loss anemia Current Visit: No Status: Acute (4) Oliguria Current Visit: Yes Status: Acute (5) Heart failure Current Visit: Yes Status: Chronic Qualifiers: Heart failure type: unspecified Heart failure chronicity: unspecified Qualified Code(s): I50.9 - Heart failure, unspecified (6) GERD (gastroesophageal reflux disease) Current Visit: Yes Status: Chronic Qualifiers: Esophagitis presence: without esophagitis Qualified Code(s): K21.9 - Gastro -esophageal reflux disease without esophagitis (7) Parkinson's disease Current Visit: Yes Status: Chronic (8) Pacemaker Current Visit: Yes Status: Chronic Plan: She has been alert and conversive with staff. Pain is mild to moderate with only low dose Morphine and Toradol. Will DC Dilaudid DIRECTOR BUILDING order. HGB this am 6.8, 2 units ordered to cross and 1 to give. Will get repeat HGB after 1st unit. SBP briefly dropped to 70's this morning, currently 90's and 1 unti PRBC has been started, D5 1/2 NC w 20 KCl at 125 also infusing. Urine output is marginal about 10-15/hr the last couple of hours, with current output 18 ml. A bolus of 500 m l NS was given, the Bumex has not, but she had her home dose of Lasix PO about 1 hours ago. Serum Ca+ 6.6, Albumin 2.4 so corrected calcium is 8.2 based on "normal" Albumin 4.4. (if based on normal Abumin 4.0, corrected calcium would be 7.88) Continue current care, daily labs and close monitoring of urine output and VS. Continue home meds as much as possible for Parkinson's, HF, etc. Pacemaker fires infrequently. Hospital Course Summary Disclaimer: The visit summary below is not to be considered part of the above Progress Note. Hospital Course: 04-01-2017 POD #1 She has been alert and conversive with staff. Pain is mild to moderate with only low dose Morphine and Toradol. Will DC Dilaudid DIRECTOR BUILDING order. HGB this am 6.8, 2 units ordered to cross and 1 to give. Will get repeat HGB after 1st unit. SBP briefly dropped to 70's this morning, currently 90's and 1 unti PRBC has been started, D5 1/2 NC w 20 KCl at 125 also infusing. Urine output is marginal about 10-15/hr the last couple of hours, with current output 18 ml. A bolus of 500 m l NS was given, the Bumex has not, but she had her home dose of Lasix PO about 1 hours ago. Serum Ca+ 6.6, Albumin 2.4 so corrected calcium is 8.2 based on "normal" Albumin 4.4. (if based on normal Abumin 4.0, corrected calcium would be 7.88) Continue current care, daily labs and close monitoring of urine output and VS. Continue home meds as much as possible for Parkinson's, HF, etc. Pacemaker fires infrequently.
[2017-04-01] MEDS: TOPIRAMATE 25 MG TABLET PO SCH (12:57)
[2017-04-01] MEDS: HYDROCODONE/APAP 5mg/325mg TABLET PO PRN (16:04)
[2017-04-01] MEDS ORDERED: ALBUTEROL/IPRATROPIUM 2.5mg-0.5mg/3ml NEB AEROSOL PRN (16:27)
[2017-04-01] MEDS ORDERED: Bisacodyl EC TAB 5 MG TABLET PO ONE (18:02)
--- NOTE | 2017-04-01 18:56 | Progress Note ---
DATE OF SERVICE 04/01/2017 FINDINGS Mrs. Juan was seen this evening on rounds. She was in good spirits. EXAM VITAL SIGNS: Temperature 98.6, pulse 69, blood pressure 94/50. HEENT: Normocephalic. Pupils are equally round and react to light and accommodation. CHEST: Clear to auscultation bilaterally. HEART: Regular rate and rhythm. Normal S1 and S2 without gallops, murmurs or clicks. ABDOMEN: Visualization of the abdomen reveals her surgical incisions to be clean, dry and intact. Palpation of the abdomen reveals it to be soft with only minimal tenderness being present. LABORATORY/RADIOGRAPHIC EVALUATION The patient's hemoglobin earlier this morning was low at 6.8. She did receive a blood transfusion and her hemoglobin this evening is 8.6. BMP obtained and found to be without marked abnormalities. ASSESSMENT 87-year-old female status post robotic-assisted laparoscopic right hemicolectomy. Overall, patient doing well. PLAN Will go ahead and give the patient full liquids. Will continue otherwise with current care. Will likely move out to surgical floor tomorrow as long as the patient continues to improve. The urinary output has been somewhat marginal but will continue to follow. DEENA
[2017-04-01] MEDS: ClonazePAM 0.5 MG TABLET PO SCH (20:40)
[2017-04-01] MEDS: DONEPEZIL 10 MG TABLET PO SCH (20:40)
[2017-04-01] MEDS: MELATONIN 5 MG TABLET PO SCH (20:40)
[2017-04-02] MEDS: LEVOTHYROXINE 75 MCG TABLET PO SCH (06:13)
[2017-04-02] MEDS: D5-1/2NS with KCL 20mEq 1,000 ML IV SCH ×2 (06:15→07:32)
--- NOTE | 2017-04-02 07:47 | General Surgery Progress Note ---
Subjective Patient reports: pain is less, tolerating liquids well (tolerating fulls, will advance to regular soft), flatus (passing flatus, a large amount while we were rolling her over.) Narrative: Having hallucinations, and "a long bad dream." Alert and oriented now, reported to me that her surgery was Friday and today is Friday. Denies chest pain.She is still on oxygen 1-2 Lt. Urine output in the teens last evening, Bumex 1 mg give and output increased but is slowing down again in the 30's-50's/hr. - Vital Signs Last Vital Signs Temp 97.6 F 04/02/17 04:00 Pulse 69 04/02/17 06:30 Resp 15 04/02/17 06:30 BP 114/61 04/02/17 06:30 Pulse Ox 94 04/02/17 06:30 - Laboratory Result Diagrams: 04/03/17 04:20 04/03/17 04:20 - Pathology Pending - Abnormal Exam General: confused (at times with hallucinations) Cardiovascular: murmur - Normal Exam General: awake, alert, oriented (currently), no acute distress Cardiovascular: regular rate Respiratory: no labored breathing, other (crackles at bases) Abdominal: BS normo active x4, soft, appropriately tender (at incisions), incision(s) (dressings CDI) Psychiatric: normal affect Assessment and Plan (1) Primary adenocarcinoma of ascending colon Current Visit: Yes Status: Acute (2) Hypotension due to blood loss Current Visit: Yes Status: Acute (3) Acute blood loss anemia Current Visit: No Status: Acute (4) Oliguria Current Visit: Yes Status: Acute (5) Heart failure Current Visit: Yes Status: Chronic Qualifiers: Heart failure type: unspecified Heart failure chronicity: unspecified Qualified Code(s): I50.9 - Heart failure, unspecified (6) GERD (gastroesophageal reflux disease) Current Visit: Yes Status: Chronic Qualifiers: Esophagitis presence: without esophagitis Qualified Code(s): K21.9 - Gastro -esophageal reflux disease without esophagitis (7) Parkinson's disease Current Visit: Yes Status: Chronic (8) Pacemaker Current Visit: Yes Status: Chronic Plan: Passing flatus and good bowel sounds, will advance to regular soft diet. HGB drifted back down to 7.7, was 8.6 after 1 unit PRBC yesterday, repeat HGB at noon today. BMP is stable, K+ is rising, 4.5 today, 3.5 yesterday, she takes PO K+ will continue to monitor. Change fluids to NS at 100/hr Urine output better, DC Kingsley. Crackles at bases, . Continue breathing treatment and RT. Pain controlled with Toradol, she has not had Morphine since yesterday morning. Hallucination are common after long surgeries, provide supportive care. Transfer to surgical floor. Order PT/OT Hospital Course Summary Disclaimer: The visit summary below is not to be considered part of the above Progress Note. Hospital Course: 04-01-2017 POD #1 She has been alert and conversive with staff. Pain is mild to moderate with only low dose Morphine and Toradol. Will DC Dilaudid TAX MANAGER CPA order. HGB this am 6.8, 2 units ordered to cross and 1 to give. Will get repeat HGB after 1st unit. SBP briefly dropped to 70's this morning, currently 90's and 1 unti PRBC has been started, D5 1/2 NC w 20 KCl at 125 also infusing. Urine output is marginal about 10-15/hr the last couple of hours, with current output 18 ml. A bolus of 500 m l NS was given, the Bumex has not, but she had her home dose of Lasix PO about 1 hours ago. Serum Ca+ 6.6, Albumin 2.4 so corrected calcium is 8.2 based on "normal" Albumin 4.4. (if based on normal Abumin 4.0, corrected calcium would be 7.88) Continue current care, daily labs and close monitoring of urine output and VS. Continue home meds as much as possible for Parkinson's, HF, etc. Pacemaker fires infrequently. 04/02/2017 POD #2 Passing flatus and good bowel sounds, will advance to regular soft diet. HGB drifted back down to 7.7, was 8.6 after 1 unit PRBC yesterday, repeat HGB at noon today. BMP is stable, K+ is rising, 4.5 today, 3.5 yesterday, she takes PO K+ will continue to monitor. Change fluids to NS at 100/hr Urine output better, DC Kingsley. Crackles at bases, . Continue breathing treatment and RT. Pain controlled with Toradol, she has not had Morphine since yesterday morning. Hallucination are common after long surgeries, provide supportive care. Transfer to surgical floor. Order PT/OT
[2017-04-02] MEDS ORDERED: NS FLUSH BAG 500ml IV PRN (08:50)
[2017-04-02] MEDS ORDERED: DiphenhydrAMINE 25 MG CAPSULE PO ONE (08:50)
[2017-04-02] MEDS ORDERED: FUROSEMIDE 20 MG/2 ML INJECTION IVP ONE ×2 (08:50→13:30)
[2017-04-02] MEDS ORDERED: ACETAMINOPHEN 325 MG TABLET PO ONE (08:52)
[2017-04-02] MEDS: NS 1,000 ML IV SCH ×2 (08:54→18:12)
[2017-04-02] MEDS: GABAPENTIN 300 MG CAPSULE PO SCH ×3 (08:55→20:47)
[2017-04-02] MEDS: FUROSEMIDE 20 MG TABLET PO SCH (08:55)
[2017-04-02] MEDS: DULOXETINE 30 MG CAPSULE PO SCH ×2 (08:55→20:47)
[2017-04-02] MEDS: REFRESH CLASSIC Eye Drops 0.4ml EACH EYE PRN (08:55)
[2017-04-02] MEDS: PANTOPRAZOLE 40 MG INJECTION IVP SCH (08:56)
[2017-04-02] MEDS: TOPIRAMATE 25 MG TABLET PO SCH (12:01)
--- NOTE | 2017-04-02 15:42 | Progress Note ---
DATE OF SERVICE 04/02/2017 FINDINGS Ms. Juan this morning was without complaints. She was experiencing some minimal incisional tenderness. EXAM VITAL SIGNS: Afebrile, normotensive. Please refer to EMR. I&O: Urinary output size shows reviewed. Urine output adequate. CHEST: Clear to auscultation bilaterally. HEART: Regular rate and rhythm. Normal S1 and S2 without gallops, murmurs or clicks. ABDOMEN: Soft. Minimal incisional tenderness present. No evidence for guarding or rebound. LABORATORY/RADIOGRAPHIC EVALUATION The patient had a CBC today and her white was 8.5. Hemoglobin has drifted down slightly at 7.7. BMP obtained and found to be without marked abnormalities. ASSESSMENT 87-year-old female with multiple medical comorbidities, status post robotic- assisted laparoscopic right hemicolectomy, patient doing quite well. PLAN Will go ahead and transfer to floor. Will DC Kingsley. Will advance diet as tolerated. Given her frail status and associated medical comorbidities, will go ahead and transfuse an additional unit of blood at this time. I am pleased with the patient's progress. DEENA
[2017-04-02] MEDS ORDERED: FALL RISK - PHARMACY CONSULT XX ONE (19:20)
[2017-04-02] MEDS: ClonazePAM 0.5 MG TABLET PO SCH (20:46)
[2017-04-02] MEDS: DONEPEZIL 10 MG TABLET PO SCH (20:47)
[2017-04-02] MEDS: MELATONIN 5 MG TABLET PO SCH (20:47)
[2017-04-03] MEDS: HYDROCODONE/APAP 5mg/325mg TABLET PO PRN ×2 (01:11→18:21)
[2017-04-03] MEDS: NS 1,000 ML IV SCH (04:36)
[2017-04-03] MEDS: LEVOTHYROXINE 75 MCG TABLET PO SCH (06:16)
[2017-04-03] MEDS: GABAPENTIN 300 MG CAPSULE PO SCH ×3 (08:59→21:15)
[2017-04-03] MEDS: DULOXETINE 30 MG CAPSULE PO SCH ×2 (08:59→21:15)
[2017-04-03] MEDS: PANTOPRAZOLE 40 MG INJECTION IVP SCH (08:59)
[2017-04-03] MEDS: FUROSEMIDE 20 MG TABLET PO SCH (08:59)
--- NOTE | 2017-04-03 08:59 | General Surgery Progress Note ---
Subjective Patient reports: feels better (did not have hallucinations or "bad dreams" last night.), pain is less (No morphine or Toradol since the , she had [place] x1 during the night last night.), tolerating a regular diet, voiding w/o difficulty , bowel movement (bloody x2 yesterday), shortness of breath (still on 1-2 LT O2) - Vital Signs Last Vital Signs Temp 98.3 F 04/03/17 07:07 Pulse 69 04/03/17 07:07 Resp 20 04/03/17 07:07 BP 119/67 04/03/17 07:07 Pulse Ox 93 04/03/17 07:07 - Laboratory Result Diagrams: 04/03/17 04:20 04/03/17 04:20 - Abnormal Exam Respiratory: other (crackles at bases, similar to yesterday) Cardiovascular: murmur - Normal Exam General: oriented, resting, awakens easily Cardiovascular: regular rate (has a pacemaker) Respiratory: no labored breathing Abdominal: BS normo active x4, soft, non-tender, incision(s) (drssings removed today, CDI, hannah in tact, no erythema) Psychiatric: normal affect Assessment and Plan (1) Primary adenocarcinoma of ascending colon Current Visit: Yes Status: Acute (2) Hypotension due to blood loss Current Visit: Yes Status: Acute (3) Acute blood loss anemia Current Visit: No Status: Acute (4) Oliguria Current Visit: Yes Status: Acute (5) Heart failure Current Visit: Yes Status: Chronic Qualifiers: Heart failure type: unspecified Heart failure chronicity: unspecified Qualified Code(s): I50.9 - Heart failure, unspecified (6) GERD (gastroesophageal reflux disease) Current Visit: Yes Status: Chronic Qualifiers: Esophagitis presence: without esophagitis Qualified Code(s): K21.9 - Gastro -esophageal reflux disease without esophagitis (7) Parkinson's disease Current Visit: Yes Status: Chronic (8) Pacemaker Current Visit: Yes Status: Chronic Plan: Bloody stools yesterday x2, none during the late evening and through the night. HGB has remained stable after 2nd units of PRBC 8.5 today, (9.0 after transfusion yesterday before the bloody stools). Eating regular diet without difficulty. Crackles at bases, will decrease NS to 50 ml/hr, likely DC later today or tomorrow. K+ stable on home dose PO K+ and home dose Lasix Incisions look great. She may be ready for discharge, likely to an intermediate facility for strengthening in the next 1-2 days. Although...CM told she came off of Hospice for the surgery and originally planned on going back on Hospice upon discharge. Repeat labs in am. Hospital Course Summary Disclaimer: The visit summary below is not to be considered part of the above Progress Note. Hospital Course: 04-01-2017 POD #1 She has been alert and conversive with staff. Pain is mild to moderate with only low dose Morphine and Toradol. Will DC Dilaudid BROADCAST FIELD SUPERVISOR order. HGB this am 6.8, 2 units ordered to cross and 1 to give. Will get repeat HGB after 1st unit. SBP briefly dropped to 70's this morning, currently 90's and 1 unti PRBC has been started, D5 1/2 NC w 20 KCl at 125 also infusing. Urine output is marginal about 10-15/hr the last couple of hours, with current output 18 ml. A bolus of 500 m l NS was given, the Bumex has not, but she had her home dose of Lasix PO about 1 hours ago. Serum Ca+ 6.6, Albumin 2.4 so corrected calcium is 8.2 based on "normal" Albumin 4.4. (if based on normal Abumin 4.0, corrected calcium would be 7.88) Continue current care, daily labs and close monitoring of urine output and VS. Continue home meds as much as possible for Parkinson's, HF, etc. Pacemaker fires infrequently. 04/02/2017 POD #2 Passing flatus and good bowel sounds, will advance to regular soft diet. HGB drifted back down to 7.7, was 8.6 after 1 unit PRBC yesterday, repeat HGB at noon today. BMP is stable, K+ is rising, 4.5 today, 3.5 yesterday, she takes PO K+ will continue to monitor. Change fluids to NS at 100/hr Urine output better, FRANSISCA Kingsley. Crackles at bases, . Continue breathing treatment and RT. Pain controlled with Toradol, she has not had Morphine since yesterday morning. Hallucination are common after long surgeries, provide supportive care. Transfer to surgical floor. Order PT/OT 04/03/2017 POPD #3 Bloody stools yesterday x2, none late evening and through the night. HGB has remained stable after 2nd unit yesterday of PRBC 8.5 today, (9.0 after the transfusion and before the bloody stools yesterday). Eating regular diet without difficulty. Crackles at bases, will decrease NS to 50 ml/hr, likely DC later today or tomorrow. K+ stable on home dose PO K+ and home dose Lasix Incisions look great. She may be ready for discharge, likely to an intermediate facility for strengthening in the next 1-2 days. Although...CM told she came off of Hospice for the surgery and originally planned on going back on Hospice upon discharge. Repeat labs in am.
[2017-04-03 11:20] VITALS: RESP 16
[2017-04-03] MEDS: TOPIRAMATE 25 MG TABLET PO SCH (12:32)
--- NOTE | 2017-04-03 20:36 | Progress Note ---
DATE OF SERVICE 04/03/2017 FINDINGS Mrs. Juan was without complaints this evening. She was having some minimal incisional tenderness. This tenderness is mostly "noted when she coughs." EXAM VITAL SIGNS: Afebrile, normotensive. Please refer to EMR. ABDOMEN: Soft. Minimal incisional tenderness present. No evidence for guarding or rebound. LABORATORY/RADIOGRAPHIC EVALUATION White count is stable at 7.0. Hemoglobin overall stable at 8.5. BMP obtained and found to be without marked abnormalities. Pathology did return revealing invasive adenocarcinoma with 17 negative regional lymph nodes. ASSESSMENT 87-year-old female status post robotic-assisted laparoscopic right hemicolectomy , patient currently doing quite well. PLAN Will continue with current care. The patient is fairly frail with her advanced age. I would be a little reluctant to discharge her to home tomorrow although she is tolerating a regular diet and is doing fairly well. For now will continue with current care. Will have discharge planning work on best placement for the patient. DEENA
[2017-04-03] MEDS: ClonazePAM 0.5 MG TABLET PO SCH (21:15)
[2017-04-03] MEDS: MELATONIN 5 MG TABLET PO SCH (21:15)
[2017-04-03] MEDS: DONEPEZIL 10 MG TABLET PO SCH (21:15)
[2017-04-04] MEDS: LEVOTHYROXINE 75 MCG TABLET PO SCH (05:41)
[2017-04-04 08:04] VITALS: TEMP 97.2
[2017-04-04] MEDS: HYDROCODONE/APAP 5mg/325mg TABLET PO PRN (09:23)
[2017-04-04] MEDS: PANTOPRAZOLE 40 MG INJECTION IVP SCH (09:43)
[2017-04-04] MEDS: FUROSEMIDE 20 MG TABLET PO SCH (09:44)
[2017-04-04] MEDS: GABAPENTIN 300 MG CAPSULE PO SCH (09:44)
[2017-04-04] MEDS: DULOXETINE 30 MG CAPSULE PO SCH (09:44)
[2017-04-04] MEDS ORDERED: SALINE FLUSH 10ml SYRINGE IV PRN (09:45)
--- NOTE | 2017-04-04 10:54 | General Surgery Progress Note ---
Subjective Patient reports: feels better, pain is less (minimal, but some discomfort pelvic incision with activity), tolerating a regular diet, flatus, bowel movement (small yesterday and the day before, non yet today), afebrile Narrative: she is hoping to get to IRU today, states that if therapy is divided into segments, not all 3 hours at once, she should be able to comply. she ambulates with a walker, was fairly independent at home with ambulation, dressing, toileting, etc. Denies chest pain, SOA, nausea. - Vital Signs Last Vital Signs Temp 97.2 F 04/04/17 07:00 Pulse 70 04/04/17 07:00 Resp 16 04/04/17 07:00 BP 140/69 H 04/04/17 07:00 Pulse Ox 92 04/04/17 07:00 - Laboratory Result Diagrams: 04/04/17 04:42 04/04/17 04:42 - Pathology Right colon adenocarcinoma, all lymph nodes negative for metastasis. - Abnormal Exam Cardiovascular: murmur, other (pacemaker) - Normal Exam General: awake, alert, oriented, no acute distress Cardiovascular: regular rate Respiratory: clear bilaterally, no labored breathing Abdominal: BS normo active x4, soft, appropriately tender, incision(s) ( dressings folded back, hannah in tact, no erythema, ecchymosis) Psychiatric: normal affect, normal mood Assessment and Plan (1) Primary adenocarcinoma of ascending colon Current Visit: Yes Status: Acute (2) Hypotension due to blood loss Current Visit: Yes Status: Acute (3) Acute blood loss anemia Current Visit: No Status: Acute (4) Oliguria Current Visit: Yes Status: Acute (5) Heart failure Current Visit: Yes Status: Chronic Qualifiers: Heart failure type: unspecified Heart failure chronicity: unspecified Qualified Code(s): I50.9 - Heart failure, unspecified (6) GERD (gastroesophageal reflux disease) Current Visit: Yes Status: Chronic Qualifiers: Esophagitis presence: without esophagitis Qualified Code(s): K21.9 - Gastro -esophageal reflux disease without esophagitis (7) Parkinson's disease Current Visit: Yes Status: Chronic (8) Pacemaker Current Visit: Yes Status: Chronic Plan: she is doing quite well, eating regular diet, having small BM's. She has been accepted at IRU. Will encourage bowels today. Hospital Course Summary Disclaimer: The visit summary below is not to be considered part of the above Progress Note. Hospital Course: 04-01-2017 POD #1 She has been alert and conversive with staff. Pain is mild to moderate with only low dose Morphine and Toradol. Will DC Dilaudid REBRANDER order. HGB this am 6.8, 2 units ordered to cross and 1 to give. Will get repeat HGB after 1st unit. SBP briefly dropped to 70's this morning, currently 90's and 1 unti PRBC has been started, D5 1/2 NC w 20 KCl at 125 also infusing. Urine output is marginal about 10-15/hr the last couple of hours, with current output 18 ml. A bolus of 500 m l NS was given, the Bumex has not, but she had her home dose of Lasix PO about 1 hours ago. Serum Ca+ 6.6, Albumin 2.4 so corrected calcium is 8.2 based on "normal" Albumin 4.4. (if based on normal Abumin 4.0, corrected calcium would be 7.88) Continue current care, daily labs and close monitoring of urine output and VS. Continue home meds as much as possible for Parkinson's, HF, etc. Pacemaker fires infrequently. 04/02/2017 POD #2 Passing flatus and good bowel sounds, will advance to regular soft diet. HGB drifted back down to 7.7, was 8.6 after 1 unit PRBC yesterday, repeat HGB at noon today. BMP is stable, K+ is rising, 4.5 today, 3.5 yesterday, she takes PO K+ will continue to monitor. Change fluids to NS at 100/hr Urine output better, FRANSISCA Kingslye. Crackles at bases, . Continue breathing treatment and RT. Pain controlled with Toradol, she has not had Morphine since yesterday morning. Hallucination are common after long surgeries, provide supportive care. Transfer to surgical floor. Order PT/OT 04/03/2017 POPD #3 Bloody stools yesterday x2, none late evening and through the night. HGB has remained stable after 2nd unit yesterday of PRBC 8.5 today, (9.0 after the transfusion and before the bloody stools yesterday). Eating regular diet without difficulty. Crackles at bases, will decrease NS to 50 ml/hr, likely DC later today or tomorrow. K+ stable on home dose PO K+ and home dose Lasix Incisions look great. She may be ready for discharge, likely to an intermediate facility for strengthening in the next 1-2 days. Repeat labs in am. 04/04/2017 POD #4 she is doing quite well, eating regular diet, having small BM's. She has been accepted at IRU. Will encourage bowels today.
[2017-04-04] MEDS ORDERED: POLYETHYL GLYCOL 3350 17gm PACKET PO SCH (11:00)
[2017-04-04] MEDS ORDERED: Bisacodyl EC TAB 5 MG TABLET PO ONE (11:05)
--- NOTE | 2017-04-04 11:19 | Discharge Summary ---
Discharge Information Date of admission: 03/31/17 10:32 Attending Physician: Umair Chavez MD Primary care physician: Viktor Chatman MD Consults: 03/31/17 10:42 Consult to Anesthesiology [CONS] Routine Reason For Exam: preop assessment 04/03/17 IRU Screening [Inpatient Rehab Screening] [CONS] Routine 04/03/17 12:00 Physician Consult [CONS] Routine Consulting Provider: Clemencia Chopra Reason For Exam: SNU Ordering Provider has Notified Experimental Rocketsled Mechanic: Yes 04/03/17 12:01 Physician Consult [CONS] Routine Consulting Provider: Lidia Tello Reason For Exam: SNU Ordering Provider has Notified Experimental Rocketsled Mechanic: Yes - Discharge Diagnosis (1) Primary adenocarcinoma of ascending colon Status: Acute (2) Hypotension due to blood loss Status: Resolved (3) Acute blood loss anemia Status: Resolved (4) Oliguria Status: Resolved (5) Heart failure Status: Chronic (6) GERD (gastroesophageal reflux disease) Status: Chronic (7) Parkinson's disease Status: Chronic (8) Pacemaker Status: Chronic - Procedures Procedures: DATE OF SERVICE 03/31/2017 SURGEON Umair Chavez MD CRUSHER Filippo Tapia APRN PREOPERATIVE DIAGNOSIS Adenomatous polyp unable to be removed in its entirety involving cecum. Invasive adenocarcinoma involving ileocecal valve region. POSTOPERATIVE DIAGNOSIS Adenomatous polyp unable to be removed in its entirety involving cecum. Invasive adenocarcinoma involving ileocecal valve region. PROCEDURE Robotic-assisted laparoscopic right hemicolectomy. DATE OF PROCEDURE 03/31/2017 PREOPERATIVE DIAGNOSIS Bilateral stents for a colectomy. POSTOPERATIVE DIAGNOSIS Bilateral stents for a colectomy. PROCEDURE PERFORMED Cystoscopy with placement of bilateral lighted stents. PRIMARY SURGEON Rick Schwartz MD - Laboratory Labs: 04/04/17 04:42 04/04/17 04:42 Laboratory Tests 03/31/17 04/01/17 04/01/17 11:20 05:15 12:20 Hgb 8.5 L 6.8 L D 8.5 L D 04/01/17 04/02/17 04/02/17 16:57 04:32 14:32 Hgb 8.6 L 7.7 L 9.0 L D 04/02/17 04/03/17 04/04/17 18:07 04:20 04:42 Hgb 9.3 L 8.5 L 8.9 L - Pathology Grade-2 moderately differentiated Adenocarcinoma ascending colon, all nodes negative for metastasis - History of Present Illness HPI: BRIEF HISTORY/INDICATIONS Mrs. Juan is an 87-year-old female who quite some time ago had presented to our facility as a result of rectal bleeding and anemia. She did undergo a colonoscopy and was found to have a mass involving the ileocecal valve region that was consistent with that of adenocarcinoma. Additionally, she was found to have a 3 cm sessile polyp within the cecal region that was identified and biopsied as well. Pathologically the lesion near the ileocecal valve returned as invasive adenocarcinoma. The lesion within the cecum was that of an adenomatous villous lesion. The patient presents today to undergo a right hemicolectomy for management of her invasive adenocarcinoma and adenomatous polyp within the cecum which was unable to be removed in its entirety endoscopically. Hospital Course This is a general summary of the patient's hospital course. For more details refer to the complete medical record. Hospital course: 03-31-2017 Robotic assisted right hemicolectomy., transferred to CCU post op. 04-01-2017 POD #1 She has been alert and conversive with staff. Pain is mild to moderate with only low dose Morphine and Toradol. Will DC Dilaudid METAL FURNITURE REPAIRER order. HGB this am 6.8, 2 units ordered to cross and 1 to give. Will get repeat HGB after 1st unit. SBP briefly dropped to 70's this morning, currently 90's and 1 unti PRBC has been started, D5 1/2 NC w 20 KCl at 125 also infusing. Urine output is marginal about 10-15/hr the last couple of hours, with current output 18 ml. A bolus of 500 m l NS was given, the Bumex has not, but she had her home dose of Lasix PO about 1 hours ago. Serum Ca+ 6.6, Albumin 2.4 so corrected calcium is 8.2 based on "normal" Albumin 4.4. (if based on normal Abumin 4.0, corrected calcium would be 7.88) Continue current care, daily labs and close monitoring of urine output and VS. Continue home meds as much as possible for Parkinson's, HF, etc. Pacemaker fires infrequently. 04/02/2017 POD #2 Passing flatus and good bowel sounds, will advance to regular soft diet. HGB drifted back down to 7.7, was 8.6 after 1 unit PRBC yesterday, repeat HGB at noon today. BMP is stable, K+ is rising, 4.5 today, 3.5 yesterday, she takes PO K+ will continue to monitor. Change fluids to NS at 100/hr Urine output better, DC Kingsley. Crackles at bases, . Continue breathing treatment and RT. Pain controlled with Toradol, she has not had Morphine since yesterday morning. Transfer to surgical floor. Order PT/OT 04/03/2017 POPD #3 Bloody stools yesterday x2, none late evening and through the night. HGB has remained stable after 2nd unit yesterday of PRBC 8.5 today, (9.0 after the transfusion and before the bloody stools yesterday). Eating regular diet without difficulty. Crackles at bases, will decrease NS to 50 ml/hr, likely DC later today or tomorrow. K+ stable on home dose PO K+ and home dose Lasix Incisions look great. She may be ready for discharge, likely to an intermediate facility for strengthening in the next 1-2 days. Repeat labs in am. 04/04/2017 POD #4 she is doing quite well, eating regular diet, having small BM's. She has been accepted at IRU. Will encourage bowels today. Follow up post op 04-16-2017 with Kathy. Time spent with patient: less than 15 minutes DVT Prophylaxis: SCD's, Lovenox GI Prophylaxis: Protonix Discharge Plan - Med Rec/Dispo Referrals/Follow Up: Umair Chavez MD [Physician] - 04/16/17 9:15 am Prescriptions: Continue Levothyroxine Sodium 75 mcg PO DAILY Furosemide [Lasix] 20 mg PO DAILY Donepezil HCl [Aricept] 10 mg PO HS Topiramate 25 mg PO NOON Melatonin 5 mg PO HS Lutein 20 mg PO DAILY Multivitamin [Multivitamins] 1 cap PO DAILY Gabapentin 300 mg PO TID Sucralfate [Carafate] 1 gm PO BIDWM #60 tab Carbidopa/Levodopa [Carbidopa-Levo 25-250 mg Odt] 1 tab PO NOON Acetaminophen [Tylenol] 325 - 650 mg PO Q4H PRN tab PRN Reason: Pain Hydrocodone/APAP 5/325 [Medora 5/325] 1 tab PO Q6HR PRN PRN Reason: Pain ClonazePAM [Klonopin] 0.5 mg PO HS Simvastatin [Zocor] 10 mg PO HS Duloxetine [Cymbalta] 30 mg PO BID cap Potassium Chloride [K-Dur] 10 meq PO WB tab Omeprazole [Prilosec] 20 mg PO ACB cap Docusate Sodium [Colace] 100 mg PO BID - Disposition 62 To [facility] INPT Rehab
[2017-04-04] MEDS: TOPIRAMATE 25 MG TABLET PO SCH (12:09)
[2017-04-04 12:19] VITALS: BP 133/72; PULSE 69; O2SAT 93
== END 2017-04-04 14:45 | DRG 330 ==
LOC: NMC.PERIOP 03-31 10:32 → CCU 03-31 19:20 → SRG 04-02 11:12
PROVIDERS: ADMIT Surgery; ATTEND Surgery

== ENCOUNTER 2017-04-04 14:38 | Inpatient (IN) ==
--- OUTSIDE RECORDS SUMMARY | 2017-04-04 14:56 | External Medical Summary | Clinical Summary ---
:1930 Author Organization [facility] Address [address] [address] Phone Support Name Relationship Address Phone Unavailable Unavailable Unavailable Unavailable [place]available [place], [place] Unavailable Naturalson Unavailable Allergies Active Allergy [...] ergocalciferol (VITAMIN Take 50,000 Units Active D) 54140 UNITS capsule by mouth once a week. 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 long-term (current) use of anticoagulants 02/16/2013 Protein-calorie malnutrition, mild (HCC) 09/05/2012 Abdominal pain, acute, epigastric 09/04/2012 Coagulopathy (HCC) 09/04/2012 Anxiety and depression 09/04/2012 Macular degeneration 09/04/2012 OA (osteoarthritis of spine) 09/04/2012 Pacemaker 09/04/2012 H/O sick sinus syndrome 09/04/2012 CHF (congestive heart failure) ([facility]) 03/17/2012 Overview: PPM inserted for SSS(shelley/vaibhav)-dr brown [...] Brother Neville Alive Brother Danay Alive Brother Alexsi (Age 3) Pneumonia Father (Age 68) Colon [...] Taken Blood Pressure 123/77 05/02/2016 11:44 AM WATER SUPERVISOR Pulse 70 05/02/2016 11:44 AM WATER SUPERVISOR Temperature 36.6 C (97.8 F) 05/02/2016 11:44 AM WATER SUPERVISOR Respiratory Rate 16 05/02/2016 11:44 AM WATER SUPERVISOR Oxygen Saturation 96% 05/02/2016 11:44 AM WATER SUPERVISOR Inhaled Oxygen Concentration - - Weight 59.9 kg (132 lb) 05/02/2016 3:20 AM WATER SUPERVISOR Height 160 cm (5' 3") 04/30/2016 1:10 AM WATER SUPERVISOR Body Mass Index 23.38 05/02/2016 3:20 AM WATER SUPERVISOR Plan of Treatment Health Maintenance Due Date [...]
--- NOTE | 2017-04-04 15:03 | IRU History & Physical Report ---
[facility] IRU Date: Date: 04/04/17 Time: 1500 Chief complaint: I'm weak HPI: Ms. Juan is a pleasant 87 year old female referred by Dr. Umair Chavez. Her primary care physician is Dr. Viktor Chatman. Remotely, the patient had presented with rectal bleeding and anemia back in January 2017 or just prior. Colonoscopy had been performed at that time and a mass was present involving the ileocecal valve region consistent with adenocarcinoma. She also had a 3 cm sessile polyp within the cecal region that was biopsied as well. The lesion near the ileocecal valve was invasive adenocarcinoma and the lesion within the cecum with pathologically diagnosed as "adenomatous villous lesion." Patient however at that time was quite weak and underwent a multidisciplinary approach to her strengthening prior to the current anticipated surgery. In the meantime she had developed symptoms of a URI which was found to be rhinovirus. She also had pneumonia and a urinary tract infection. She was readmitted and was rehabilitated on inpatient rehabilitation beginning 2016. She improved and was sent home to live with her family once again. She was admitted to acute care at this time by Dr. Chavez for an elective resection of the right colon. She underwent robotic-assisted laparoscopic right hemicolectomy on 03/31/[address] Chavez. Preoperative and postoperative diagnosis was: "adenomatous polyp unable to be removed in its entirety involving cecum. Invasive adenocarcinoma involving ileocecal valve region." She also underwent placement of lighted ureteral stents preoperatively by Dr. Schwartz for identification of the ureters during the time of surgery. 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 It does invade the muscularis propria. Secondly, a tubular adenoma is present measuring 1.5 x 1.5 x 0.5 cm with focal dysplasia at the cecum. Surgical resection margins were free of malignancy. 17 regional lymph nodes were sampled all of which were negative for metastatic disease. In the postoperative timeframe she did have some acute blood loss anemia with hemoglobin down to 6.8. She has received a total of 2 units of packed red blood cells with a current hemoglobin of 8.9. In addition she had hypotension with systolic blood pressure dropping into the 70s. She was given IV fluids as well as the blood transfusion. She does have history of congestive heart failure as well as her atrial fibrillation with history of permanent pacemaker placement.She is not felt to be a candidate for anticoagulation due to her anemia as well as her fall risk. She has a history of severe macular degeneration resulting in significant reduced vision placing her at high risk for falls. She reports that she has been eating since the surgery and has had no nausea no vomiting. She is passing gas but has not had a bowel movement yet. There was report of some blood in the fecal output but that has not recurred in the last 24-36 hours. She does have a mild headache but denies dyspnea or chest pain. There has been no fever. She normally lives with her family although does provide most of her own ADLs and ambulation. I did discuss with the patient the issue of resuscitation in the event of an arrest. She states that she does have a pacemaker/defibrillator in place although the defibrillator function has been turned off. She does not wish any heroic efforts be undertaken in the event of an arrest. Prior level of functioning is as follows: She was independent for eating, grooming, upper and lower body dressing. She required minimum assistance for bathing. She was she was modified independent functioning for toileting, bed/ chair/wheelchair transfers, toilet transfers and walking. She could walk 200 feet with a rolling walker. She was modified independent level for stair climbing. Current level of functioning is as follows: She is modified independent for eating but requires maximum assistance for grooming and upper body dressing. She requires total assistance for lower body dressing and toileting. She requires total assistance for bed/chair/wheelchair transfers and toilet transfers as well as walking. She can walk only 1 foot with a rolling walker. The following medical conditions are noted and require active monitoring and/or management: 1. Recent right hemicolectomy with wound in abdomen 2. Acute blood loss anemia 3. Paroxysmal atrial fibrillation 4. Recent hypotension secondary to acute blood loss anemia 5. Parkinson's disease The following therapies will be needed: 1. Physical therapy: for transfers and ambulation and stairs. 2. Occupational therapy: for ADL's and transfers. 3. Medical management: for the above conditions. 4. 24 hour Rehabilitation Nursing to monitor and address the following: Close monitoring of vital signs, evidence of continued blood loss, wound healing assessment and management, cardiac monitoring in view of atrial fibrillation and heart failure. 5. Dietitian: To ensure adequate nutrition during the early recovery phase from her GI surgery [facility] Patient Stated Medical History Dementia Yes Migraine Yes Parkinson's Disease Yes Cataracts Yes Macular Degeneration Yes: bilateral Congestive Heart Failure Yes: hx Hypertension Yes Sleep Apnea No Constipation No Gastroesophageal Reflux Yes: well controlled Disease Gastrointestinal Bleeding Yes: recent admit with GI bleed 01/2017 Hiatal Hernia Yes Hx Incontinence Yes Hx Renal Disease No Hx Urinary Tract Infection Yes Anemia Yes: receives iron infusions Sepsis Yes: 02/10/17 admit to medical Depression Yes Post Menopausal Yes Clinic Medical History (Last Updated 03/04/17 @ 15:38 by Marya Tapia APRN) Atrial fibrillation (Acute Medical) Breast cancer, right (Acute Medical) CHF (congestive heart failure) (Acute Medical) Dementia (Acute Medical) Essential tremor (Acute Medical) GERD (gastroesophageal reflux disease) (Acute Medical) HTN (hypertension) (Acute Medical) Hiatal hernia (Acute Medical) History of DVT (deep vein thrombosis) (Acute Medical) Hypothyroidism (Acute Medical) Macular degeneration (Acute Medical) Pacemaker (Acute Medical) Parkinsons disease (Acute Medical) Medical History Updates: Right Breast Cancer. Dementia Yes. Migraine Yes. Parkinson's Disease Yes. Cataracts Yes. Atrial fibrillation with chronic anticoagulation. Benign essential hypertension. Reported Alzheimer's dementia. Depression with anxiety and panic attacks. Parkinson's disease. 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 Peripheral neuropathy. Macular degeneration. Hypothyroidism. Macular Degeneration Yes. Congestive Heart Failure Yes. Hypertension Yes. Gastroesophageal Reflux Yes. Disease. Hiatal Hernia Yes. Hx Incontinence Yes. Anemia Yes: receives iron infusions. Depression Yes. Adenocarcinoma of cecum (through muscularis propria but 17 lymph nodes negative for metastasis Surgical History: EGD, colonoscopy - with presence of ileocecal valve mass, . Appendectomy. Right mastectomy. Pacemaker placement. Right TKA. Right ISSA. Cataract procedure. Tonsillectomy and adenoidectomy. Lipoma removed from left chest or upper back. Right shoulder surgery. Right hemicolectomy, robotic assisted 03/31/17 Family History: Family History (Last Updated 03/04/17 @ 15:45 by Marya Tapia APRN) Father Colon cancer Sister Colon cancer Mother Lymphoma Family History Updates: Colon cancer is present in the family. Her brother, sister and father all apparently had colon cancer. Another brother has history of bladder cancer. Son also has bladder cancer. Father did have alcoholism and depression. Mother had lymphoma. Another sister has Alzheimer's dementia. - Social History Smoking status: Former smoker Substance use type: does not use Alcohol intake: never Housing: house Household members: family Current occupational status: retired Current residence: Apartment/Private Home Social history: Patient is a . She has been twice. First in 1979. He worked for the telephone company. Her second is also . 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 She lives with her son and [id number] in [place], [place]. Review of Systems - Constitutional Constitutional: Present: headache(s) (mild, today). Absent: anorexia, chills, fatigue, fever(s), lethargy, malaise, night sweats, weakness, weight gain, weight loss - EENMT Eyes: Present: loss of vision (macular degeneration). Absent: blurry vision, change in vision, diplopia Mouth/Throat: Absent: sore throat, scratchy throat, changes in swallowing, painful swallowing, change in taste, bleeding gums, change in voice - Cardiovascular Cardiovascular: Absent: chest pain, palpitations, syncope, dyspnea on exertion, orthopnea, edema, cyanosis, heart murmur Rhythm: Present: abnormal rhythm Vascular: Absent: intermittent claudication, pedal edema, unilateral swelling - Respiratory Respiratory: Absent: cough, dyspnea, hemoptysis, dyspnea on exertion, wheezing, pain on inspiration, chest congestion, excessive phlegm production - Gastrointestinal Gastrointestinal: Absent: abdominal pain, change in bowel habits, constipation, diarrhea, dyspepsia, dysphagia, early satiety, hematochezia, melena, nausea, vomiting Gastrointestinal Comments: Has been passing gas since surgery but no stool output. - Genitourinary Genitourinary: Present: urinary incontinence - Musculoskeletal Musculoskeletal: Present: muscle weakness. Absent: abnormal gait, arthralgias, back pain, joint swelling, limited range of motion - Integumentary/Breasts Integumentary: Absent: alopecia, erythema, lesions, pruritus, rash, jaundice - Neurological Neurological: Present: memory loss, weakness. Absent: abnormal gait, abnormal movements, abnormal speech, confusion, convulsions, dizziness, focal weakness, frequent falls, headache(s), loss of vision, numbness, paresthesias, tremor(s) - Psychiatric Psychiatric: Absent: abnormal sleep pattern, anxiety, depression - Endocrine Endocrine: Absent: cold intolerance, flushing, heat intolerance, palpitations - Hematologic/Lymphatic Hematologic/Lymphatic: Absent: easy bleeding, easy bruising, lymphadenopathy - Allergic/Immunologic Allergic/Immunologic: Absent: urticaria Medications Home Medications Medication Instructions Recorded Confirmed Type ClonazePAM [Klonopin] 0.5 mg PO HS 09/12/16 03/31/17 History Donepezil HCl [Aricept] 10 mg PO HS 09/12/16 03/31/17 History Furosemide [Lasix] 20 mg PO DAILY 09/12/16 03/31/17 History Levothyroxine Sodium 75 mcg PO DAILY 09/12/16 03/31/17 History Lutein 20 mg PO DAILY 09/12/16 03/31/17 History Melatonin 5 mg PO HS 09/12/16 03/31/17 History Multivitamin [Multivitamins] 1 cap PO DAILY 09/12/16 03/31/17 History Simvastatin [Zocor] 10 mg PO HS 09/12/16 03/31/17 History Topiramate 25 mg PO NOON 09/12/16 03/31/17 History Gabapentin 300 mg PO TID 01/08/17 03/31/17 History Carbidopa/Levodopa [Carbidopa-Levo 1 tab PO NOON 02/10/17 03/31/17 History 25-250 mg Odt] Docusate Sodium [Colace] 100 mg PO BID 02/10/17 03/31/17 History Hydrocodone/APAP 5/325 [[place] 1 tab PO Q6HR PRN 03/28/17 03/31/17 History 5/325] Allergies Allergy/AdvReac Type Severity Reaction Status Date / Time cephalexin Allergy Unknown Hives Verified 03/31/17 11:22 propoxyphene Allergy Hives Verified 03/31/17 11:22 [From Darvocet-N] Sulfa (Sulfonamide Allergy Hives Verified 03/31/17 11:22 Antibiotics) Tetanus Vaccines and Toxoid Allergy Hives Verified 03/31/17 11:22 Results IRU - Labs Labs: Have reviewed inpatient records and notes. Exam - Constitutional Present: no acute distress, well nourished, well developed, average body habitus , cooperative - Routine HEENT Exam Head: Present: normocephalic, atraumatic. Absent: cushingoid faces, abrasion, laceration, hematoma Eye: Present: EOMI, PERRL. Absent: conjunctival icterus, scleral injection, periorbital swelling, nystagmus ENT: Present: mucous membranes moist, oropharynx clear - Routine Neck Exam Present: supple, full ROM, trachea midline. Absent: lymphadenopathy, thyromegaly, tenderness, swelling - Routine Chest/Breast/Axilla Exam Chest wall: Absent: tenderness, mass Axillae: Absent: lymphadenopathy, mass - Routine Respiratory Exam Present: CTA bilaterally. Absent: accessory muscle use, decreased breath sounds , prolonged expiratory phase, rales, respiratory distress, rhonchi, stridor, wheezes, crackles, distant breath sounds - Routine Cardiovascular Exam Present: S1, S2, murmur (2/6, LSB, no eladio), irregularly irregular. Absent: gallop, S3, S4, click, irregular rhythm - Routine Abdominal Exam Present: soft, normoactive bowel sounds, non distended, non tender, wound ( Patient has 5 wounds from the robotic-assisted procedure. No infection/ inflammation noted. No drainage.). Absent: rebound, guarding, firm, rigid, organomegaly, mass, hernia - Routine Extremities Exam Present: edema (trace edema at ankles), non tender, pulses intact, normal capillary refill. Absent: cyanosis, clubbing - Routine Back/Spine/Pelvis Exam Back/Spine: Present: full ROM. Absent: scoliosis, kyphosis - Routine Skin Exam Present: intact, dry, warm, wounds. Absent: cyanosis, erythema, pallor, mottling, petechiae, urticaria, lesions, jaundice - Routine Neurological Exam Present: alert, oriented X3, CN II-XII intact, moving all extremities, normal tone, normal speech, tremors She does have a mild resting tremor as well as bradykinesis. - Routine Psychiatric Exam Present: normal affect, normal thought process, cooperative, good insight, good judgment. Absent: depressed, anxious Sepsis Assessment - Evaluation Severe Sepsis: none seen IRU A/P (1) Primary adenocarcinoma of ascending colon Current visit: No Status: Chronic Patient is status post robotic-assisted laparoscopic right hemicolectomy. Apparently not all the tumor was able to be removed. However, 17 lymph nodes were sampled all of which were negative for malignancy. Wounds appear to be healing adequately. This will be monitored carefully for any evidence of infection. (2) Parkinson's disease Current visit: No Status: Chronic Patient does have a mild resting tremor as well as some bradykinesis. This will be a factor in her functional recovery. (3) Acute blood loss anemia Current visit: No Status: Acute She has required 2 units of packed red blood cells in the immediate postoperative timeframe. We will monitor her blood count carefully and monitor for any evidence of ongoing blood loss. (4) Atrial fibrillation Qualifiers: Atrial fibrillation type: chronic Qualified Code(s): I48.2 - Chronic atrial fibrillation Current visit: No Status: Chronic Appears to have a controlled ventricular response at present. She will need to be monitored for evidence of rapid ventricular response. At some point she may be a candidate for anticoagulation but at the present time she is not. (5) Benign essential hypertension Current visit: No Status: Chronic (6) Debility Current visit: No Status: Acute DVT Prophylaxis: SCD's, Lovenox Resuscitation Status: Do Not Resuscitate - Course Hospital Course: Neville Wade MD: - Interventions to Obtain Goals PT Treatment Plan: Balance/Proprioception, Functional Activities, Gait Training , Patient/Family Education OT Treatment Plan: ADL (Basic Care), Balance Training, IADL, Pt./Family Education Goals Progress/Modifications: This patient is medically complex in view of her acute blood loss anemia, recent hypotension and recent extensive surgery. She has underlying atrial fibrillation as well as congestive heart failure which is currently compensated. She is at risk for further hypotension, or diarrhea, further blood loss anemia. She is a high fall risk. She has multiple functional deficits and will require a multidisciplinary approach to her recovery to allow her to return to her home with is much independent function as possible.
[2017-04-04 15:19] VITALS: BMI 27.8
--- NOTE | 2017-04-04 15:24 | IRU 24Hr Post Admit Eval ---
24 Hr Post Admission Physical - Relevant Changes Relevant Changes: No Reviewed: I have reviewed the patient's information and concur with the finding and results of the pre-admission screen. Certification: I certify the patient for rehabilitation. - Patient Condition (1) Primary adenocarcinoma of ascending colon Status: Chronic Code(s): C18.2 - Malignant neoplasm of ascending colon Classification: Present on IRF Admission, IRF Tx That Should Address Diagnosis, Diagnosis Requiring Medical Follow Up (2) Parkinson's disease Status: Chronic Code(s): G20 - Parkinson's disease Classification: Present on IRF Admission, IRF Tx That Should Address Diagnosis, Diagnosis Requiring Medical Follow Up (3) Acute blood loss anemia Status: Acute Code(s): D62 - Acute posthemorrhagic anemia Classification: Present on IRF Admission, IRF Tx That Should Address Diagnosis, Diagnosis Requiring Medical Follow Up (4) Atrial fibrillation Status: Chronic Qualifiers: Atrial fibrillation type: chronic Qualified Code(s): I48.2 - Chronic atrial fibrillation Code(s): I48.91 - Unspecified atrial fibrillation Classification: Present on IRF Admission, Diagnosis Requiring Medical Follow Up (5) Benign essential hypertension Status: Chronic Code(s): I10 - Essential (primary) hypertension Classification: Present on IRF Admission, Diagnosis Requiring Medical Follow Up (6) Debility Status: Acute Code(s): R53.81 - Other malaise Classification: Present on IRF Admission, IRF Tx That Should Address Diagnosis, Diagnosis Requiring Medical Follow Up - Prior Functional Status Lives With: With Family Residence Type: Apartment/Private Home Assitive Devices: Front Wheeled Walker Prior Functional Status: Indep. at home or school, Used assistive device - Current Functional Status Current Level of Function: Current level of functioning is as follows: She is modified independent for eating but requires maximum assistance for grooming and upper body dressing. She requires total assistance for lower body dressing and toileting. She requires total assistance for bed/chair/wheelchair transfers and toilet transfers as well as walking. She can walk only 1 foot with a rolling walker. She has poor trunk strength and control as well as safety issues. Failed Alternative Therapy: Arrived from Acute Care Patient Requirements: The patient requires oversight by rehabilitation physician to manage their rehabilitation treatment plan and multidisciplinary approach to care that can only be provided in an IRF and requires a multidisciplinary approach to care, provided by professional PTs, OTs, STs, dieticians, RTs, rehabilitation nurses and is not available in lesser levels of care. Limitations Req: Mobility Impairment, ADL Impairment, Cognitive Impairment Physical Therapy Minutes: 90 Occupational Therapy Minutes: 90 Therapy: The patient is to receive therapy at least 5 days a week. - Complications/Comorbidities Impact on Functional Outcomes: Patient's cognition and deconditioning will impact her functional outcomes. Barriers to Discharge: Weakness, Balance, Endurance - Plan to Avoid Complications Plan to Avoid Complications: The patient cannot receive this care in a lesser intensive setting such as Senior Living or Outpatient Therapy due to the patient requiring the following : This patient requires close monitoring of her cardiac function in view of her atrial fibrillation along with congestive heart failure. She requires close monitoring of her blood pressure in view of the recent hypotension experienced on acute care. She requires monitoring of her urine output in view of the oliguria noted in the immediate postoperative timeframe. She requires a multidisciplinary approach with PT, OT and 24 rehabilitation nursing to monitor for wound healing as well as to improve her functional deficits and to allow her to return home. She requires medical supervision because of her medically complex status. .
[2017-04-04] MEDS: SUCRALFATE 1 GM TABLET PO SCH (18:34)
[2017-04-04] MEDS: MELATONIN 5 MG TABLET PO SCH (20:53)
[2017-04-04] MEDS: DONEPEZIL 10 MG TABLET PO SCH (20:53)
[2017-04-04] MEDS: DULOXETINE 30 MG CAPSULE PO SCH (20:53)
[2017-04-04] MEDS: DOCUSATE SODIUM 100 MG CAPSULE PO SCH (20:53)
[2017-04-04] MEDS: ClonazePAM 0.5 MG TABLET PO SCH (20:53)
[2017-04-04] MEDS: GABAPENTIN 300 MG CAPSULE PO SCH (20:53)
[2017-04-04] MEDS: SIMVASTATIN 10 MG TABLET PO SCH (20:53)
[2017-04-04] MEDS: ACETAMINOPHEN 325 MG TABLET PO PRN (20:56)
[2017-04-05] MEDS: LEVOTHYROXINE 75 MCG TABLET PO SCH (06:25)
[2017-04-05] MEDS: OMEPRAZOLE 20 MG CAPSULE PO SCH (06:25)
--- NOTE | 2017-04-05 08:35 | Consult Note ---
Consult Information - Data of Consult Consult date: 04/05/17 Requesting Physician: Neville Wade MD Primary Care Provider: Viktor Chatman MD Family Provider: Viktor Chatman MD - Consult Narrative Reason for consult: Medical management, anemia History of present illness: Daniella Juan is a very pleasant 87-year-old female patient of Dr. Chavez and Dr. Chatman who is known to the hospitalist service from her prior admission in January of 2017 at which time she was admitted to acute inpatient for evaluation of rectal bleeding. She underwent a colonoscopy at that time by dr. Chavez and was found to have a mass involving the ileocecal valve region which was consistent with adenocarcinoma and later confirmed to be invasive adenocarcinoma. At that time, she was quite weak and underwent a multidisciplinary approach to her strengthening with the anticipation of future surgery. During her acute hospitalization in January 2017 she developed rhinovirus with concurrent pneumonia and UTI which were successfully treated. Following her treatment, she was admitted to IRU on 02/13/17 for intensive rehabilitation, again in the effort to improve her strength for her anticipated surgery. Rehabilitation was successful on IRU and she was later discharged home to live with her son Teodoro. On 03/31/17 she was re[place]ad[place] [facility] [place] of Dr. Chavez and underwent elective robotic-assisted laparoscopic right hemicolectomy. Prior to her right hemicolectomy, she underwent placement of lighted urethral stents by Dr. Schwartz to assist in the identification of the ureters during the hemicolectomy. Pathology revealed a grade 2 moderately differentiated adenocarcinoma of the right colon which had invaded the muscularis propria as well as a tubular adenoma with focal dysplasia at the cecum. Surgical margins were noted to be free of malignancy and all 17 regional lymph nodes sampled were free of metastatic disease. Post-operatively, she did have some acute blood loss anemia which resulted in her hemoglobin dropping as low as 6.8. She underwent blood transfusion x 2 units; 1 unit on 04/01 and the second unit received on 04/02 with improvement in her anemia. With her anemia, she also had some hypotension with systolic pressure in the 70's which improved with IV hydration and the blood transfusions. Following her surgery, she was able to advance to regular diet with bowel function improving. On 04/04/17 she was accepted and transferred to IRU for continued treatment and initiation of therapies to continue to improve strength and function ability with the intent of returning home with her son. She has a history of congestive heart failure as well as chronic a-fib with pacemaker placement, Parkinson's disease, hypertension and GERD for which the hospital service was consulted for medical management. Due to her current anemia with recent rectal bleeding following her surgery as well as her increased fall risk due to her gait instability and generalized weakness, she is not a candidate for anticoagulation. On exam, she is seen working with therapy in her room and states that she is "worn out" this morning. She states that she slept well and is eager for breakfast. She denies any other complaints or concerns. No chest pain, shortness of breath, nausea, vomiting or dysuria. Her bowels are moving and she denies any noted rectal bleeding in the past 24-36 hours. She has remained afebrile without chills, cough or congestion. Past Medical History Patient Stated Medical History Invasive adenocarcinoma of the colon, grade 2 moderately differentiated. Chronic atrial fibrillation. History of breast cancer. Essential tremor. Hypertension. Anemia requiring blood transfusions and iron transfusions previously. Congestive heart failure. Hypothyroidism. Dementia. Parkinson's disease. Cataracts. Macular degeneration. Sleep apnea. Constipation. GERD. Depression. History of urinary incontinence. History of migraine headaches. History of DVT. Surgical History: Robotic-assisted laparoscopic right hemicolectomy - 03/31/17, Dr. Chavez. EGD and colonoscopy - with presence of ileocecal valve mass, . Appendectomy. Right mastectomy. Pacemaker placement. Right TKA. Right ISSA. Cataract procedure. Tonsillectomy and adenoidectomy. Lipoma removed from left chest or upper back. Right shoulder surgery. Family History Updates: Father - Colon cancer, alcoholism, depression. Sister # 1 - Colon cancer. Mother - Lymphoma. Sister #2 - Alzheimer's dementia. - Social History Smoking status: Former smoker Substance use type: does not use Alcohol intake frequency: does not drink Housing: house Household members: family (lives with sonMedardo ([place]).) Current occupational status: retired Does patient use chewing tobacco?: No Current residence: Apartment/Private Home Social history: PCP - Dr. Chatman. Surg - Dr. Chavez. Review of Systems All systems PM: 10-point ROS was reviewed, no additional remarkable complaints except - Constitutional Constitutional: Present: fatigue, weakness. Absent: chills, fever(s) - EENMT Eyes: Absent: photophobia Ears: Absent: ear pain Balance: Absent: falling to one side Nose: Absent: nosebleeds Mouth/Throat: Absent: sore throat, painful swallowing, dry mouth - Cardiovascular Cardiovascular: Absent: chest pain, palpitations, syncope, dyspnea on exertion, orthopnea Vascular: Present: pedal edema. Absent: pallor of an extermity, unilateral swelling - Respiratory Respiratory: Absent: cough, dyspnea, hemoptysis, dyspnea on exertion, wheezing - Gastrointestinal Gastrointestinal: Present: abdominal pain (at surgical site, mild.), constipation. Absent: hematochezia, melena, nausea, vomiting - Genitourinary Genitourinary: Absent: dysuria, flank pain, hematuria Menstruation: post menopausal - Musculoskeletal Musculoskeletal: Present: muscle weakness. Absent: back pain, deformity - Integumentary/Breasts Integumentary: Absent: rash - Neurological Neurological: Present: weakness. Absent: confusion, dizziness, focal weakness - Psychiatric Psychiatric: Present: depression. Absent: behavioral changes - Endocrine Endocrine: Absent: heat intolerance, palpitations - Hematologic/Lymphatic Hematologic/Lymphatic: Absent: easy bruising - Allergic/Immunologic Allergic/Immunologic: Absent: seasonal rhinorrhea Medications Home Medications Medication Instructions Recorded Confirmed Type ClonazePAM [Klonopin] 0.5 mg PO HS 09/12/16 04/04/17 History Donepezil HCl [Aricept] 10 mg PO HS 09/12/16 04/04/17 History Furosemide [Lasix] 20 mg PO DAILY 09/12/16 04/04/17 History Levothyroxine Sodium 75 mcg PO DAILY 09/12/16 04/04/17 History Lutein 20 mg PO DAILY 09/12/16 04/04/17 History Melatonin 5 mg PO HS 09/12/16 04/04/17 History Multivitamin [Multivitamins] 1 cap PO DAILY 09/12/16 04/04/17 History Simvastatin [Zocor] 10 mg PO HS 09/12/16 04/04/17 History Topiramate 25 mg PO NOON 09/12/16 04/04/17 History Gabapentin 300 mg PO TID 01/08/17 04/04/17 History Carbidopa/Levodopa [Carbidopa-Levo 1 tab PO NOON 02/10/17 04/04/17 History 25-250 mg Odt] Docusate Sodium [Colace] 100 mg PO BID 02/10/17 04/04/17 History Hydrocodone/APAP 5/325 [[place] 1 tab PO Q6HR PRN 03/28/17 04/04/17 History 5/325] Allergies Allergy/AdvReac Type Severity Reaction Status Date / Time cephalexin Allergy Unknown Hives Verified 03/31/17 11:22 propoxyphene Allergy Hives Verified 03/31/17 11:22 [From Darvocet-N] Sulfa (Sulfonamide Allergy Hives Verified 03/31/17 11:22 Antibiotics) Tetanus Vaccines and Toxoid Allergy Hives Verified 03/31/17 11:22 Exam Vital Signs: Temperature 97.4 F 04/04/17 21:23 Pulse Rate 71 04/04/17 21:23 Respiratory Rate 16 04/04/17 21:23 Blood Pressure 131/72 04/04/17 21:23 Pulse Oximetry 90 04/04/17 21:23 Height/Weight/BMI: Height 5 ft 3 in Weight 157 lb 3.033 oz Body Mass Index 27.8 Comments: Patient seen in her room, while participating with therapy. - Constitutional Present: no acute distress, well nourished, well developed, cooperative - Routine HEENT Exam Head: Present: normocephalic, atraumatic Eye: Present: PERRL. Absent: conjunctival icterus ENT: Present: mucous membranes moist - Routine Neck Exam Present: supple, full ROM, trachea midline - Routine Chest/Breast/Axilla Exam Chest wall: Present: pacemaker - Routine Respiratory Exam Present: decreased breath sounds, crackles (bilaterally). Absent: wheezes Comments: no cough or respiratory distress on exam; appears mildly short of breath following movement with therapy but recovers quickly; no increased respiratory effort or conversational dyspnea. - Routine Cardiovascular Exam Present: irregularly irregular - Routine Abdominal Exam Present: soft Comments: hypoactive bowel sounds; mild tenderness along hannah. - Routine Extremities Exam Present: edema (1+ bilaterally), full ROM, pulses intact - Routine Back/Spine/Pelvis Exam Back/Spine: Present: full ROM, kyphosis. Absent: vertebral tenderness - Routine Skin Exam Present: dry, warm. Absent: jaundice Comments: afebrile. - Routine Neurological Exam Present: alert, oriented X3, moving all extremities, hearing grossly intact, normal speech. Absent: facial asymmetry - Routine Psychiatric Exam Present: normal affect, cooperative Results - Labs CBC & Chem 7: 04/05/17 04:02 04/05/17 04:02 Assessment and Plan (1) Status post right hemicolectomy Problem details: 03/31/17, Dr. Chavez. Current visit: Yes Status: Acute (2) Weakness Current visit: No Status: Acute (3) Acute blood loss anemia Current visit: No Status: Acute (4) Debility Current visit: No Status: Acute Assessment and Plan: Assessment S/P right hemicolectomy on 03/31/[address] Chavez secondary to invasive adenocarcinoma of the colon, grade 2 moderately differentiated. Anemia secondary to acute blood loss - previous blood transfusion on 04/01/17 and 04/02/17. Chronic atrial fibrillation. History of breast cancer. Essential tremor. Hypertension. Congestive heart failure. Hypothyroidism. Dementia. Parkinson's disease. Cataracts. Macular degeneration. Sleep apnea. Constipation. GERD. Depression. History of urinary incontinence. History of migraine headaches. History of DVT. Plan - 04/05/17 (Admission) Agree with admission to IRU for continued intensive therapies and pain control per Dr. Wade. Hospitalist service consulted for medical management. Encourage participation in therapies. Provide safe and supportive environment. Acute blood loss anemia following surgery on 03/31/17. Hgb dropped to 6.8 during acute hospitalization and required 2 units PRBC. Monitor hemoglobin closely. Currently Hgb 9.1. Rectal bleeding following surgery. Patient is not a candidate for anticoagulation. SCDs for DVT prophylaxis. No bleeding noted x 24-36 hours. Monitor closely for acute bleeding. Consult Dr. Chavez for continued surgical care. Continue home medications. Recent hypotension with anemia. Blood pressure stable currently. Monitor closely. Crackles noted bilaterally in lungs. History of CHF. Will obtain orthostatic vital signs now as well as CXR for further evaluation. Patient currently on Lasix 20mg daily and may need additional diuresis. Encourage incentive spirometry for pulmonary toileting. History of pneumonia in January 2017. Patient remains afebrile. Monitor daily weight closely for signs of fluid overload. Prilosec and Carafate for GERD and GI protection. Will recheck labs on 04/07/17 to monitor blood counts, electrolytes and renal function. Upon discharge, patient's care will be returned to her PCP, Dr. Chatman. Patient wishes to be a DNR. DVT Prophylaxis: SCD's GI Prophylaxis: other (Priolosec) Resuscitation Status: Do Not Resuscitate - Time spent with patient Time with patient PN: 50 minutes - Physician Narrative Physician: Julianne Cardoza MD Narrative: Date: 04/05/17 Time: 0816 Hospital Course Summary Disclaimer: The visit summary below is not to be considered part of the above Progress Note. Hospital Course: Plan - 04/05/17 (Admission) Agree with admission to IRU for continued intensive therapies and pain control per Dr. Wade. Hospitalist service consulted for medical management. Encourage participation in therapies. Provide safe and supportive environment. Acute blood loss anemia following surgery on 03/31/17. Hgb dropped to 6.8 during acute hospitalization and required 2 units PRBC. Monitor hemoglobin closely. Currently Hgb 9.1. Rectal bleeding following surgery. Patient is not a candidate for anticoagulation. SCDs for DVT prophylaxis. No bleeding noted x 24-36 hours. Monitor closely for acute bleeding. Consult Dr. Chavez for continued surgical care. Continue home medications. Recent hypotension with anemia. Blood pressure stable currently. Monitor closely. Crackles noted bilaterally in lungs. History of CHF. Will obtain orthostatic vital signs now as well as CXR for further evaluation. Patient currently on Lasix 20mg daily and may need additional diuresis. Encourage incentive spirometry for pulmonary toileting. History of pneumonia in January 2017. Patient remains afebrile. Monitor daily weight closely for signs of fluid overload. Prilosec and Carafate for GERD and GI protection. Will recheck labs on 04/07/17 to monitor blood counts, electrolytes and renal function. Upon discharge, patient's care will be returned to her PCP, Dr. Chatman. Patient wishes to be a DNR.
[2017-04-05] MEDS: DOCUSATE SODIUM 100 MG CAPSULE PO SCH ×2 (09:42→20:27)
[2017-04-05] MEDS: SUCRALFATE 1 GM TABLET PO SCH ×2 (09:42→17:35)
[2017-04-05] MEDS: GABAPENTIN 300 MG CAPSULE PO SCH ×3 (09:43→20:23)
[2017-04-05] MEDS: DULOXETINE 30 MG CAPSULE PO SCH ×2 (09:43→20:27)
[2017-04-05] MEDS: MULTI-VITAMIN PLAIN TABLET PO SCH (09:51)
[2017-04-05] MEDS: FUROSEMIDE 20 MG TABLET PO SCH (09:51)
[2017-04-05] MEDS: LUTEIN 20 MG CAPSULE PO SCH (09:51)
[2017-04-05] MEDS: TOPIRAMATE 25 MG TABLET PO SCH ×2 (10:54→11:03)
[2017-04-05] MEDS: HYDROCODONE/APAP 5mg/325mg TABLET PO PRN (10:55)
--- NOTE | 2017-04-05 15:02 | XRay Report ---
Indication: dyspnea, CHF PROCEDURE: XR chest 1V: Encounter: Initial Comparison: 02/17/2017 Findings: The exam is rotated to the left. There is a left subclavian AICD in place. The left diaphragm is not well seen but there is cardiomegaly and pulmonary vascular congestion without definite overt CHF. Impression: Cardiomegaly and probably vascular congestion without overt CHF. Rotated exam with poor visualization of the left lung base. Left basilar atelectasis and/or pneumonia also pleural effusion cannot be excluded. Lateral view might be of benefit if symptoms persist. .
[2017-04-05] MEDS ORDERED: FALL RISK - PHARMACY CONSULT XX ONE (16:01)
[2017-04-05] MEDS: ClonazePAM 0.5 MG TABLET PO SCH (20:23)
[2017-04-05] MEDS: SIMVASTATIN 10 MG TABLET PO SCH (20:27)
[2017-04-05] MEDS: MELATONIN 5 MG TABLET PO SCH (20:27)
[2017-04-05] MEDS: ACETAMINOPHEN 325 MG TABLET PO PRN (20:27)
[2017-04-05] MEDS: DONEPEZIL 10 MG TABLET PO SCH (20:27)
[2017-04-06] MEDS: HYDROCODONE/APAP 5mg/325mg TABLET PO PRN ×3 (05:27→20:56)
[2017-04-06] MEDS: OMEPRAZOLE 20 MG CAPSULE PO SCH ×2 (05:27→08:55)
[2017-04-06] MEDS: LEVOTHYROXINE 75 MCG TABLET PO SCH ×2 (05:27→08:55)
[2017-04-06] MEDS: GABAPENTIN 300 MG CAPSULE PO SCH ×3 (08:55→20:45)
[2017-04-06] MEDS: SUCRALFATE 1 GM TABLET PO SCH ×2 (08:55→17:57)
[2017-04-06] MEDS: LUTEIN 20 MG CAPSULE PO SCH (08:55)
[2017-04-06] MEDS: DULOXETINE 30 MG CAPSULE PO SCH ×2 (08:56→20:45)
[2017-04-06] MEDS: DOCUSATE SODIUM 100 MG CAPSULE PO SCH ×2 (08:56→20:46)
[2017-04-06] MEDS: MULTI-VITAMIN PLAIN TABLET PO SCH (08:56)
[2017-04-06] MEDS: FUROSEMIDE 20 MG TABLET PO SCH (08:56)
[2017-04-06] MEDS: TOPIRAMATE 25 MG TABLET PO SCH (12:48)
[2017-04-06] MEDS: DONEPEZIL 10 MG TABLET PO SCH (20:45)
[2017-04-06] MEDS: ClonazePAM 0.5 MG TABLET PO SCH (20:45)
[2017-04-06] MEDS: MELATONIN 5 MG TABLET PO SCH (20:45)
[2017-04-06] MEDS: SIMVASTATIN 10 MG TABLET PO SCH (20:46)
[2017-04-07] MEDS: ACETAMINOPHEN 325 MG TABLET PO PRN (04:58)
[2017-04-07] MEDS: LEVOTHYROXINE 75 MCG TABLET PO SCH (05:50)
[2017-04-07] MEDS: OMEPRAZOLE 20 MG CAPSULE PO SCH (05:50)
[2017-04-07] MEDS: MULTI-VITAMIN PLAIN TABLET PO SCH (08:37)
[2017-04-07] MEDS: FUROSEMIDE 20 MG TABLET PO SCH (08:37)
[2017-04-07] MEDS: LUTEIN 20 MG CAPSULE PO SCH (08:37)
[2017-04-07] MEDS: DOCUSATE SODIUM 100 MG CAPSULE PO SCH ×2 (08:37→21:16)
[2017-04-07] MEDS: SUCRALFATE 1 GM TABLET PO SCH ×2 (08:37→16:59)
[2017-04-07] MEDS: DULOXETINE 30 MG CAPSULE PO SCH ×2 (08:39→21:15)
[2017-04-07] MEDS: GABAPENTIN 300 MG CAPSULE PO SCH ×3 (08:39→21:15)
[2017-04-07] MEDS: HYDROCODONE/APAP 5mg/325mg TABLET PO PRN ×2 (08:43→21:23)
[2017-04-07] MEDS: TOPIRAMATE 25 MG TABLET PO SCH (11:47)
--- NOTE | 2017-04-07 12:10 | IRU Progress Note ---
- Subjective/Serverity of Illness Date: 04/07/17 Daniella was evaluated in her room on inpatient rehabilitation. She is very pleasant. She knows who I am. She is making jokes. She reports that the pain is adequately controlled. She denies any nausea or vomiting and states that her appetite is good. She states that she has had "an explosion" regarding her bowels and feels better in that regard. Inspected her abdominal wounds and these appear to be healing adequately without evidence of infection or inflammation. Brief therapy update: Physical therapy is continuing to evaluate her. For occupational therapy she is standby assist for upper body dressing and minimum assistance for lower body dressing. Toilet assistance with contact-guard assistance. She does not wish to use assistive devices at present. Update on medical issues we are actively monitoring and managin. Recent right hemicolectomy with wound in abdomen: Her bowels are now working. Her appetite is good. There is no evidence of infection in the wounds and the abdomen remained soft. 2. Acute blood loss anemia: Repeat hemoglobin stable at 9.1. No evidence of ongoing bleeding. 3. Paroxysmal atrial fibrillation: At the present time her heart rhythm sounds fairly regular. Chest x-ray reviewed and shows some vascular congestion without evidence of overt heart failure. 4. Recent hypotension secondary to acute blood loss anemia: Here on rehabilitation, her blood pressure has been stable without evidence of hypotension. 5. Parkinson's disease: This is stable at present. Exam Vital Signs: Temperature 98.2 F 04/07/17 09:57 Pulse Rate 70 04/07/17 09:57 Respiratory Rate 18 04/07/17 09:57 Blood Pressure 136/73 04/07/17 09:57 Pulse Oximetry 94 04/07/17 09:57 Height/Weight/BMI: Height 1.6 m Weight 69.6 kg Body Mass Index 27.8 - Constitutional Present: no acute distress, well nourished, well developed, cooperative - Routine HEENT Exam Head: Present: normocephalic, atraumatic ENT: Present: mucous membranes moist - Routine Neck Exam Present: supple, full ROM - Routine Respiratory Exam Present: CTA bilaterally. Absent: dyspnea, decreased breath sounds, respiratory distress, rhonchi, wheezes - Routine Cardiovascular Exam Present: RRR (she is known to have paroxysmal atrial fibrillation but her rhythm sounds regular at present.), S1, S2, murmur - Routine Abdominal Exam Present: soft, normoactive bowel sounds, non distended, wound (inspection and palpation of the abdomen reveals a benign abdomen. Wounds are noninflamed. No discharge.). Absent: tenderness - Routine Extremities Exam Present: no edema. Absent: cyanosis, clubbing - Routine Back/Spine/Pelvis Exam Back/Spine: Present: full ROM - Routine Skin Exam Present: dry, warm, wounds - Routine Neurological Exam Present: alert, oriented X3, CN II-XII intact - Routine Psychiatric Exam Present: normal affect, cooperative, good insight, good judgment Results IRU - Labs Labs: Reviewed chest radiograph, other providers notes and laboratory as well as vital signs. IRU A/P (1) Primary adenocarcinoma of ascending colon Current visit: No Status: Chronic Patient is stable status post right hemicolectomy. Wounds look good. Abdomen is soft. She is having bowel movements and a good appetite. She is cooperative with therapy and making progress. (2) Parkinson's disease Current visit: No Status: Chronic (3) Acute blood loss anemia Current visit: No Status: Acute Repeat hemoglobin stable at 9.1 g percent. (4) Atrial fibrillation Qualifiers: Atrial fibrillation type: paroxysmal Qualified Code(s): I48.0 - Paroxysmal atrial fibrillation Current visit: No Status: Chronic At the present time her rhythm sounds regular. (5) Benign essential hypertension Current visit: No Status: Chronic (6) Debility Current visit: No Status: Acute She is making good progress with therapy. She is cooperative. DVT Prophylaxis: SCD's Resuscitation Status: Do Not Resuscitate - Course Hospital Course: Neville Wade MD: 04/07/17 12:11 She is cooperative with therapy. Pain is controlled. No evidence of wound infection. Blood pressures are stable. 04/07/17 12:12 - Interventions to Obtain Goals PT Treatment Plan: Functional Activities, Gait Training, Manual Therapy, Therapeutic Exercise OT Treatment Plan: ADL (Basic Care), Balance Training, Pt./Family Education, Ther. Exercise for ADL Goals Progress/Modifications: Time spent with patient and on floor reviewing data and documentin min Barriers to dismissal: Endurance, fatigue, strength Medical decision-making: I reviewed her medical status. Chest x-ray does reveal vascular congestion without overt heart failure. She denies any chest pain and seems to tolerate therapy well. Her bowels are moving. There is no evidence of active wound infection. Her hemoglobin is stable. Please note that the patient's individual plan of care was developed and documented today, requiring review of therapy notes, medical conditions and anticipated functional recovery. This required additional medical decision making with regard to interaction of the patient's medical issues with the anticipated functional recovery. Please see separate document.
--- NOTE | 2017-04-07 12:16 | IRU Plan of Care ---
IRU Overall Plan of Care - Date Date: 04/07/17 - Patient Impairments (1) Status post right hemicolectomy Code(s): Z90.49 - Acquired absence of other specified parts of digestive tract Status: Acute Classification: Present on IRF Admission, IRF Tx That Should Address Diagnosis, Diagnosis Requiring Medical Follow Up (2) Weakness Code(s): R53.1 - Weakness Status: Acute Classification: Present on IRF Admission, IRF Tx That Should Address Diagnosis, Diagnosis Requiring Medical Follow Up (3) Acute blood loss anemia Code(s): D62 - Acute posthemorrhagic anemia Status: Acute Classification: Present on IRF Admission, IRF Tx That Should Address Diagnosis, Diagnosis Requiring Medical Follow Up (4) Debility Code(s): R53.81 - Other malaise Status: Acute Classification: Present on IRF Admission, IRF Tx That Should Address Diagnosis, Diagnosis Requiring Medical Follow Up - Relevant Changes Relevant Changes: No Reviewed: I have reviewed the patient's information and concur with the finding and results of the pre-admission screen. Certification: I certify the patient for rehabilitation. - Medical Prognosis Medical Prognosis: Good Vital Signs: Last Vital Signs Temp 98.2 F 04/07/17 09:57 Pulse 70 04/07/17 09:57 Resp 18 04/07/17 09:57 BP 136/73 04/07/17 09:57 Pulse Ox 94 04/07/17 09:57 - Anticipated Interventions Anticipated Interventions: The patient requires inpatient IRF care for PT, OT, and/or ST for residuals remaining from right hemicolectomy resulting in muscular weakness and strength deficits. An individualized overall plan of care has been developed after careful review of the patient's preadmission screening, post admission physician evaluation and assessments of all therapy disciplines and/or other pertinent clinicians involved in treating the patient. This indicates medical necessity and rehabilitation necessity have been established through a thorough review of all available medical information. - Current Functional Status Failed Alternative Therapy: Arrived from Acute Care Patient Requires: The patient requires oversight by rehabilitation physician to manage their rehabilitation treatment plan and multidisciplinary approach to care that can only be provided in an IRF and requires a multidisciplinary approach to care, provided by professional PTs, OTs, STs, rehabilitation nurses, and may require STs, dieticians, and RTS. This is not available in lesser levels of care. Physical Therapy Minutes: 90 Occupational Therapy Minutes: 90 Therapy: The patient is to receive therapy at least 5 days a week. - Anticipated LOS/Outcomes Anticipated Functional Outcome: Expected functional improvements include: -- Modified independant to independant ambulation with or without assistive device -- Modified independant to independant ADL's with or without assistive device -- Return to pre-morbid level of mobility -- Maximize level of mobility and ADL's to decrease burden on any caregiver involved with this patient's care Anticipated Length of Stay (days): 10 Anticipated DC Destination: Home, Self Care, Home Health Service Home Safety Plan: The patient will be provided with the development of a Home Safety Plan for return to a home or home-like environment and and to ensure safety post discharge. - Plan to Avoid Complications Barriers to Attaining Goals: Weakness, Endurance, Comprehension, Medical Limitation (vascular congestion, atrial fibrillation) Plan to Avoid Complications: The patient cannot receive this care in a lesser intensive setting such as Senior Care or Outpatient Therapy due to the patient requiring the following : Because the patient's acute blood loss anemia and recent hypotension following her surgery, she requires close 24-hour monitoring by rehabilitation nurses to ensure no evidence of ongoing blood loss nor wound infection. She requires a multidisciplinary approach with PT, OT with medical supervision in view of her medical problems.
--- NOTE | 2017-04-07 13:09 | IRU Team Meeting ---
IRU Team Meeting - Nursing Bladder Assistive Devices Utilized:: Absorbent Pad Bladder Management Level of Assist: Total Assistance Bladder Frequency of Accidents: No accidents Bowel Assistive Devices Utilized:: Medication, Absorbent Pad Bowel Management Level of Assist: Total Assistance Vital Signs: Vital Signs - 24 hr 04/06/17 16:13 04/06/17 19:36 04/07/17 07:44 Temperature 96.8 F 97.4 F 98.2 F Pulse Rate 71 70 70 Respiratory Rate 18 20 18 Blood Pressure 132/72 115/69 136/73 Pulse Oximetry 94 91 94 04/07/17 09:57 Temperature 98.2 F Pulse Rate 70 Respiratory Rate 18 Blood Pressure 136/73 Pulse Oximetry 94 Current Medications: Acetaminophen (Tylenol) 325 - 650 mg PO Q4H PRN PRN Reason: Pain Last Admin: 04/07/17 04:58 Dose: 650 mg Hydrocodone Bitart/Acetaminophen ([place] 5/325) 1 tab PO Q6HR PRN PRN Reason: Pain Last Admin: 04/07/17 08:43 Dose: 1 tab Carbidopa/Levodopa (Sinemet) 1 tab PO NOON [facility] Last Admin: 04/07/17 11:47 Dose: 1 tab Clonazepam (Klonopin) 0.5 mg PO [facility] Last Admin: 04/06/17 20:45 Dose: 0.5 mg Docusate Sodium (Colace) 100 mg PO BID [facility] Last Admin: 04/07/17 08:37 Dose: 100 mg Donepezil HCl (Aricept) 10 mg PO [facility] Last Admin: 04/06/17 20:45 Dose: 10 mg Duloxetine HCl (Cymbalta) 30 mg PO BID [facility] Last Admin: 04/07/17 08:39 Dose: 30 mg Furosemide (Lasix) 20 mg PO DAILY [facility] Last Admin: 04/07/17 08:37 Dose: 20 mg Gabapentin (Neurontin) 300 mg PO TID [facility] Last Admin: 04/07/17 08:39 Dose: 300 mg Levothyroxine Sodium (Synthroid) 75 mcg PO ACB [facility] Last Admin: 04/07/17 05:50 Dose: 75 mcg Lutein () 20 mg PO DAILY [facility] Last Admin: 04/07/17 08:37 Dose: 20 mg Melatonin (Melatonin) 5 mg PO [facility] Last Admin: 04/06/17 20:45 Dose: 5 mg Multivitamins (Theragran) 1 tab PO DAILY [facility] Last Admin: 04/07/17 08:37 Dose: 1 tab Omeprazole (Prilosec) 20 mg PO ACB [facility] Last Admin: 04/07/17 05:50 Dose: 20 mg Potassium Chloride (K-Dur) 10 meq PO WB [facility] Last Admin: 04/07/17 08:37 Dose: 10 meq Simvastatin (Zocor) 10 mg PO HS [facility] Last Admin: 04/06/17 20:46 Dose: 10 mg Sucralfate (Carafate) 1 gm PO BIDWM [facility] Last Admin: 04/07/17 08:37 Dose: 1 gm Topiramate (Topamax) 25 mg PO NOON [facility] Last Admin: 04/07/17 11:47 Dose: 25 mg Current Medical Issues: Acute blood loss anemia, wound care, atrial fib, recent hypotension Comments: I certify that I personally led the interdisciplinary team meeting and agree with comments, barriers and goals indicated. Team meeting was held in the patient's room with the patient and the following family members present: patient alone Ms. Juan seems to have adequate control of her abdominal pain. She would like to cough without it hurting she states. She denies any nausea or vomiting. She is having bowel movements. Pain is adequately controlled. She denies any shortness of breath or lightheadedness. Her hemoglobin is stable at 9.1 g percent. - Physical Therapy Bed, Chair, Wheelchair Transfer Assist: Moderate Assistance Ambulation Ability: Total Assistance Ambulation Distance: 38 Wheelchair Propulsion Ability: Maximal Assistance Wheelchair Propulsion Distance: 50 Stair Climbing Ability: Patient Unsafe/Unable Car Transfer Ability: Patient Unsafe/Unable Comments: She reports incisional pain which results in difficult transfers. She is quite debilitated at the present time. She is able to ambulate with total assistance 38 feet. She is cooperative with therapy. - Occupational Therapy Eating Ability: Stand By Assist/Supervision Grooming Ability: Contact Guard Assistance Bathing Ability: Minimal Assistance Upper Body Dressing Ability: Stand By Assist/Supervision Lower Body Dressing Ability: Minimal Assistance Tub Transfer Assist: Patient Unsafe/Unable Toileting Assist: Contact Guard Assistance Toilet Transfer Assist: Minimal Assistance Comments: She is very cooperative with occupational therapy. She does have reduced endurance and requires minimum to moderate assistance for transfers depending on her level of fatigue. - Goals Physical Therapy Goals: 04/07/17 Goals: 1.) SBA with transfers. 2.) 50 feet CGA Occupational Therapy Goals: OT goals 04/07/17: 1.) Toileting 08/21. 2.) LB dressing 07/21. - Barriers to Discharge Barriers to Attaining Goals: Weakness, Endurance, Pain Control - Care Plan Anticipated Length of Stay (days): 10 Anticipated Length of Stay: Reassess in one week Anticipated DC Destination: Home, Self Care, Home Health Service I have led this team conference and agree with the plan. Interventions/Goals: Patient is cooperative with therapy. She is progressing. She continues to display significant weakness and reduced endurance. Hemoglobin is stable. Continue working with patient and reassess in 1 week.
--- NOTE | 2017-04-07 18:02 | General Surgery Progress Note ---
Subjective Narrative: I saw Daniella earlier this morning, she was having therapy. States she is getting stronger. No abd pain, but does not like the hannah. She is progressing well with therapy. - Vital Signs Last Vital Signs Temp 97.0 F 04/07/17 16:00 Pulse 70 04/07/17 16:00 Resp 16 04/07/17 16:00 BP 100/64 04/07/17 16:00 Pulse Ox 95 04/07/17 16:00 - Laboratory Result Diagrams: 04/07/17 04:26 04/07/17 04:26 - Normal Exam General: awake, alert Abdominal: soft, non-tender, incision(s) (CDI hannah in tact) Psychiatric: normal affect Assessment and Plan (1) Status post right hemicolectomy Current Visit: Yes Status: Acute Problem details: 03/31/17, Dr. Chavez. Plan: Doing well from surgical standpoint. Will follow her occasionally during her stay. Plan on staple removal next Friday or Friday. Hospital Course Summary Disclaimer: The visit summary below is not to be considered part of the above Progress Note. Hospital Course: Plan - 04/05/17 (Admission) Agree with admission to IRU for continued intensive therapies and pain control per Dr. Wade. Hospitalist service consulted for medical management. Encourage participation in therapies. Provide safe and supportive environment. Acute blood loss anemia following surgery on 03/31/17. Hgb dropped to 6.8 during acute hospitalization and required 2 units PRBC. Monitor hemoglobin closely. Currently Hgb 9.1. Rectal bleeding following surgery. Patient is not a candidate for anticoagulation. SCDs for DVT prophylaxis. No bleeding noted x 24-36 hours. Monitor closely for acute bleeding. Consult Dr. Chavez for continued surgical care. Continue home medications. Recent hypotension with anemia. Blood pressure stable currently. Monitor closely. Crackles noted bilaterally in lungs. History of CHF. Will obtain orthostatic vital signs now as well as CXR for further evaluation. Patient currently on Lasix 20mg daily and may need additional diuresis. Encourage incentive spirometry for pulmonary toileting. History of pneumonia in January 2017. Patient remains afebrile. Monitor daily weight closely for signs of fluid overload. Prilosec and Carafate for GERD and GI protection. Will recheck labs on 04/07/17 to monitor blood counts, electrolytes and renal function. Upon discharge, patient's care will be returned to her PCP, Dr. Chatman. Patient wishes to be a DNR.
[2017-04-07] MEDS: SIMVASTATIN 10 MG TABLET PO SCH (21:15)
[2017-04-07] MEDS: MELATONIN 5 MG TABLET PO SCH (21:15)
[2017-04-07] MEDS: ClonazePAM 0.5 MG TABLET PO SCH (21:15)
[2017-04-07] MEDS: DONEPEZIL 10 MG TABLET PO SCH (21:16)
[2017-04-08] MEDS: HYDROCODONE/APAP 5mg/325mg TABLET PO PRN ×2 (06:38→19:51)
[2017-04-08] MEDS: LEVOTHYROXINE 75 MCG TABLET PO SCH (07:40)
[2017-04-08] MEDS: OMEPRAZOLE 20 MG CAPSULE PO SCH (07:40)
[2017-04-08] MEDS: SUCRALFATE 1 GM TABLET PO SCH ×2 (07:40→18:14)
[2017-04-08] MEDS: GABAPENTIN 300 MG CAPSULE PO SCH ×3 (08:37→21:37)
[2017-04-08] MEDS: MULTI-VITAMIN PLAIN TABLET PO SCH (08:37)
[2017-04-08] MEDS: LUTEIN 20 MG CAPSULE PO SCH (08:37)
[2017-04-08] MEDS: FUROSEMIDE 20 MG TABLET PO SCH (08:37)
[2017-04-08] MEDS: DOCUSATE SODIUM 100 MG CAPSULE PO SCH ×2 (08:37→21:36)
[2017-04-08] MEDS: DULOXETINE 30 MG CAPSULE PO SCH ×2 (08:52→21:37)
--- NOTE | 2017-04-08 10:55 | IRU Progress Note ---
- Subjective/Serverity of Illness Date: 04/08/17 Daniella was evaluated in her room with the occupational therapist present. She is cooperative with therapy. She says that her pain is adequately controlled although still has pain in the abdomen when she coughs. She does not really have "a cough" on ongoing basis. She does not like the hannah and is concerned about the removal at some point. Otherwise she denies any cardiac or pulmonary symptoms at present. Brief therapy update: For occupational therapy bathing requires minimum assistance. Upper body dressing requires standby assistance and lower body dressing requires minimum assistance. For physical therapy bed/chair/wheelchair transfers require maximum assistance. She is able to ambulate 30 feet with total assistance. Poor vision, poor balance and poor endurance are all barriers from a therapy standpoint. Update on medical issues we are actively monitoring and managin. Recent right hemicolectomy with wounds in abdomen: Patient's wounds were all inspected. No evidence of active infection. 2. Acute blood loss anemia: Recent hemoglobin stable. No evidence of ongoing bleeding. 3. Paroxysmal atrial fibrillation: This is asymptomatic and she sounds like she is in a regular rhythm at present. 4. Recent hypotension secondary to acute blood loss anemia: Blood pressures have been stable on rehabilitation. 5. Parkinson's disease: This is stable at present. Exam Vital Signs: Temperature 97.5 F 04/08/17 07:25 Pulse Rate 80 04/08/17 07:25 Respiratory Rate 16 04/08/17 07:25 Blood Pressure 138/79 04/08/17 07:25 Pulse Oximetry 90 04/08/17 07:25 Height/Weight/BMI: Height 1.6 m Weight 69.6 kg Body Mass Index 27.8 - Constitutional Present: no acute distress, well nourished, well developed, cooperative - Routine HEENT Exam Head: Present: normocephalic, atraumatic Eye: Present: EOMI ENT: Present: mucous membranes moist - Routine Respiratory Exam Present: CTA bilaterally. Absent: dyspnea, decreased breath sounds, respiratory distress, wheezes - Routine Cardiovascular Exam Present: RRR, S1, S2. Absent: murmur - Routine Abdominal Exam Present: soft, normoactive bowel sounds, tenderness (she notes some tenderness when I palpate her abdomen. This would be anticipated in view of the recent surgery.), non distended, wound (abdominal wounds from robotic surgery all inspected and appeared to be benign.) - Routine Extremities Exam Present: no edema - Routine Skin Exam Present: dry, warm - Routine Neurological Exam Present: alert, oriented X3, CN II-XII intact - Routine Psychiatric Exam Present: normal affect, cooperative IRU A/P (1) Status post right hemicolectomy Problem details: 03/31/17, Dr. Chavez. Current visit: Yes Status: Acute Pain management is adequate. She is eating and drinking adequately. Had a bowel movement yesterday. (2) Weakness Current visit: No Status: Acute Does have generalized debilitation with poor exercise tolerance, reduced balance and easy fatigability. (3) Acute blood loss anemia Current visit: No Status: Acute (4) Debility Current visit: No Status: Acute DVT Prophylaxis: SCD's Resuscitation Status: Do Not Resuscitate - Course Hospital Course: Neville Wade MD: 04/07/17 12:11 She is cooperative with therapy. Pain is controlled. No evidence of wound infection. Blood pressures are stable. 04/07/17 12:12 04/08/17 10:56 Progressing with therapy. Struggles with poor balance and endurance. Wounds appear to be stable without evidence of infection. - Interventions to Obtain Goals PT Treatment Plan: Functional Activities, Gait Training, Manual Therapy, Therapeutic Exercise OT Treatment Plan: ADL (Basic Care), Balance Training, Pt./Family Education, Ther. Exercise for ADL
[2017-04-08] MEDS: TOPIRAMATE 25 MG TABLET PO SCH (12:12)
[2017-04-08] MEDS: ClonazePAM 0.5 MG TABLET PO SCH (21:36)
[2017-04-08] MEDS: SIMVASTATIN 10 MG TABLET PO SCH (21:37)
[2017-04-08] MEDS: MELATONIN 5 MG TABLET PO SCH (21:37)
[2017-04-08] MEDS: DONEPEZIL 10 MG TABLET PO SCH (21:37)
[2017-04-09] MEDS: LEVOTHYROXINE 75 MCG TABLET PO SCH (06:33)
[2017-04-09] MEDS: OMEPRAZOLE 20 MG CAPSULE PO SCH (06:34)
[2017-04-09] MEDS: DULOXETINE 30 MG CAPSULE PO SCH ×2 (09:05→22:15)
[2017-04-09] MEDS: LUTEIN 20 MG CAPSULE PO SCH (09:05)
[2017-04-09] MEDS: FUROSEMIDE 20 MG TABLET PO SCH (09:06)
[2017-04-09] MEDS: SUCRALFATE 1 GM TABLET PO SCH ×2 (09:06→18:14)
[2017-04-09] MEDS: GABAPENTIN 300 MG CAPSULE PO SCH ×3 (09:06→22:15)
[2017-04-09] MEDS: DOCUSATE SODIUM 100 MG CAPSULE PO SCH ×2 (09:08→22:15)
[2017-04-09] MEDS: MULTI-VITAMIN PLAIN TABLET PO SCH (09:11)
[2017-04-09] MEDS: HYDROCODONE/APAP 5mg/325mg TABLET PO PRN ×3 (09:36→22:15)
--- NOTE | 2017-04-09 11:10 | Progress Note ---
- Date 04/09/17 Subjective: Daniella is seen today while participating with therapy in her room. She reports that she feels "blah" today and doesn't have any "peep". She denies any specific complaints or concerns including no chest pain, shortness of breath, nausea, vomiting or dysuria. Her appetite is stable and bowels are moving. She does complain of some vague abdominal discomfort where the tay are but thinks that her discomfort is more from the tay pulling on her skin. No abdominal tenderness with palpation. [place] are clean, dry and intact to all incisions. Filippo with Dr. Chavez is expected to remove the tay on Friday. Nursing reports the patient has been cooperative with therapies and cares and overall is doing well. Objective Vital signs: Temperature 98.5 F 04/09/17 08:00 Pulse Rate 79 04/09/17 08:00 Respiratory Rate 16 04/09/17 08:00 Blood Pressure 140/78 H 04/09/17 08:00 Pulse Oximetry 98 04/09/17 08:00 Height/Weight/BMI: Height 5 ft 3 in Weight 151 lb 0.266 oz Body Mass Index 27.8 Comments: working with therapy in her room. - Constitutional Present: no acute distress, well nourished, well developed, cooperative - Routine HEENT Exam Head: Present: normocephalic, atraumatic Eye: Present: PERRL. Absent: conjunctival icterus ENT: Present: mucous membranes moist - Routine Respiratory Exam Present: CTA bilaterally. Absent: rales, rhonchi, stridor, wheezes, crackles - Routine Cardiovascular Exam Present: RRR, S1, S2 - Routine Abdominal Exam Present: soft, normoactive bowel sounds, non distended, non tender Comments: tay intact to all surgical sites without discharge, bleeding or changes. - Routine Extremities Exam Present: no edema, non tender, full ROM, pulses intact - Routine Back/Spine/Pelvis Exam Back/Spine: Present: full ROM, kyphosis. Absent: vertebral tenderness - Routine Musculoskeletal Exam Musculoskeletal: Present: moving extremities well - Routine Skin Exam Present: dry, warm. Absent: jaundice Comments: afebrile - Routine Neurological Exam Present: alert, moving all extremities, hearing grossly intact, normal speech - Routine Lymphatic Exam Lymphatic: Absent: lymphedema - Routine Psychiatric Exam Present: cooperative Results - Labs CBC & Chem 7: 04/07/17 04:26 04/07/17 04:26 Assessment and Plan (1) Weakness Current visit: No Status: Acute (2) Acute blood loss anemia Current visit: No Status: Acute (3) Debility Current visit: No Status: Acute (4) Status post right hemicolectomy Problem details: 03/31/17, Dr. Chavez. Current visit: Yes Status: Acute Assessment and Plan: Assessment S/P right hemicolectomy on 03/31/[address] Chavez secondary to invasive adenocarcinoma of the colon, grade 2 moderately differentiated. Anemia secondary to acute blood loss - previous blood transfusion on 04/01/17 and 04/02/17. Chronic atrial fibrillation. History of breast cancer. Essential tremor. Hypertension. Congestive heart failure. Hypothyroidism. Dementia. Parkinson's disease. Cataracts. Macular degeneration. Sleep apnea. Constipation. GERD. Depression. History of urinary incontinence. History of migraine headaches. History of DVT. Plan - 04/09/17 Daniella reports that she feels "blah" today and doesn't have any "peep". Nursing concerned patient appears more pale today as compared to previous days. Continue intensive therapies and pain control per Dr. Wade. Pain well controlled. Continue bowel motivation with opioid pain control. Encourage participation in therapies. Provide safe and supportive environment. Acute blood loss anemia following surgery on 03/31/17. Hgb dropped to 6.8 during acute hospitalization and required 2 units PRBC. Hgb on 04/07 was stable at 9.1. Will reassess CBC and BMP now given vague complaints and recent abdominal surgery. Rectal bleeding following surgery. Patient is not a candidate for anticoagulation. SCDs for DVT prophylaxis. No current bleeding. Monitor closely for acute bleeding. Discussed patient case with Dr. Kathy Barkley's DOCTOR NATUROPATHIC. Tay to be removed by Filippo on 04/14/17. Surgical incision remain clean, dry with tay intact. Continue to monitor. Weight trending down and breathing stable. Continue to monitor daily weight closely for signs of fluid overload. Patient currently on Lasix 20mg daily and may need additional diuresis if signs of fluid overload. Encourage incentive spirometry for pulmonary toileting. History of pneumonia in January 2017. Patient remains afebrile. Prilosec and Carafate for GERD and GI protection. DVT Prophylaxis: SCD's GI Prophylaxis: Protonix Resuscitation Status: Do Not Resuscitate - Time spent with patient Time with patient PN: 35 minutes - Physician Narrative Physician: other (Dr. Moulton) Narrative: Date: 04/09/17 Time: 1106 Hospital Course Summary Disclaimer: The visit summary below is not to be considered part of the above Progress Note. Hospital Course: Plan - 04/05/17 (Admission) Agree with admission to IRU for continued intensive therapies and pain control per Dr. Wade. Hospitalist service consulted for medical management. Encourage participation in therapies. Provide safe and supportive environment. Acute blood loss anemia following surgery on 03/31/17. Hgb dropped to 6.8 during acute hospitalization and required 2 units PRBC. Monitor hemoglobin closely. Currently Hgb 9.1. Rectal bleeding following surgery. Patient is not a candidate for anticoagulation. SCDs for DVT prophylaxis. No bleeding noted x 24-36 hours. Monitor closely for acute bleeding. Consult Dr. Chavez for continued surgical care. Continue home medications. Recent hypotension with anemia. Blood pressure stable currently. Monitor closely. Crackles noted bilaterally in lungs. History of CHF. Will obtain orthostatic vital signs now as well as CXR for further evaluation. Patient currently on Lasix 20mg daily and may need additional diuresis. Encourage incentive spirometry for pulmonary toileting. History of pneumonia in January 2017. Patient remains afebrile. Monitor daily weight closely for signs of fluid overload. Prilosec and Carafate for GERD and GI protection. Will recheck labs on 04/07/17 to monitor blood counts, electrolytes and renal function. Upon discharge, patient's care will be returned to her PCP, Dr. Chatman. Patient wishes to be a DNR. Plan - 04/09/17 Daniella reports that she feels "blah" today and doesn't have any "peep". Nursing concerned patient appears more pale today as compared to previous days. Continue intensive therapies and pain control per Dr. Wade. Pain well controlled. Continue bowel motivation with opioid pain control. Encourage participation in therapies. Provide safe and supportive environment. Acute blood loss anemia following surgery on 03/31/17. Hgb dropped to 6.8 during acute hospitalization and required 2 units PRBC. Hgb on 04/07 was stable at 9.1. Will reassess CBC and BMP now given vague complaints and recent abdominal surgery. Rectal bleeding following surgery. Patient is not a candidate for anticoagulation. SCDs for DVT prophylaxis. No current bleeding. Monitor closely for acute bleeding. Discussed patient case with Dr. Kathy Barkley's DOCTOR NATUROPATHIC. [place] to be removed by Filippo on 04/14/17. Surgical incision remain clean, dry with tay intact. Continue to monitor. Weight trending down and breathing stable. Continue to monitor daily weight closely for signs of fluid overload. Patient currently on Lasix 20mg daily and may need additional diuresis if signs of fluid overload. Encourage incentive spirometry for pulmonary toileting. History of pneumonia in January 2017. Patient remains afebrile. Prilosec and Carafate for GERD and GI protection.
[2017-04-09] MEDS: TOPIRAMATE 25 MG TABLET PO SCH (12:22)
[2017-04-09] MEDS: SIMVASTATIN 10 MG TABLET PO SCH (22:14)
[2017-04-09] MEDS: ClonazePAM 0.5 MG TABLET PO SCH (22:15)
[2017-04-09] MEDS: MELATONIN 5 MG TABLET PO SCH (22:15)
[2017-04-09] MEDS: DONEPEZIL 10 MG TABLET PO SCH (23:03)
[2017-04-10] MEDS: HYDROCODONE/APAP 5mg/325mg TABLET PO PRN ×2 (05:51→20:54)
[2017-04-10] MEDS: OMEPRAZOLE 20 MG CAPSULE PO SCH (05:51)
[2017-04-10] MEDS: LEVOTHYROXINE 75 MCG TABLET PO SCH (05:51)
[2017-04-10] MEDS: GABAPENTIN 300 MG CAPSULE PO SCH ×3 (08:59→20:53)
[2017-04-10] MEDS: FUROSEMIDE 20 MG TABLET PO SCH (08:59)
[2017-04-10] MEDS: DULOXETINE 30 MG CAPSULE PO SCH ×2 (08:59→20:54)
[2017-04-10] MEDS: SUCRALFATE 1 GM TABLET PO SCH ×2 (08:59→18:42)
[2017-04-10] MEDS: DOCUSATE SODIUM 100 MG CAPSULE PO SCH ×2 (10:09→20:54)
[2017-04-10] MEDS: MULTI-VITAMIN PLAIN TABLET PO SCH (10:09)
[2017-04-10] MEDS: LUTEIN 20 MG CAPSULE PO SCH (10:09)
--- NOTE | 2017-04-10 10:34 | IRU Progress Note ---
- Subjective/Serverity of Illness Date: 04/10/17 Ms. Juan was evaluated on the inpatient rehabilitation unit. She is pleasant and cooperative. However has told therapists that she has had difficulties in the last 24 hours. She seems to be cooperative with therapy and is making slow progress. Continues to have some abdominal pain. She continues to be worried about when the hannah will come out. She is having bowel movements and has a reasonable appetite. Denies any chest pain or shortness of breath. Brief therapy update: For bathing she requires minimum assistance primarily for thoroughness with cleansing, upper body dressing is with standby assistance and lower body dressing is with minimum assistance. For physical therapy bed/chair/ wheelchair transfers are with contact-guard assistance. She is able to ambulate with a front wheeled walker over 100 feet with maximum assistance. Update on medical issues we are actively monitoring and managin. Recent right hemicolectomy with wounds in abdomen: Continues to have discomfort mainly in the left abdomen but this would be anticipated to be normal. No evidence of wound infection. She is eating and drinking adequately. 2. Acute blood loss anemia: Repeat hemoglobin 9.3 g percent. She appears to be stable and without evidence of ongoing blood loss. 3. Paroxysmal atrial fibrillation: Continues to deny significant dyspnea. Again she sounds as though she is in a regular rhythm. 4. Recent hypotension secondary to acute blood loss anemia: Blood pressures continue to be stable. 5. Parkinson's disease: This is stable at present. Exam Vital Signs: Temperature 98.1 F 04/10/17 07:45 Pulse Rate 64 04/10/17 07:45 Respiratory Rate 16 04/10/17 07:45 Blood Pressure 112/65 04/10/17 07:45 Pulse Oximetry 91 04/10/17 07:45 Height/Weight/BMI: Height 1.6 m Weight 66.7 kg Body Mass Index 27.8 - Constitutional Present: no acute distress, well nourished, well developed - Routine HEENT Exam Head: Present: normocephalic Eye: Present: EOMI ENT: Present: mucous membranes moist - Routine Neck Exam Present: supple, full ROM - Routine Respiratory Exam Present: CTA bilaterally. Absent: respiratory distress, rhonchi, wheezes - Routine Cardiovascular Exam Present: RRR, S1, S2, murmur (systolic murmur left sternal border.) - Routine Abdominal Exam Present: soft, normoactive bowel sounds, tenderness (as anticipated in the postoperative timeframe.), non distended - Routine Extremities Exam Present: no edema, normal capillary refill - Routine Skin Exam Present: dry, warm - Routine Neurological Exam Present: alert, oriented X3 (she normally comes across as being oriented. However there are memory deficits identified from time to time.), CN II-XII intact - Routine Psychiatric Exam Present: normal affect, cooperative. Absent: good insight, good judgment Results IRU - Labs Labs: I reviewed her recent labs and other notes. IRU A/P (1) Status post right hemicolectomy Problem details: 03/31/17, Dr. Chavez. Current visit: Yes Status: Acute She is stable post hemicolectomy. She is eating and drinking adequately. She is slowly progressing with therapy. (2) Weakness Current visit: No Status: Acute Her generalized debility is improving. She is cooperative with therapy although has easy fatigability. (3) Acute blood loss anemia Current visit: No Status: Acute Repeat hemoglobin stable at 9.3 g percent. (4) Debility Current visit: No Status: Acute DVT Prophylaxis: SCD's Resuscitation Status: Do Not Resuscitate - Course Hospital Course: Neville Wade MD: 04/07/17 12:11 She is cooperative with therapy. Pain is controlled. No evidence of wound infection. Blood pressures are stable. 04/07/17 12:12 04/08/17 10:56 Progressing with therapy. Struggles with poor balance and endurance. Wounds appear to be stable without evidence of infection. 04/10/17 10:35 Hemoglobin stable. Easy fatigability noted. Heart and lung exam is unchanged and stable. She is cooperative with therapy. - Interventions to Obtain Goals PT Treatment Plan: Functional Activities, Gait Training, Manual Therapy, Therapeutic Exercise OT Treatment Plan: ADL (Basic Care), Balance Training, Pt./Family Education, Ther. Exercise for ADL Goals Progress/Modifications: Time spent with patient and on floor reviewing data and documentin min Barriers to dismissal: Weakness, endurance, balance, low vision, cognition Medical decision-making: Daniella is cooperative with therapy although displays easy fatigability. She is making slow progress. She is having daily bowel movements. Her appetite is reasonable. She continues to complain of some discomfort in the left abdomen. She is minimally tender here as anticipated in the postoperative timeframe. There is no evidence of wound infection and appears to be healing up nicely from the surgery. We will continue to encourage her to participate with therapy and making progress. Pain is adequately controlled. Continues to be in a regular rhythm.
[2017-04-10] MEDS: TOPIRAMATE 25 MG TABLET PO SCH (12:22)
--- NOTE | 2017-04-10 16:47 | General Surgery Progress Note ---
Subjective Patient reports: feels better, pain is less - Vital Signs Last Vital Signs Temp 98.0 F 04/10/17 15:21 Pulse 78 04/10/17 15:21 Resp 20 04/10/17 15:21 BP 132/72 04/10/17 15:21 Pulse Ox 97 04/10/17 15:21 - Laboratory Result Diagrams: 04/09/17 14:31 04/09/17 14:31 - Normal Exam General: awake, alert, oriented Abdominal: non-tender, incision(s) (CDI tay removed from trocar sites only. ) Assessment and Plan (1) Status post right hemicolectomy Current Visit: Yes Status: Acute Problem details: 03/31/17, Dr. Chavez. Plan: Doing well with PT. Tay removed from torcar sites today. Plan on remove remaing tay from lower Pfannenstiel incision on Friday. Hospital Course Summary Disclaimer: The visit summary below is not to be considered part of the above Progress Note. Hospital Course: Plan - 04/05/17 (Admission) Agree with admission to IRU for continued intensive therapies and pain control per Dr. Wade. Hospitalist service consulted for medical management. Encourage participation in therapies. Provide safe and supportive environment. Acute blood loss anemia following surgery on 03/31/17. Hgb dropped to 6.8 during acute hospitalization and required 2 units PRBC. Monitor hemoglobin closely. Currently Hgb 9.1. Rectal bleeding following surgery. Patient is not a candidate for anticoagulation. SCDs for DVT prophylaxis. No bleeding noted x 24-36 hours. Monitor closely for acute bleeding. Consult Dr. Chavez for continued surgical care. Continue home medications. Recent hypotension with anemia. Blood pressure stable currently. Monitor closely. Crackles noted bilaterally in lungs. History of CHF. Will obtain orthostatic vital signs now as well as CXR for further evaluation. Patient currently on Lasix 20mg daily and may need additional diuresis. Encourage incentive spirometry for pulmonary toileting. History of pneumonia in January 2017. Patient remains afebrile. Monitor daily weight closely for signs of fluid overload. Prilosec and Carafate for GERD and GI protection. Will recheck labs on 04/07/17 to monitor blood counts, electrolytes and renal function. Upon discharge, patient's care will be returned to her PCP, Dr. Chatman. Patient wishes to be a DNR. Plan - 04/09/17 Daniella reports that she feels "blah" today and doesn't have any "peep". Nursing concerned patient appears more pale today as compared to previous days. Continue intensive therapies and pain control per Dr. Wade. Pain well controlled. Continue bowel motivation with opioid pain control. Encourage participation in therapies. Provide safe and supportive environment. Acute blood loss anemia following surgery on 03/31/17. Hgb dropped to 6.8 during acute hospitalization and required 2 units PRBC. Hgb on 04/07 was stable at 9.1. Will reassess CBC and BMP now given vague complaints and recent abdominal surgery. Rectal bleeding following surgery. Patient is not a candidate for anticoagulation. SCDs for DVT prophylaxis. No current bleeding. Monitor closely for acute bleeding. Discussed patient case with Dr. Kathy Barkley's BOX FOLDING MACHINE OPERATOR. [place] to be removed by Filippo on 04/14/17. Surgical incision remain clean, dry with tay intact. Continue to monitor. Weight trending down and breathing stable. Continue to monitor daily weight closely for signs of fluid overload. Patient currently on Lasix 20mg daily and may need additional diuresis if signs of fluid overload. Encourage incentive spirometry for pulmonary toileting. History of pneumonia in January 2017. Patient remains afebrile. Prilosec and Carafate for GERD and GI protection.
[2017-04-10] MEDS: ClonazePAM 0.5 MG TABLET PO SCH (20:54)
[2017-04-10] MEDS: DONEPEZIL 10 MG TABLET PO SCH (20:54)
[2017-04-10] MEDS: SIMVASTATIN 10 MG TABLET PO SCH (20:54)
[2017-04-10] MEDS: MELATONIN 5 MG TABLET PO SCH (21:01)
[2017-04-11] MEDS: OMEPRAZOLE 20 MG CAPSULE PO SCH (06:24)
[2017-04-11] MEDS: HYDROCODONE/APAP 5mg/325mg TABLET PO PRN (06:24)
[2017-04-11] MEDS: LEVOTHYROXINE 75 MCG TABLET PO SCH (06:24)
[2017-04-11] MEDS: MULTI-VITAMIN PLAIN TABLET PO SCH (08:52)
[2017-04-11] MEDS: DOCUSATE SODIUM 100 MG CAPSULE PO SCH ×2 (08:52→19:58)
[2017-04-11] MEDS: SUCRALFATE 1 GM TABLET PO SCH ×2 (08:52→18:00)
[2017-04-11] MEDS: FUROSEMIDE 20 MG TABLET PO SCH (08:52)
[2017-04-11] MEDS: GABAPENTIN 300 MG CAPSULE PO SCH ×2 (08:52→15:55)
[2017-04-11] MEDS: DULOXETINE 30 MG CAPSULE PO SCH ×2 (08:52→19:58)
[2017-04-11] MEDS: LUTEIN 20 MG CAPSULE PO SCH (08:52)
[2017-04-11] MEDS: ACETAMINOPHEN 325 MG TABLET PO PRN (10:41)
[2017-04-11] MEDS: TOPIRAMATE 25 MG TABLET PO SCH (12:19)
--- NOTE | 2017-04-11 12:45 | IRU Progress Note ---
- Subjective/Serverity of Illness Date: 04/11/17 Ms. Juan was assessed in her room today. She says that her legs feel like "stumps." They're not necessarily painful but just have reduced sensation she states. Nevertheless she is ambulatory with assistance. She is making slow progress with therapy. The hannah have been removed. She has had no more "explosions" with regard to her bowel movements. She denies any chest pain or shortness of breath or symptoms of palpitations. Once again she sounds like she is in a regular cardiac rhythm. There is no edema. Her appetite is good. Exam Vital Signs: Temperature 98.5 F 04/11/17 08:00 Pulse Rate 79 04/11/17 08:00 Respiratory Rate 16 04/11/17 08:00 Blood Pressure 129/81 04/11/17 08:00 Pulse Oximetry 93 04/11/17 08:00 Height/Weight/BMI: Height 1.6 m Weight 69.7 kg Body Mass Index 27.8 - Constitutional Present: no acute distress, well nourished, well developed, cooperative - Routine HEENT Exam Head: Present: normocephalic Eye: Present: EOMI ENT: Present: mucous membranes moist - Routine Neck Exam Present: supple - Routine Respiratory Exam Present: CTA bilaterally. Absent: wheezes - Routine Cardiovascular Exam Present: RRR, S1, S2, murmur - Routine Abdominal Exam Present: soft, normoactive bowel sounds, non distended. Absent: tenderness Comments: I inspected her abdominal wounds all of which are healing nicely. [place] have been removed. - Routine Extremities Exam Present: no edema - Routine Skin Exam Present: dry, warm - Routine Neurological Exam Present: alert, oriented X3, CN II-XII intact - Routine Psychiatric Exam Present: normal affect IRU A/P (1) Status post right hemicolectomy Problem details: 03/31/17, Dr. Chavez. Current visit: Yes Status: Acute Medically she seems stable. Her appetite is adequate. She is having bowel movements. Denies any nausea or vomiting. Pain is controlled. (2) Weakness Current visit: No Status: Acute Continues to slowly progress with therapy both occupational therapy and physical therapy. (3) Acute blood loss anemia Current visit: No Status: Acute (4) Debility Current visit: No Status: Acute DVT Prophylaxis: SCD's Resuscitation Status: Do Not Resuscitate - Course Hospital Course: Neville Wade MD: 04/07/17 12:11 She is cooperative with therapy. Pain is controlled. No evidence of wound infection. Blood pressures are stable. 04/07/17 12:12 04/08/17 10:56 Progressing with therapy. Struggles with poor balance and endurance. Wounds appear to be stable without evidence of infection. 04/10/17 10:35 Hemoglobin stable. Easy fatigability noted. Heart and lung exam is unchanged and stable. She is cooperative with therapy. 04/11/17 12:44 [place] been removed. Continues to have easy fatigability but overall tolerating therapy well. No evidence of continued blood loss. - Interventions to Obtain Goals PT Treatment Plan: Functional Activities, Gait Training, Manual Therapy, Therapeutic Exercise OT Treatment Plan: ADL (Basic Care), Balance Training, Pt./Family Education, Ther. Exercise for ADL
[2017-04-11] MEDS: ClonazePAM 0.5 MG TABLET PO SCH (19:57)
[2017-04-11] MEDS: DONEPEZIL 10 MG TABLET PO SCH (19:58)
[2017-04-11] MEDS: MELATONIN 5 MG TABLET PO SCH (19:59)
[2017-04-11] MEDS: SIMVASTATIN 10 MG TABLET PO SCH (19:59)
[2017-04-12] MEDS: ClonazePAM 0.5 MG TABLET PO SCH ×2 (03:44→20:04)
[2017-04-12] MEDS: DOCUSATE SODIUM 100 MG CAPSULE PO SCH ×3 (03:44→20:05)
[2017-04-12] MEDS: DONEPEZIL 10 MG TABLET PO SCH ×2 (03:45→20:05)
[2017-04-12] MEDS: MELATONIN 5 MG TABLET PO SCH ×2 (03:45→20:06)
[2017-04-12] MEDS: GABAPENTIN 300 MG CAPSULE PO SCH ×4 (03:45→20:05)
[2017-04-12] MEDS: DULOXETINE 30 MG CAPSULE PO SCH ×3 (03:45→20:05)
[2017-04-12] MEDS: LEVOTHYROXINE 75 MCG TABLET PO SCH ×2 (03:48→06:36)
[2017-04-12] MEDS: OMEPRAZOLE 20 MG CAPSULE PO SCH ×2 (03:48→06:37)
[2017-04-12] MEDS: ACETAMINOPHEN 325 MG TABLET PO PRN ×2 (08:26→20:08)
[2017-04-12] MEDS: MULTI-VITAMIN PLAIN TABLET PO SCH (08:28)
[2017-04-12] MEDS: FUROSEMIDE 20 MG TABLET PO SCH (08:29)
[2017-04-12] MEDS: SUCRALFATE 1 GM TABLET PO SCH ×2 (08:29→17:22)
[2017-04-12] MEDS: LUTEIN 20 MG CAPSULE PO SCH (08:29)
[2017-04-12] MEDS: TOPIRAMATE 25 MG TABLET PO SCH (12:06)
[2017-04-12] MEDS: SIMVASTATIN 10 MG TABLET PO SCH (20:06)
[2017-04-13] MEDS: OMEPRAZOLE 20 MG CAPSULE PO SCH (05:35)
[2017-04-13] MEDS: LEVOTHYROXINE 75 MCG TABLET PO SCH (05:35)
[2017-04-13] MEDS: SUCRALFATE 1 GM TABLET PO SCH ×2 (09:14→18:21)
[2017-04-13] MEDS: DULOXETINE 30 MG CAPSULE PO SCH ×2 (09:14→20:15)
[2017-04-13] MEDS: GABAPENTIN 300 MG CAPSULE PO SCH ×2 (09:14→20:17)
[2017-04-13] MEDS: DOCUSATE SODIUM 100 MG CAPSULE PO SCH ×2 (09:14→20:14)
[2017-04-13] MEDS: LUTEIN 20 MG CAPSULE PO SCH (09:14)
[2017-04-13] MEDS: MULTI-VITAMIN PLAIN TABLET PO SCH (09:14)
[2017-04-13] MEDS: FUROSEMIDE 20 MG TABLET PO SCH (09:15)
[2017-04-13] MEDS: TOPIRAMATE 25 MG TABLET PO SCH (13:02)
--- NOTE | 2017-04-13 14:25 | Progress Note ---
- Date 04/13/17 Subjective: Daniella was sitting up in her chair; c/o feeling tired and ready to get back in bed. She thinks her incision is healing well and is quite comical about how everyone tells her how great her abdomen looks. She complains of a mild headache. She is weak but not dizzy. 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 No chest pain or SOA. She has been eating well and having regular bowel movements. Objective Vital signs: Temperature 97.6 F 04/13/17 08:00 Pulse Rate 69 04/13/17 08:00 Respiratory Rate 16 04/13/17 08:00 Blood Pressure 123/68 04/13/17 08:00 Pulse Oximetry 94 04/13/17 08:00 Height/Weight/BMI: Height 1.6 m Weight 66 kg Body Mass Index 27.8 - Constitutional Present: no acute distress, well nourished, well developed - Routine HEENT Exam Head: Present: normocephalic ENT: Present: mucous membranes moist, oropharynx clear - Routine Respiratory Exam Present: CTA bilaterally - Routine Cardiovascular Exam Present: S1, S2, murmur (2-3/6) - Routine Abdominal Exam Present: normoactive bowel sounds, distended (mild) Comments: tay to lower abdominal incision intact and incision appears to be healing very well - no erythema, swelling, or drainage - Routine Extremities Exam Present: no edema, pulses intact - Routine Back/Spine/Pelvis Exam Back/Spine: Present: full ROM - Routine Musculoskeletal Exam Musculoskeletal: Present: no clubbing or cyanosis, moving extremities well - Routine Skin Exam Present: dry, warm - Routine Neurological Exam Present: alert, oriented X3, normal speech - Routine Psychiatric Exam Present: normal affect, normal thought process, cooperative Results - Labs CBC & Chem 7: 04/14/17 04:10 04/14/17 04:10 Assessment and Plan (1) Weakness Current visit: No Status: Acute (2) Acute blood loss anemia Current visit: No Status: Acute (3) Debility Current visit: No Status: Acute (4) Status post right hemicolectomy Problem details: 03/31/17, Dr. Chavez. Current visit: Yes Status: Acute Assessment and Plan: Assessment S/P right hemicolectomy on 03/31/[address] Chavez secondary to invasive adenocarcinoma of the colon, grade 2 moderately differentiated. Anemia secondary to acute blood loss - previous blood transfusion on 04/01/17 and 04/02/17. Chronic atrial fibrillation. History of breast cancer. Essential tremor. Hypertension. Congestive heart failure. Hypothyroidism. Dementia. Parkinson's disease. Cataracts. Macular degeneration. Sleep apnea. Constipation. GERD. Depression. History of urinary incontinence. History of migraine headaches. History of DVT. Plan CrCl = 50; gabapentin dosing is 200-700 mg BID. Will change gabapentin from 300 mg TID to 600 mg BID. Continue wound care per surgical team. Hgb stabilized in low 9s, last checked on 04/09/17. Repeat BMP and CBC in am. Anticoagulation contraindicated d/t rectal bleeding following surgery. Addendum by Dr. Mcbride: Seen and examined patient on same day as the above note. Agree with subjective note, physical exam, assessment and plan. Comprehensive physical findings correlate to the above note. Documented on Dragon speech to text. Efforts to correct speech recognition errors performed, but variation may exist DVT Prophylaxis: SCD's GI Prophylaxis: other (Prilosec) Resuscitation Status: Do Not Resuscitate - Physician Narrative Narrative: Date: 04/13/17 Time: 1419 Hospital Course Summary Disclaimer: The visit summary below is not to be considered part of the above Progress Note. Hospital Course: Plan - 04/05/17 (Admission) Agree with admission to IRU for continued intensive therapies and pain control per Dr. Wade. Hospitalist service consulted for medical management. Encourage participation in therapies. Provide safe and supportive environment. Acute blood loss anemia following surgery on 03/31/17. Hgb dropped to 6.8 during acute hospitalization and required 2 units PRBC. Monitor hemoglobin closely. Currently Hgb 9.1. Rectal bleeding following surgery. Patient is not a candidate for anticoagulation. SCDs for DVT prophylaxis. No bleeding noted x 24-36 hours. Monitor closely for acute bleeding. Consult Dr. Chavez for continued surgical care. Continue home medications. Recent hypotension with anemia. Blood pressure stable currently. Monitor closely. Crackles noted bilaterally in lungs. History of CHF. Will obtain orthostatic vital signs now as well as CXR for further evaluation. Patient currently on Lasix 20mg daily and may need additional diuresis. Encourage incentive spirometry for pulmonary toileting. History of pneumonia in January 2017. Patient remains afebrile. Monitor daily weight closely for signs of fluid overload. Prilosec and Carafate for GERD and GI protection. Will recheck labs on 04/07/17 to monitor blood counts, electrolytes and renal function. Upon discharge, patient's care will be returned to her PCP, Dr. Chatman. Patient wishes to be a DNR. Plan - 04/09/17 Daniella reports that she feels "blah" today and doesn't have any "peep". Nursing concerned patient appears more pale today as compared to previous days. Continue intensive therapies and pain control per Dr. Wade. Pain well controlled. Continue bowel motivation with opioid pain control. Encourage participation in therapies. Provide safe and supportive environment. Acute blood loss anemia following surgery on 03/31/17. Hgb dropped to 6.8 during acute hospitalization and required 2 units PRBC. Hgb on 04/07 was stable at 9.1. Will reassess CBC and BMP now given vague complaints and recent abdominal surgery. Rectal bleeding following surgery. Patient is not a candidate for anticoagulation. SCDs for DVT prophylaxis. No current bleeding. Monitor closely for acute bleeding. Discussed patient case with Dr. Kathy Barkley's DOPEMAN. Tay to be removed by Filippo on 04/14/17. Surgical incision remain clean, dry with tay intact. Continue to monitor. Weight trending down and breathing stable. Continue to monitor daily weight closely for signs of fluid overload. Patient currently on Lasix 20mg daily and may need additional diuresis if signs of fluid overload. Encourage incentive spirometry for pulmonary toileting. History of pneumonia in January 2017. Patient remains afebrile. Prilosec and Carafate for GERD and GI protection.
[2017-04-13] MEDS: HYDROCODONE/APAP 5mg/325mg TABLET PO PRN (19:15)
[2017-04-13] MEDS: DONEPEZIL 10 MG TABLET PO SCH (20:15)
[2017-04-13] MEDS: SIMVASTATIN 10 MG TABLET PO SCH (20:16)
[2017-04-13] MEDS: MELATONIN 5 MG TABLET PO SCH (22:22)
[2017-04-13] MEDS: ClonazePAM 0.5 MG TABLET PO SCH (22:22)
[2017-04-14] MEDS: LEVOTHYROXINE 75 MCG TABLET PO SCH (06:25)
[2017-04-14] MEDS: OMEPRAZOLE 20 MG CAPSULE PO SCH (06:25)
[2017-04-14] MEDS: HYDROCODONE/APAP 5mg/325mg TABLET PO PRN (06:25)
[2017-04-14] MEDS: DOCUSATE SODIUM 100 MG CAPSULE PO SCH ×2 (08:31→20:05)
[2017-04-14] MEDS: LUTEIN 20 MG CAPSULE PO SCH (08:31)
[2017-04-14] MEDS: SUCRALFATE 1 GM TABLET PO SCH ×2 (08:31→17:20)
[2017-04-14] MEDS: DULOXETINE 30 MG CAPSULE PO SCH ×2 (08:31→20:05)
[2017-04-14] MEDS: MULTI-VITAMIN PLAIN TABLET PO SCH (08:31)
[2017-04-14] MEDS: FUROSEMIDE 20 MG TABLET PO SCH (08:32)
[2017-04-14] MEDS: GABAPENTIN 300 MG CAPSULE PO SCH ×2 (08:37→20:05)
--- NOTE | 2017-04-14 11:13 | IRU Progress Note ---
- Subjective/Serverity of Illness Date: 04/14/17 Daniella was evaluated in her room on inpatient rehabilitation. She says that she is eating well. She reports some dyspnea and easy fatigability particularly with toileting and showering activities. However she denies any chest pain and denies lightheadedness. She has not been running a fever. She reports that her bowels are moving adequately. Brief therapy update: For occupational therapy she is ambulate with contact guard assist using a front-wheeled walker. She is bathing with standby assist. Upper body dressing is standby assist and lower body dressing contact-guard assist which is an improvement. Physical therapy she is able to ambulate over 160 feet with contact guard assist with a front-wheeled walker. Working on balance and standing up straight. Tolerates therapy well. Update on medical issues we are actively monitoring and managin. Recent right hemicolectomy with wounds in abdomen: Most the hannah have been removed. However the lower hannah are still present and there is some redness noted over the medial half of the wound. This is nontender and there is no discharge. Other wounds look fine. The abdomen remained soft. She states that the previously noted left sided abdominal pain has resolved. 2. Acute blood loss anemia: Repeat hemoglobin remained stable at 9.3. No evidence of ongoing bleeding. 3. Paroxysmal atrial fibrillation: A regular rhythm is again identified. No evidence of palpitations 4. Recent hypotension secondary to acute blood loss anemia: Blood pressures reviewed and are stable. 5. Parkinson's disease: This is stable at present. Exam Vital Signs: Temperature 98.0 F 04/14/17 07:23 Pulse Rate 81 04/14/17 07:23 Respiratory Rate 14 04/14/17 07:23 Blood Pressure 130/78 04/14/17 07:23 Pulse Oximetry 92 04/14/17 07:23 Height/Weight/BMI: Height 1.6 m Weight 65.6 kg Body Mass Index 27.8 - Constitutional Present: no acute distress, well nourished, well developed, cooperative - Routine HEENT Exam Head: Present: normocephalic Eye: Present: EOMI ENT: Present: mucous membranes moist Comments: Reduced vision continues to be a barrier. This is secondary to macular degeneration. - Routine Neck Exam Present: supple - Routine Respiratory Exam Present: dyspnea, CTA bilaterally. Absent: wheezes - Routine Cardiovascular Exam Present: RRR, S1, S2, murmur (systolic murmur noted today left sternal border.) - Routine Abdominal Exam Present: soft, normoactive bowel sounds, non distended, wound (all wounds are healing well with the exception of the lower abdominal wound. Hannah still present here. Redness over medial one half. No discharge and nontender.). Absent: tenderness - Routine Extremities Exam Present: no edema, normal capillary refill Comments: Exquisite tenderness even to light touch of ankles again identified, likely related to neuropathy. - Routine Skin Exam Present: dry, warm, wounds - Routine Neurological Exam Present: alert, oriented X3, CN II-XII intact. Absent: vision grossly intact, hearing grossly intact - Routine Psychiatric Exam Present: normal affect, cooperative IRU A/P (1) Status post right hemicolectomy Problem details: 03/31/17, Dr. Chavez. Current visit: Yes Status: Acute Bowels are moving adequately. One wound is slightly red. No discharge present. Nontender. (2) Weakness Current visit: No Status: Acute Generalized debility is improving with ambulation and ADLs. (3) Acute blood loss anemia Current visit: No Status: Acute Repeat hemoglobin remained stable at 9.3 g percent. No evidence of active bleeding. (4) Debility Current visit: No Status: Acute DVT Prophylaxis: SCD's Resuscitation Status: Do Not Resuscitate - Course Hospital Course: Neville Wade MD: 04/07/17 12:11 She is cooperative with therapy. Pain is controlled. No evidence of wound infection. Blood pressures are stable. 04/07/17 12:12 04/08/17 10:56 Progressing with therapy. Struggles with poor balance and endurance. Wounds appear to be stable without evidence of infection. 04/10/17 10:35 Hemoglobin stable. Easy fatigability noted. Heart and lung exam is unchanged and stable. She is cooperative with therapy. 04/11/17 12:44 [place] been removed. Continues to have easy fatigability but overall tolerating therapy well. No evidence of continued blood loss. 04/14/17 11:14 She is cooperative and making progress. Some dyspnea and fatigue with toileting and showering. Lower abdominal wound slightly red without discharge. [place] remain in place there. - Interventions to Obtain Goals PT Treatment Plan: Functional Activities, Gait Training, Manual Therapy, Therapeutic Exercise OT Treatment Plan: ADL (Basic Care), Balance Training, Pt./Family Education, Ther. Exercise for ADL Goals Progress/Modifications: Time spent with patient and on floor reviewing data and documentin min Barriers to dismissal: Vision, fatigability, cognition Medical decision-making: Daniella is very cooperative. She does have significant vision deficits as well as some degree of cognition deficit. That being said, she is making progress with therapy for both ADLs and ambulation. She is able to ambulate 165 feet. Appears to remain in a regular rhythm which I presume sinus. No evidence of active atrophic fibrillation nor uncontrolled response. She is having bowel movements. There is some redness noted over the medial one half of a lower abdominal wound. Hannah remain in place at that location. However there is no warmth and no discharge. We will continue to monitor this closely.
--- NOTE | 2017-04-14 11:30 | General Surgery Progress Note ---
Subjective Patient reports: no new complaints, feels better, tolerating a regular diet, voiding w/o difficulty, bowel movement Narrative: Tay from trocar sites removed last week and all incisions including the Pfannenstiel incision were without any sign of erythema. Patient is been doing well with therapy and ambulated with walker from therapy room to her room with minimal encouragement to just "stand up straight or." - Vital Signs Last Vital Signs Temp 98.0 F 04/14/17 07:23 Pulse 81 04/14/17 07:23 Resp 14 04/14/17 07:23 BP 130/78 04/14/17 07:23 Pulse Ox 92 04/14/17 07:23 - Laboratory Result Diagrams: 04/14/17 04:10 04/14/17 04:10 - Abnormal Exam Skin: Pfannenstiel incision tay intact although a 4 cm diameter area light pink with firmness beneath it. Area prepped with alcohol, 18-gauge needle and syringe used to aspirate 1 mL pussy fluid. - Normal Exam General: awake, alert, oriented Respiratory: no labored breathing Psychiatric: normal affect Assessment and Plan (1) Status post right hemicolectomy Current Visit: Yes Status: Acute Problem details: 03/31/17, Dr. Chavez. (2) Incisional abscess Current Visit: Yes Status: Acute Qualifiers: Encounter type: initial encounter Qualified Code(s): T81.4XXA - Infection following a procedure, initial encounter Assessment and plan: Small abscess of the Pfannenstiel incision, this is been opened and drained, with quarter inch ribbon gauze inserted. Depth about 1 cm, width about 1 cm. We' ll do packing changes twice a day and this is small enough that she take only 3- 5 days. Gold standard for an abscesses incision and drainage. Antibiotics will likely not be needed although culture was taken. Hospital Course Summary Disclaimer: The visit summary below is not to be considered part of the above Progress Note. Hospital Course: Plan - 04/05/17 (Admission) Agree with admission to IRU for continued intensive therapies and pain control per Dr. Wade. Hospitalist service consulted for medical management. Encourage participation in therapies. Provide safe and supportive environment. Acute blood loss anemia following surgery on 03/31/17. Hgb dropped to 6.8 during acute hospitalization and required 2 units PRBC. Monitor hemoglobin closely. Currently Hgb 9.1. Rectal bleeding following surgery. Patient is not a candidate for anticoagulation. SCDs for DVT prophylaxis. No bleeding noted x 24-36 hours. Monitor closely for acute bleeding. Consult Dr. Chavez for continued surgical care. Continue home medications. Recent hypotension with anemia. Blood pressure stable currently. Monitor closely. Crackles noted bilaterally in lungs. History of CHF. Will obtain orthostatic vital signs now as well as CXR for further evaluation. Patient currently on Lasix 20mg daily and may need additional diuresis. Encourage incentive spirometry for pulmonary toileting. History of pneumonia in January 2017. Patient remains afebrile. Monitor daily weight closely for signs of fluid overload. Prilosec and Carafate for GERD and GI protection. Will recheck labs on 04/07/17 to monitor blood counts, electrolytes and renal function. Upon discharge, patient's care will be returned to her PCP, Dr. Chatman. Patient wishes to be a DNR. Plan - 04/09/17 Daniella reports that she feels "blah" today and doesn't have any "peep". Nursing concerned patient appears more pale today as compared to previous days. Continue intensive therapies and pain control per Dr. Wade. Pain well controlled. Continue bowel motivation with opioid pain control. Encourage participation in therapies. Provide safe and supportive environment. Acute blood loss anemia following surgery on 03/31/17. Hgb dropped to 6.8 during acute hospitalization and required 2 units PRBC. Hgb on 04/07 was stable at 9.1. Will reassess CBC and BMP now given vague complaints and recent abdominal surgery. Rectal bleeding following surgery. Patient is not a candidate for anticoagulation. SCDs for DVT prophylaxis. No current bleeding. Monitor closely for acute bleeding. Discussed patient case with Dr. Kathy Barkley's MYCOLOGY TEACHER. [place] to be removed by Filippo on 04/14/17. Surgical incision remain clean, dry with tay intact. Continue to monitor. Weight trending down and breathing stable. Continue to monitor daily weight closely for signs of fluid overload. Patient currently on Lasix 20mg daily and may need additional diuresis if signs of fluid overload. Encourage incentive spirometry for pulmonary toileting. History of pneumonia in January 2017. Patient remains afebrile. Prilosec and Carafate for GERD and GI protection.
[2017-04-14] MEDS: TOPIRAMATE 25 MG TABLET PO SCH (12:21)
--- NOTE | 2017-04-14 13:34 | IRU Team Meeting ---
IRU Team Meeting - Nursing Bladder Assistive Devices Utilized:: Absorbent Pad Bladder Management Level of Assist: Stand By Assist/Supervision Bladder Frequency of Accidents: 2 accidents this shift Bowel Assistive Devices Utilized:: Medication, Absorbent Pad Bowel Management Level of Assist: Modified Independent Bowel Frequency of Accidents: 1 accident this shift Vital Signs: Vital Signs - 24 hr 04/13/17 16:00 04/14/17 00:00 04/14/17 07:23 Temperature 98.1 F 97.7 F 98.0 F Pulse Rate 86 77 81 Respiratory Rate 16 14 14 Blood Pressure 138/78 110/65 130/78 Pulse Oximetry 98 96 92 Current Medications: Acetaminophen (Tylenol) 325 - 650 mg PO Q4H PRN PRN Reason: Pain Last Admin: 04/12/17 20:08 Dose: 650 mg Hydrocodone Bitart/Acetaminophen ([place] 5/325) 1 tab PO Q6HR PRN PRN Reason: Pain Last Admin: 04/14/17 06:25 Dose: 1 tab Carbidopa/Levodopa (Sinemet) 1 tab PO NOON [facility] Last Admin: 04/14/17 12:21 Dose: 1 tab Clonazepam (Klonopin) 0.5 mg PO [facility] Last Admin: 04/13/17 22:22 Dose: 0.5 mg Docusate Sodium (Colace) 100 mg PO BID [facility] Last Admin: 04/14/17 08:31 Dose: 100 mg Donepezil HCl (Aricept) 10 mg PO [facility] Last Admin: 04/13/17 20:15 Dose: 10 mg Duloxetine HCl (Cymbalta) 30 mg PO BID [facility] Last Admin: 04/14/17 08:31 Dose: 30 mg Furosemide (Lasix) 20 mg PO DAILY [facility] Last Admin: 04/14/17 08:32 Dose: 20 mg Gabapentin (Neurontin) 600 mg PO BID [facility] Last Admin: 04/14/17 08:37 Dose: 600 mg Levothyroxine Sodium (Synthroid) 75 mcg PO ACB [facility] Last Admin: 04/14/17 06:25 Dose: 75 mcg Lutein () 20 mg PO DAILY [facility] Last Admin: 04/14/17 08:31 Dose: 20 mg Melatonin (Melatonin) 5 mg PO [facility] Last Admin: 04/13/17 22:22 Dose: 5 mg Multivitamins (Theragran) 1 tab PO DAILY [facility] Last Admin: 04/14/17 08:31 Dose: 1 tab Omeprazole (Prilosec) 20 mg PO ACB [facility] Last Admin: 04/14/17 06:25 Dose: 20 mg Potassium Chloride (K-Dur) 10 meq PO WB [facility] Last Admin: 04/14/17 08:32 Dose: 10 meq Simvastatin (Zocor) 10 mg PO HS [facility] Last Admin: 04/13/17 20:16 Dose: 10 mg Sucralfate (Carafate) 1 gm PO BIDWM [facility] Last Admin: 04/14/17 08:31 Dose: 1 gm Topiramate (Topamax) 25 mg PO NOON [facility] Last Admin: 04/14/17 12:21 Dose: 25 mg Current Medical Issues: Anemia, hypertension, wound redness Comments: I certify that I personally led the interdisciplinary team meeting and agree with comments, barriers and goals indicated. Team meeting was held in the patient's room with the patient and the following family members present: Patient's son and [id number] Ms. Juan has developed a bit of redness in the lower abdominal wound. Dr. Chavez's [employer] evaluated this today. Tay were removed and a small amount of serosanguineous material was aspirated and sent to the laboratory. Wound packing is recommended for the next several days. She remains afebrile and there is no other evidence of infection. Her blood pressure is been doing well. Her hemoglobin is stable at 9.3 approximately. No evidence of ongoing bleeding. Bowel and bladder function is stable for her. - Physical Therapy Bed, Chair, Wheelchair Transfer Assist: Contact Guard Assistance Ambulation Ability: Contact Guard Assistance Ambulation Distance: 193 Wheelchair Propulsion Ability: Maximal Assistance Wheelchair Propulsion Distance: 50 Stair Climbing Ability: Patient Unsafe/Unable Car Transfer Ability: Patient Refuses Comments: Patient is improving and remains a standby level for bed mobility and sit to stand transfers. Continues to need contact guard assistance for ambulation and goal is to advance this to standby assistance. She is becoming more confident and stable on her feet. Working on posture with ambulation as well. - Occupational Therapy Eating Ability: Independent Grooming Ability: Stand By Assist/Supervision Bathing Ability: Stand By Assist/Supervision Upper Body Dressing Ability: Stand By Assist/Supervision Lower Body Dressing Ability: Contact Guard Assistance Tub Transfer Assist: Patient Unsafe/Unable Toileting Assist: Stand By Assist/Supervision Toilet Transfer Assist: Stand By Assist/Supervision Comments: She is progressing very well with occupational therapy. She does demonstrate low endurance and kyphotic posture. - Goals Physical Therapy Goals: 04/07/17 Goals: 1.) SBA with transfers - met. 2.) 50 feet CGA - met. 04/14/17. 1.) Stand by assist for ambulation. 2.) Complete a personal car transfer with stand by assist. Occupational Therapy Goals: OT goals 04/07/17: 1.) Toileting with modified [place]. -Continue, Pt. currently requires supervision w/ vc's for safety. 2.) LB dressing with supervision. -Continue, Pt. currently requires contact guard assistance for safety. - Barriers to Discharge Barriers to Attaining Goals: Weakness, Endurance - Care Plan Anticipated Length of Stay (days): 2 Anticipated DC Destination: Home, Self Care I have led this team conference and agree with the plan. Interventions/Goals: Patient has done well with therapy. She is nearing stability to go home. Anticipate dismissal in 2 days with resumption of [facility] assistance at home.
[2017-04-14] MEDS: DONEPEZIL 10 MG TABLET PO SCH (20:06)
[2017-04-14] MEDS: SIMVASTATIN 10 MG TABLET PO SCH (20:06)
[2017-04-14] MEDS: ClonazePAM 0.5 MG TABLET PO SCH (21:56)
[2017-04-14] MEDS: MELATONIN 5 MG TABLET PO SCH (21:56)
[2017-04-15] MEDS: OMEPRAZOLE 20 MG CAPSULE PO SCH (06:08)
[2017-04-15] MEDS: LEVOTHYROXINE 75 MCG TABLET PO SCH (06:08)
[2017-04-15] MEDS: MULTI-VITAMIN PLAIN TABLET PO SCH (08:12)
[2017-04-15] MEDS: FUROSEMIDE 20 MG TABLET PO SCH (08:12)
[2017-04-15] MEDS: GABAPENTIN 300 MG CAPSULE PO SCH ×2 (08:12→21:05)
[2017-04-15] MEDS: DOCUSATE SODIUM 100 MG CAPSULE PO SCH ×2 (08:12→21:04)
[2017-04-15] MEDS: SUCRALFATE 1 GM TABLET PO SCH ×2 (08:13→17:57)
[2017-04-15] MEDS: DULOXETINE 30 MG CAPSULE PO SCH ×2 (08:13→21:05)
[2017-04-15] MEDS: LUTEIN 20 MG CAPSULE PO SCH (08:13)
--- NOTE | 2017-04-15 10:51 | IRU Progress Note ---
- Subjective/Serverity of Illness Date: 04/15/17 Ms. Juan says that she is doing well. There is some discomfort when people manipulate the lower Pfannenstiel wound. I inspected the wound. There is minimal redness. Gauze is packed. No discharge at present. She denies any dyspnea, cough or sputum. She denies any chest pain. Her appetite is good and she states that she over ate today but does not want to gain weight. I told her that she does need calories at this point I would not worry about overeating at present. She is having bowel movements. Brief therapy update: For occupational therapy she is modified independent functioning for many activities including grooming, toilet assist and toilet transfer assist. She is contact-guard for bed/chair/wheelchair transfers. Physical therapy she has done well and is standby assist for most activities. Able to ablate 193 feet with contact-guard assistance with a front-wheeled walker. Medically we are primarily following her atrial fibrillation, anemia and the lower abdominal wound superficial infection. It seems to be doing well. She is afebrile. Exam Vital Signs: Temperature 97.8 F 04/15/17 08:00 Pulse Rate 90 04/15/17 08:00 Respiratory Rate 20 04/15/17 08:00 Blood Pressure 139/71 04/15/17 08:00 Pulse Oximetry 92 04/15/17 08:00 Height/Weight/BMI: Height 1.6 m Weight 66 kg Body Mass Index 27.8 - Constitutional Present: no acute distress, well nourished, well developed, cooperative - Routine HEENT Exam Head: Present: normocephalic Eye: Present: EOMI ENT: Present: mucous membranes moist, dentition normal Comments: Reduced vision chronically secondary to macular degeneration. - Routine Neck Exam Present: supple - Routine Respiratory Exam Present: CTA bilaterally. Absent: wheezes - Routine Cardiovascular Exam Present: RRR, S1, S2. Absent: murmur - Routine Abdominal Exam Present: soft, normoactive bowel sounds, non distended, wound (all wounds look fine with exception of the Pfannenstiel wound down low. There is some redness in the surrounding area. A small defect is packed with gauze.). Absent: tenderness - Routine Extremities Exam Present: no edema. Absent: cyanosis, clubbing - Routine Skin Exam Present: dry, warm - Routine Neurological Exam Present: alert, oriented X3, CN II-XII intact. Absent: vision grossly intact, hearing grossly intact - Routine Psychiatric Exam Present: normal affect, cooperative IRU A/P (1) Status post right hemicolectomy Problem details: 03/31/17, Dr. Chavez. Current visit: Yes Status: Acute Patient seems stable after her hemicolectomy. She is eating and drinking adequately and is having bowel movements. Pain is adequately controlled. (2) Weakness Current visit: No Status: Acute She has improved nicely with therapy. She anticipates returning to her home tomorrow. (3) Acute blood loss anemia Current visit: No Status: Acute (4) Debility Current visit: No Status: Acute DVT Prophylaxis: SCD's Resuscitation Status: Do Not Resuscitate - Course Hospital Course: Neville Wade MD: 04/07/17 12:11 She is cooperative with therapy. Pain is controlled. No evidence of wound infection. Blood pressures are stable. 04/07/17 12:12 04/08/17 10:56 Progressing with therapy. Struggles with poor balance and endurance. Wounds appear to be stable without evidence of infection. 04/10/17 10:35 Hemoglobin stable. Easy fatigability noted. Heart and lung exam is unchanged and stable. She is cooperative with therapy. 04/11/17 12:44 [place] been removed. Continues to have easy fatigability but overall tolerating therapy well. No evidence of continued blood loss. 04/14/17 11:14 She is cooperative and making progress. Some dyspnea and fatigue with toileting and showering. Lower abdominal wound slightly red without discharge. Tay remain in place there. 04/15/17 10:51 Patient is doing well with therapy. Anticipate safe transition to her home environment tomorrow to be followed by hospice. - Interventions to Obtain Goals PT Treatment Plan: Functional Activities, Gait Training, Manual Therapy, Therapeutic Exercise OT Treatment Plan: ADL (Basic Care), Balance Training, Pt./Family Education, Ther. Exercise for ADL Goals Progress/Modifications: Time spent with patient and on floor reviewing data and documentin min Barriers to dismissal: balance, endurance Medical decision-making: Medically she is stable. She does have a lower wound infection which is superficial and being packed. This can be done as an outpatient by home health/hospice. She is able to eat and drink adequately. There is no fever. She is not currently on antibiotics. Gram stain demonstrated gram-positive cocci in pairs. Culture pending. Uncertain if she really needs antibiotics even at that since she is improving.
--- NOTE | 2017-04-15 11:56 | Extended Care Facility Orders ---
Admission Orders Admit to:: Hospice Allergies/Adverse Reactions: Allergies cephalexin Allergy (Unknown, Verified 03/31/17 11:22) Hives propoxyphene [From Darvocet-N] Allergy (Verified 03/31/17 11:22) Hives Sulfa (Sulfonamide Antibiotics) Allergy (Verified 03/31/17 11:22) Hives Tetanus Vaccines and Toxoid Allergy (Verified 03/31/17 11:22) Hives Admitting Diagnosis: Right hemicolectomy for colon cancer Admitting Physician: Neville Wade MD Attending Physician: Neville Wade MD Code Status: Do Not Resuscitate Anticiapted Length of Stay: greater than 30 days Rehab Potential: fair Rehab Prognosis: fair Diet: 04/04/17 Dinner Regular Diet [DIET] Diet Modifications: Wound/Incision Care: Pack lower abdominal wound with 2-3 inches of strip gauze ( not iodaform) after cleansing daily. Then place folded 4x4 with paper tape to cover wound. Do daily please. May use Facility Protocol or Standing Orders: Yes May have flu vaccine: Yes Evaluations/Treatment: as needed [facility] Certification: I certify that SNF services are not required to be given on an Inpatient basis. long-term is required for Hospice and for wound care. Indication for [facility]: Wound Care/Assessment (Please see above wound care instructions. ), Med Admininistration - Additional Information In Event of Arrest: Do Not Start CPR Resident is Aware of Diagnosis: Yes Referrals: Marya Tapia APRN [Advanced Practice Nurse] - 04/22/17 10:45 am (post op incisional wound follow up) Additional Orders: Discharge to home with hospice services through [facility].
[2017-04-15] MEDS: TOPIRAMATE 25 MG TABLET PO SCH (12:16)
[2017-04-15] MEDS: ACETAMINOPHEN 325 MG TABLET PO PRN (17:52)
[2017-04-15] MEDS: ClonazePAM 0.5 MG TABLET PO SCH (21:04)
[2017-04-15] MEDS: SIMVASTATIN 10 MG TABLET PO SCH (21:05)
[2017-04-15] MEDS: DONEPEZIL 10 MG TABLET PO SCH (21:05)
[2017-04-15] MEDS: MELATONIN 5 MG TABLET PO SCH (21:05)
[2017-04-16] MEDS: OMEPRAZOLE 20 MG CAPSULE PO SCH (05:39)
[2017-04-16] MEDS: LEVOTHYROXINE 75 MCG TABLET PO SCH (05:39)
[2017-04-16 08:36] VITALS: BP 110/67; PULSE 69; RESP 16; TEMP 98.3; O2SAT 96
--- NOTE | 2017-04-16 08:53 | General Surgery Progress Note ---
Subjective Patient reports: no new complaints, feels better, tolerating a regular diet, bowel movement Narrative: Patient tells me she is planning discharge today with assistance by hospitalist/ home care. They will be able to do her packing changes on a daily basis. She is scheduled to be back in my office on April 22 for wound evaluation. - Vital Signs Last Vital Signs Temp 98.3 F 04/16/17 08:00 Pulse 69 04/16/17 08:00 Resp 16 04/16/17 08:00 BP 110/67 04/16/17 08:00 Pulse Ox 96 04/16/17 08:00 - Laboratory Result Diagrams: 04/14/17 04:10 04/14/17 04:10 - Microbiogy Microbiology 04/14/17 11:36 Incision Gram Stain - Final 04/14/17 11:36 Incision Superficial Wound Culture - Preliminary Escherichia coli - Abnormal Exam Cardiovascular: murmur Abdominal: incision(s) (findings decision is now without any sign of erythema. Packing removed and is moist and not pussy. Wound measurement indicates it to be 1 cm in depth and 1 cm in length. the skin edges it appears the wound is granulating in nicely.) - Normal Exam General: awake, alert, oriented (sitting at the breakfast table), other (she ambulated without assistance using a walker from the breakfast table to her room.) Respiratory: no labored breathing Psychiatric: normal affect Assessment and Plan (1) Status post right hemicolectomy Current Visit: Yes Status: Suspected Problem details: 03/31/17, Dr. Chavez. (2) Incisional abscess Current Visit: Yes Status: Acute Qualifiers: Encounter type: initial encounter Qualified Code(s): T81.4XXA - Infection following a procedure, initial encounter Plan: Culture from her incisional wound did grow out Escherichia coli. No sign of active infection at this time and as we know, gold standard for abscess is incision and drainage. Wound appears to be healing nicely without antibiotics. Wound is healing in nicely, we'll continue with daily packing changes with quarter inch Nu Gauze placed loosely within the wound and covered by 2 x 2's or a folded 4 x 4. Plan on seeing her back in April 22 in the clinic office. Hospital Course Summary Disclaimer: The visit summary below is not to be considered part of the above Progress Note. Hospital Course: Plan - 04/05/17 (Admission) Agree with admission to IRU for continued intensive therapies and pain control per Dr. Wade. Hospitalist service consulted for medical management. Encourage participation in therapies. Provide safe and supportive environment. Acute blood loss anemia following surgery on 03/31/17. Hgb dropped to 6.8 during acute hospitalization and required 2 units PRBC. Monitor hemoglobin closely. Currently Hgb 9.1. Rectal bleeding following surgery. Patient is not a candidate for anticoagulation. SCDs for DVT prophylaxis. No bleeding noted x 24-36 hours. Monitor closely for acute bleeding. Consult Dr. Chavez for continued surgical care. Continue home medications. Recent hypotension with anemia. Blood pressure stable currently. Monitor closely. Crackles noted bilaterally in lungs. History of CHF. Will obtain orthostatic vital signs now as well as CXR for further evaluation. Patient currently on Lasix 20mg daily and may need additional diuresis. Encourage incentive spirometry for pulmonary toileting. History of pneumonia in January 2017. Patient remains afebrile. Monitor daily weight closely for signs of fluid overload. Prilosec and Carafate for GERD and GI protection. Will recheck labs on 04/07/17 to monitor blood counts, electrolytes and renal function. Upon discharge, patient's care will be returned to her PCP, Dr. Chatman. Patient wishes to be a DNR. Plan - 04/09/17 Daniella reports that she feels "blah" today and doesn't have any "peep". Nursing concerned patient appears more pale today as compared to previous days. Continue intensive therapies and pain control per Dr. Wade. Pain well controlled. Continue bowel motivation with opioid pain control. Encourage participation in therapies. Provide safe and supportive environment. Acute blood loss anemia following surgery on 03/31/17. Hgb dropped to 6.8 during acute hospitalization and required 2 units PRBC. Hgb on 04/07 was stable at 9.1. Will reassess CBC and BMP now given vague complaints and recent abdominal surgery. Rectal bleeding following surgery. Patient is not a candidate for anticoagulation. SCDs for DVT prophylaxis. No current bleeding. Monitor closely for acute bleeding. Discussed patient case with Dr. Kathy Barkley's IT TRAINEE. [place] to be removed by Filippo on 04/14/17. Surgical incision remain clean, dry with hannah intact. Continue to monitor. Weight trending down and breathing stable. Continue to monitor daily weight closely for signs of fluid overload. Patient currently on Lasix 20mg daily and may need additional diuresis if signs of fluid overload. Encourage incentive spirometry for pulmonary toileting. History of pneumonia in January 2017. Patient remains afebrile. Prilosec and Carafate for GERD and GI protection.
[2017-04-16] MEDS: DOCUSATE SODIUM 100 MG CAPSULE PO SCH (08:57)
[2017-04-16] MEDS: SUCRALFATE 1 GM TABLET PO SCH (08:57)
[2017-04-16] MEDS: LUTEIN 20 MG CAPSULE PO SCH (08:58)
[2017-04-16] MEDS: GABAPENTIN 300 MG CAPSULE PO SCH (08:58)
[2017-04-16] MEDS: DULOXETINE 30 MG CAPSULE PO SCH (08:58)
[2017-04-16] MEDS: MULTI-VITAMIN PLAIN TABLET PO SCH (08:58)
[2017-04-16] MEDS: FUROSEMIDE 20 MG TABLET PO SCH (08:58)
[2017-04-16] MEDS ORDERED: FALL RISK - PHARMACY CONSULT XX ONE (11:06)
[2017-04-16] MEDS: TOPIRAMATE 25 MG TABLET PO SCH (12:15)
--- NOTE | 2017-04-17 15:31 | Discharge Summary ---
Discharge Information Date of admission: 04/04/17 14:38 Anticipated date of discharge: 04/16/17 Attending Physician: Neville Wade MD Primary care physician: Viktor Chatman MD Consults: 04/04/17 15:26 Physician Consult [CONS] Routine Consulting Provider: Julianne Cardoza Reason For Exam: medical management Ordering Provider has Notified [employer]: No 04/05/17 08:54 Doctor [Physician Consult] [CONS] Routine Consulting Provider: Umair Chavez Reason For Exam: s/p right hemicolectomy Ordering Provider has Notified [employer]er: No - Discharge Diagnosis (1) Status post right hemicolectomy Status: Suspected (2) Weakness Status: Acute (3) Acute blood loss anemia Status: Acute (4) Debility Status: Acute 1. Generalized debilitation 2. 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 Acute blood loss anemia 4. Paroxysmal atrial fibrillation 5. History of hypotension, resolved 6. Benign essential hypertension - Laboratory Labs: 04/14/17 04:10 04/14/17 04:10 - Microbiology Microbiology 04/14/17 11:36 Incision Gram Stain - Final 04/14/17 11:36 Incision Superficial Wound Culture - Final Escherichia coli History of Present Illness HPI: Ms. Juan had a previously identified GI bleed. Workup for that included a colonoscopy demonstrating what appear to be adenocarcinoma of the ascending colon. She was taken to surgery by Dr. Chavez on 03/31/2017 for a robotic- assisted right hemicolectomy. 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 Lymph nodes were sampled and all were negative. Postoperatively she did develop acute blood loss anemia as well as transient hypotension. She was severely debilitated because of the above medical issues and was transferred to acute inpatient rehabilitation for a multidisciplinary approach to her recovery. Hospital Course This is a general summary of the patient's hospital course. For more details refer to the complete medical record. She was admitted to acute inpatient rehabilitation on 04/04/2017. She was followed by the hospitalist service as well as by Dr. Chavez and associate. Her wounds all looked fine initially. [place] were removed. Ultimately the Pfannenstiel incision in the lower abdomen did develop some redness. [place] were removed and a small area was aspirated. This did grow Escherichia coli. This was treated locally with packing and the area did improve with this, without the use of antibiotics. She will continue to have daily packing done at home. We monitored her blood count. Her most recent hemoglobin prior to dismissal was 9.3. Patient was seen by occupational therapy with the following functional changes identified: Eating was initially with modified independent functioning and ultimately independent. Grooming was initially standby assist and altered white modified independent. Bathing ability was initially moderate assist and ultimately standby assist. Upper body dressing was initially minimum assist and ultimately standby assistance. Lower body dressing was initially maximum assistance and ultimately standby assistance. Toileting assistance was initially maximum assistance and this improved dramatically to modified independent level. Toilet transfer assessed likewise was initially requiring maximum assistance and ultimately modified independent level. Bed/chair/ wheelchair transfers were initially performed with maximum assistance and ultimately with contact-guard assistance. Physical therapy also worked with the patient. Bed/chair/wheelchair transfers were initially with maximum assistance and ultimately with contact-guard assistance. Toileting assistance was initially with maximum assistance and ultimately with standby assistance. Toilet transfers this was initially with minimal assistance at all requiring the standby assist. The patient refused car transfers. Ambulating ability was initially with total assist with a front- wheeled walker 38 feet. Although only she could ambulate 193 feet with contact guard assist with a front-wheeled walker. Patient was felt to be stable to return to her home. She will be followed by hospice as an outpatient. She will be followed up in Dr. Chavez's office with Marya Tapia on approximately April 22. In the meantime the lower abdominal wound will be packed by the hospitalist nurse. Hospital course: Plan - 04/05/17 (Admission) Agree with admission to IRU for continued intensive therapies and pain control per Dr. Wade. Hospitalist service consulted for medical management. Encourage participation in therapies. Provide safe and supportive environment. Acute blood loss anemia following surgery on 03/31/17. Hgb dropped to 6.8 during acute hospitalization and required 2 units PRBC. Monitor hemoglobin closely. Currently Hgb 9.1. Rectal bleeding following surgery. Patient is not a candidate for anticoagulation. SCDs for DVT prophylaxis. No bleeding noted x 24-36 hours. Monitor closely for acute bleeding. Consult Dr. Chavez for continued surgical care. Continue home medications. Recent hypotension with anemia. Blood pressure stable currently. Monitor closely. Crackles noted bilaterally in lungs. History of CHF. Will obtain orthostatic vital signs now as well as CXR for further evaluation. Patient currently on Lasix 20mg daily and may need additional diuresis. Encourage incentive spirometry for pulmonary toileting. History of pneumonia in January 2017. Patient remains afebrile. Monitor daily weight closely for signs of fluid overload. Prilosec and Carafate for GERD and GI protection. Will recheck labs on 04/07/17 to monitor blood counts, electrolytes and renal function. Upon discharge, patient's care will be returned to her PCP, Dr. Chatman. Patient wishes to be a DNR. Plan - 04/09/17 Daniella reports that she feels "blah" today and doesn't have any "peep". Nursing concerned patient appears more pale today as compared to previous days. Continue intensive therapies and pain control per Dr. Wade. Pain well controlled. Continue bowel motivation with opioid pain control. Encourage participation in therapies. Provide safe and supportive environment. Acute blood loss anemia following surgery on 03/31/17. Hgb dropped to 6.8 during acute hospitalization and required 2 units PRBC. Hgb on 04/07 was stable at 9.1. Will reassess CBC and BMP now given vague complaints and recent abdominal surgery. Rectal bleeding following surgery. Patient is not a candidate for anticoagulation. SCDs for DVT prophylaxis. No current bleeding. Monitor closely for acute bleeding. Discussed patient case with Dr. Kathy Barkley's [employer]. Tay to be removed by Filippo on 04/14/17. Surgical incision remain clean, dry with tay intact. Continue to monitor. Weight trending down and breathing stable. Continue to monitor daily weight closely for signs of fluid overload. Patient currently on Lasix 20mg daily and may need additional diuresis if signs of fluid overload. Encourage incentive spirometry for pulmonary toileting. History of pneumonia in January 2017. Patient remains afebrile. Prilosec and Carafate for GERD and GI protection. Time spent with patient: greater than 35 minutes Resuscitation Status: Do Not Resuscitate Discharge Plan - Med Rec/Dispo Referrals/Follow Up: Viktor Chatman MD [Family Provider] - (Dr. Lesia Chatman on 05/05/17 at 3:00 pm for hosp. [facility] [place] [address]) Marya Tapia, [employer] [Advanced Practice Nurse] - 04/22/17 10:45 am (post op incisional wound follow up) Prescriptions: New Simvastatin [Zocor] 10 mg PO HS tab Gabapentin [Neurontin] 600 mg PO BID cap Continue Levothyroxine Sodium 75 mcg PO DAILY Furosemide [Lasix] 20 mg PO DAILY Donepezil HCl [Aricept] 10 mg PO HS Topiramate 25 mg PO NOON Melatonin 5 mg PO HS Lutein 20 mg PO DAILY Multivitamin [Multivitamins] 1 cap PO DAILY Sucralfate [Carafate] 1 gm PO BIDWM #60 tab Carbidopa/Levodopa [Carbidopa-Levo 25-250 mg Odt] 1 tab PO NOON Acetaminophen [Tylenol] 325 - 650 mg PO Q4H PRN tab PRN Reason: Pain Duloxetine [Cymbalta] 30 mg PO BID cap Potassium Chloride [K-DUR 10 mEq Tablet] 10 meq PO WB tab Omeprazole [Prilosec] 20 mg PO ACB cap Docusate Sodium [Colace] 100 mg PO BID Hydrocodone/APAP 5/325 [[place] 5/325] 1 tab PO Q6HR PRN #30 tab PRN Reason: Pain ClonazePAM [Klonopin] 0.5 mg PO HS #14 tab Discontinued Gabapentin 300 mg PO TID No Action Simvastatin [Zocor] 10 mg PO HS - Disposition 50 Discharged To Hospice-Home
--- NOTE | 2017-04-17 15:34 | Letter to Referring Physician ---
Dear Dr. Chatman, This is a brief note to bring you up-to-date on the status of Daniella Juan and her stay on the acute inpatient rehabilitation unit at [facility]. As you are likely aware, this patient was admitted to the acute care hospital on March 31, 2017 for robotic-assisted right hemicolectomy for Grade 2 Invasive adenocarcinoma of the ileocecal valve area. The patient was stabilized while on the acute level and admitted to inpatient rehabilitation unit at [facility] on April 04, 2017. While on inpatient rehabilitation, this patient was seen by occupational therapy and physical therapy and improved overall in their functional ability. We also monitored and managed the patient's acute blood loss anemia while on Acute Rehab. Please see a copy of the history and physical examination as well as discharge summary enclosed with this letter for further details. All the wounds healed up fine with the exception of the lower Pfannenstiel incision. This did develop a small area of superficial fluid collection and redness. [place] were removed and this was aspirated. The fluid grew Escherichia coli. Marya Tapia APRN with Dr. Chavez recommended local packing and this was initiated during her stay on IRU and will be continued as an outpatient by the hospice nurses. In addition, she will be followed up by Marya Tapia on approximately April 22 in this regard. Thank you for allowing us to be involved in this nice patient's care. Please contact me directly should you have any questions regarding their stay on the inpatient rehabilitation unit. Sincerely, Neville Wade M.D.
== END 2017-04-16 13:35 | disposition hospice, home (50) | DRG 945 ==
PROVIDERS: ADMIT Internal Medicine; ATTEND Internal Medicine